=== PATIENT | male | born 1975 ===

== ENCOUNTER 2016-11-27 05:50 | Inpatient (IN) | payer MEDICAID ==
[2016-11-27 05:56] VITALS: BMI 27.4
[2016-11-27] MEDS ORDERED: Morphine 4 mg/ml ISec IVP STA (06:21)
[2016-11-27] MEDS ORDERED: Sodium Chloride 0.9% 1,000 ML IV STA (06:21)
--- NOTE | 2016-11-27 06:24 | ED PDOC ---
Arrival/HPI - General Chief Complaint: Abdominal Pain Time Seen by Provider: 11/27/16 06:17 - History of Present Illness Narrative History of Present Illness (Text): 41 y/o M c PMHx recurrent pancreatitis, pancreas divisum, s/p cholecystectomy p/ w epigastric pain and NBNB vomiting x 4 since last night similar to previous episodes of pancreatitis. Took Ultram 10 hours ago. Denies fever, chills, chest pain, dyspnea, diarrhea, dysuria. Denies alcohol use. Past Medical History - Infectious Disease Hx of Infectious Diseases: None - Tetanus Immunization Tetanus Immunization: Unknown - Reproductive Currently : No - Cardiac Hx Pacemaker: No - Pulmonary Hx Respiratory Disorders: Yes Hx Asthma: Yes - Neurological Hx Paralysis: No - HEENT Hx HEENT Disorder: No - Renal Hx Renal Disorder: No - Endocrine/Metabolic Hx Endocrine Disorders: No - Hematological/Oncological Hx Blood Transfusions: No Hx Blood Transfusion Reaction: No - Integumentary Hx Dermatological Disorder: No - Musculoskeletal/Rheumatological Hx Musculoskeletal Disorders: Yes Hx Spinal Stenosis: Yes - Gastrointestinal Hx Gastrointestinal Disorders: Yes Hx Colitis: Yes Hx Pancreatitis: Yes - Genitourinary/Gynecological Hx Genitourinary Disorders: No - Psychiatric Hx Emotional Abuse: No Hx Physical Abuse: No Hx Substance Use: Yes - Surgical History Hx Cholecystectomy: Yes Other/Comment: "stent in pancreas" - Anesthesia Hx Anesthesia: Yes Hx Anesthesia Reactions: No Hx Malignant Hyperthermia: No - Suicidal Assessment Feels Threatened In Home Enviroment: No Family/Social History Family/Social History: No Known Family HX Smoking Status: Former Smoker Hx Alcohol Use: No Hx Substance Use: Yes Substance used: marijuana Allergies/Home Meds Allergies/Adverse Reactions: Allergies No Known Allergies Allergy (Verified 10/30/16 08:39) Home Medications: Home Meds Medication Instructions Recorded Confirmed oxyCODONE/Acetaminophen [Percocet 1 tab PO PRN PRN 09/21/16 11/27/16 5/325 mg Tab] Albuterol Sulfate [Proventil Hfa] 2 puff INH Q6H PRN 09/29/16 11/27/16 Lipase/Protease/Amylase [Zenpep Dr 1 cap PO TID 09/29/16 11/27/16 25,000 Units Capsule] Review of Systems - Physician Review All systems were reviewed & negative as marked: Yes - Review of Systems Constitutional: absent: Fevers Cardiovascular: absent: Chest Pain Physical Exam Vital Signs Temp Pulse Resp BP Pulse Ox 11/27/16 09:12 64 18 132/76 97 11/27/16 05:59 98.6 F 67 18 140/88 98 Temperature: Afebrile Blood Pressure: Normal Pulse: Regular Respiratory Rate: Normal Appearance: Positive for: Well-Appearing, Non-Toxic Mental Status: Positive for: Alert and Oriented X 3 - Systems Exam Head: Present: Normocephalic Pupils: Present: PERRL Mouth: Present: Moist Mucous Membranes Neck: Present: Normal Range of Motion Respiratory/Chest: Present: Clear to Auscultation Cardiovascular: Present: Regular Rate and Rhythm Abdomen: Present: Tenderness (epigastric). No: Rebound Back: No: CVA Tenderness Upper Extremity: Present: NORMAL PULSES Lower Extremity: No: Tenderness, Swelling Neurological: Present: GCS=15 Skin: Present: Normal Color Psychiatric: Present: Alert Medical Decision Making ED Course and Treatment: Morphine for pain, Zofran for vomiting, hydrate, check labs including amylase, lipase, and LDH. Will sign out to ER day team at change of shift. - Lab Interpretations Lab Results: 11/27/16 06:20 11/27/16 06:20 Lab Results 11/27/16 07:00: Alcohol, Quantitative < 10 11/27/16 06:20: Sodium 139, Potassium 4.3, Chloride 101, Carbon Dioxide 32, Anion Gap 10, BUN 12, Creatinine 1.0, Est GFR ( Amer) > 60, Est GFR (Non- Af Amer) > 60, Random Glucose 86, Calcium 9.3, Total Bilirubin 0.4, AST 25, ALT 35, Alkaline Phosphatase 68, Lactate Dehydrogenase 365, Total Protein 6.9, Albumin 3.8, Globulin 3.2, Albumin/Globulin Ratio 1.2, Amylase 324 H, Lipase 910 H 11/27/16 06:20: WBC 11.1 H D, RBC 4.85, Hgb 15.0, Hct 44.3, MCV 91.3, MCH 30.9, MCHC 33.9, RDW 13.9, Plt Count 325, MPV 9.4, Gran % 66.8, Lymph % (Auto) 20.8 L , [place] % (Auto) 7.3 H, Eos % (Auto) 4.8, Baso % (Auto) 0.3, Gran # 7.41 H, Lymph # 2.3, [place] # 0.8 H, Eos # 0.5, Baso # 0.03 - Medication Orders Current Medication Orders: Enoxaparin Sodium (Lovenox) 30 mg SC DAILY [facility] PRN Reason: Protocol Last Admin: 11/27/16 11:09 Dose: 30 mg Lactated Ringer's (Lactated Ringer's) 1,000 mls @ 200 mls/hr IV .Q5H [facility] Last Admin: 11/28/16 06:02 Dose: 200 mls/hr Morphine Sulfate (Morphine) 4 mg IV Q4H PRN PRN Reason: Pain, moderate (4-7) Last Admin: 11/28/16 05:39 Dose: 4 mg Morphine Sulfate (Morphine) 2 mg IVP Q4H PRN PRN Reason: Pain, Mild (1-3) Ondansetron HCl (Zofran Inj) 4 mg IVP Q6 PRN PRN Reason: Nausea/Vomiting Last Admin: 11/28/16 05:39 Dose: 4 mg Pantoprazole Sodium (Protonix Inj) 40 mg IVP DAILY [facility] Last Admin: 11/27/16 11:09 Dose: 40 mg Discontinued Medications Amylase (Pancrease 30012 U-5000 U-59813 U) 55,000 u PO AC [facility] Last Admin: 11/27/16 17:34 Dose: Amylase (Pancrease 37187 U-5000 U-32407 U) 35,000 u PO ONCE ONE Stop: 11/27/16 13:01 Last Admin: 11/27/16 13:48 Dose: 35,000 u Sodium Chloride (Sodium Chloride 0.9%) 1,000 mls @ 999 mls/hr IV .Q1H1M STA Stop: 11/27/16 07:21 Last Admin: 11/27/16 06:28 Dose: 999 mls/hr Sodium Chloride (Sodium Chloride 0.9%) 1,000 mls @ 100 mls/hr IV .Q10H [facility] Last Admin: 11/27/16 09:19 Dose: 100 mls/hr Morphine Sulfate (Morphine) 4 mg IVP STAT STA Stop: 11/27/16 06:22 Last Admin: 11/27/16 06:28 Dose: 4 mg Morphine Sulfate (Morphine) 6 mg IVP STAT STA Stop: 11/27/16 08:01 Last Admin: 11/27/16 09:00 Dose: 6 mg Ondansetron HCl (Zofran Inj) 8 mg IVP STAT STA Stop: 11/27/16 06:22 Last Admin: 11/27/16 06:28 Dose: 8 mg Pneumococcal Polyvalent Vaccine (Pneumovax 23 Vaccine) 0.5 ml IM .ONCE ONE Stop: 11/27/16 14:23 Disposition/Present on Arrival - Present on Arrival Any Indicators Present on Arrival: No History of DVT/PE: No History of Uncontrolled Diabetes: No Urinary Catheter: No History of Decub. Ulcer: No History Surgical Site Infection Following: None - Disposition Have Diagnosis and Disposition been Completed?: Yes Diagnosis: Pancreatitis Disposition Time: 07:00 Patient Problems: Current Active Problems Problem Status Onset Pancreatitis Acute Condition: FAIR
[2016-11-27 06:25] LABS: ADD MANUAL DIFF? NO
[2016-11-27 06:34] LABS: BASO # 0.03 K/mm3 (0.0-2.0); BASO % 0.3 % (0.0-3.0); EOS # 0.5 (0.0-0.7); EOS % 4.8 % (1.5-5.0); GRAN # 7.41 (1.4-6.5); GRAN % 66.8 % (50.0-68.0); HEMATOCRIT 44.3 % (42.0-52.0); LYMPH # 2.3 (1.2-3.4); LYMPH % 20.8 % (22.0-35.0); MEAN CELL VOLUME 91.3 fL (80.0-105.0); MEAN CORPUSCULAR HEMOGLOBIN 30.9 pg (25.0-35.0); MEAN CORPUSCULAR HGB CONC 33.9 g/dl (31.0-37.0); MEAN PLATELET VOLUME 9.4 fl (7.0-11.0); MONO # 0.8 (0.1-0.6); MONO % 7.3 % (1.0-6.0); PLATELET COUNT 325 10^3/uL (120.0-450.0); RED CELL DISTRIBUTION WIDTH 13.9 % (11.5-14.5); WHITE BLOOD COUNT 11.1 10^3/ul (4.5-11.0)
[2016-11-27 06:38] LABS: ALB/GLOB RATIO 1.2 (1.1-1.8); ALKALINE PHOSPHATASE 68 U/L (38-133); ALT/SGPT 35 U/L (7-56); AMYLASE 324 U/L (35-125); AST/SGOT 25 U/L (15-59); BILIRUBIN,TOTAL 0.4 mg/dL (0.2-1.3); BLOOD UREA NITROGEN 12 mg/dL (7-21); CALCIUM 9.3 mg/dL (8.4-10.5); CARBON DIOXIDE 32 mmol/L (21-33); CHLORIDE 101 mmol/L (98-107); GFR AFRICAN-AMERICAN > 60; GLUCOSE,RANDOM 86 mg/dL (70-110); LIPASE 910 U/L (23-300); POTASSIUM 4.3 mmol/L (3.6-5.0); SODIUM 139 mmol/L (132-148); TOTAL PROTEIN 6.9 g/dL (5.8-8.3)
--- NOTE | 2016-11-27 07:21 | ED PDOC ---
Physical Exam Vital Signs Reviewed: Yes Vital Signs Temp Pulse Resp BP Pulse Ox 11/27/16 05:59 98.6 F 67 18 140/88 98 Temperature: Afebrile Blood Pressure: Normal Pulse: Regular Respiratory Rate: Normal Medical Decision Making ED Course and Treatment: 11/27/16 07:15 Patient signed out to me by Dr. Anton. Pending re-evaluate patients pain and disposition. Patient with a history of recurrent pancreatitis and pancreas divisum presented with epigastric pain similar to previous pancreatitis symptoms. 11/27/16 08:00 On reevaluation, patient states that his pain is not better with medication, states that he does not feel comfortable being discharged home and that he usually gets admitted when pain gets this bad. Hospitalist paged. More pain medications ordered. 11/27/16 08:[address] Mccarthy, accepted admission to his service pt aware of and agrees with plan, all questions answered - Lab Interpretations Lab Results: 11/27/16 06:20 11/27/16 06:20 Lab Results 11/27/16 06:20: Sodium 139, Potassium 4.3, Chloride 101, Carbon Dioxide 32, Anion Gap 10, BUN 12, Creatinine 1.0, Est GFR ( Amer) > 60, Est GFR (Non- Af Amer) > 60, Random Glucose 86, Calcium 9.3, Total Bilirubin 0.4, AST 25, ALT 35, Alkaline Phosphatase 68, Lactate Dehydrogenase 365, Total Protein 6.9, Albumin 3.8, Globulin 3.2, Albumin/Globulin Ratio 1.2, Amylase 324 H, Lipase 910 H 11/27/16 06:20: WBC 11.1 H D, RBC 4.85, Hgb 15.0, Hct 44.3, MCV 91.3, MCH 30.9, MCHC 33.9, RDW 13.9, Plt Count 325, MPV 9.4, Gran % 66.8, Lymph % (Auto) 20.8 L , [place] % (Auto) 7.3 H, Eos % (Auto) 4.8, Baso % (Auto) 0.3, Gran # 7.41 H, Lymph # 2.3, [place] # 0.8 H, Eos # 0.5, Baso # 0.03 - Medication Orders Current Medication Orders: Discontinued Medications Sodium Chloride (Sodium Chloride 0.9%) 1,000 mls @ 999 mls/hr IV .Q1H1M STA Stop: 11/27/16 07:21 Last Admin: 11/27/16 06:28 Dose: 999 mls/hr Morphine Sulfate (Morphine) 4 mg IVP STAT STA Stop: 11/27/16 06:22 Last Admin: 11/27/16 06:28 Dose: 4 mg Morphine Sulfate (Morphine) 6 mg IVP STAT STA Stop: 11/27/16 08:01 Ondansetron HCl (Zofran Inj) 8 mg IVP STAT STA Stop: 11/27/16 06:22 Last Admin: 11/27/16 06:28 Dose: 8 mg Disposition/Present on Arrival - Present on Arrival Any Indicators Present on Arrival: No History of DVT/PE: No History of Uncontrolled Diabetes: No Urinary Catheter: No History of Decub. Ulcer: No History Surgical Site Infection Following: None - Disposition Have Diagnosis and Disposition been Completed?: Yes Diagnosis: Pancreatitis Disposition: HOSPITALIZED Disposition Time: 08:00 Patient Plan: Admission Condition: FAIR Referrals: Indra Hdez, ROBERTA, MICROBIOLOGY ANALYST [Primary Care Provider] - Follow up with primary
[2016-11-27] MEDS ORDERED: Morphine 2 mg/ml ISec IVP PRN ×2 (09:10→12:43)
[2016-11-27] MEDS ORDERED: Sodium Chloride 0.9% 1,000 ML IV SCH (09:15)
--- NOTE | 2016-11-27 09:41 | CP.PCM.HP ---
<Vianca Hamilton - Last Filed: 11/27/16 12:56> History of Present Illness - History of Present Illness History of Present Illness: CC: epigastric pain 41 year old male with past medical history of recurrent pancreatitis, pancreas divisum, asthma and chronic back pain presents with epigastric pain that began last night. Patient states that pain radiates straight back, is associated with 4 episodes of nonbloody nonbilious vomiting, and 3 episodes of loose watery stool. Patient denies having any hematohezia or hematemesis. Patient denies having any fevers, chills, sick contacts or eating anything out of the ordinary. Patient states that pain feels similar to previous episodes of pancreatitis. Patient has complicated history of pancreatitis. Patient had MRCP done on 04/2016 which showed a pancreatic divisum. He then had an ERCP done in 05/2016 with a stent placed. A repeat ERCP was on 09/21/[address] Garcia. At that time, patient had stent replaced and a minor papillotomy done. PMHx; stated above Sx: cholecystectomy NKDA Medications: pancreatic enzymes, ultram, zofran po, pepcid PMD: Dr. Cleve Wang GI: Dr. Garcia Former smoker, quit 2.5 months ago. Occasional merijuana use. Denies ETOH use Present on Admission - Present on Admission Any Indicators Present on Admission: No Review of Systems - Review of Systems All systems: reviewed and no additional remarkable complaints except Past Patient History - Infectious Disease Hx of Infectious Diseases: None - Tetanus Immunizations Tetanus Immunization: Unknown - Past Social History Smoking Status: Former Smoker Chewing Tobacco Use: No Cigar Use: No Alcohol: None Drugs: Cannabis - CARDIAC Hx Pacemaker: No - PULMONARY Hx Respiratory Disorders: Yes Hx Asthma: Yes - NEUROLOGICAL Hx Paralysis: No - HEENT Hx HEENT Problems: No - RENAL Hx Chronic Kidney Disease: No - ENDOCRINE/METABOLIC Hx Endocrine Disorders: No - HEMATOLOGICAL/ONCOLOGICAL Hx Blood Transfusions: No Hx Blood Transfusion Reaction: No - INTEGUMENTARY Hx Dermatological Problems: No - MUSCULOSKELETAL/RHEUMATOLOGICAL Hx Musculoskeletal Disorders: Yes Hx Spinal Stenosis: Yes - GASTROINTESTINAL Hx Gastrointestinal Disorders: Yes Hx Colitis: Yes Hx Pancreatitis: Yes - GENITOURINARY/GYNECOLOGICAL Hx Genitourinary Disorders: No - PSYCHIATRIC Hx Emotional Abuse: No Hx Physical Abuse: No Hx Substance Use: Yes - SURGICAL HISTORY Hx Cholecystectomy: Yes Other/Comment: "stent in pancreas" - ANESTHESIA Hx Anesthesia: Yes Hx Anesthesia Reactions: No Hx Malignant Hyperthermia: No Meds Allergies/Adverse Reactions: Allergies Allergy/AdvReac Type Severity Reaction Status Date / Time No Known Allergies Allergy Verified 10/30/16 08:39 Physical Exam - Constitutional Appears: Non-toxic, No Acute Distress - Head Exam Head Exam: ATRAUMATIC - Eye Exam Eye Exam: EOMI - ENT Exam ENT Exam: Mucous Membranes Moist - Respiratory Exam Respiratory Exam: Clear to Auscultation Bilateral. absent: Rales, Rhonchi, Wheezes - Cardiovascular Exam Cardiovascular Exam: REGULAR RHYTHM, +S1, +S2. absent: Diastolic murmur, Gallop , Rubs, Systolic Murmur - GI/Abdominal Exam GI & Abdominal Exam: Normal Bowel Sounds, Soft, Tenderness (epigastric region ) . absent: Distended, Firm, Guarding, Rigid - Extremities Exam Extremities exam: Negative for: pedal edema, tenderness - Neurological Exam Neurological exam: Alert, Oriented x3 - Psychiatric Exam Psychiatric exam: Normal Affect, Normal Mood - Skin Skin Exam: Dry, Intact, Normal Color, Warm Results - Vital Signs Recent Vital Signs: Last Vital Signs Temp 98.6 F 11/27/16 05:59 Pulse 64 11/27/16 09:12 Resp 18 11/27/16 09:12 BP 132/76 11/27/16 09:12 Pulse Ox 97 11/27/16 09:12 - Labs Result Diagrams: 11/27/16 06:20 11/27/16 06:20 Assessment & Plan - Assessment and Plan (Free Text) Assessment: 41 year old male with past medical history of recurrent diverticulitis, pancreatic divisum, s/p cholcystectomy, asthma and chronic back pain presents for pancreatitis most likely from recent ERCP procedure. Patient does not have history of ETOH abuse or history of gallstones. Lipid panel checked on 04/2016 showed normal levels. On blood work, lipase is 910 and amylase is 324. WBC count is 11.1, glucose was 86, AST is 25 and LDH is 365. Therefore, Ransons criteria is 2 which is <5% mortality. Acute pancreatits - NPO - LR 200cc - Pain management: morphine2 q4 mild pain and 4q4 moderate pain - Zofran prn for nausea - Will consult GI - Will check UDS and ETOH level - Continue home pancreatic enzymes. [place] [id number]. Patient will bring this medication from home and will continue it while in hospital. Mean while, for lunch patient will get one time dose of pancreatic enzyme here. Hx of asthma - Stable. Will give breathing treatments if needed Prophylaxis Protonix IV Lovenox 30 sc Case discussed with attending, Dr. Vila - Date & Time Date: 11/27/16 Time: 09:52 <Madhu Vila - Last Filed: 11/28/16 14:02> Results - Vital Signs Recent Vital Signs: Last Vital Signs Temp 97.9 F 11/28/16 07:30 Pulse 57 L 11/28/16 07:30 Resp 16 11/28/16 07:30 BP 115/68 11/28/16 07:30 Pulse Ox 99 11/28/16 07:30 - Labs Result Diagrams: 11/28/16 06:54 11/28/16 06:54 Labs: Laboratory Results - last 24 hr 11/27/16 11/28/16 11/28/16 21:05 06:54 06:54 WBC 9.0 RBC 4.50 Hgb 13.5 L Hct 40.9 L MCV 90.9 MCH 30.0 MCHC 33.0 RDW 14.0 Plt Count 268 MPV 9.2 Gran % 56.0 Lymph % (Auto) 28.1 [place] % (Auto) 9.1 H Eos % (Auto) 6.6 H Baso % (Auto) 0.2 Gran # 5.05 Lymph # 2.5 [place] # 0.8 H Eos # 0.6 Baso # 0.02 PT 11.4 INR 1.06 APTT 31.2 H Sodium Potassium Chloride Carbon Dioxide Anion Gap BUN Creatinine Est GFR ( Amer) Est GFR (Non-Af Amer) Random Glucose Calcium Total Bilirubin AST ALT Alkaline Phosphatase Total Protein Albumin Globulin Albumin/Globulin Ratio Urine Opiates Screen Positive H Urine Methadone Screen Negative Ur Barbiturates Screen Negative Ur Phencyclidine Scrn Negative Ur Amphetamines Screen Negative U Benzodiazepines Scrn Negative U Oth Cocaine Metabols Positive H U Cannabinoids Screen Positive H 11/28/16 06:54 WBC RBC Hgb Hct MCV MCH MCHC RDW Plt Count MPV Gran % Lymph % (Auto) [place] % (Auto) Eos % (Auto) Baso % (Auto) Gran # Lymph # [place] # Eos # Baso # PT INR APTT Sodium 137 Potassium 3.8 Chloride 102 Carbon Dioxide 30 Anion Gap 9 L BUN 6 L Creatinine 0.9 Est GFR ( Amer) > 60 Est GFR (Non-Af Amer) > 60 Random Glucose 77 Calcium 8.8 Total Bilirubin 0.9 AST 32 ALT 53 Alkaline Phosphatase 75 Total Protein 6.2 Albumin 3.1 Globulin 3.1 Albumin/Globulin Ratio 1.0 L Urine Opiates Screen Urine Methadone Screen Ur Barbiturates Screen Ur Phencyclidine Scrn Ur Amphetamines Screen U Benzodiazepines Scrn U Oth Cocaine Metabols U Cannabinoids Screen Attending/Attestation - Attestation I have personally seen and examined this patient.: Yes I have fully participated in the care of the patient.: Yes I have reviewed all pertinent clinical information: Yes Notes (Text): I have seen and examined patient with the resident. This is 41 year old male with history of chronic pancreatitis secondary to pancreatic divism s/p minor papillotomy/sphincterotomy/stent placement 05/2016, stent removal 06/2016, and Polysubstance abuse (opioids, cocaine & marijuana) who got admitted for evaluation of abdominal pain, nausea and vomiting secondary to chronic pancreatitis. Discussed with GI team. Will make patient npo and will start IVF, antiemetics and analgesics. Upon discharge patient will follow up with Dr Hdez and Dr Garcia. Dr Madhu Vila
[2016-11-27] MEDS: Enoxaparin 30 mg Syringe SC SCH (11:09)
[2016-11-27] MEDS ORDERED: Amylase/Lipase/Protease 5,000 U ECC PO SCH (11:30)
--- NOTE | 2016-11-27 11:54 | CP.PCM.CON ---
History of Present Illness - History of Present Illness History of Present Illness: Asked by hospitalist team for a GI consultation on this patient. 41 year old male with history of chronic pancreatitis secondary to pancreatic divisum, polysubstance abuse, who presents to hospital with complaint of sudden onset abdominal pain and vomiting which began yesterday at 8 pm. He ate brown rice and salmon for dinner and subsequently developed sharp 8/10 intensity epigastric non-radiating abdominal pain along with 3 episodes of non-bloody emesis. Prior to this he was in usual state of health. He recently underwent EGD and PD stent removal last month with Dr. Garcia. He denies fever/chills, weight loss, sick contacts, or change in bowel habits. Since arrival to hospital, his pain has slightly improved and there has not been any recurrent vomiting. Review of vitals from today are normal. Social history: no ETOH use, occasional marijuana use, currently on nicotine patch Family history: pancreatic cancer (grandfather), colon cancer (uncle) Review of Systems - Review of Systems Review of Systems: - All other comprehensive 12 point review of systems performed, negative - Cardiovascular Cardiovascular: absent: Acrocyanosis, Chest Pain, Chest Pain at Rest, Chest Pain with Activity, Claudication, Diaphoresis, Dyspnea, Dyspnea on Exertion, Edema, Irregular Heart Rhythm, Pain Radiating to Arm/Neck/Jaw, Leg Edema, Leg Ulcers, Lightheadedness, Orthopnea, Palpitations, Paroxysmal Nocturnal Dyspnea, Pedal Edema, Radiating Pain, Rapid Heart Rate, Slow Heart Rate, Syncope, Other - Respiratory Respiratory: absent: Cough, Dyspnea, Hemoptysis, Dyspnea on Exertion, Wheezing, Snoring, Stridor, Pain on Inspiration, Chest Congestion, Excessive Mucous Production, Change in Mucous Color, Pain with Coughing, Other - Gastrointestinal Gastrointestinal: Abdominal Pain, Vomiting - Musculoskeletal Musculoskeletal: absent: Abnormal Gait, Arthralgias, Atrophy, Back Pain, Deformity, Joint Swelling, Limited Range of Motion, Loss of Height, Muscle Cramps, Muscle Weakness, Myalgias, Neck Pain, Numbness, Radiating Pain into Limb , Stiffness, Tingling, Other - Neurological Neurological: absent: Abnormal Gait, Abnormal Hearing, Abnormal Movements, Abnormal Speech, Behavioral Changes, Burning Sensations, Confusion, Convulsions , Disequilibrium, Dizziness, Numbness, Focal Weakness, Frequent Falls, Headaches , Lack of Coordination, Loss of Vision, Memory Loss, Paresthesias, Radicular Pain, Restless Legs, Sensory Deficit, Syncope, Tingling, Tremor, Vertigo, Weakness, Other Visual Disturbances, Other Past Patient History - Infectious Disease Hx of Infectious Diseases: None - Tetanus Immunizations Tetanus Immunization: Unknown - Past Medical History & Family History Past Medical History?: Yes - Past Social History Smoking Status: Former Smoker Chewing Tobacco Use: No Cigar Use: No Alcohol: None Drugs: Cannabis - CARDIAC Hx Pacemaker: No - PULMONARY Hx Respiratory Disorders: Yes Hx Asthma: Yes - NEUROLOGICAL Hx Paralysis: No - HEENT Hx HEENT Problems: No - RENAL Hx Chronic Kidney Disease: No - ENDOCRINE/METABOLIC Hx Endocrine Disorders: No - HEMATOLOGICAL/ONCOLOGICAL Hx Blood Transfusions: No Hx Blood Transfusion Reaction: No - INTEGUMENTARY Hx Dermatological Problems: No - MUSCULOSKELETAL/RHEUMATOLOGICAL Hx Musculoskeletal Disorders: Yes Hx Spinal Stenosis: Yes - GASTROINTESTINAL Hx Gastrointestinal Disorders: Yes Hx Colitis: Yes Hx Pancreatitis: Yes - GENITOURINARY/GYNECOLOGICAL Hx Genitourinary Disorders: No - PSYCHIATRIC Hx Emotional Abuse: No Hx Physical Abuse: No Hx Substance Use: Yes - SURGICAL HISTORY Hx Cholecystectomy: Yes Other/Comment: "stent in pancreas" - ANESTHESIA Hx Anesthesia: Yes Hx Anesthesia Reactions: No Hx Malignant Hyperthermia: No Meds Allergies/Adverse Reactions: Allergies Allergy/AdvReac Type Severity Reaction Status Date / Time No Known Allergies Allergy Verified 10/30/16 08:39 - Medications Medications: Current Medications Amylase (Pancrease 20607 U-5000 U-15741 U) 55,000 u PO AC COUNTS INCLUDE 234 BEDS AT [facility] Enoxaparin Sodium (Lovenox) 30 mg SC DAILY COUNTS INCLUDE 234 BEDS AT THE [facility] PRN Reason: Protocol Last Admin: 11/27/16 11:09 Dose: 30 mg Sodium Chloride (Sodium Chloride 0.9%) 1,000 mls @ 100 mls/hr IV .Q10H COUNTS INCLUDE 234 BEDS AT [facility] Last Admin: 11/27/16 09:19 Dose: 100 mls/hr Morphine Sulfate (Morphine) 4 mg IVP Q4 PRN PRN Reason: Pain, Mild (1-3) Ondansetron HCl (Zofran Inj) 4 mg IVP Q6 PRN PRN Reason: Nausea/Vomiting Pantoprazole Sodium (Protonix Inj) 40 mg IVP DAILY COUNTS INCLUDE 234 BEDS AT [facility] Last Admin: 11/27/16 11:09 Dose: 40 mg Physical Exam - Constitutional Appears: Non-toxic, No Acute Distress - Head Exam Head Exam: NORMAL INSPECTION - Eye Exam Eye Exam: EOMI, Normal appearance, PERRL - ENT Exam ENT Exam: Mucous Membranes Moist Additional comments: poor dentition, several missing/decayed teeth - Respiratory Exam Respiratory Exam: Clear to Auscultation Bilateral - Cardiovascular Exam Cardiovascular Exam: REGULAR RHYTHM, +S1, +S2 - GI/Abdominal Exam GI & Abdominal Exam: Normal Bowel Sounds, Soft, Tenderness Additional comments: mild epigastric tenderness to deep palpation, no rebound/guarding no palpable hepato/splenomegaly - Extremities Exam Extremities exam: Positive for: normal inspection - Neurological Exam Neurological exam: Alert, CN II-XII Intact, Normal Gait, Oriented x3, Reflexes Normal - Psychiatric Exam Psychiatric exam: Normal Affect, Normal Mood - Skin Skin Exam: Dry, Intact, Normal Color, Warm Results - Vital Signs Recent Vital Signs: Last Vital Signs Temp 98.6 F 11/27/16 05:59 Pulse 64 11/27/16 09:12 Resp 18 11/27/16 09:12 BP 132/76 11/27/16 09:12 Pulse Ox 97 11/27/16 09:12 - Labs Result Diagrams: 11/27/16 06:20 11/27/16 06:20 Assessment & Plan - Assessment and Plan (Free Text) Assessment: Chronic pancreatitis Pancreatic divisum, recent EGD with removal of PD stent last month. Prior history of ERCP with papillotomy. Polysubstance abuse Abdominal pain, vomiting Plan: - Clear liquid diet, advance slowly as tolerated - Obtain serum tox screen - Continue with IVF hydration and supportive care - Anti-emetic therapy PRN - Pain control - Continue with pancreatic enzyme replacement therapy - Will continue to monitor patient clinical course, anticipate hospital discharge within next 24-48 hours. Given recurrent episodes of abdominal pain and pancreatitis, will need to arrange for custodial strategy including potential surgical intervention. Will discuss with Dr. Garcia.
[2016-11-27] MEDS ORDERED: Morphine 4 mg/ml ISec IVP PRN (12:42)
[2016-11-27] MEDS ORDERED: Amylase/Lipase/Protease 5,000 U ECC PO ONE (13:00)
[2016-11-27] MEDS: Lactated Ringer's 1,000 ML IV SCH ×2 (13:47→17:35)
[2016-11-27] MEDS: Morphine 4 mg/ml ISec IV PRN ×2 (13:48→20:25)
[2016-11-27] MEDS ORDERED: Pneumococcal 23-Valent Vaccine IM ONE (14:22)
[2016-11-28] MEDS: Lactated Ringer's 1,000 ML IV SCH ×4 (00:30→18:56)
[2016-11-28] MEDS: Morphine 4 mg/ml ISec IV PRN (05:39)
[2016-11-28 06:56] LABS: ADD MANUAL DIFF? NO
[2016-11-28 07:09] LABS: BASO # 0.02 K/mm3 (0.0-2.0); BASO % 0.2 % (0.0-3.0); EOS # 0.6 (0.0-0.7); EOS % 6.6 % (1.5-5.0); GRAN # 5.05 (1.4-6.5); HEMATOCRIT 40.9 % (42.0-52.0); LYMPH # 2.5 (1.2-3.4); LYMPH % 28.1 % (22.0-35.0); MEAN CELL VOLUME 90.9 fL (80.0-105.0); MEAN PLATELET VOLUME 9.2 fl (7.0-11.0); MONO # 0.8 (0.1-0.6); MONO % 9.1 % (1.0-6.0); PLATELET COUNT 268 10^3/uL (120.0-450.0)
[2016-11-28 07:19] LABS: ALKALINE PHOSPHATASE 75 U/L (38-133); ALT/SGPT 53 U/L (7-56); AST/SGOT 32 U/L (15-59); BILIRUBIN,TOTAL 0.9 mg/dL (0.2-1.3); BLOOD UREA NITROGEN 6 mg/dL (7-21); CALCIUM 8.8 mg/dL (8.4-10.5); CARBON DIOXIDE 30 mmol/L (21-33); CHLORIDE 102 mmol/L (95-110); GFR AFRICAN-AMERICAN > 60; GLUCOSE,RANDOM 77 mg/dL (70-110); POTASSIUM 3.8 mmol/L (3.6-5.0); SODIUM 137 mmol/L (132-148); TOTAL PROTEIN 6.2 g/dL (5.8-8.3)
[2016-11-28 07:31] LABS: INR 1.06 (0.93-1.08); PARTIAL THROMBOPLASTIN TIME 31.2 Seconds (23.7-30.8)
[2016-11-28] MEDS: Morphine 2 mg/ml ISec IVP PRN ×3 (09:05→21:58)
[2016-11-28] MEDS: Enoxaparin 30 mg Syringe SC SCH (09:06)
--- NOTE | 2016-11-28 11:17 | CP.PCM.PN ---
Subjective - Date & Time of Evaluation Date of Evaluation: 11/28/16 Time of Evaluation: 11:14 - Subjective Subjective: RFV: Pancreatitis S: No acute events. Still has the same pain, which is moderately severe. Objective - Vital Signs/Intake and Output Vital Signs (last 24 hours): Temp Pulse Resp BP Pulse Ox 97.9 F 57 L 16 115/68 99 11/28/16 07:30 11/28/16 07:30 11/28/16 07:30 11/28/16 07:30 11/28/16 07:30 Intake and Output: 11/28/16 11/28/16 06:59 18:59 Intake Total 4000 Output Total 1050 Balance 2950 - Medications Medications: Current Medications Enoxaparin Sodium (Lovenox) 30 mg SC DAILY [facility] PRN Reason: Protocol Last Admin: 11/28/16 09:06 Dose: 30 mg Lactated Ringer's (Lactated Ringer's) 1,000 mls @ 200 mls/hr IV .Q5H [facility] Last Admin: 11/28/16 09:06 Dose: 200 mls/hr Morphine Sulfate (Morphine) 4 mg IV Q4H PRN PRN Reason: Pain, moderate (4-7) Last Admin: 11/28/16 05:39 Dose: 4 mg Morphine Sulfate (Morphine) 2 mg IVP Q4H PRN PRN Reason: Pain, Mild (1-3) Last Admin: 11/28/16 09:05 Dose: 2 mg Ondansetron HCl (Zofran Inj) 4 mg IVP Q6 PRN PRN Reason: Nausea/Vomiting Last Admin: 11/28/16 05:39 Dose: 4 mg Pantoprazole Sodium (Protonix Inj) 40 mg IVP DAILY [facility] Last Admin: 11/28/16 09:06 Dose: 40 mg - Labs Labs: 11/28/16 06:54 11/28/16 06:54 PT 11.4 Seconds (9.9-11.8) 11/28/16 06:54 INR 1.06 (0.93-1.08) 11/28/16 06:54 APTT 31.2 Seconds (23.7-30.8) H 11/28/16 06:54 - Constitutional Appears: No Acute Distress, Chronically Ill - Head Exam Head Exam: ATRAUMATIC, NORMOCEPHALIC - Eye Exam Eye Exam: absent: Scleral icterus - ENT Exam ENT Exam: Mucous Membranes Moist - Respiratory Exam Respiratory Exam: NORMAL BREATHING PATTERN. absent: Wheezes, Respiratory Distress - Cardiovascular Exam Cardiovascular Exam: +S1, +S2 - GI/Abdominal Exam GI & Abdominal Exam: Soft. absent: Distended, Tenderness - Neurological Exam Neurological Exam: Alert, Oriented x3 - Skin Skin Exam: Dry, Warm Assessment and Plan - Assessment and Plan (Free Text) Assessment: 41 year old male with Chronic pancreatitis and pancreas divisum. 1. Chronic pancreatitis 2. Pancreas divisum Plan: - advance diet as tolerated to low fat - continue pancreatic enzymes with meals and PPI daily - Continue with IVF hydration and supportive care - Anti-emetic therapy PRN - Pain control - s/p two ERCPs with minor sphincterotomy in the past, without dramatic change in clinical course, not sure utility of repeat procedures, surgical interventions would be high risk/limited
--- NOTE | 2016-11-28 21:53 | CP.PCM.PN ---
<Corona Keys - Last Filed: 11/28/16 21:46> Subjective - Date & Time of Evaluation Date of Evaluation: 11/28/16 Time of Evaluation: 09:30 - Subjective Subjective: 41 year old male with past medical history of recurrent pancreatitis, pancreas divisum, asthma and chronic back pain presents with epigastric pain that began last night. Pt. got some sleep overnight, but still had abdominal pain. He also did not get any liquids to drink last night and was hungry. He denied chest pain or difficulty breathing. Objective - Vital Signs/Intake and Output Vital Signs (last 24 hours): Temp Pulse Resp BP Pulse Ox 97.6 F 58 L 16 119/83 96 11/28/16 16:00 11/28/16 16:00 11/28/16 16:00 11/28/16 16:00 11/28/16 16:00 Intake and Output: 11/28/16 11/29/16 18:59 06:59 Intake Total 2400 450 Output Total 1650 400 Balance 750 50 - Medications Medications: Current Medications Enoxaparin Sodium (Lovenox) 30 mg SC DAILY [facility] PRN Reason: Protocol Last Admin: 11/28/16 09:06 Dose: 30 mg Lactated Ringer's (Lactated Ringer's) 1,000 mls @ 150 mls/hr IV .Q6H40M [facility] Last Admin: 11/28/16 18:56 Dose: 150 mls/hr Morphine Sulfate (Morphine) 2 mg IVP Q4H PRN PRN Reason: Pain, Mild (1-3) Last Admin: 11/28/16 15:01 Dose: 2 mg Ondansetron HCl (Zofran Inj) 4 mg IVP Q6 PRN PRN Reason: Nausea/Vomiting Last Admin: 11/28/16 05:39 Dose: 4 mg Pantoprazole Sodium (Protonix Inj) 40 mg IVP DAILY [facility] Last Admin: 11/28/16 09:06 Dose: 40 mg - Labs Labs: 11/28/16 06:54 11/28/16 06:54 PT 11.4 Seconds (9.9-11.8) 11/28/16 06:54 INR 1.06 (0.93-1.08) 11/28/16 06:54 APTT 31.2 Seconds (23.7-30.8) H 11/28/16 06:54 - Constitutional Appears: No Acute Distress, Chronically Ill - Head Exam Head Exam: ATRAUMATIC, NORMOCEPHALIC - Eye Exam Eye Exam: absent: Scleral icterus - ENT Exam ENT Exam: Mucous Membranes Moist - Respiratory Exam Respiratory Exam: NORMAL BREATHING PATTERN. absent: Wheezes, Respiratory Distress - Cardiovascular Exam Cardiovascular Exam: +S1, +S2 - GI/Abdominal Exam GI & Abdominal Exam: Soft. absent: Distended, Tenderness - Neurological Exam Neurological Exam: Alert, Oriented x3 - Skin Skin Exam: Dry, Warm Assessment and Plan - Assessment and Plan (Free Text) Assessment: 41 year old male with Chronic pancreatitis and pancreas divisum. 1. Chronic pancreatitis 2. Pancreas divisum Plan: Chronic Pancreatitis -GI consult - Dr. Garcia - help appreciated - advance diet as tolerated to low fat -currently Clear Liquid Diet - continue pancreatic enzymes with meals and PPI daily - Continue with IVF hydration and supportive care -Protonix 40mg IV daily -LR 150ml/hr - Anti-emetic therapy -Zofran 4mg q4 prn - Pain control - Morphine 2mg q4 prn - s/p two ERCPs with minor sphincterotomy in the past, without dramatic change in clinical course, not sure utility of repeat procedures, surgical interventions would be high risk/limited PPX -SCDs -DVT - Lovenox 30mg SC <Madhu Vila - Last Filed: 11/29/16 16:02> Objective - Vital Signs/Intake and Output Vital Signs (last 24 hours): Temp Pulse Resp BP Pulse Ox 97.8 F 58 L 16 123/83 98 11/29/16 07:57 11/29/16 07:57 11/29/16 07:57 11/29/16 07:57 11/29/16 07:57 Intake and Output: 11/29/16 11/29/16 06:59 18:59 Intake Total 810 480 Output Total 1200 1825 Balance -390 -1345 - Medications Medications: Current Medications Enoxaparin Sodium (Lovenox) 30 mg SC DAILY [facility] PRN Reason: Protocol Last Admin: 11/29/16 09:45 Dose: 30 mg Lactated Ringer's (Lactated Ringer's) 1,000 mls @ 150 mls/hr IV .Q6H40M [facility] Last Admin: 11/29/16 08:47 Dose: 150 mls/hr Morphine Sulfate (Morphine) 2 mg IVP Q4H PRN PRN Reason: Pain, Mild (1-3) Last Admin: 11/29/16 14:21 Dose: 2 mg Ondansetron HCl (Zofran Inj) 4 mg IVP Q6 PRN PRN Reason: Nausea/Vomiting Last Admin: 11/29/16 10:45 Dose: 4 mg Pantoprazole Sodium (Protonix Inj) 40 mg IVP DAILY [facility] Last Admin: 11/29/16 09:46 Dose: 40 mg - Labs Labs: 11/29/16 07:00 11/29/16 07:00 PT 11.4 Seconds (9.9-11.8) 11/28/16 06:54 INR 1.06 (0.93-1.08) 11/28/16 06:54 APTT 31.2 Seconds (23.7-30.8) H 11/28/16 06:54 Attending/Attestation - Attestation I have personally seen and examined this patient.: Yes I have fully participated in the care of the patient.: Yes I have reviewed all pertinent clinical information, including history, physical exam and plan: Yes Notes (Text): I have seen and examined patient with the resident. This is 41 year old male with history of chronic pancreatitis secondary to pancreatic divism s/p minor papillotomy/sphincterotomy/stent placement 05/2016, stent removal 06/2016, and Polysubstance abuse (opioids, cocaine & marijuana) who got admitted for evaluation of abdominal pain, nausea and vomiting secondary to chronic pancreatitis. Last night after taking clear liquids patient started vomiting. He was npo since then. This morning he looked very comfortable. Low fat diet started. Patient had vomiting right after having lunch and started to complain of abdominal pain. Advised patient to try to eat dinner. If he is able to tolerate his meal, he can go home. Counselling provided regarding drug abuse. Upon discharge patient will follow up with Dr Hdez and Dr aGrcia. Dr Madhu Vila
[2016-11-29] MEDS: Lactated Ringer's 1,000 ML IV SCH ×3 (02:50→15:58)
[2016-11-29] MEDS: Morphine 2 mg/ml ISec IVP PRN ×5 (04:29→22:02)
[2016-11-29 07:34] LABS: ADD MANUAL DIFF? NO
[2016-11-29 07:49] LABS: BASO # 0.03 K/mm3 (0.0-2.0); BASO % 0.4 % (0.0-3.0); EOS # 0.6 (0.0-0.7); GRAN # 2.78 (1.4-6.5); GRAN % 40.3 % (50.0-68.0); HEMATOCRIT 41.9 % (42.0-52.0); LYMPH % 43.3 % (22.0-35.0); MEAN CELL VOLUME 90.5 fL (80.0-105.0); MEAN CORPUSCULAR HEMOGLOBIN 30.5 pg (25.0-35.0); MEAN CORPUSCULAR HGB CONC 33.7 g/dl (31.0-37.0); MEAN PLATELET VOLUME 9.2 fl (7.0-11.0); MONO # 0.6 (0.1-0.6); PLATELET COUNT 292 10^3/uL (120.0-450.0); RED CELL DISTRIBUTION WIDTH 13.4 % (11.5-14.5); WHITE BLOOD COUNT 6.9 10^3/ul (4.5-11.0)
[2016-11-29 08:05] LABS: ALKALINE PHOSPHATASE 76 U/L (38-133); ALT/SGPT 50 U/L (7-56); AST/SGOT 31 U/L (15-59); BILIRUBIN,TOTAL 1.1 mg/dL (0.2-1.3); BLOOD UREA NITROGEN 6 mg/dL (7-21); CALCIUM 9.3 mg/dL (8.4-10.5); CARBON DIOXIDE 32 mmol/L (21-33); CHLORIDE 101 mmol/L (98-107); GFR AFRICAN-AMERICAN > 60; GLUCOSE,RANDOM 80 mg/dL (70-110); POTASSIUM 3.7 mmol/L (3.6-5.0); SODIUM 141 mmol/L (132-148); TOTAL PROTEIN 6.8 g/dL (5.8-8.3)
[2016-11-29] MEDS: Enoxaparin 30 mg Syringe SC SCH (09:45)
--- NOTE | 2016-11-29 10:51 | CP.PCM.PN ---
Subjective - Date & Time of Evaluation Date of Evaluation: 11/29/16 Time of Evaluation: 10:48 - Subjective Subjective: RFV: Pancreatitis S: UDS positive for cocaine. Patient denies willingly taking drugs. Pain is improving. Tolerating liquids. Objective - Vital Signs/Intake and Output Vital Signs (last 24 hours): Temp Pulse Resp BP Pulse Ox 97.8 F 58 L 16 123/83 98 11/29/16 07:57 11/29/16 07:57 11/29/16 07:57 11/29/16 07:57 11/29/16 07:57 Intake and Output: 11/29/16 11/29/16 06:59 18:59 Intake Total 810 Output Total 1200 Balance -390 - Medications Medications: Current Medications Enoxaparin Sodium (Lovenox) 30 mg SC DAILY [facility] PRN Reason: Protocol Last Admin: 11/29/16 09:45 Dose: 30 mg Lactated Ringer's (Lactated Ringer's) 1,000 mls @ 150 mls/hr IV .Q6H40M [facility] Last Admin: 11/29/16 08:47 Dose: 150 mls/hr Morphine Sulfate (Morphine) 2 mg IVP Q4H PRN PRN Reason: Pain, Mild (1-3) Last Admin: 11/29/16 09:45 Dose: 2 mg Ondansetron HCl (Zofran Inj) 4 mg IVP Q6 PRN PRN Reason: Nausea/Vomiting Last Admin: 11/29/16 10:45 Dose: 4 mg Pantoprazole Sodium (Protonix Inj) 40 mg IVP DAILY [facility] Last Admin: 11/29/16 09:46 Dose: 40 mg - Labs Labs: 11/29/16 07:00 11/29/16 07:00 PT 11.4 Seconds (9.9-11.8) 11/28/16 06:54 INR 1.06 (0.93-1.08) 11/28/16 06:54 APTT 31.2 Seconds (23.7-30.8) H 11/28/16 06:54 - Constitutional Appears: No Acute Distress - Head Exam Head Exam: ATRAUMATIC, NORMOCEPHALIC - Eye Exam Eye Exam: Normal appearance - ENT Exam ENT Exam: Mucous Membranes Moist - Respiratory Exam Respiratory Exam: Clear to Ausculation Bilateral, NORMAL BREATHING PATTERN. absent: Respiratory Distress - Cardiovascular Exam Cardiovascular Exam: +S1, +S2 - GI/Abdominal Exam GI & Abdominal Exam: Soft. absent: Distended, Tenderness - Neurological Exam Neurological Exam: Alert, Oriented x3 Assessment and Plan - Assessment and Plan (Free Text) Assessment: 41 year old male with Chronic pancreatitis and pancreas divisum. 1. Chronic pancreatitis 2. Pancreas divisum Plan: - low fat diet - continue pancreatic enzymes with meals and PPI daily - Continue with IVF hydration and supportive care - Anti-emetic therapy PRN - Pain control - s/p two ERCPs with minor sphincterotomy in the past, without dramatic change in clinical course, not sure utility of repeat procedures, surgical interventions would be high risk/limited - patient continues to have positive UDS for cocaine and other substances despite him denying their use - substance abuse appears to also be playing a role in his overall clinical problem - will sign off
--- NOTE | 2016-11-29 17:37 | CP.PCM.PN ---
<KeysCorona - Last Filed: 11/29/16 17:34> Subjective - Date & Time of Evaluation Date of Evaluation: 11/29/16 Time of Evaluation: 07:10 - Subjective Subjective: 41 year old male with past medical history of recurrent pancreatitis, pancreas divisum, asthma and chronic back pain presents with epigastric pain that began last night. Pt. got some sleep overnight, but still had abdominal pain. He attempted to eat a low fat meal, but had abdominal pain, nausea and slight vomiting shortly after. He also complained of headache and sore throat. He denied fevers, chills, chest pain or difficulty breathing. Objective - Vital Signs/Intake and Output Vital Signs (last 24 hours): Temp Pulse Resp BP Pulse Ox 98.2 F 50 L 16 115/80 97 11/29/16 16:00 11/29/16 16:00 11/29/16 16:00 11/29/16 16:00 11/29/16 16:00 Intake and Output: 11/29/16 11/29/16 06:59 18:59 Intake Total 810 480 Output Total 1200 1825 Balance -390 -1345 - Medications Medications: Current Medications Enoxaparin Sodium (Lovenox) 30 mg SC DAILY [facility] PRN Reason: Protocol Last Admin: 11/29/16 09:45 Dose: 30 mg Lactated Ringer's (Lactated Ringer's) 1,000 mls @ 150 mls/hr IV .Q6H40M [facility] Last Admin: 11/29/16 15:58 Dose: 150 mls/hr Morphine Sulfate (Morphine) 2 mg IVP Q4H PRN PRN Reason: Pain, Mild (1-3) Last Admin: 11/29/16 14:21 Dose: 2 mg Ondansetron HCl (Zofran Inj) 4 mg IVP Q6 PRN PRN Reason: Nausea/Vomiting Last Admin: 11/29/16 10:45 Dose: 4 mg Pantoprazole Sodium (Protonix Inj) 40 mg IVP DAILY [facility] Last Admin: 11/29/16 09:46 Dose: 40 mg - Labs Labs: 11/29/16 07:00 11/29/16 07:00 PT 11.4 Seconds (9.9-11.8) 11/28/16 06:54 INR 1.06 (0.93-1.08) 11/28/16 06:54 APTT 31.2 Seconds (23.7-30.8) H 11/28/16 06:54 - Constitutional Appears: Non-toxic, No Acute Distress - Head Exam Head Exam: ATRAUMATIC, NORMOCEPHALIC - Eye Exam Eye Exam: EOMI - ENT Exam ENT Exam: Mucous Membranes Moist - Respiratory Exam Respiratory Exam: Clear to Ausculation Bilateral, NORMAL BREATHING PATTERN. absent: Rhonchi, Wheezes - Cardiovascular Exam Cardiovascular Exam: REGULAR RHYTHM, +S1, +S2. absent: JVD - GI/Abdominal Exam GI & Abdominal Exam: Soft, Tenderness, Normal Bowel Sounds. absent: Firm, Guarding - Extremities Exam Extremities Exam: absent: Joint Swelling, Pedal Edema, Tenderness - Neurological Exam Neurological Exam: Alert, Awake, Oriented x3 - Psychiatric Exam Psychiatric exam: Normal Affect, Normal Mood - Skin Skin Exam: Dry, Intact, Normal Color, Warm Assessment and Plan - Assessment and Plan (Free Text) Assessment: 41 year old male with Chronic pancreatitis and pancreas divisum. 1. Chronic pancreatitis 2. Pancreas divisum Plan: Chronic Pancreatitis -GI consult - Dr. Garcia - help appreciated - advance diet as tolerated to low fat -currently low fat heart healthy diet - continue pancreatic enzymes with meals and PPI daily - Continue with IVF hydration and supportive care -Protonix 40mg IV daily -LR 150ml/hr - Anti-emetic therapy -Zofran 4mg q4 prn - Pain control - Morphine 2mg q4 prn - s/p two ERCPs with minor sphincterotomy in the past, without dramatic change in clinical course, not sure utility of repeat procedures, surgical interventions would be high risk/limited - Pt. was unable to have his Pancreatic enzymes brought from home. PPX -SCDs -DVT - Lovenox 30mg SC <Madhu Vila B - Last Filed: 11/29/16 19:00> Objective - Vital Signs/Intake and Output Vital Signs (last 24 hours): Temp Pulse Resp BP Pulse Ox 98.2 F 50 L 16 115/80 97 11/29/16 16:00 11/29/16 16:00 11/29/16 16:00 11/29/16 16:00 11/29/16 16:00 Intake and Output: 11/29/16 11/29/16 06:59 18:59 Intake Total 810 480 Output Total 1200 6728 Balance -390 -1345 - Medications Medications: Current Medications Enoxaparin Sodium (Lovenox) 30 mg SC DAILY [facility] PRN Reason: Protocol Last Admin: 11/29/16 09:45 Dose: 30 mg Lactated Ringer's (Lactated Ringer's) 1,000 mls @ 150 mls/hr IV .Q6H40M [facility] Last Admin: 11/29/16 15:58 Dose: 150 mls/hr Morphine Sulfate (Morphine) 2 mg IVP Q4H PRN PRN Reason: Pain, Mild (1-3) Last Admin: 11/29/16 18:38 Dose: 2 mg Ondansetron HCl (Zofran Inj) 4 mg IVP Q6 PRN PRN Reason: Nausea/Vomiting Last Admin: 11/29/16 10:45 Dose: 4 mg Pantoprazole Sodium (Protonix Inj) 40 mg IVP DAILY [facility] Last Admin: 11/29/16 09:46 Dose: 40 mg - Labs Labs: 11/29/16 07:00 11/29/16 07:00 PT 11.4 Seconds (9.9-11.8) 11/28/16 06:54 INR 1.06 (0.93-1.08) 11/28/16 06:54 APTT 31.2 Seconds (23.7-30.8) H 11/28/16 06:54 Attending/Attestation - Attestation I have personally seen and examined this patient.: Yes I have fully participated in the care of the patient.: Yes I have reviewed all pertinent clinical information, including history, physical exam and plan: Yes Notes (Text): I have seen and examined patient with the resident. This is 41 year old male with history of chronic pancreatitis secondary to pancreatic divism s/p minor papillotomy/sphincterotomy/stent placement 05/2016, stent removal 06/2016, and Polysubstance abuse (opioids, cocaine & marijuana) who got admitted for evaluation of abdominal pain, nausea and vomiting secondary to chronic pancreatitis. Last night after taking clear liquids patient started vomiting. He was npo since then. This morning he looked very comfortable. Low fat diet started. Patient had vomiting right after having lunch and started to complain of abdominal pain. Advised patient to try to eat dinner. If he is able to tolerate his meal, he can go home. Counselling provided regarding drug abuse. Upon discharge patient will follow up with Dr Hdez and Dr Garcia. Dr Madhu Vila
[2016-11-30] MEDS: Morphine 2 mg/ml ISec IVP PRN ×3 (03:10→11:25)
[2016-11-30 06:48] LABS: ADD MANUAL DIFF? NO
[2016-11-30 07:07] LABS: BASO # 0.02 K/mm3 (0.0-2.0); BASO % 0.3 % (0.0-3.0); EOS # 0.4 (0.0-0.7); EOS % 6.3 % (1.5-5.0); GRAN % 45.2 % (50.0-68.0); HEMATOCRIT 43.4 % (42.0-52.0); LYMPH # 2.7 (1.2-3.4); LYMPH % 41.6 % (22.0-35.0); MEAN CELL VOLUME 90.4 fL (80.0-105.0); MEAN CORPUSCULAR HEMOGLOBIN 30.4 pg (25.0-35.0); MEAN CORPUSCULAR HGB CONC 33.6 g/dl (31.0-37.0); MONO # 0.4 (0.1-0.6); MONO % 6.6 % (1.0-6.0); PLATELET COUNT 288 10^3/uL (120.0-450.0); RED CELL DISTRIBUTION WIDTH 13.4 % (11.5-14.5); WHITE BLOOD COUNT 6.4 10^3/ul (4.5-11.0)
[2016-11-30 07:28] LABS: ALKALINE PHOSPHATASE 76 U/L (38-133); ALT/SGPT 48 U/L (7-56); AST/SGOT 29 U/L (15-59); BLOOD UREA NITROGEN 7 mg/dL (7-21); CALCIUM 9.2 mg/dL (8.4-10.5); CARBON DIOXIDE 32 mmol/L (21-33); CHLORIDE 101 mmol/L (98-107); GFR AFRICAN-AMERICAN > 60; GLUCOSE,RANDOM 76 mg/dL (70-110); POTASSIUM 3.9 mmol/L (3.6-5.0); SODIUM 140 mmol/L (132-148); TOTAL PROTEIN 7.2 g/dL (5.8-8.3)
[2016-11-30] MEDS: Lactated Ringer's 1,000 ML IV SCH (07:58)
[2016-11-30 08:36] VITALS: BP 112/74; PULSE 47; RESP 18; TEMP 98.6; O2SAT 96
[2016-11-30] MEDS: Enoxaparin 30 mg Syringe SC SCH (09:05)
[2016-11-30] MEDS ORDERED: Amylase/Lipase/Protease 5,000 U ECC PO ONE (11:45)
--- NOTE | 2016-11-30 14:26 | CP.PCM.DIS ---
<Vianca Hamilton - Last Filed: 11/30/16 14:23> Provider - Provider Date of Admission: 11/27/16 08:20 Attending physician: Natalee Gavin MD Primary care physician: Indra Hdez DNP, OFFICE HELPER CLERICAL Consults: GI: Dr. Garcia Time Spent in preparation of Discharge (in minutes): 45 Diagnosis - Discharge Diagnosis (1) Pancreatic divisum Status: Chronic (2) Pancreatitis Status: Chronic (3) Substance abuse Status: Acute (4) Chronic pancreatitis Status: Chronic Hospital Course - Lab Results Lab Results: Most Recent Lab Values WBC 6.4 10^3/ul (4.5-11.0) 11/30/16 06:30 RBC 4.80 10^6/uL (3.5-6.1) 11/30/16 06:30 Hgb 14.6 gm/dL (14.0-18.0) 11/30/16 06:30 Hct 43.4 % (42.0-52.0) 11/30/16 06:30 MCV 90.4 fL (80.0-105.0) 11/30/16 06:30 MCH 30.4 pg (25.0-35.0) 11/30/16 06:30 MCHC 33.6 g/dl (31.0-37.0) 11/30/16 06:30 RDW 13.4 % (11.5-14.5) 11/30/16 06:30 Plt Count 288 10^3/uL (120.0-450.0) 11/30/16 06:30 MPV 9.0 fl (7.0-11.0) 11/30/16 06:30 Gran % 45.2 % (50.0-68.0) L 11/30/16 06:30 Lymph % (Auto) 41.6 % (22.0-35.0) H 11/30/16 06:30 [place] % (Auto) 6.6 % (1.0-6.0) H 11/30/16 06:30 Eos % (Auto) 6.3 % (1.5-5.0) H 11/30/16 06:30 Baso % (Auto) 0.3 % (0.0-3.0) 11/30/16 06:30 Gran # 2.90 (1.4-6.5) 11/30/16 06:30 Lymph # 2.7 (1.2-3.4) 11/30/16 06:30 [place] # 0.4 (0.1-0.6) 11/30/16 06:30 Eos # 0.4 (0.0-0.7) 11/30/16 06:30 Baso # 0.02 K/mm3 (0.0-2.0) 11/30/16 06:30 PT 11.4 Seconds (9.9-11.8) 11/28/16 06:54 INR 1.06 (0.93-1.08) 11/28/16 06:54 APTT 31.2 Seconds (23.7-30.8) H 11/28/16 06:54 Sodium 140 mmol/L (132-148) 11/30/16 06:30 Potassium 3.9 mmol/L (3.6-5.0) 11/30/16 06:30 Chloride 101 mmol/L (98-107) 11/30/16 06:30 Carbon Dioxide 32 mmol/L (21-33) 11/30/16 06:30 Anion Gap 11 (10-20) 11/30/16 06:30 BUN 7 mg/dL (7-21) 11/30/16 06:30 Creatinine 0.9 mg/dL (0.5-1.4) 11/30/16 06:30 Est GFR ( Amer) > 60 11/30/16 06:30 Est GFR (Non-Af Amer) > 60 11/30/16 06:30 Random Glucose 76 mg/dL (70-110) 11/30/16 06:30 Calcium 9.2 mg/dL (8.4-10.5) 11/30/16 06:30 Total Bilirubin 1.0 mg/dL (0.2-1.3) 11/30/16 06:30 AST 29 U/L (15-59) 11/30/16 06:30 ALT 48 U/L (7-56) 11/30/16 06:30 Alkaline Phosphatase 76 U/L (38-133) 11/30/16 06:30 Lactate Dehydrogenase 365 U/L (333-699) 11/27/16 06:20 Total Protein 7.2 g/dL (5.8-8.3) 11/30/16 06:30 Albumin 3.6 g/dL (3.0-4.8) 11/30/16 06:30 Globulin 3.6 gm/dL 11/30/16 06:30 Albumin/Globulin Ratio 1.0 (1.1-1.8) L 11/30/16 06:30 Amylase 324 U/L (35-125) H 11/27/16 06:20 Lipase 910 U/L (23-300) H 11/27/16 06:20 Urine Opiates Screen Positive (NEGATIVE) H 11/27/16 21:05 Urine Methadone Screen Negative (NEGATIVE) 11/27/16 21:05 Ur Barbiturates Screen Negative (NEGATIVE) 11/27/16 21:05 Ur Phencyclidine Scrn Negative (NEGATIVE) 11/27/16 21:05 Ur Amphetamines Screen Negative (NEGATIVE) 11/27/16 21:05 U Benzodiazepines Scrn Negative (NEGATIVE) 11/27/16 21:05 U Oth Cocaine Metabols Positive (NEGATIVE) H 11/27/16 21:05 U Cannabinoids Screen Positive (NEGATIVE) H 11/27/16 21:05 Alcohol, Quantitative < 10 mg/dL (0-10) 11/27/16 07:00 - Hospital Course Hospital Course: 41 year old male with past medical history of recurrent pancreatitis, pancreas divisum, asthma and chronic back pain presents with epigastric pain that began last night. Patient states that pain radiates straight back, is associated with 4 episodes of non-bloody non-bilious vomiting, and 3 episodes of loose watery stool. Patient denies having any hematohezia or hematemesis. Patient denies having any fevers, chills, sick contacts or eating anything out of the ordinary. Patient states that pain feels similar to previous episodes of pancreatitis. Patient has complicated history of pancreatitis. Patient had MRCP done on 04/2016 which showed a pancreatic divisum. He then had an ERCP done in 05/2016 with a stent placed. A repeat ERCP was on 09/21/[address] Garcia. At that time, patient had stent replaced and a minor papillotomy done. On admission, patient's lipase was 910. Patient was made NPO and started on IV fluids. He was given pain medication to control is pain and anti-nausea medication. GI, Dr. Garcia was consulted. GI recommended no procedure at this time and recommended continuing pancreatic enzymes. Patient's diet was slowly advanced. Patient's condition improved and he tolerated diet. Patient is to follow up with PMD upon discharge. Patient is to follow up with GI specialist, Dr. Garcia upon discharge. Patient is to continue taking pancreatic enzymes (home medication). Discussed the risks of substance abuse and recommended cessation. Please see EMR for full details - Date & Time of H&P Date of H&P: 11/30/16 Time of H&P: 14:28 Discharge Exam - Head Exam Head Exam: ATRAUMATIC, NORMOCEPHALIC - Eye Exam Pupil Exam: PERRL - ENT Exam ENT Exam: Mucous Membranes Moist - Respiratory Exam Respiratory Exam: Clear to PA & Lateral, NORMAL BREATHING PATTERN. absent: Rales, Rhonchi, Wheezes - Cardiovascular Exam Cardiovascular Exam: REGULAR RHYTHM, +S1, +S2. absent: Gallop, Rubs, Systolic Murmur - GI/Abdominal Exam GI & Abdominal Exam: Normal Bowel Sounds, Soft, Unremarkable. absent: Distended , Firm, Guarding, Hernia, Tenderness - Extremities Exam Additional comments: no edema or tenderness - Neurological Exam Neurological exam: Alert, Oriented x3 - Psychiatric Exam Psychiatric exam: Normal Affect, Normal Mood - Skin Skin Exam: Dry, Intact, Normal Color, Warm Discharge Plan - Follow Up Plan Condition: FAIR Disposition: HOME/ ROUTINE Instructions: Pancreatitis (DC), Soft Diet (DC), Heart Healthy Diet (DC), Cannabis Abuse (DC) Additional Instructions: Patient is to follow up with PMD upon discharge. Patient is to follow up with GI specialist, Dr. Garcia upon discharge. Patient is to continue taking pancreatic enzymes (home medication). Discussed the risks of substance abuse and recommended cessation. Referrals: Guillermo Garcia MD [Staff Provider] - Indra Hdez DNP, APN [Primary Care Provider] - <Natalee Gavin - Last Filed: 12/01/16 14:48> Provider - Provider Date of Admission: 11/27/16 08:20 Attending physician: Natalee Gavin MD Primary care physician: Indra Hdez DNP, APN Hospital Course - Lab Results Lab Results: Most Recent Lab Values WBC 6.4 10^3/ul (4.5-11.0) 11/30/16 06:30 RBC 4.80 10^6/uL (3.5-6.1) 11/30/16 06:30 Hgb 14.6 gm/dL (14.0-18.0) 11/30/16 06:30 Hct 43.4 % (42.0-52.0) 11/30/16 06:30 MCV 90.4 fL (80.0-105.0) 11/30/16 06:30 MCH 30.4 pg (25.0-35.0) 11/30/16 06:30 MCHC 33.6 g/dl (31.0-37.0) 11/30/16 06:30 RDW 13.4 % (11.5-14.5) 11/30/16 06:30 Plt Count 288 10^3/uL (120.0-450.0) 11/30/16 06:30 MPV 9.0 fl (7.0-11.0) 11/30/16 06:30 Gran % 45.2 % (50.0-68.0) L 11/30/16 06:30 Lymph % (Auto) 41.6 % (22.0-35.0) H 11/30/16 06:30 [place] % (Auto) 6.6 % (1.0-6.0) H 11/30/16 06:30 Eos % (Auto) 6.3 % (1.5-5.0) H 11/30/16 06:30 Baso % (Auto) 0.3 % (0.0-3.0) 11/30/16 06:30 Gran # 2.90 (1.4-6.5) 11/30/16 06:30 Lymph # 2.7 (1.2-3.4) 11/30/16 06:30 [place] # 0.4 (0.1-0.6) 11/30/16 06:30 Eos # 0.4 (0.0-0.7) 11/30/16 06:30 Baso # 0.02 K/mm3 (0.0-2.0) 11/30/16 06:30 PT 11.4 Seconds (9.9-11.8) 11/28/16 06:54 INR 1.06 (0.93-1.08) 11/28/16 06:54 APTT 31.2 Seconds (23.7-30.8) H 11/28/16 06:54 Sodium 140 mmol/L (132-148) 11/30/16 06:30 Potassium 3.9 mmol/L (3.6-5.0) 11/30/16 06:30 Chloride 101 mmol/L (98-107) 11/30/16 06:30 Carbon Dioxide 32 mmol/L (21-33) 11/30/16 06:30 Anion Gap 11 (10-20) 11/30/16 06:30 BUN 7 mg/dL (7-21) 11/30/16 06:30 Creatinine 0.9 mg/dL (0.5-1.4) 11/30/16 06:30 Est GFR ( Amer) > 60 11/30/16 06:30 Est GFR (Non-Af Amer) > 60 11/30/16 06:30 Random Glucose 76 mg/dL (70-110) 11/30/16 06:30 Calcium 9.2 mg/dL (8.4-10.5) 11/30/16 06:30 Total Bilirubin 1.0 mg/dL (0.2-1.3) 11/30/16 06:30 AST 29 U/L (15-59) 11/30/16 06:30 ALT 48 U/L (7-56) 11/30/16 06:30 Alkaline Phosphatase 76 U/L (38-133) 11/30/16 06:30 Lactate Dehydrogenase 365 U/L (333-699) 11/27/16 06:20 Total Protein 7.2 g/dL (5.8-8.3) 11/30/16 06:30 Albumin 3.6 g/dL (3.0-4.8) 11/30/16 06:30 Globulin 3.6 gm/dL 11/30/16 06:30 Albumin/Globulin Ratio 1.0 (1.1-1.8) L 11/30/16 06:30 Amylase 324 U/L (35-125) H 11/27/16 06:20 Lipase 910 U/L (23-300) H 11/27/16 06:20 Urine Opiates Screen Positive (NEGATIVE) H 11/27/16 21:05 Urine Methadone Screen Negative (NEGATIVE) 11/27/16 21:05 Ur Barbiturates Screen Negative (NEGATIVE) 11/27/16 21:05 Ur Phencyclidine Scrn Negative (NEGATIVE) 11/27/16 21:05 Ur Amphetamines Screen Negative (NEGATIVE) 11/27/16 21:05 U Benzodiazepines Scrn Negative (NEGATIVE) 11/27/16 21:05 U Oth Cocaine Metabols Positive (NEGATIVE) H 11/27/16 21:05 U Cannabinoids Screen Positive (NEGATIVE) H 11/27/16 21:05 Alcohol, Quantitative < 10 mg/dL (0-10) 11/27/16 07:00 Attending/Attestation - Attestation I have personally seen and examined this patient.: Yes I have fully participated in the care of the patient.: Yes I have reviewed all pertinent clinical information, including history, physical exam and plan: Yes Notes (Text): 12/01/16 14:47 attending note; I have seen and examined patient with the resident. This is a 41 year old male with history of chronic pancreatitis secondary to pancreatic divism s/p minor papillotomy/sphincterotomy/stent placement 05/2016, stent removal 06/2016, and Polysubstance abuse (opioids, cocaine & marijuana) who got admitted for evaluation of abdominal pain, nausea and vomiting secondary to chronic pancreatitis. Patient was evaluated by GI Dr. Garcia. Started on liquid diet and advance to soft diet. Mild abdominal discomfort. No nausea or vomiting noted. Drug abuse cessation is strongly advised. Upon discharge patient will follow up with Dr Hdez and Dr Garcia. Diagnosis; Pancreatitis Pancreatic divisum Cocaine abuse Opiate dependency Marijuana use
== END 2016-11-30 18:17 | disposition home or self-care (01) | DRG 204 ==
LOC: ED 05:50 → MERGE 08:20 → ERH 08:20 → 5RNO 09:41
PROVIDERS: ADMIT Internal Medicine; ATTEND Internal Medicine
DX: K85.90 Acute pancreatitis without necrosis or infection, unspecified (principal); K86.1 Other chronic pancreatitis; F11.20 Opioid dependence, uncomplicated; F14.10 Cocaine abuse, uncomplicated; J45.909 Unspecified asthma, uncomplicated; F12.90 Cannabis use, unspecified, uncomplicated; G89.29 Other chronic pain; Q45.3 Other congenital malformations of pancreas and pancreatic duct; Z90.49 Acquired absence of other specified parts of digestive tract; Z87.891 Personal history of nicotine dependence; Z80.0 Family history of malignant neoplasm of digestive organs

== ENCOUNTER 2017-01-06 00:50 | Inpatient (IN) | payer MEDICAID ==
[2017-01-06] MEDS ORDERED: Sodium Chloride 0.9% 1,000 ML IV STA (01:31)
--- NOTE | 2017-01-06 01:40 | ED PDOC ---
Arrival/HPI - General Chief Complaint: Abdominal Pain Time Seen by Provider: 01/06/17 00:53 Historian: Patient - History of Present Illness Narrative History of Present Illness (Text): 01/06/17 01:42 Cody Pedersen is a 41 year old male, with a history of recurrent pancreatitis , pancreas divisum, asthma and chronic back pain, presents to the emergency department complaining epigastric abdominal discomfort associated with nausea, and vomiting for past 1 day. States that symptoms are similar to previous episodes of pancreatitis. Denies fever, chills, chest pain, shortness of breath , urinary symptoms, or any other complaints at this time. Denies any alcohol use. Time/Duration: < week (1 day ) Symptom Onset: Gradual Symptom Course: Unchanged Severity Level: Mild Activities at Onset: Light Past Medical History - Provider Review Nursing Documentation Reviewed: Yes - Infectious Disease Hx of Infectious Diseases: None - Tetanus Immunization Tetanus Immunization: Unknown - Reproductive Currently : No - Cardiac Hx Cardiac Disorders: No Hx Congestive Heart Failure: No Hx Hypertension: No Hx Pacemaker: No - Pulmonary Hx Asthma: Yes Hx Chronic Obstructive Pulmonary Disease (COPD): No - Neurological Hx Neurological Disorder: No Hx Seizures: No - HEENT Hx HEENT Disorder: No - Renal Hx Renal Disorder: No - Endocrine/Metabolic Hx Endocrine Disorders: No Hx Hypothyroidism: No - Hematological/Oncological Hx Blood Disorders: No - Integumentary Hx Dermatological Disorder: No - Musculoskeletal/Rheumatological Hx Fractures: No Hx Spinal Stenosis: Yes - Gastrointestinal Hx Pancreatitis: Yes - Genitourinary/Gynecological Hx Genitourinary Disorders: No - Psychiatric Hx Emotional Abuse: No Hx Physical Abuse: No Hx Substance Use: Yes (wednesday) - Surgical History Hx Cholecystectomy: Yes (2004) - Anesthesia Hx Anesthesia: Yes Hx Anesthesia Reactions: No Hx Malignant Hyperthermia: No - Suicidal Assessment Feels Threatened In Home Enviroment: No Family/Social History - Physician Review Nursing Documentation Reviewed: Yes Family/Social History: No Known Family HX Smoking Status: Former Smoker Hx Alcohol Use: No Hx Substance Use: Yes (wednesday) Substance used: marijuana Allergies/Home Meds Allergies/Adverse Reactions: Allergies No Known Allergies Allergy (Verified 01/06/17 01:14) Home Medications: Home Meds Medication Instructions Recorded Confirmed Ondansetron [Zofran Tab] 4 mg PO Q6H PRN 12/15/16 01/06/17 Lipase/Protease/Amylase [Segundo Yoo 1 cap PO DAILY 01/06/17 01/06/17 6,000 Units Capsule] Review of Systems - Physician Review All systems were reviewed & negative as marked: Yes - Review of Systems Constitutional: Normal. absent: Fatigue, Fevers Respiratory: Normal. absent: SOB, Cough, Sputum Cardiovascular: Normal. absent: Chest Pain, Palpitations Gastrointestinal: Abdominal Pain, Nausea, Vomiting. absent: Constipation, Diarrhea Musculoskeletal: Normal. absent: Arthralgias Skin: Normal Psychiatric: Normal Physical Exam Vital Signs Reviewed: Yes Vital Signs Temp Pulse Resp BP Pulse Ox 01/06/17 04:04 98.1 F 53 L 18 117/71 100 01/06/17 01:28 98.2 F 75 16 98 01/06/17 01:16 98.1 F 74 18 136/93 H 99 Temperature: Afebrile Blood Pressure: Normal Pulse: Regular Respiratory Rate: Normal Appearance: Positive for: Well-Appearing, Non-Toxic, Comfortable Pain Distress: None Mental Status: Positive for: Alert and Oriented X 3 - Systems Exam Head: Present: Atraumatic, Normocephalic Pupils: Present: PERRL Conjunctiva: Present: Normal Mouth: Present: Moist Mucous Membranes Neck: Present: Normal Range of Motion Respiratory/Chest: Present: Clear to Auscultation, Good Air Exchange. No: Respiratory Distress, Accessory Muscle Use Cardiovascular: Present: Regular Rate and Rhythm, Normal S1, S2. No: Murmurs Abdomen: Present: Tenderness (luq), Normal Bowel Sounds. No: Distention, Peritoneal Signs, Rebound, Guarding Rectal: No: Occult Blood Upper Extremity: Present: Normal Inspection. No: Cyanosis, Edema Lower Extremity: Present: Normal Inspection. No: Edema Neurological: Present: GCS=15, CN II-XII Intact, Speech Normal, Motor Func Grossly Intact, Normal Sensory Function Skin: Present: Warm, Dry, Normal Color. No: Rashes Psychiatric: Present: Alert, Oriented x 3, Normal Insight, Normal Concentration Medical Decision Making ED Course and Treatment: 01/06/17 01:46 Impression: A 41 year old male who presents to the emergency department complaining of epigastric pain for past day. Plan: -- CT abdomen pelvis -- Labs -- Protonix -- IV fluids -- Zofran -- Urinalysis -- Reassess and disposition Progress Notes: 01/06/17 03:00 CT Abdomen and Pelvis results reviewed: FINDINGS: Lower thorax: There is minimal bibasilar atelectasis. ABDOMEN: Liver: Unremarkable. Gallbladder and bile ducts: There has been a cholecystectomy. No ductal dilation. Pancreas: The pancreas is normal. No ductal dilation. Spleen: The spleen is normal. Adrenals: The adrenal glands are normal. Kidneys and ureters: Tiny left upper pole renal cyst. There is no evidence of hydronephrosis. Stomach and bowel: The stomach is normal. There is mild colonic constipation. There is no evidence of intestinal obstruction. No mucosal thickening. Appendix: A normal appendix is identified. PELVIS: Bladder: The bladder is normal. No stones. Reproductive: The prostate gland and seminal vesicles are normal. ABDOMEN and PELVIS: Intraperitoneal space: There is no evidence of free intraperitoneal fluid. There is no free intraperitoneal air. Bones/joints: There are mild degenerative changes present. No acute fracture. No dislocation. Soft tissues: Unremarkable. Vasculature: The aorta demonstrates mild atherosclerotic calcification. No abdominal aortic aneurysm. Lymph nodes: There is no evidence of lymphadenopathy. IMPRESSION: No acute findings. 01/06/17 03:15 pt with lipase of 3597. Case discussed with Dr. Joe who is aware and agrees with the plan to admit patient to med/surg for pancreatitis. Accepts patient under hospitalist service. - Lab Interpretations Lab Results: 01/06/17 01:45 01/06/17 01:45 Lab Results 01/06/17 02:48: Urine Color Yellow, Urine Appearance Clear, Urine pH 6.5, Ur Specific [place] 1.010, Urine Protein Negative, Urine Glucose (UA) Negative, Urine Ketones Negative, Urine Blood Negative, Urine Nitrate Negative, Urine Bilirubin Negative, Urine Urobilinogen 0.2, Ur Leukocyte Esterase Negative 01/06/17 01:45: Triglycerides 79, Cholesterol 146, LDL Cholesterol Direct 94, HDL Cholesterol 37 01/06/17 01:45: Sodium 140, Potassium 3.7, Chloride 105, Carbon Dioxide 27, Anion Gap 12, BUN 14, Creatinine 0.9, Est GFR ( Amer) > 60, Est GFR (Non- Af Amer) > 60, Random Glucose 65 L, Calcium 9.3, Total Bilirubin 0.5, AST 42, ALT 36, Alkaline Phosphatase 72, Total Protein 7.1, Albumin 4.0, Globulin 3.1, Albumin/Globulin Ratio 1.3, Lipase 3597 H 01/06/17 01:45: WBC 7.0, RBC 4.93, Hgb 15.2, Hct 45.0, MCV 91.3, MCH 30.8, MCHC 33.8, RDW 14.2, Plt Count 246, MPV 9.5, Gran % 52.4, Lymph % (Auto) 36.2 H, [place] % (Auto) 6.7 H, Eos % (Auto) 4.3, Baso % (Auto) 0.4, Gran # 3.69, Lymph # 2.6, [place] # 0.5, Eos # 0.3, Baso # 0.03 - RAD Interpretation Radiology Orders: 01/06/17 01:31 ABD & PELVIS W/O PO OR IV CONT [CT] Stat - Medication Orders Current Medication Orders: Acetaminophen (Tylenol 325mg Tab) 650 mg PO Q6H PRN PRN Reason: Fever >100.4 F Albuterol Sulfate (Albuterol 0.083% Inhal Erica (2.5 Mg/3 Ml) Ud) 2.5 mg IH Q2H PRN PRN Reason: Shortness of Breath Famotidine (Pepcid) 20 mg IVP Q12 [facility] Last Admin: 01/06/17 10:08 Dose: 20 mg Folic Acid 1 mg/ Sodium (Chloride) 50.2 mls @ 200 mls/hr IV DAILY [facility] Last Admin: 01/06/17 10:05 Dose: 200 mls/hr Ibuprofen (Motrin Tab) 600 mg PO Q6H PRN PRN Reason: Pain, Mild (1-3) Lorazepam (Ativan) 2 mg IVP Q4H PRN; Protocol PRN Reason: EtOH withdrawal Morphine Sulfate (Morphine) 2 mg IVP Q4H PRN PRN Reason: Pain, moderate (4-7) Last Admin: 01/06/17 16:02 Dose: 2 mg Nicotine (Nicoderm Cq) 1 patch TD DAILY [facility] Last Admin: 01/06/17 10:07 Dose: 1 patch Non-Formulary Medication (Lipase/Protease/Amylase [Creon Dr 6,000 Units Capsule] ) 1 cap PO TID [facility] Ondansetron HCl (Zofran Inj) 4 mg IVP Q6H PRN PRN Reason: Nausea/Vomiting Last Admin: 01/06/17 12:00 Dose: 4 mg Thiamine HCl (Vitamin B1 Inj) 100 mg IV DAILY [facility] Last Admin: 01/06/17 10:07 Dose: 100 mg Discontinued Medications Sodium Chloride (Sodium Chloride 0.9%) 1,000 mls @ 1,000 mls/hr IV .Q1H STA Stop: 01/06/17 02:30 Last Admin: 01/06/17 02:33 Dose: 1,000 mls/hr Lactated Ringer's (Lactated Ringer's) 1,000 mls @ 200 mls/hr IV .Q5H [facility] Stop: 01/06/17 12:00 Last Admin: 01/06/17 10:05 Dose: 200 mls/hr Morphine Sulfate (Morphine) 2 mg IVP STAT STA Stop: 01/06/17 02:56 Last Admin: 01/06/17 03:16 Dose: 2 mg Re-Assess: ARMOND Pain Assessment Document 01/06/17 04:16 MARIA VICTORIA (Rec: 01/06/17 16:04 [facility]-[id number]) Pain Reassessment Is this a pain reassessment? Yes Non-Formulary Medication (Lipase/Protease/Amylase [Creon Dr 6,000 Units Capsule] ) 1 cap PO DAILY [facility] Ondansetron HCl (Zofran Inj) 4 mg IVP STAT STA Stop: 01/06/17 01:32 Last Admin: 01/06/17 02:33 Dose: 4 mg Ondansetron HCl (Zofran Inj) 8 mg IVP Q6H PRN PRN Reason: Nausea/Vomiting Pantoprazole Sodium (Protonix Inj) 40 mg IVP STAT STA Stop: 01/06/17 01:32 Last Admin: 01/06/17 02:28 Dose: 40 mg - Scribe Statement The provider has reviewed the documentation as recorded by the Terrence De La Fuente Provider Attestation: Provider Laceyibe Attestation: All medical record entries made by the Laceyibjuan f were at my direction and personally dictated by me. I have reviewed the chart and agree that the record accurately reflects my personal performance of the history, physical exam, medical decision making, and the department course for this patient. I have also personally directed, reviewed, and agree with the discharge instructions and disposition. Disposition/Present on Arrival - Present on Arrival Any Indicators Present on Arrival: No History of DVT/PE: No History of Uncontrolled Diabetes: No Urinary Catheter: No History of Decub. Ulcer: No History Surgical Site Infection Following: None - Disposition Have Diagnosis and Disposition been Completed?: Yes Diagnosis: Pancreatitis Disposition: HOSPITALIZED Disposition Time: 03:15 Condition: GOOD
[2017-01-06 02:01] LABS: ADD MANUAL DIFF? NO
[2017-01-06 02:17] LABS: BASO # 0.03 K/mm3 (0.0-2.0); BASO % 0.4 % (0.0-3.0); EOS # 0.3 (0.0-0.7); EOS % 4.3 % (1.5-5.0); GRAN # 3.69 (1.4-6.5); GRAN % 52.4 % (50.0-68.0); LYMPH # 2.6 (1.2-3.4); LYMPH % 36.2 % (22.0-35.0); MEAN CELL VOLUME 91.3 fL (80.0-105.0); MEAN CORPUSCULAR HEMOGLOBIN 30.8 pg (25.0-35.0); MEAN CORPUSCULAR HGB CONC 33.8 g/dl (31.0-37.0); MEAN PLATELET VOLUME 9.5 fl (7.0-11.0); MONO # 0.5 (0.1-0.6); MONO % 6.7 % (1.0-6.0); PLATELET COUNT 246 10^3/uL (120.0-450.0); RED CELL DISTRIBUTION WIDTH 14.2 % (11.5-14.5)
[2017-01-06 02:33] LABS: ALB/GLOB RATIO 1.3 (1.1-1.8); ALKALINE PHOSPHATASE 72 U/L (38-133); ALT/SGPT 36 U/L (7-56); AST/SGOT 42 U/L (15-59); BILIRUBIN,TOTAL 0.5 mg/dL (0.2-1.3); BLOOD UREA NITROGEN 14 mg/dL (7-21); CALCIUM 9.3 mg/dL (8.4-10.5); CARBON DIOXIDE 27 mmol/L (21-33); CHLORIDE 105 mmol/L (98-107); GFR AFRICAN-AMERICAN > 60; GLUCOSE,RANDOM 65 mg/dL (70-110); POTASSIUM 3.7 mmol/L (3.6-5.0); SODIUM 140 mmol/L (132-148); TOTAL PROTEIN 7.1 g/dL (5.8-8.3)
[2017-01-06 02:55] LABS: LIPASE 3597 U/L (23-300)
[2017-01-06] MEDS ORDERED: Morphine 2 mg/ml ISec IVP STA (02:55)
--- NOTE | 2017-01-06 02:57 | CT ---
EXAM: CT Abdomen and Pelvis Without Intravenous Contrast CLINICAL HISTORY: 41 years old, male; Pain; Abdominal pain; Generalized; Prior surgery; Surgery date: 6+ months; Additional info: Abd pain TECHNIQUE: Axial computed tomography images of the abdomen and pelvis without intravenous contrast. This CT exam was performed using one or more of the following dose reduction techniques: automated exposure control, adjustment of the mA and/or kV according to patient size, and/or use of iterative reconstruction technique. Coronal and sagittal reformatted images were created and reviewed. COMPARISON: CT - ABD PELVIS PO IV CONTRAST 09/02/2016 5:53:34 PM FINDINGS: Lower thorax: There is minimal bibasilar atelectasis. ABDOMEN: Liver: Unremarkable. Gallbladder and bile ducts: There has been a cholecystectomy. No ductal dilation. Pancreas: The pancreas is normal. No ductal dilation. Spleen: The spleen is normal. Adrenals: The adrenal glands are normal. Kidneys and ureters: Tiny left upper pole renal cyst. There is no evidence of hydronephrosis. Stomach and bowel: The stomach is normal. There is mild colonic constipation. There is no evidence of intestinal obstruction. No mucosal thickening. Appendix: A normal appendix is identified. PELVIS: Bladder: The bladder is normal. No stones. Reproductive: The prostate gland and seminal vesicles are normal. ABDOMEN and PELVIS: Intraperitoneal space: There is no evidence of free intraperitoneal fluid. There is no free intraperitoneal air. Bones/joints: There are mild degenerative changes present. No acute fracture. No dislocation. Soft tissues: Unremarkable. Vasculature: The aorta demonstrates mild atherosclerotic calcification. No abdominal aortic aneurysm. Lymph nodes: There is no evidence of lymphadenopathy. IMPRESSION: No acute findings.
[2017-01-06] MEDS ORDERED: Albuterol 0.083% Inhal Sol (2.5 mg/3 mL) UD IH PRN (03:04)
[2017-01-06] MEDS: Lactated Ringer's 1,000 ML IV SCH ×2 (03:16→10:05)
--- NOTE | 2017-01-06 03:19 | CP.PCM.HP ---
<TamikaChad - Last Filed: 01/06/17 04:06> History of Present Illness - History of Present Illness History of Present Illness: CC: Abdominal pain; epigastric w/ vomiting x 10 This patient is a 41yo M w/ a PMhx of pancreatic divisum, polysubstance abuse and chronic pancreatitis who is comign to the Ed for a 2d history of abdominal pain associated with N/V and diarrhea. The patient states he has diarrhea at baseline from his non functioning pancreas, but has been experiencing more than 10x of vomiting for the past 2d. Patient states 2d ago he smoked a lot of marijuana and that's when the pain started. This feels exactly like when he's had pancreatitis in the past. He denies any other drug use recently and states he stopped smoking cigarettes a few months ago and is using the patch. He denies fevers/chills, VALDEZ, CP, SOB, dysuria/freq/urg, or lower extremity pain/ swelling, AV hallucinations or depression. PMhx: pancreatic divisum, polysubstance abuse and chronic pancreatitis Surgical: Gallbladder removal 5 years ago; no reaction to anesthesia Allergies: Denies Meds: Pancrease, Zofran FamHx: Grandfather with pancreatic CA, Mother w/ Colon CA, Dad with Stomach cancer, Mom and dad with HTN, DM Social: lives at home, works, denies current drug use however states smoked "a blunt" a few days ago and has been trying to stop, denies current cigarette use but 1-2 pack per day for 20 years prior, independent in all IADL and ADL; walks without a cane no balance issues Present on Admission - Present on Admission Any Indicators Present on Admission: No History of DVT/PE: No History of Uncontrolled Diabetes: No Urinary Catheter: No Decubitus Ulcer Present: No Past Patient History - Infectious Disease Hx of Infectious Diseases: None - Tetanus Immunizations Tetanus Immunization: Unknown - Past Medical History & Family History Past Medical History?: Yes - Past Social History Smoking Status: Former Smoker - CARDIAC Hx Cardiac Disorders: No Hx Congestive Heart Failure: No Hx Hypertension: No Hx Pacemaker: No - PULMONARY Hx Asthma: Yes Hx Chronic Obstructive Pulmonary Disease (COPD): No - NEUROLOGICAL Hx Neurological Disorder: No Hx Seizures: No - HEENT Hx HEENT Problems: No - RENAL Hx Chronic Kidney Disease: No - ENDOCRINE/METABOLIC Hx Endocrine Disorders: No Hx Hypothyroidism: No - HEMATOLOGICAL/ONCOLOGICAL Hx Blood Disorders: No - INTEGUMENTARY Hx Dermatological Problems: No - MUSCULOSKELETAL/RHEUMATOLOGICAL Hx Fractures: No Hx Spinal Stenosis: Yes - GASTROINTESTINAL Hx Pancreatitis: Yes - GENITOURINARY/GYNECOLOGICAL Hx Genitourinary Disorders: No - PSYCHIATRIC Hx Emotional Abuse: No Hx Physical Abuse: No Hx Substance Use: Yes (wednesday) - SURGICAL HISTORY Hx Cholecystectomy: Yes (2004) - ANESTHESIA Hx Anesthesia: Yes Hx Anesthesia Reactions: No Hx Malignant Hyperthermia: No Meds Allergies/Adverse Reactions: Allergies Allergy/AdvReac Type Severity Reaction Status Date / Time No Known Allergies Allergy Verified 01/06/17 01:14 Physical Exam - Constitutional Appears: Well, Non-toxic - Head Exam Head Exam: ATRAUMATIC, NORMAL INSPECTION - Eye Exam Eye Exam: EOMI - ENT Exam ENT Exam: Mucous Membranes Moist - Neck Exam Neck exam: Positive for: Full Rom - Respiratory Exam Respiratory Exam: Clear to Auscultation Bilateral, NORMAL BREATHING PATTERN. absent: Rales, Rhonchi, Wheezes - Cardiovascular Exam Cardiovascular Exam: REGULAR RHYTHM - GI/Abdominal Exam GI & Abdominal Exam: Normal Bowel Sounds, Soft, Tenderness (in the epigastrium, no peritoneal signs, voluntary guarding ) - Rectal Exam Rectal Exam: Deferred - Extremities Exam Extremities exam: Positive for: full ROM, normal inspection. Negative for: calf tenderness, joint swelling, pedal edema, tenderness - Back Exam Back exam: NORMAL INSPECTION. absent: CVA tenderness (L), CVA tenderness (R) - Neurological Exam Neurological exam: Alert, CN II-XII Intact, Oriented x3 - Psychiatric Exam Psychiatric exam: Normal Affect - Skin Skin Exam: Warm Results - Vital Signs Recent Vital Signs: Last Vital Signs Temp 98.2 F 01/06/17 01:28 Pulse 75 01/06/17 01:28 Resp 16 01/06/17 01:28 BP 136/93 H 01/06/17 01:16 Pulse Ox 98 01/06/17 01:28 - Labs Result Diagrams: 01/06/17 01:45 01/06/17 01:45 Labs: Laboratory Results - last 24 hr 01/06/17 01/06/17 01:45 01:45 WBC 7.0 RBC 4.93 Hgb 15.2 Hct 45.0 MCV 91.3 MCH 30.8 MCHC 33.8 RDW 14.2 Plt Count 246 MPV 9.5 Gran % 52.4 Lymph % (Auto) 36.2 H Mercer % (Auto) 6.7 H Eos % (Auto) 4.3 Baso % (Auto) 0.4 Gran # 3.69 Lymph # 2.6 Mercer # 0.5 Eos # 0.3 Baso # 0.03 Sodium 140 Potassium 3.7 Chloride 105 Carbon Dioxide 27 Anion Gap 12 BUN 14 Creatinine 0.9 Est GFR ( Amer) > 60 Est GFR (Non-Af Amer) > 60 Random Glucose 65 L Calcium 9.3 Total Bilirubin 0.5 AST 42 ALT 36 Alkaline Phosphatase 72 Total Protein 7.1 Albumin 4.0 Globulin 3.1 Albumin/Globulin Ratio 1.3 Lipase 3597 H Assessment & Plan - Assessment and Plan (Free Text) Assessment: 41yo M admitted for acute on chronic pancreatitis Acute on Chronic Pancreatitis -Lipase elevated in the 3000's -NPO -200ml/hr lactated ringers until noon today -NPO except pancrease; patient can have CLD when he feels like he wants to eat -morphine 2mg Q4H PRN for pain control -CIWA protocol and ativan ONLY if he exhibits signs of withdrawal; patient has history of EtOH abuse; does not appear to be in withdrawal right now; Thiamine and folate daily -CT did not show any acute process or inflammation -f/u lipid panel Polysubstance abuse -patient was counseled on how smoking anything, even marijuana, and especially cigarettes can inflame the pancreas and cause boughts of pancreatitis. He was encouraged to stop using all drugs. The patient verbalized understanding and stated he is in the process of "cutting down and really wants to quit" -f/u tox screen Prop Pepcid IV SCD; OOB encouraged CLD when he can tolerate; currently NPO Case discussed with Dr. Tatyana Hernandez PGY1 Night Float Decision To Admit - Pt Status Changed To: Hospital Disposition Of: Observation - . Bed Request Type: Med/Surg Admitting Physician: Willem Joe <Willem Joe - Last Filed: 01/06/17 04:17> Results - Vital Signs Recent Vital Signs: Last Vital Signs Temp 98.1 F 01/06/17 04:04 Pulse 53 L 01/06/17 04:04 Resp 18 01/06/17 04:04 BP 117/71 01/06/17 04:04 Pulse Ox 100 01/06/17 04:04 - Labs Result Diagrams: 01/06/17 01:45 01/06/17 01:45 Labs: Laboratory Results - last 24 hr 01/06/17 03:30 PT 13.6 H INR 1.26 H Attending/Attestation - Attestation I have personally seen and examined this patient.: Yes I have fully participated in the care of the patient.: Yes I have reviewed all pertinent clinical information: Yes
[2017-01-06 03:24] LABS: PH,URINE 6.5 (4.7-8.0); URINE BILIRUBIN NEGATIVE (NEGATIVE); URINE BLOOD NEGATIVE (NEGATIVE); URINE GLUCOSE (UA) NEGATIVE (NEGATIVE); URINE KETONE NEGATIVE (NEGATIVE); URINE LEUKOCYTE ESTERASE NEGATIVE Leu/uL (NEGATIVE); URINE PROTEIN NEGATIVE mg/dL (<30 mg/dL); URINE UROBILINOGEN 0.2 E.U./dL (<1 E.U./dL)
[2017-01-06 03:31] LABS: URINE APPEARANCE CLEAR (CLEAR); URINE COLOR YELLOW (YELLOW)
[2017-01-06 04:02] LABS: INR 1.26 (0.93-1.08)
[2017-01-06 04:22] LABS: CHOLESTEROL 146 mg/dL (130-200)
[2017-01-06] MEDS: Morphine 2 mg/ml ISec IVP PRN ×4 (07:06→20:41)
--- NOTE | 2017-01-06 09:33 | CP.PCM.CON ---
History of Present Illness - History of Present Illness History of Present Illness: GI consult note 41 year old male with past medical history of chronic pancreatitis with pancreatic divisum, polysubstance abuse presents to hospital for abd pain, N/V x 2 days. Gi consulted for pancreatitis. Patient has extensive pancreatic history. Patient Past Patient History - Infectious Disease Hx of Infectious Diseases: None - Tetanus Immunizations Tetanus Immunization: Unknown - Past Medical History & Family History Past Medical History?: Yes - Past Social History Smoking Status: Former Smoker - CARDIAC Hx Cardiac Disorders: No Hx Congestive Heart Failure: No Hx Hypertension: No Hx Pacemaker: No - PULMONARY Hx Asthma: Yes Hx Chronic Obstructive Pulmonary Disease (COPD): No - NEUROLOGICAL Hx Neurological Disorder: No Hx Dizziness: Yes Hx Seizures: No - HEENT Hx HEENT Problems: No - RENAL Hx Chronic Kidney Disease: No - ENDOCRINE/METABOLIC Hx Endocrine Disorders: No Hx Hypothyroidism: No - HEMATOLOGICAL/ONCOLOGICAL Hx Blood Disorders: No - INTEGUMENTARY Hx Dermatological Problems: No - MUSCULOSKELETAL/RHEUMATOLOGICAL Hx Arthritis: Yes Hx Back Pain: Yes Hx Falls: Yes Hx Fractures: No Hx Spinal Stenosis: Yes - GASTROINTESTINAL Hx Pancreatitis: Yes - GENITOURINARY/GYNECOLOGICAL Hx Genitourinary Disorders: No - PSYCHIATRIC Hx Emotional Abuse: No Hx Physical Abuse: No Hx Substance Use: Yes (marijuana cocaine) - SURGICAL HISTORY Hx Cholecystectomy: Yes (2004) - ANESTHESIA Hx Anesthesia: Yes Hx Anesthesia Reactions: No Hx Malignant Hyperthermia: No Meds Allergies/Adverse Reactions: Allergies Allergy/AdvReac Type Severity Reaction Status Date / Time No Known Allergies Allergy Verified 01/06/17 01:14 - Medications Medications: Current Medications Acetaminophen (Tylenol 325mg Tab) 650 mg PO Q6H PRN PRN Reason: Fever >100.4 F Albuterol Sulfate (Albuterol 0.083% Inhal Erica (2.5 Mg/3 Ml) Ud) 2.5 mg IH Q2H PRN PRN Reason: Shortness of Breath Famotidine (Pepcid) 20 mg IVP Q12 [facility] Lactated Ringer's (Lactated Ringer's) 1,000 mls @ 200 mls/hr IV .Q5H [facility] Stop: 01/06/17 12:00 Last Admin: 01/06/17 03:16 Dose: 200 mls/hr Folic Acid 1 mg/ Sodium (Chloride) 50.2 mls @ 200 mls/hr IV DAILY [facility] Ibuprofen (Motrin Tab) 600 mg PO Q6H PRN PRN Reason: Pain, Mild (1-3) Lorazepam (Ativan) 2 mg IVP Q4H PRN; Protocol PRN Reason: EtOH withdrawal Morphine Sulfate (Morphine) 2 mg IVP Q4H PRN PRN Reason: Pain, moderate (4-7) Last Admin: 01/06/17 07:06 Dose: 2 mg Nicotine (Nicoderm Cq) 1 patch TD DAILY [facility] Non-Formulary Medication (Lipase/Protease/Amylase [Creon Dr 6,000 Units Capsule] ) 1 cap PO DAILY [facility] Ondansetron HCl (Zofran Inj) 4 mg IVP Q6H PRN PRN Reason: Nausea/Vomiting Thiamine HCl (Vitamin B1 Inj) 100 mg IV DAILY [facility] Results - Vital Signs Recent Vital Signs: Last Vital Signs Temp 97.8 F 01/06/17 07:30 Pulse 75 01/06/17 07:30 Resp 20 01/06/17 07:30 BP 133/78 01/06/17 07:30 Pulse Ox 99 01/06/17 07:30 - Labs Result Diagrams: 01/06/17 01:45 01/06/17 01:45 Labs: Laboratory Results - last 24 hr 01/06/17 01/06/17 03:20 03:30 PT 13.6 H INR 1.26 H Urine Opiates Screen Negative Urine Methadone Screen Negative Ur Barbiturates Screen Negative Ur Phencyclidine Scrn Negative Ur Amphetamines Screen Negative U Benzodiazepines Scrn Negative U Oth Cocaine Metabols Negative U Cannabinoids Screen Positive H
--- NOTE | 2017-01-06 09:42 | CP.PCM.CON ---
<Vianca Hamilton - Last Filed: 01/06/17 10:38> History of Present Illness - History of Present Illness History of Present Illness: GI consult note 41 year old with past medical history of chronic pancreatits, history of pancreatic divisum s/p resection and polysubstance abuse presents for abd pain, N/V x 2 days. Pain located in epigastric region. Denies having any fevers or chills. Patient has complicated history of pancreatitis. Patient had MRCP done on 04/2016 which showed a pancreatic divisum. He then had an ERCP done in 2015 with a stent placed in dorsal pancreatic duct. A repeat ERCP was on [address] Garcia. At that time, patient had stent replaced and a minor papillotomy done. On 10/30/16 EGD was done with stent removal. 12 point ROS are negative except for the above mentioned. PMHx; stated above Sx: cholecystectomy 5 years ago NKDA Medications: pancreatic enzymes ZenPep [id number], ultram, zofran po, pepcid PMD: Dr. Cleve Wang GI: Dr. Garcia Former smoker, quit 2.5 months ago. Occasional merijuana use. Denies ETOH use. previous tox results positive for opiates and cocaine Past Patient History - Infectious Disease Hx of Infectious Diseases: None - Tetanus Immunizations Tetanus Immunization: Unknown - Past Medical History & Family History Past Medical History?: Yes - Past Social History Smoking Status: Former Smoker Alcohol: None Drugs: Cocaine, Opiates - CARDIAC Hx Cardiac Disorders: No Hx Congestive Heart Failure: No Hx Hypertension: No Hx Pacemaker: No - PULMONARY Hx Asthma: Yes Hx Chronic Obstructive Pulmonary Disease (COPD): No - NEUROLOGICAL Hx Neurological Disorder: No Hx Dizziness: Yes Hx Seizures: No - HEENT Hx HEENT Problems: No - RENAL Hx Chronic Kidney Disease: No - ENDOCRINE/METABOLIC Hx Endocrine Disorders: No Hx Hypothyroidism: No - HEMATOLOGICAL/ONCOLOGICAL Hx Blood Disorders: No - INTEGUMENTARY Hx Dermatological Problems: No - MUSCULOSKELETAL/RHEUMATOLOGICAL Hx Arthritis: Yes Hx Back Pain: Yes Hx Falls: Yes Hx Fractures: No Hx Spinal Stenosis: Yes - GASTROINTESTINAL Hx Pancreatitis: Yes - GENITOURINARY/GYNECOLOGICAL Hx Genitourinary Disorders: No - PSYCHIATRIC Hx Emotional Abuse: No Hx Physical Abuse: No Hx Substance Use: Yes (marijuana cocaine) - SURGICAL HISTORY Hx Cholecystectomy: Yes (2004) - ANESTHESIA Hx Anesthesia: Yes Hx Anesthesia Reactions: No Hx Malignant Hyperthermia: No Meds Allergies/Adverse Reactions: Allergies Allergy/AdvReac Type Severity Reaction Status Date / Time No Known Allergies Allergy Verified 01/06/17 01:14 - Medications Medications: Current Medications Acetaminophen (Tylenol 325mg Tab) 650 mg PO Q6H PRN PRN Reason: Fever >100.4 F Albuterol Sulfate (Albuterol 0.083% Inhal Erica (2.5 Mg/3 Ml) Ud) 2.5 mg IH Q2H PRN PRN Reason: Shortness of Breath Famotidine (Pepcid) 20 mg IVP Q12 [facility] Lactated Ringer's (Lactated Ringer's) 1,000 mls @ 200 mls/hr IV .Q5H [facility] Stop: 01/06/17 12:00 Last Admin: 01/06/17 03:16 Dose: 200 mls/hr Folic Acid 1 mg/ Sodium (Chloride) 50.2 mls @ 200 mls/hr IV DAILY [facility] Ibuprofen (Motrin Tab) 600 mg PO Q6H PRN PRN Reason: Pain, Mild (1-3) Lorazepam (Ativan) 2 mg IVP Q4H PRN; Protocol PRN Reason: EtOH withdrawal Morphine Sulfate (Morphine) 2 mg IVP Q4H PRN PRN Reason: Pain, moderate (4-7) Last Admin: 01/06/17 07:06 Dose: 2 mg Nicotine (Nicoderm Cq) 1 patch TD DAILY [facility] Non-Formulary Medication (Lipase/Protease/Amylase [Creon Dr 6,000 Units Capsule] ) 1 cap PO DAILY [facility] Ondansetron HCl (Zofran Inj) 4 mg IVP Q6H PRN PRN Reason: Nausea/Vomiting Thiamine HCl (Vitamin B1 Inj) 100 mg IV DAILY [facility] Physical Exam - Constitutional Appears: Non-toxic, No Acute Distress - Head Exam Head Exam: ATRAUMATIC - Eye Exam Eye Exam: EOMI - ENT Exam ENT Exam: Mucous Membranes Moist - Respiratory Exam Respiratory Exam: absent: Accessory Muscle Use, Respiratory Distress - Cardiovascular Exam Cardiovascular Exam: REGULAR RHYTHM, +S1, +S2. absent: Diastolic murmur, Gallop , Rubs, Systolic Murmur - GI/Abdominal Exam GI & Abdominal Exam: Normal Bowel Sounds, Soft, Tenderness. absent: Distended, Firm, Guarding, Organomegaly, Rigid - Neurological Exam Neurological exam: Alert, Oriented x3 - Psychiatric Exam Psychiatric exam: Normal Affect, Normal Mood - Skin Skin Exam: Dry, Intact, Normal Color, Warm Results - Vital Signs Recent Vital Signs: Last Vital Signs Temp 97.8 F 01/06/17 07:30 Pulse 75 01/06/17 07:30 Resp 20 01/06/17 07:30 BP 133/78 01/06/17 07:30 Pulse Ox 99 01/06/17 07:30 - Labs Result Diagrams: 01/06/17 01:45 01/06/17 01:45 Labs: Laboratory Results - last 24 hr 01/06/17 01/06/17 03:20 03:30 PT 13.6 H INR 1.26 H Urine Opiates Screen Negative Urine Methadone Screen Negative Ur Barbiturates Screen Negative Ur Phencyclidine Scrn Negative Ur Amphetamines Screen Negative U Benzodiazepines Scrn Negative U Oth Cocaine Metabols Negative U Cannabinoids Screen Positive H Assessment & Plan - Assessment and Plan (Free Text) Assessment: 41 year old male with past medical history of chronic pancreatits, history of pancreatic divisum s/p resection and polysubstance abuse, cholecystectomy is admitted for pancreatitis. On blood work, lipase is 3597. WBC count, blood glucose and AST are WNL. Lipid panel is WNL. CT of abd/pelvis without PO or IV contrast was negative. UDS showed cannabinoids. Pancreatitis - LR at 250 cc - Will advance diet as tolerated. start with CLD for lunch - Morphine for pain management - Continue pancreatic enzymes. Polysubstance abuse - CIWA - Patient is started on thiamine and folic acid daily - Discussed risks of substance abuse and recommended cessation Will continue to follow clinically. Case discussed with attending, Dr. Narvaez - Date & Time Date: 01/06/17 Time: 09:47 <Jaida Narvaez MD - Last Filed: 01/06/17 11:05> Meds - Medications Medications: Current Medications Acetaminophen (Tylenol 325mg Tab) 650 mg PO Q6H PRN PRN Reason: Fever >100.4 F Albuterol Sulfate (Albuterol 0.083% Inhal Erica (2.5 Mg/3 Ml) Ud) 2.5 mg IH Q2H PRN PRN Reason: Shortness of Breath Famotidine (Pepcid) 20 mg IVP Q12 [facility] Last Admin: 01/06/17 10:08 Dose: 20 mg Lactated Ringer's (Lactated Ringer's) 1,000 mls @ 200 mls/hr IV .Q5H [facility] Stop: 01/06/17 12:00 Last Admin: 01/06/17 10:05 Dose: 200 mls/hr Folic Acid 1 mg/ Sodium (Chloride) 50.2 mls @ 200 mls/hr IV DAILY [facility] Last Admin: 01/06/17 10:05 Dose: 200 mls/hr Ibuprofen (Motrin Tab) 600 mg PO Q6H PRN PRN Reason: Pain, Mild (1-3) Lorazepam (Ativan) 2 mg IVP Q4H PRN; Protocol PRN Reason: EtOH withdrawal Morphine Sulfate (Morphine) 2 mg IVP Q4H PRN PRN Reason: Pain, moderate (4-7) Last Admin: 01/06/17 07:06 Dose: 2 mg Nicotine (Nicoderm Cq) 1 patch TD DAILY [facility] Last Admin: 01/06/17 10:07 Dose: 1 patch Non-Formulary Medication (Lipase/Protease/Amylase [Creon Dr 6,000 Units Capsule] ) 1 cap PO TID [facility] Ondansetron HCl (Zofran Inj) 4 mg IVP Q6H PRN PRN Reason: Nausea/Vomiting Thiamine HCl (Vitamin B1 Inj) 100 mg IV DAILY [facility] Last Admin: 01/06/17 10:07 Dose: 100 mg Results - Vital Signs Recent Vital Signs: Last Vital Signs Temp 97.8 F 01/06/17 07:30 Pulse 75 01/06/17 07:30 Resp 20 01/06/17 07:30 BP 133/78 01/06/17 07:30 Pulse Ox 99 01/06/17 07:30 - Labs Result Diagrams: 01/06/17 01:45 01/06/17 01:45 Labs: Laboratory Results - last 24 hr 01/06/17 01/06/17 03:20 03:30 PT 13.6 H INR 1.26 H Urine Opiates Screen Negative Urine Methadone Screen Negative Ur Barbiturates Screen Negative Ur Phencyclidine Scrn Negative Ur Amphetamines Screen Negative U Benzodiazepines Scrn Negative U Oth Cocaine Metabols Negative U Cannabinoids Screen Positive H Attending/Attestation - Attestation I have personally seen and examined this patient.: Yes I have fully participated in the care of the patient.: Yes I have reviewed all pertinent clinical information: Yes Notes (Text): 01/06/17 10:56 Patient seen with GI fellow and medical affairs director on rounds this am. This is a 41 year old male with past medical history of chronic pancreatits, history of pancreatic divisum s/p ERCP with PD stent s/p removal in October and poly substance abuse, cholecystectomy is admitted for pancreatitis. On blood work, lipase is 3597. On IVF responding and biochemically no s/s of worsening pancreatitis. Sluggish bowel sounds. Will start clear liquid diet today and advance as tolerated. Continue pancreatic enzymes. Has appointment with Dr Garcia in 3-4 weeks in his office. Will follow patient with you closely
[2017-01-06] MEDS ORDERED: AMYLASE PO SCH ×2 (10:00→14:00)
[2017-01-06] MEDS ORDERED: PROTEASE PO SCH ×2 (10:00→14:00)
[2017-01-06] MEDS ORDERED: LIPASE PO SCH ×2 (10:00→14:00)
[2017-01-06] MEDS ORDERED: Famotidine 20mg/50ml 50 ML IV SCH (10:00)
[2017-01-06] MEDS: Folic Acid 1 MG in Sodium Chloride 0.9% 50 ML IV SCH (10:05)
[2017-01-06] MEDS: Thiamine 100 mg/ml Inj IV SCH (10:07)
[2017-01-07] MEDS: Morphine 2 mg/ml ISec IVP PRN ×5 (01:16→22:10)
[2017-01-07 06:52] LABS: ADD MANUAL DIFF? NO
[2017-01-07 07:14] LABS: BASO # 0.03 K/mm3 (0.0-2.0); BASO % 0.4 % (0.0-3.0); EOS # 0.4 (0.0-0.7); EOS % 5.1 % (1.5-5.0); GRAN # 4.04 (1.4-6.5); GRAN % 49.5 % (50.0-68.0); HEMATOCRIT 44.8 % (42.0-52.0); LYMPH # 3.2 (1.2-3.4); LYMPH % 38.8 % (22.0-35.0); MEAN CELL VOLUME 91.1 fL (80.0-105.0); MEAN CORPUSCULAR HEMOGLOBIN 30.9 pg (25.0-35.0); MEAN CORPUSCULAR HGB CONC 33.9 g/dl (31.0-37.0); MEAN PLATELET VOLUME 9.3 fl (7.0-11.0); MONO # 0.5 (0.1-0.6); MONO % 6.2 % (1.0-6.0); PLATELET COUNT 242 10^3/uL (120.0-450.0); RED CELL DISTRIBUTION WIDTH 13.8 % (11.5-14.5); WHITE BLOOD COUNT 8.2 10^3/ul (4.5-11.0)
--- NOTE | 2017-01-07 07:18 | CP.PCM.PN ---
<Vianca Hamilton - Last Filed: 01/07/17 09:37> Subjective - Date & Time of Evaluation Date of Evaluation: 01/07/17 Time of Evaluation: 07:16 - Subjective Subjective: GI progress note Pt is seen and examined at bedside. Patient was started on CLD for dinner yesterday. He states that he vomited x 2 after eating his dinner, NBNB. Patient is resting comfortably right now. Patient's abd pain has improved but he is c/o nausea. Patient denies having any fevers or chills. 12 point ROS are negative except for the above mentioned. Objective - Vital Signs/Intake and Output Vital Signs (last 24 hours): Temp Pulse Resp BP Pulse Ox 98.6 F 51 L 18 121/82 97 01/06/17 15:57 01/06/17 15:57 01/06/17 15:57 01/06/17 15:57 01/06/17 15:57 Intake and Output: 01/07/17 01/07/17 06:59 18:59 Intake Total 220 Output Total 2300 Balance -2080 - Medications Medications: Current Medications Acetaminophen (Tylenol 325mg Tab) 650 mg PO Q6H PRN PRN Reason: Fever >100.4 F Albuterol Sulfate (Albuterol 0.083% Inhal Erica (2.5 Mg/3 Ml) Ud) 2.5 mg IH Q2H PRN PRN Reason: Shortness of Breath Famotidine (Pepcid) 20 mg IVP Q12 [facility] Last Admin: 01/06/17 21:11 Dose: 20 mg Folic Acid 1 mg/ Sodium (Chloride) 50.2 mls @ 200 mls/hr IV DAILY [facility] Last Admin: 01/06/17 10:05 Dose: 200 mls/hr Ibuprofen (Motrin Tab) 600 mg PO Q6H PRN PRN Reason: Pain, Mild (1-3) Lorazepam (Ativan) 2 mg IVP Q4H PRN; Protocol PRN Reason: EtOH withdrawal Morphine Sulfate (Morphine) 2 mg IVP Q4H PRN PRN Reason: Pain, moderate (4-7) Last Admin: 01/07/17 06:40 Dose: 2 mg Nicotine (Nicoderm Cq) 1 patch TD DAILY [facility] Last Admin: 01/06/17 10:07 Dose: 1 patch Non-Formulary Medication (Lipase/Protease/Amylase [Segundo Yoo 6,000 Units Capsule] ) 1 cap PO TID [facility] Ondansetron HCl (Zofran Inj) 4 mg IVP Q6H PRN PRN Reason: Nausea/Vomiting Last Admin: 01/06/17 23:48 Dose: 4 mg Thiamine HCl (Vitamin B1 Inj) 100 mg IV DAILY [facility] Last Admin: 01/06/17 10:07 Dose: 100 mg - Labs Labs: PT 13.6 Seconds (9.9-11.8) H 01/06/17 03:30 INR 1.26 (0.93-1.08) H 01/06/17 03:30 - Constitutional Appears: Non-toxic, No Acute Distress - Head Exam Head Exam: ATRAUMATIC - Eye Exam Eye Exam: EOMI - ENT Exam ENT Exam: Mucous Membranes Moist - Respiratory Exam Respiratory Exam: absent: Accessory Muscle Use, Respiratory Distress - Cardiovascular Exam Cardiovascular Exam: REGULAR RHYTHM, +S1, +S2. absent: Gallop, Rubs, Murmur - GI/Abdominal Exam GI & Abdominal Exam: Soft, Normal Bowel Sounds. absent: Distended, Firm, Guarding, Rigid, Tenderness, Organomegaly, Rebound - Extremities Exam Extremities Exam: absent: Pedal Edema, Tenderness - Neurological Exam Neurological Exam: Alert, Awake, Oriented x3 - Psychiatric Exam Psychiatric exam: Normal Affect, Normal Mood - Skin Skin Exam: Dry, Intact, Normal Color, Warm Assessment and Plan - Assessment and Plan (Free Text) Assessment: 41 year old male with past medical history of chronic pancreatits, history of pancreatic divisum s/p resection and polysubstance abuse, cholecystectomy is admitted for pancreatitis. Pancreatitis - Improving - Will advance diet as tolerated. - Morphine for pain management - Zofran prn - Continue pancreatic enzymes. - LR at 250 cc Polysubstance abuse - CIWA - thiamine and folic acid - Discussed risks of substance abuse and recommended cessation Will continue to follow clinically. Case discussed with attending, Dr. Garcia <Guillermo Garcia - Last Filed: 01/07/17 10:20> Objective - Vital Signs/Intake and Output Vital Signs (last 24 hours): Temp Pulse Resp BP Pulse Ox 97.7 F 59 L 16 107/69 100 01/07/17 07:30 01/07/17 07:30 01/07/17 07:30 01/07/17 07:30 01/07/17 07:30 Intake and Output: 01/07/17 01/07/17 06:59 18:59 Intake Total 220 Output Total 2300 Balance -2080 - Medications Medications: Current Medications Acetaminophen (Tylenol 325mg Tab) 650 mg PO Q6H PRN PRN Reason: Fever >100.4 F Albuterol Sulfate (Albuterol 0.083% Inhal Erica (2.5 Mg/3 Ml) Ud) 2.5 mg IH Q2H PRN PRN Reason: Shortness of Breath Famotidine (Pepcid) 20 mg IVP Q12 [facility] Last Admin: 01/07/17 09:45 Dose: 20 mg Folic Acid 1 mg/ Sodium (Chloride) 50.2 mls @ 200 mls/hr IV DAILY [facility] Last Admin: 01/07/17 09:45 Dose: 200 mls/hr Lactated Ringer's (Lactated Ringer's) 1,000 mls @ 999 mls/hr IV .Q1H1M [facility] Last Admin: 01/07/17 09:45 Dose: 999 mls/hr Lactated Ringer's (Lactated Ringer's) 1,000 mls @ 150 mls/hr IV .Q6H40M [facility] Ibuprofen (Motrin Tab) 600 mg PO Q6H PRN PRN Reason: Pain, Mild (1-3) Lorazepam (Ativan) 2 mg IVP Q4H PRN; Protocol PRN Reason: EtOH withdrawal Morphine Sulfate (Morphine) 2 mg IVP Q4H PRN PRN Reason: Pain, moderate (4-7) Last Admin: 01/07/17 06:40 Dose: 2 mg Nicotine (Nicoderm Cq) 1 patch TD DAILY [facility] Last Admin: 01/07/17 09:44 Dose: 1 patch (Lipase/Protease/Amylase [Creon Dr 6, 000 Units) (Home Med ) 1 cap PO TID [facility] Ondansetron HCl (Zofran Inj) 4 mg IVP Q6H PRN PRN Reason: Nausea/Vomiting Last Admin: 01/07/17 09:43 Dose: 4 mg Thiamine HCl (Vitamin B1 Inj) 100 mg IV DAILY [facility] Last Admin: 01/07/17 09:43 Dose: 100 mg - Labs Labs: 01/07/17 06:45 01/07/17 05:00 PT 13.6 Seconds (9.9-11.8) H 01/06/17 03:30 INR 1.26 (0.93-1.08) H 01/06/17 03:30 Attending/Attestation - Attestation I have personally seen and examined this patient.: Yes I have fully participated in the care of the patient.: Yes I have reviewed all pertinent clinical information, including history, physical exam and plan: Yes Notes (Text): 01/07/17 10:18 41 year old male with h/o pancreas divisum complicated by recurrent episodes of pancreatitis. 1. Acute pancreatitis 2. Pancreas divisum Plan: -continue IV hydration with LR -pain medication and anti-emetics as needed -advance diet as tolerated to low fat -small frequent meals -advised smoking cessation and continued alcohol abstinence -doesn't appear to have been significant improvement after two ERCPs with minor papillotomy, unlikely any benefit to repeat procedure at this time -supportive care -no associate organ failure or local complications of pancreatitis at this time
[2017-01-07 08:30] LABS: ALB/GLOB RATIO 1.1 (1.1-1.8); ALKALINE PHOSPHATASE 83 U/L (38-133); ALT/SGPT 28 U/L (7-56); AST/SGOT 28 U/L (15-59); BILIRUBIN,TOTAL 1.3 mg/dL (0.2-1.3); BLOOD UREA NITROGEN 8 mg/dL (7-21); CALCIUM 9.4 mg/dL (8.4-10.5); CARBON DIOXIDE 27 mmol/L (21-33); CHLORIDE 104 mmol/L (98-107); GFR AFRICAN-AMERICAN > 60; GLUCOSE,RANDOM 61 mg/dL (70-110); POTASSIUM 3.8 mmol/L (3.6-5.0); SODIUM 138 mmol/L (132-148); TOTAL PROTEIN 6.6 g/dL (5.8-8.3)
[2017-01-07] MEDS: Thiamine 100 mg/ml Inj IV SCH (09:43)
[2017-01-07] MEDS: Lactated Ringer's 1,000 ML IV SCH ×7 (09:45→22:11)
[2017-01-07] MEDS: Folic Acid 1 MG in Sodium Chloride 0.9% 50 ML IV SCH (09:45)
--- NOTE | 2017-01-07 13:53 | CP.PCM.PN ---
<Faizan Art - Last Filed: 01/07/17 13:48> Subjective - Date & Time of Evaluation Date of Evaluation: 01/07/17 Time of Evaluation: 11:00 - Subjective Subjective: Patient seen and examined. Patient reports 2 episodes of vomiting overnight NBNB. He was unable to tolerate liquid diet at that time. He still reports epigastric discomfort. Objective - Vital Signs/Intake and Output Vital Signs (last 24 hours): Temp Pulse Resp BP Pulse Ox 97.7 F 59 L 16 107/69 100 01/07/17 07:30 01/07/17 07:30 01/07/17 07:30 01/07/17 07:30 01/07/17 07:30 Intake and Output: 01/07/17 01/07/17 06:59 18:59 Intake Total 220 Output Total 2300 Balance -2080 - Medications Medications: Current Medications Acetaminophen (Tylenol 325mg Tab) 650 mg PO Q6H PRN PRN Reason: Fever >100.4 F Albuterol Sulfate (Albuterol 0.083% Inhal Erica (2.5 Mg/3 Ml) Ud) 2.5 mg IH Q2H PRN PRN Reason: Shortness of Breath Famotidine (Pepcid) 20 mg IVP Q12 [facility] Last Admin: 01/07/17 09:45 Dose: 20 mg Folic Acid 1 mg/ Sodium (Chloride) 50.2 mls @ 200 mls/hr IV DAILY [facility] Last Admin: 01/07/17 09:45 Dose: 200 mls/hr Lactated Ringer's (Lactated Ringer's) 1,000 mls @ 999 mls/hr IV .Q1H1M [facility] Last Admin: 01/07/17 11:41 Dose: 999 mls/hr Lactated Ringer's (Lactated Ringer's) 1,000 mls @ 150 mls/hr IV .Q6H40M [facility] Last Admin: 01/07/17 11:41 Dose: 150 mls/hr Ibuprofen (Motrin Tab) 600 mg PO Q6H PRN PRN Reason: Pain, Mild (1-3) Lorazepam (Ativan) 2 mg IVP Q4H PRN; Protocol PRN Reason: EtOH withdrawal Morphine Sulfate (Morphine) 2 mg IVP Q4H PRN PRN Reason: Pain, moderate (4-7) Last Admin: 01/07/17 11:44 Dose: 2 mg Nicotine (Nicoderm Cq) 1 patch TD DAILY [facility] Last Admin: 01/07/17 09:44 Dose: 1 patch (Lipase/Protease/Amylase [Creon Dr 6, 000 Units) (Home Med ) 1 cap PO TID [facility] Last Admin: 01/07/17 11:45 Dose: Not Given Ondansetron HCl (Zofran Inj) 4 mg IVP Q6H PRN PRN Reason: Nausea/Vomiting Last Admin: 01/07/17 09:43 Dose: 4 mg Thiamine HCl (Vitamin B1 Inj) 100 mg IV DAILY [facility] Last Admin: 01/07/17 09:43 Dose: 100 mg - Labs Labs: 01/07/17 06:45 01/07/17 05:00 PT 13.6 Seconds (9.9-11.8) H 01/06/17 03:30 INR 1.26 (0.93-1.08) H 01/06/17 03:30 - Constitutional Appears: Non-toxic, No Acute Distress - Head Exam Head Exam: ATRAUMATIC, NORMOCEPHALIC - Eye Exam Eye Exam: EOMI, PERRL - ENT Exam ENT Exam: Mucous Membranes Moist - Neck Exam Neck Exam: Lymphadenopathy, Normal Inspection - Respiratory Exam Respiratory Exam: Clear to Ausculation Bilateral. absent: Rales, Rhonchi - Cardiovascular Exam Cardiovascular Exam: REGULAR RHYTHM, +S1, +S2 - GI/Abdominal Exam GI & Abdominal Exam: Soft, Tenderness (epigastric ), Normal Bowel Sounds - Extremities Exam Extremities Exam: Full ROM. absent: Pedal Edema - Neurological Exam Neurological Exam: Alert, Awake, Oriented x3 - Psychiatric Exam Psychiatric exam: Normal Affect, Normal Mood - Skin Skin Exam: Dry, Warm Assessment and Plan - Assessment and Plan (Free Text) Assessment: 41yo M admitted for acute on chronic pancreatitis with hx chonic pancreatitis due to underlying pancreas divisum. Patient has undergone biliary stent placement x2 in the past without significant relief. Acute on Chronic Pancreatitis -Lipase elevated in the 3000's -liquid diet as tolerated -continue IVF -continue pancreatic enzyme replacement -morphine 2mg Q4H PRN for pain control -CT did not show any acute process or inflammation -f/u lipid panel Polysubstance abuse -patient was counseled on how smoking anything, even marijuana, and especially cigarettes can inflame the pancreas and cause boughts of pancreatitis. He was encouraged to stop using all drugs. The patient verbalized understanding and stated he is in the process of "cutting down and really wants to quit" -f/u tox screen Prop Pepcid IV SCD; OOB encouraged CLD when he can tolerate; currently NPO <Natalee Gavin - Last Filed: 01/07/17 16:18> Objective - Vital Signs/Intake and Output Vital Signs (last 24 hours): Temp Pulse Resp BP Pulse Ox 97.7 F 59 L 16 107/69 100 01/07/17 07:30 01/07/17 07:30 01/07/17 07:30 01/07/17 07:30 01/07/17 07:30 Intake and Output: 01/07/17 01/07/17 06:59 18:59 Intake Total 220 680 Output Total 2300 1000 Balance -2080 -320 - Medications Medications: Current Medications Acetaminophen (Tylenol 325mg Tab) 650 mg PO Q6H PRN PRN Reason: Fever >100.4 F Albuterol Sulfate (Albuterol 0.083% Inhal Erica (2.5 Mg/3 Ml) Ud) 2.5 mg IH Q2H PRN PRN Reason: Shortness of Breath Amylase (Pancrease 19989 U-5000 U-74342 U) 5,000 u PO TID [facility] Famotidine (Pepcid) 20 mg IVP Q12 [facility] Last Admin: 01/07/17 09:45 Dose: 20 mg Folic Acid 1 mg/ Sodium (Chloride) 50.2 mls @ 200 mls/hr IV DAILY [facility] Last Admin: 01/07/17 09:45 Dose: 200 mls/hr Lactated Ringer's (Lactated Ringer's) 1,000 mls @ 999 mls/hr IV .Q1H1M [facility] Last Admin: 01/07/17 11:41 Dose: 999 mls/hr Lactated Ringer's (Lactated Ringer's) 1,000 mls @ 150 mls/hr IV .Q6H40M [facility] Last Admin: 01/07/17 11:41 Dose: 150 mls/hr Ibuprofen (Motrin Tab) 600 mg PO Q6H PRN PRN Reason: Pain, Mild (1-3) Lorazepam (Ativan) 2 mg IVP Q4H PRN; Protocol PRN Reason: EtOH withdrawal Morphine Sulfate (Morphine) 2 mg IVP Q4H PRN PRN Reason: Pain, moderate (4-7) Last Admin: 01/07/17 11:44 Dose: 2 mg Nicotine (Nicoderm Cq) 1 patch TD DAILY [facility] Last Admin: 01/07/17 09:44 Dose: 1 patch Ondansetron HCl (Zofran Inj) 4 mg IVP Q6H PRN PRN Reason: Nausea/Vomiting Last Admin: 01/07/17 09:43 Dose: 4 mg Thiamine HCl (Vitamin B1 Inj) 100 mg IV DAILY [facility] Last Admin: 01/07/17 09:43 Dose: 100 mg - Labs Labs: 01/07/17 06:45 01/07/17 05:00 PT 13.6 Seconds (9.9-11.8) H 01/06/17 03:30 INR 1.26 (0.93-1.08) H 01/06/17 03:30 Attending/Attestation - Attestation I have personally seen and examined this patient.: Yes I have fully participated in the care of the patient.: Yes I have reviewed all pertinent clinical information, including history, physical exam and plan: Yes Notes (Text): 01/07/17 16:15 Attending note; I have seen and examined patient with the resident. This is a 41 year old male with history of chronic pancreatitis secondary to pancreatic divism s/p minor papillotomy/sphincterotomy/stent placement 05/2016, stent removal 06/2016 is admitted with abdominal pain, nausea and vomiting secondary to acute pancreatitis. Patient was evaluated by SANDI Garcia. Started on liquid diet and advance to low fat diet as tolerated. patient is still complaining of nausea. Upon discharge patient will follow up with PMD of tiffanie and SANDI Mitchell.
[2017-01-07] MEDS: Amylase/Lipase/Protease 5,000 U ECC PO SCH (17:56)
[2017-01-08] MEDS: Morphine 2 mg/ml ISec IVP PRN ×3 (05:57→23:30)
[2017-01-08 06:58] LABS: ADD MANUAL DIFF? NO
[2017-01-08 07:04] LABS: BASO # 0.03 K/mm3 (0.0-2.0); BASO % 0.4 % (0.0-3.0); EOS # 0.5 (0.0-0.7); EOS % 6.6 % (1.5-5.0); GRAN # 3.35 (1.4-6.5); GRAN % 48.4 % (50.0-68.0); HEMATOCRIT 42.6 % (42.0-52.0); LYMPH # 2.6 (1.2-3.4); LYMPH % 37.1 % (22.0-35.0); MEAN CELL VOLUME 89.5 fL (80.0-105.0); MEAN CORPUSCULAR HGB CONC 33.6 g/dl (31.0-37.0); MEAN PLATELET VOLUME 9.2 fl (7.0-11.0); MONO # 0.5 (0.1-0.6); MONO % 7.5 % (1.0-6.0); PLATELET COUNT 223 10^3/uL (120.0-450.0); RED CELL DISTRIBUTION WIDTH 13.4 % (11.5-14.5); WHITE BLOOD COUNT 6.9 10^3/ul (4.5-11.0)
--- NOTE | 2017-01-08 08:00 | CP.PCM.PN ---
<Vianca Hamilton - Last Filed: 01/08/17 09:58> Subjective - Date & Time of Evaluation Date of Evaluation: 01/08/17 Time of Evaluation: 07:55 - Subjective Subjective: GI progress note Pt is seen and examined at bedside. No acute events overnight. Patient states that he tried to drink juice but he vomited x 2 after the attempt. Patient states that his pain is 6/10. He is still complaining of nausea. 12 point ROS are negative except for the above mentioned. Objective - Vital Signs/Intake and Output Vital Signs (last 24 hours): Temp Pulse Resp BP Pulse Ox 97.8 F 43 L 20 116/74 96 01/08/17 07:29 01/08/17 07:29 01/08/17 07:29 01/08/17 07:29 01/08/17 07:29 Intake and Output: 01/08/17 01/08/17 06:59 18:59 Intake Total 440 Output Total 2100 Balance -1660 - Medications Medications: Current Medications Acetaminophen (Tylenol 325mg Tab) 650 mg PO Q6H PRN PRN Reason: Fever >100.4 F Albuterol Sulfate (Albuterol 0.083% Inhal Erica (2.5 Mg/3 Ml) Ud) 2.5 mg IH Q2H PRN PRN Reason: Shortness of Breath Amylase (Pancrease 82419 U-5000 U-65704 U) 5,000 u PO TID [facility] Last Admin: 01/07/17 17:56 Dose: 5,000 u Famotidine (Pepcid) 20 mg IVP Q12 [facility] Last Admin: 01/07/17 22:10 Dose: 20 mg Folic Acid 1 mg/ Sodium (Chloride) 50.2 mls @ 200 mls/hr IV DAILY [facility] Last Admin: 01/07/17 09:45 Dose: 200 mls/hr Lactated Ringer's (Lactated Ringer's) 1,000 mls @ 999 mls/hr IV .Q1H1M [facility] Last Admin: 01/07/17 22:11 Dose: 999 mls/hr Lactated Ringer's (Lactated Ringer's) 1,000 mls @ 150 mls/hr IV .Q6H40M [facility] Last Admin: 01/07/17 17:56 Dose: 150 mls/hr Ibuprofen (Motrin Tab) 600 mg PO Q6H PRN PRN Reason: Pain, Mild (1-3) Lorazepam (Ativan) 2 mg IVP Q4H PRN; Protocol PRN Reason: EtOH withdrawal Morphine Sulfate (Morphine) 2 mg IVP Q4H PRN PRN Reason: Pain, moderate (4-7) Last Admin: 01/08/17 05:57 Dose: 2 mg Nicotine (Nicoderm Cq) 1 patch TD DAILY [facility] Last Admin: 01/07/17 09:44 Dose: 1 patch Ondansetron HCl (Zofran Inj) 4 mg IVP Q6H PRN PRN Reason: Nausea/Vomiting Last Admin: 01/07/17 17:57 Dose: 4 mg Thiamine HCl (Vitamin B1 Inj) 100 mg IV DAILY [facility] Last Admin: 01/07/17 09:43 Dose: 100 mg - Labs Labs: 01/08/17 06:30 01/07/17 05:00 PT 13.6 Seconds (9.9-11.8) H 01/06/17 03:30 INR 1.26 (0.93-1.08) H 01/06/17 03:30 - Constitutional Appears: Non-toxic, No Acute Distress - Head Exam Head Exam: ATRAUMATIC - Eye Exam Eye Exam: EOMI - ENT Exam ENT Exam: Mucous Membranes Moist - Respiratory Exam Respiratory Exam: Clear to Ausculation Bilateral. absent: Accessory Muscle Use , Rales, Rhonchi, Wheezes, Respiratory Distress - Cardiovascular Exam Cardiovascular Exam: REGULAR RHYTHM, +S1, +S2 - GI/Abdominal Exam GI & Abdominal Exam: Soft, Normal Bowel Sounds. absent: Distended, Firm, Guarding, Rigid, Tenderness, Organomegaly - Neurological Exam Neurological Exam: Alert, Awake, Oriented x3 - Psychiatric Exam Psychiatric exam: Normal Affect, Normal Mood - Skin Skin Exam: Dry, Intact, Normal Color, Warm Assessment and Plan - Assessment and Plan (Free Text) Assessment: 41 year old male with past medical history of chronic pancreatits, history of pancreatic divisum s/p resection and polysubstance abuse, cholecystectomy is admitted for pancreatitis. Pancreatitis - Improving - Continue small frequent meals. Will advance diet as tolerated - Morphine for pain management - Zofran prn - Continue pancreatic enzymes. - LR at 150 cc Polysubstance abuse - thiamine and folic acid - Discussed risks of substance abuse and recommended cessation Will sign off, Please feel free to reconsult if necessary. Case discussed with attending, Dr. Garcia <Guillermo Garcia - Last Filed: 01/08/17 12:30> Objective - Vital Signs/Intake and Output Vital Signs (last 24 hours): Temp Pulse Resp BP Pulse Ox 97.8 F 43 L 20 116/74 96 01/08/17 07:29 01/08/17 07:29 01/08/17 07:29 01/08/17 07:29 01/08/17 07:29 Intake and Output: 01/08/17 01/08/17 06:59 18:59 Intake Total 440 Output Total 2100 Balance -1660 - Medications Medications: Current Medications Acetaminophen (Tylenol 325mg Tab) 650 mg PO Q6H PRN PRN Reason: Fever >100.4 F Albuterol Sulfate (Albuterol 0.083% Inhal Erica (2.5 Mg/3 Ml) Ud) 2.5 mg IH Q2H PRN PRN Reason: Shortness of Breath Amylase (Pancrease 59836 U-5000 U-25810 U) 5,000 u PO TID [facility] Last Admin: 01/08/17 10:33 Dose: 5,000 u Famotidine (Pepcid) 20 mg IVP Q12 [facility] Last Admin: 01/08/17 10:35 Dose: 20 mg Folic Acid 1 mg/ Sodium (Chloride) 50.2 mls @ 200 mls/hr IV DAILY [facility] Last Admin: 01/08/17 10:33 Dose: 200 mls/hr Lactated Ringer's (Lactated Ringer's) 1,000 mls @ 999 mls/hr IV .Q1H1M [facility] Last Admin: 01/07/17 22:11 Dose: 999 mls/hr Lactated Ringer's (Lactated Ringer's) 1,000 mls @ 150 mls/hr IV .Q6H40M [facility] Last Admin: 01/08/17 10:42 Dose: 150 mls/hr Ibuprofen (Motrin Tab) 600 mg PO Q6H PRN PRN Reason: Pain, Mild (1-3) Lorazepam (Ativan) 2 mg IVP Q4H PRN; Protocol PRN Reason: EtOH withdrawal Morphine Sulfate (Morphine) 2 mg IVP Q4H PRN PRN Reason: Pain, moderate (4-7) Last Admin: 01/08/17 10:34 Dose: 2 mg Nicotine (Nicoderm Cq) 1 patch TD DAILY [facility] Last Admin: 01/08/17 11:40 Dose: 1 patch Ondansetron HCl (Zofran Inj) 4 mg IVP Q6H PRN PRN Reason: Nausea/Vomiting Last Admin: 01/08/17 10:33 Dose: 4 mg Oxycodone/Acetaminophen (Percocet 5/325 Mg Tab) 1 tab PO Q4H PRN PRN Reason: mild to moderate pain Stop: 01/11/17 11:22 Thiamine HCl (Vitamin B1 Inj) 100 mg IV DAILY [facility] Last Admin: 01/08/17 11:41 Dose: 100 mg - Labs Labs: 01/08/17 06:30 01/08/17 08:00 PT 13.6 Seconds (9.9-11.8) H 01/06/17 03:30 INR 1.26 (0.93-1.08) H 01/06/17 03:30 Attending/Attestation - Attestation I have personally seen and examined this patient.: Yes I have fully participated in the care of the patient.: Yes I have reviewed all pertinent clinical information, including history, physical exam and plan: Yes Notes (Text): 01/08/17 12:29 41 year old male with h/o pancreas divisum complicated by recurrent episodes of pancreatitis. 1. Acute pancreatitis 2. Pancreas divisum Plan: -pain medication and anti-emetics as needed -advance diet as tolerated to low fat -small frequent meals -advised smoking cessation and continued alcohol abstinence -doesn't appear to have been significant improvement after two ERCPs with minor papillotomy, unlikely any benefit to repeat procedure at this time -supportive care -no associate organ failure or local complications of pancreatitis at this time -will sign off at this time
[2017-01-08 08:20] LABS: ALB/GLOB RATIO 1.2 (1.1-1.8); ALKALINE PHOSPHATASE 73 U/L (38-133); ALT/SGPT 29 U/L (7-56); AST/SGOT 22 U/L (15-59); BILIRUBIN,TOTAL 1.2 mg/dL (0.2-1.3); BLOOD UREA NITROGEN 6 mg/dL (7-21); CALCIUM 8.9 mg/dL (8.4-10.5); CARBON DIOXIDE 27 mmol/L (21-33); CHLORIDE 104 mmol/L (95-110); GFR AFRICAN-AMERICAN > 60; GLUCOSE,RANDOM 66 mg/dL (70-110); POTASSIUM 3.3 mmol/L (3.6-5.0); SODIUM 138 mmol/L (132-148); TOTAL PROTEIN 6.1 g/dL (5.8-8.3)
[2017-01-08] MEDS ORDERED: Morphine 2 mg/ml ISec ONE (10:26)
[2017-01-08] MEDS: Amylase/Lipase/Protease 5,000 U ECC PO SCH ×3 (10:33→17:02)
[2017-01-08] MEDS ORDERED: Potassium Chloride 20 mEq ER Tab PO ONE ×2 (10:33→11:39)
[2017-01-08] MEDS: Folic Acid 1 MG in Sodium Chloride 0.9% 50 ML IV SCH (10:33)
[2017-01-08] MEDS: Lactated Ringer's 1,000 ML IV SCH ×2 (10:42→15:43)
[2017-01-08] MEDS ORDERED: Thiamine 100 mg/ml Inj ONE (11:27)
[2017-01-08] MEDS ORDERED: Potassium Chloride 40 mEq/30 ml LIQ UD ONE (11:28)
[2017-01-08] MEDS: Thiamine 100 mg/ml Inj IV SCH (11:41)
--- NOTE | 2017-01-08 14:09 | CP.PCM.PN ---
<RubensFaizan - Last Filed: 01/08/17 14:04> Subjective - Date & Time of Evaluation Date of Evaluation: 01/08/17 Time of Evaluation: 11:35 - Subjective Subjective: Patient seen and examined this morning. Patient still notes moderate abdominal pain, nausea and vomiting after meals. Patient reports nausea and vomiting after soft diet for lunch today. Patient also notes intermittent dizziness. Denies chills, fever, shortness of breath or chest pain. Objective - Vital Signs/Intake and Output Vital Signs (last 24 hours): Temp Pulse Resp BP Pulse Ox 97.8 F 43 L 20 116/74 96 01/08/17 07:29 01/08/17 07:29 01/08/17 07:29 01/08/17 07:29 01/08/17 07:29 Intake and Output: 01/08/17 01/08/17 06:59 18:59 Intake Total 440 Output Total 2100 Balance -1660 - Medications Medications: Current Medications Acetaminophen (Tylenol 325mg Tab) 650 mg PO Q6H PRN PRN Reason: Fever >100.4 F Albuterol Sulfate (Albuterol 0.083% Inhal Erica (2.5 Mg/3 Ml) Ud) 2.5 mg IH Q2H PRN PRN Reason: Shortness of Breath Amylase (Pancrease 14309 U-5000 U-78389 U) 5,000 u PO TID [facility] Last Admin: 01/08/17 10:33 Dose: 5,000 u Famotidine (Pepcid) 20 mg IVP Q12 [facility] Last Admin: 01/08/17 10:35 Dose: 20 mg Folic Acid 1 mg/ Sodium (Chloride) 50.2 mls @ 200 mls/hr IV DAILY [facility] Last Admin: 01/08/17 10:33 Dose: 200 mls/hr Lactated Ringer's (Lactated Ringer's) 1,000 mls @ 999 mls/hr IV .Q1H1M [facility] Last Admin: 01/07/17 22:11 Dose: 999 mls/hr Lactated Ringer's (Lactated Ringer's) 1,000 mls @ 150 mls/hr IV .Q6H40M [facility] Last Admin: 01/08/17 10:42 Dose: 150 mls/hr Ibuprofen (Motrin Tab) 600 mg PO Q6H PRN PRN Reason: Pain, Mild (1-3) Lorazepam (Ativan) 2 mg IVP Q4H PRN; Protocol PRN Reason: EtOH withdrawal Morphine Sulfate (Morphine) 2 mg IVP Q4H PRN PRN Reason: Pain, moderate (4-7) Last Admin: 01/08/17 10:34 Dose: 2 mg Nicotine (Nicoderm Cq) 1 patch TD DAILY [facility] Last Admin: 01/08/17 11:40 Dose: 1 patch Ondansetron HCl (Zofran Inj) 4 mg IVP Q6H PRN PRN Reason: Nausea/Vomiting Last Admin: 01/08/17 10:33 Dose: 4 mg Oxycodone/Acetaminophen (Percocet 5/325 Mg Tab) 1 tab PO Q4H PRN PRN Reason: mild to moderate pain Stop: 01/11/17 11:22 Thiamine HCl (Vitamin B1 Inj) 100 mg IV DAILY [facility] Last Admin: 01/08/17 11:41 Dose: 100 mg - Labs Labs: 01/08/17 06:30 01/08/17 08:00 PT 13.6 Seconds (9.9-11.8) H 01/06/17 03:30 INR 1.26 (0.93-1.08) H 01/06/17 03:30 - Constitutional Appears: Non-toxic, No Acute Distress - Head Exam Head Exam: ATRAUMATIC, NORMOCEPHALIC - Eye Exam Eye Exam: EOMI, PERRL - ENT Exam ENT Exam: Mucous Membranes Moist - Neck Exam Neck Exam: Full ROM, Normal Inspection - Respiratory Exam Respiratory Exam: Clear to Ausculation Bilateral. absent: Rales, Rhonchi, Wheezes - Cardiovascular Exam Cardiovascular Exam: REGULAR RHYTHM, +S1, +S2 - GI/Abdominal Exam GI & Abdominal Exam: Soft, Tenderness (epigastric ), Normal Bowel Sounds. absent: Distended, Firm, Guarding - Extremities Exam Extremities Exam: Full ROM. absent: Pedal Edema - Back Exam Back Exam: NORMAL INSPECTION - Neurological Exam Neurological Exam: Alert, Awake, Oriented x3 - Psychiatric Exam Psychiatric exam: Normal Affect, Normal Mood - Skin Skin Exam: Dry, Warm Assessment and Plan - Assessment and Plan (Free Text) Assessment: 41yo M admitted for acute on chronic pancreatitis with hx chonic pancreatitis due to underlying pancreas divisum. Patient has undergone biliary stent placement x2. Acute on Chronic Pancreatitis - unable to tolerate soft diet today. will see if patient can tolerate dinner. likely d/c tomorrow morning. -Lipase elevated in the 3000's -continue IVF -continue pancreatic enzyme replacement -morphine 2mg Q4H PRN for breakthrough pain. Percocet 5/325 added. -CT did not show any acute process or inflammation -f/u lipid panel Polysubstance abuse -patient was counseled on how smoking anything, even marijuana, and especially cigarettes can inflame the pancreas and cause boughts of pancreatitis. He was encouraged to stop using all drugs. The patient verbalized understanding and stated he is in the process of "cutting down and really wants to quit" - patient will be discharged on Folic acid and Thiamine supplementation. Prop Pepcid IV SCD; OOB encouraged <Alec CANO,Juliann - Last Filed: 01/08/17 17:14> Objective - Vital Signs/Intake and Output Vital Signs (last 24 hours): Temp Pulse Resp BP Pulse Ox 98.3 F 51 L 18 113/72 97 01/08/17 16:00 01/08/17 16:00 01/08/17 16:00 01/08/17 16:00 01/08/17 16:00 Intake and Output: 01/08/17 01/08/17 06:59 18:59 Intake Total 440 620 Output Total 2100 700 Balance -1660 -80 - Medications Medications: Current Medications Acetaminophen (Tylenol 325mg Tab) 650 mg PO Q6H PRN PRN Reason: Fever >100.4 F Albuterol Sulfate (Albuterol 0.083% Inhal Erica (2.5 Mg/3 Ml) Ud) 2.5 mg IH Q2H PRN PRN Reason: Shortness of Breath Amylase (Pancrease 95695 U-5000 U-56491 U) 5,000 u PO TID [facility] Last Admin: 01/08/17 17:02 Dose: 5,000 u Famotidine (Pepcid) 20 mg IVP Q12 [facility] Last Admin: 01/08/17 10:35 Dose: 20 mg Folic Acid 1 mg/ Sodium (Chloride) 50.2 mls @ 200 mls/hr IV DAILY [facility] Last Admin: 01/08/17 10:33 Dose: 200 mls/hr Lactated Ringer's (Lactated Ringer's) 1,000 mls @ 999 mls/hr IV .Q1H1M [facility] Last Admin: 01/07/17 22:11 Dose: 999 mls/hr Lactated Ringer's (Lactated Ringer's) 1,000 mls @ 150 mls/hr IV .Q6H40M [facility] Last Admin: 01/08/17 15:43 Dose: 150 mls/hr Ibuprofen (Motrin Tab) 600 mg PO Q6H PRN PRN Reason: Pain, Mild (1-3) Lorazepam (Ativan) 2 mg IVP Q4H PRN; Protocol PRN Reason: EtOH withdrawal Morphine Sulfate (Morphine) 2 mg IVP Q4H PRN PRN Reason: Pain, moderate (4-7) Last Admin: 01/08/17 10:34 Dose: 2 mg Nicotine (Nicoderm Cq) 1 patch TD DAILY [facility] Last Admin: 01/08/17 11:40 Dose: 1 patch Ondansetron HCl (Zofran Inj) 4 mg IVP Q6H PRN PRN Reason: Nausea/Vomiting Last Admin: 01/08/17 10:33 Dose: 4 mg Oxycodone/Acetaminophen (Percocet 5/325 Mg Tab) 1 tab PO Q4H PRN PRN Reason: mild to moderate pain Stop: 01/11/17 11:22 Last Admin: 01/08/17 15:43 Dose: 1 tab Thiamine HCl (Vitamin B1 Inj) 100 mg IV DAILY [facility] Last Admin: 01/08/17 11:41 Dose: 100 mg - Labs Labs: 01/08/17 06:30 01/08/17 08:00 PT 13.6 Seconds (9.9-11.8) H 01/06/17 03:30 INR 1.26 (0.93-1.08) H 01/06/17 03:30 Attending/Attestation - Attestation I have personally seen and examined this patient.: Yes I have fully participated in the care of the patient.: Yes I have reviewed all pertinent clinical information, including history, physical exam and plan: Yes Notes (Text): 01/08/17 17:11 Patient was seen and examined with medical van driver. 41 year old male with h/o pancreas divisum complicated by recurrent episodes of pancreatitis.Abdominal pain is better, has been started on oral pain medication.He is on clear liquid diet, will advance diet.Lipase level is back to normal.Patient has been advised small frequent meals, smoking cessation and continued alcohol abstinence.He does not has associate organ failure or local complications of pancreatitis at this time -He doesn't appear to have been significant improvement after two ERCPs with minor papillotomy, unlikely any benefit to repeat procedure at this time as per GI Management plan was discussed in detail with patient.Education was provided
[2017-01-08] MEDS: Oxycodone/Acetaminophen 5/325 mg Tab PO PRN ×2 (15:43→21:36)
[2017-01-09] MEDS: Morphine 2 mg/ml ISec IVP PRN ×3 (05:44→13:46)
[2017-01-09 06:59] LABS: ALB/GLOB RATIO 1.1 (1.1-1.8); ALKALINE PHOSPHATASE 67 U/L (38-133); ALT/SGPT 29 U/L (7-56); AST/SGOT 21 U/L (15-59); BILIRUBIN,TOTAL 0.9 mg/dL (0.2-1.3); BLOOD UREA NITROGEN 6 mg/dL (7-21); CARBON DIOXIDE 29 mmol/L (21-33); CHLORIDE 104 mmol/L (98-107); GFR AFRICAN-AMERICAN > 60; GLUCOSE,RANDOM 73 mg/dL (70-110); POTASSIUM 3.8 mmol/L (3.6-5.0); SODIUM 139 mmol/L (132-148); TOTAL PROTEIN 6.2 g/dL (5.8-8.3)
[2017-01-09 07:50] VITALS: BP 117/76; PULSE 49; RESP 16; TEMP 97.5; O2SAT 96
[2017-01-09 09:06] LABS: ADD MANUAL DIFF? NO
[2017-01-09 09:12] LABS: BASO # 0.02 K/mm3 (0.0-2.0); BASO % 0.3 % (0.0-3.0); EOS # 0.5 (0.0-0.7); HEMATOCRIT 43.1 % (42.0-52.0); LYMPH # 3.1 (1.2-3.4); LYMPH % 47.8 % (22.0-35.0); MEAN CELL VOLUME 89.4 fL (80.0-105.0); MEAN CORPUSCULAR HEMOGLOBIN 30.7 pg (25.0-35.0); MEAN CORPUSCULAR HGB CONC 34.3 g/dl (31.0-37.0); MEAN PLATELET VOLUME 9.3 fl (7.0-11.0); MONO # 0.6 (0.1-0.6); MONO % 8.9 % (1.0-6.0); PLATELET COUNT 228 10^3/uL (120.0-450.0); RED CELL DISTRIBUTION WIDTH 13.1 % (11.5-14.5); WHITE BLOOD COUNT 6.4 10^3/ul (4.5-11.0)
[2017-01-09] MEDS: Amylase/Lipase/Protease 5,000 U ECC PO SCH ×2 (09:39→13:46)
[2017-01-09] MEDS: Thiamine 100 mg/ml Inj IV SCH (09:39)
[2017-01-09] MEDS: Folic Acid 1 MG in Sodium Chloride 0.9% 50 ML IV SCH (10:51)
--- NOTE | 2017-01-09 13:01 | CP.PCM.DIS ---
<Karishma Mccarthy - Last Filed: 01/10/17 13:53> Provider - Provider Date of Admission: 01/06/17 03:05 Attending physician: Natalee Gavin MD Consults: SANDI Martinez Time Spent in preparation of Discharge (in minutes): 45 Hospital Course - Lab Results Lab Results: Micro Results 01/06/17 04:30 Blood-Venous Blood Culture - Preliminary NO GROWTH AFTER 3 DAYS 01/06/17 04:00 Blood-Venous Blood Culture - Preliminary NO GROWTH AFTER 3 DAYS Most Recent Lab Values WBC 6.4 10^3/ul (4.5-11.0) 01/09/17 09:00 RBC 4.82 10^6/uL (3.5-6.1) 01/09/17 09:00 Hgb 14.8 gm/dL (14.0-18.0) 01/09/17 09:00 Hct 43.1 % (42.0-52.0) 01/09/17 09:00 MCV 89.4 fL (80.0-105.0) 01/09/17 09:00 MCH 30.7 pg (25.0-35.0) 01/09/17 09:00 MCHC 34.3 g/dl (31.0-37.0) 01/09/17 09:00 RDW 13.1 % (11.5-14.5) 01/09/17 09:00 Plt Count 228 10^3/uL (120.0-450.0) 01/09/17 09:00 MPV 9.3 fl (7.0-11.0) 01/09/17 09:00 Gran % 36.0 % (50.0-68.0) L 01/09/17 09:00 Lymph % (Auto) 47.8 % (22.0-35.0) H 01/09/17 09:00 [place] % (Auto) 8.9 % (1.0-6.0) H 01/09/17 09:00 Eos % (Auto) 7.0 % (1.5-5.0) H 01/09/17 09:00 Baso % (Auto) 0.3 % (0.0-3.0) 01/09/17 09:00 Gran # 2.30 (1.4-6.5) 01/09/17 09:00 Lymph # 3.1 (1.2-3.4) 01/09/17 09:00 [place] # 0.6 (0.1-0.6) 01/09/17 09:00 Eos # 0.5 (0.0-0.7) 01/09/17 09:00 Baso # 0.02 K/mm3 (0.0-2.0) 01/09/17 09:00 Corrected WBC (Man) Cancelled 01/09/17 06:35 Neutrophils % (Manual) Cancelled 01/09/17 06:35 Band Neutrophils % Cancelled 01/09/17 06:35 Lymphocytes % (Manual) Cancelled 01/09/17 06:35 Atypical Lymphs % Cancelled 01/09/17 06:35 Monocytes % (Manual) Cancelled 01/09/17 06:35 Eosinophils % (Manual) Cancelled 01/09/17 06:35 Basophils % (Manual) Cancelled 01/09/17 06:35 Metamyelocytes % Cancelled 01/09/17 06:35 Myelocytes % Cancelled 01/09/17 06:35 Promyelocytes % Cancelled 01/09/17 06:35 Nucleated RBC % Cancelled 01/09/17 06:35 Hypersegmented Polys Cancelled 01/09/17 06:35 Immature Lymphocytes Cancelled 01/09/17 06:35 Blast Cells Cancelled 01/09/17 06:35 Smudge Cells Cancelled 01/09/17 06:35 Toxic Granulation Cancelled 01/09/17 06:35 Dohle Bodies Cancelled 01/09/17 06:35 Domingo Rods Cancelled 01/09/17 06:35 Platelet Evaluation Cancelled 01/09/17 06:35 Plt Clumps, EDTA Cancelled 01/09/17 06:35 Large Platelets Cancelled 01/09/17 06:35 Giant Platelets Cancelled 01/09/17 06:35 Polychromasia Cancelled 01/09/17 06:35 Hypochromasia Cancelled 01/09/17 06:35 Hyperchromasia Cancelled 01/09/17 06:35 Poikilocytosis (manual Cancelled 01/09/17 06:35 Basophilic Stippling Cancelled 01/09/17 06:35 Anisocytosis (manual) Cancelled 01/09/17 06:35 Microcytosis (manual) Cancelled 01/09/17 06:35 Macrocytosis (manual) Cancelled 01/09/17 06:35 Spherocytes Cancelled 01/09/17 06:35 Sickle Cells Cancelled 01/09/17 06:35 Target Cells Cancelled 01/09/17 06:35 Tear Drop Cells Cancelled 01/09/17 06:35 Ovalocytes Cancelled 01/09/17 06:35 Stomatocytes Cancelled 01/09/17 06:35 Helmet Cells Cancelled 01/09/17 06:35 [place] Rings Cancelled 01/09/17 06:35 [place] Cells Cancelled 01/09/17 06:35 Acanthocytes (Spur) Cancelled 01/09/17 06:35 Rouleaux Cancelled 01/09/17 06:35 PT 13.6 Seconds (9.9-11.8) H 01/06/17 03:30 INR 1.26 (0.93-1.08) H 01/06/17 03:30 Sodium 139 mmol/L (132-148) 01/09/17 06:35 Potassium 3.8 mmol/L (3.6-5.0) 01/09/17 06:35 Chloride 104 mmol/L (98-107) 01/09/17 06:35 Carbon Dioxide 29 mmol/L (21-33) 01/09/17 06:35 Anion Gap 10 (10-20) 01/09/17 06:35 BUN 6 mg/dL (7-21) L 01/09/17 06:35 Creatinine 0.9 mg/dL (0.5-1.4) 01/09/17 06:35 Est GFR ( Amer) > 60 01/09/17 06:35 Est GFR (Non-Af Amer) > 60 01/09/17 06:35 Random Glucose 73 mg/dL (70-110) 01/09/17 06:35 Calcium 9.0 mg/dL (8.4-10.5) 01/09/17 06:35 Total Bilirubin 0.9 mg/dL (0.2-1.3) 01/09/17 06:35 AST 21 U/L (15-59) 01/09/17 06:35 ALT 29 U/L (7-56) 01/09/17 06:35 Alkaline Phosphatase 67 U/L (38-133) 01/09/17 06:35 Lactate Dehydrogenase 472 U/L (333-699) 01/06/17 11:00 Total Protein 6.2 g/dL (5.8-8.3) 01/09/17 06:35 Albumin 3.2 g/dL (3.0-4.8) 01/09/17 06:35 Globulin 3.0 gm/dL 01/09/17 06:35 Albumin/Globulin Ratio 1.1 (1.1-1.8) 01/09/17 06:35 Triglycerides 79 mg/dL (35-160) 01/06/17 01:45 Cholesterol 146 mg/dL (130-200) 01/06/17 01:45 LDL Cholesterol Direct 94 mg/dL (0-129) 01/06/17 01:45 HDL Cholesterol 37 mg/dL (29-60) 01/06/17 01:45 Lipase 98 U/L (23-300) 01/08/17 07:30 Urine Color Yellow (YELLOW) 01/06/17 02:48 Urine Appearance Clear (CLEAR) 01/06/17 02:48 Urine pH 6.5 (4.7-8.0) 01/06/17 02:48 Ur Specific [place] 1.010 (1.005-1.035) 01/06/17 02:48 Urine Protein Negative mg/dL (<30 mg/dL) 01/06/17 02:48 Urine Glucose (UA) Negative mg/dL (NEGATIVE) 01/06/17 02:48 Urine Ketones Negative mg/dL (NEGATIVE) 01/06/17 02:48 Urine Blood Negative (NEGATIVE) 01/06/17 02:48 Urine Nitrate Negative (NEGATIVE) 01/06/17 02:48 Urine Bilirubin Negative (NEGATIVE) 01/06/17 02:48 Urine Urobilinogen 0.2 E.U./dL (<1 E.U./dL) 01/06/17 02:48 Ur Leukocyte Esterase Negative Olivia/uL (NEGATIVE) 01/06/17 02:48 Urine Opiates Screen Negative (NEGATIVE) 01/06/17 03:20 Urine Methadone Screen Negative (NEGATIVE) 01/06/17 03:20 Ur Barbiturates Screen Negative (NEGATIVE) 01/06/17 03:20 Ur Phencyclidine Scrn Negative (NEGATIVE) 01/06/17 03:20 Ur Amphetamines Screen Negative (NEGATIVE) 01/06/17 03:20 U Benzodiazepines Scrn Negative (NEGATIVE) 01/06/17 03:20 U Oth Cocaine Metabols Negative (NEGATIVE) 01/06/17 03:20 U Cannabinoids Screen Positive (NEGATIVE) H 01/06/17 03:20 - Hospital Course Hospital Course: 41 M with a PMhx of pancreatic divisum, polysubstance abuse and chronic pancreatitis who presented to the ED with a 2 day history of abdominal pain associated with N/V and diarrhea. The patient states he has diarrhea at baseline from his non functioning pancreas, but has been experiencing more than 10x of vomiting for the past 2days. Patient states 2days ago he smoked a lot of marijuana and that's when the pain started. This feels exactly like when he's had pancreatitis in the past. Pt was admitted for acute on chronic pancreatitis. Labwork demonstrated Lipase elevated in the 3000's. CT Abdomen did not demonstrate any acute intraabdominal pathology. Pt was placed on bowel rest and made NPO with IVF running at 200ml/hr lactated ringers. Pt's diet was advanced to CLD when his appetite returned. Morphine 2mg Q4H PRN was used for pain control. GI was consulted, Dr. Martinez and recommended IVF since he was responding and biochemically no s/s of worsening pancreatitis. Sluggish bowel sounds. Start clear liquid diet and advance as tolerated. Continue pancreatic enzymes. Pt was placed on CIWA protocol and ativan ONLY if he exhibited signs of withdrawal, which he did not during his stay. Patient was placed on Thiamine and folate daily. Patient was counseled on how smoking anything, even marijuana , and especially cigarettes can inflame the pancreas and cause boughts of pancreatitis. He was encouraged to stop using all drugs. The patient verbalized understanding and stated he is in the process of "cutting down and really wants to quit. Upon dc, Pt is to fu with PMD Dr. Hdez within 3-5 days and is to fu with Dr Garcia in 3-4 weeks in his office. Discharge Exam - Head Exam Head Exam: ATRAUMATIC, NORMOCEPHALIC - Eye Exam Eye Exam: EOMI, Normal appearance, PERRL Pupil Exam: NORMAL ACCOMODATION, PERRL - ENT Exam ENT Exam: Mucous Membranes Moist - Respiratory Exam Respiratory Exam: Clear to PA & Lateral, NORMAL BREATHING PATTERN, UNREMARKABLE - Cardiovascular Exam Cardiovascular Exam: RRR, +S1, +S2 - GI/Abdominal Exam GI & Abdominal Exam: Normal Bowel Sounds - Extremities Exam Extremities exam: normal inspection - Neurological Exam Neurological exam: Alert, CN II-XII Intact, Normal Gait, Oriented x3, Reflexes Normal - Psychiatric Exam Psychiatric exam: Normal Affect, Normal Mood - Skin Skin Exam: Dry, Intact, Normal Color, Warm Discharge Plan - Discharge Medications Prescriptions: Amylase/Lipase/Protease [Pancrease 60249 U-5000 U-84438 U] 5,000 u PO TID #90 ecc Folic Acid 1 mg PO DAILY #30 tab Ondansetron HCl [Zofran] 4 mg PO Q6 #12 tablet oxyCODONE/Acetaminophen [Percocet 5/325 mg Tab] 1 ea PO Q6 #10 tab Thiamine [Vitamin B-1] 100 mg PO DAILY #30 tab - Follow Up Plan Condition: GOOD Disposition: HOME/ ROUTINE Instructions: Antibacterial Cleanser (On the skin), Pancreatitis (DC), ERCP ( Endoscopic Retrograde Cholangiopancreatography) (DC), Alcohol Intoxication (DC) , Abuse of Alcohol (GEN), Acute Nausea and Vomiting (GEN), Acute Abdominal Pain (GEN) Additional Instructions: Please see your primary care doctor within one week for further evaluation and management. Please see Dr. Garcia for further evaluation and management. Continue taking your medications as you were prior to coming to the hospital. You are prescribed 2 new vitamins called Folic acid and Thiamine. Take one tablet of each every day. Referrals: Thanh Hdez DO [[facility]] - Guillermo Garcia MD [Staff Provider] - <Natalee Gavin - Last Filed: 01/10/17 14:11> Provider - Provider Date of Admission: 01/06/17 03:05 Attending physician: Natalee Gavin MD Hospital Course - Lab Results Lab Results: Micro Results 01/06/17 04:30 Blood-Venous Blood Culture - Preliminary NO GROWTH AFTER 4 DAYS 01/06/17 04:00 Blood-Venous Blood Culture - Preliminary NO GROWTH AFTER 4 DAYS Most Recent Lab Values WBC 6.4 10^3/ul (4.5-11.0) 01/09/17 09:00 RBC 4.82 10^6/uL (3.5-6.1) 01/09/17 09:00 Hgb 14.8 gm/dL (14.0-18.0) 01/09/17 09:00 Hct 43.1 % (42.0-52.0) 01/09/17 09:00 MCV 89.4 fL (80.0-105.0) 01/09/17 09:00 MCH 30.7 pg (25.0-35.0) 01/09/17 09:00 MCHC 34.3 g/dl (31.0-37.0) 01/09/17 09:00 RDW 13.1 % (11.5-14.5) 01/09/17 09:00 Plt Count 228 10^3/uL (120.0-450.0) 01/09/17 09:00 MPV 9.3 fl (7.0-11.0) 01/09/17 09:00 Gran % 36.0 % (50.0-68.0) L 01/09/17 09:00 Lymph % (Auto) 47.8 % (22.0-35.0) H 01/09/17 09:00 [place] % (Auto) 8.9 % (1.0-6.0) H 01/09/17 09:00 Eos % (Auto) 7.0 % (1.5-5.0) H 01/09/17 09:00 Baso % (Auto) 0.3 % (0.0-3.0) 01/09/17 09:00 Gran # 2.30 (1.4-6.5) 01/09/17 09:00 Lymph # 3.1 (1.2-3.4) 01/09/17 09:00 [place] # 0.6 (0.1-0.6) 01/09/17 09:00 Eos # 0.5 (0.0-0.7) 01/09/17 09:00 Baso # 0.02 K/mm3 (0.0-2.0) 01/09/17 09:00 Corrected WBC (Man) Cancelled 01/09/17 06:35 Neutrophils % (Manual) Cancelled 01/09/17 06:35 Band Neutrophils % Cancelled 01/09/17 06:35 Lymphocytes % (Manual) Cancelled 01/09/17 06:35 Atypical Lymphs % Cancelled 01/09/17 06:35 Monocytes % (Manual) Cancelled 01/09/17 06:35 Eosinophils % (Manual) Cancelled 01/09/17 06:35 Basophils % (Manual) Cancelled 01/09/17 06:35 Metamyelocytes % Cancelled 01/09/17 06:35 Myelocytes % Cancelled 01/09/17 06:35 Promyelocytes % Cancelled 01/09/17 06:35 Nucleated RBC % Cancelled 01/09/17 06:35 Hypersegmented Polys Cancelled 01/09/17 06:35 Immature Lymphocytes Cancelled 01/09/17 06:35 Blast Cells Cancelled 01/09/17 06:35 Smudge Cells Cancelled 01/09/17 06:35 Toxic Granulation Cancelled 01/09/17 06:35 Dohle Bodies Cancelled 01/09/17 06:35 Domingo Rods Cancelled 01/09/17 06:35 Platelet Evaluation Cancelled 01/09/17 06:35 Plt Clumps, EDTA Cancelled 01/09/17 06:35 Large Platelets Cancelled 01/09/17 06:35 Giant Platelets Cancelled 01/09/17 06:35 Polychromasia Cancelled 01/09/17 06:35 Hypochromasia Cancelled 01/09/17 06:35 Hyperchromasia Cancelled 01/09/17 06:35 Poikilocytosis (manual Cancelled 01/09/17 06:35 Basophilic Stippling Cancelled 01/09/17 06:35 Anisocytosis (manual) Cancelled 01/09/17 06:35 Microcytosis (manual) Cancelled 01/09/17 06:35 Macrocytosis (manual) Cancelled 01/09/17 06:35 Spherocytes Cancelled 01/09/17 06:35 Sickle Cells Cancelled 01/09/17 06:35 Target Cells Cancelled 01/09/17 06:35 Tear Drop Cells Cancelled 01/09/17 06:35 Ovalocytes Cancelled 01/09/17 06:35 Stomatocytes Cancelled 01/09/17 06:35 Helmet Cells Cancelled 01/09/17 06:35 [place] Rings Cancelled 01/09/17 06:35 [place] Cells Cancelled 01/09/17 06:35 Acanthocytes (Spur) Cancelled 01/09/17 06:35 Rouleaux Cancelled 01/09/17 06:35 PT 13.6 Seconds (9.9-11.8) H 01/06/17 03:30 INR 1.26 (0.93-1.08) H 01/06/17 03:30 Sodium 139 mmol/L (132-148) 01/09/17 06:35 Potassium 3.8 mmol/L (3.6-5.0) 01/09/17 06:35 Chloride 104 mmol/L (98-107) 01/09/17 06:35 Carbon Dioxide 29 mmol/L (21-33) 01/09/17 06:35 Anion Gap 10 (10-20) 01/09/17 06:35 BUN 6 mg/dL (7-21) L 01/09/17 06:35 Creatinine 0.9 mg/dL (0.5-1.4) 01/09/17 06:35 Est GFR ( Amer) > 60 01/09/17 06:35 Est GFR (Non-Af Amer) > 60 01/09/17 06:35 Random Glucose 73 mg/dL (70-110) 01/09/17 06:35 Calcium 9.0 mg/dL (8.4-10.5) 01/09/17 06:35 Total Bilirubin 0.9 mg/dL (0.2-1.3) 01/09/17 06:35 AST 21 U/L (15-59) 01/09/17 06:35 ALT 29 U/L (7-56) 01/09/17 06:35 Alkaline Phosphatase 67 U/L (38-133) 01/09/17 06:35 Lactate Dehydrogenase 472 U/L (333-699) 01/06/17 11:00 Total Protein 6.2 g/dL (5.8-8.3) 01/09/17 06:35 Albumin 3.2 g/dL (3.0-4.8) 01/09/17 06:35 Globulin 3.0 gm/dL 01/09/17 06:35 Albumin/Globulin Ratio 1.1 (1.1-1.8) 01/09/17 06:35 Triglycerides 79 mg/dL (35-160) 01/06/17 01:45 Cholesterol 146 mg/dL (130-200) 01/06/17 01:45 LDL Cholesterol Direct 94 mg/dL (0-129) 01/06/17 01:45 HDL Cholesterol 37 mg/dL (29-60) 01/06/17 01:45 Lipase 98 U/L (23-300) 01/08/17 07:30 Urine Color Yellow (YELLOW) 01/06/17 02:48 Urine Appearance Clear (CLEAR) 01/06/17 02:48 Urine pH 6.5 (4.7-8.0) 01/06/17 02:48 Ur Specific [place] 1.010 (1.005-1.035) 01/06/17 02:48 Urine Protein Negative mg/dL (<30 mg/dL) 01/06/17 02:48 Urine Glucose (UA) Negative mg/dL (NEGATIVE) 01/06/17 02:48 Urine Ketones Negative mg/dL (NEGATIVE) 01/06/17 02:48 Urine Blood Negative (NEGATIVE) 01/06/17 02:48 Urine Nitrate Negative (NEGATIVE) 01/06/17 02:48 Urine Bilirubin Negative (NEGATIVE) 01/06/17 02:48 Urine Urobilinogen 0.2 E.U./dL (<1 E.U./dL) 01/06/17 02:48 Ur Leukocyte Esterase Negative Olivia/uL (NEGATIVE) 01/06/17 02:48 Urine Opiates Screen Negative (NEGATIVE) 01/06/17 03:20 Urine Methadone Screen Negative (NEGATIVE) 01/06/17 03:20 Ur Barbiturates Screen Negative (NEGATIVE) 01/06/17 03:20 Ur Phencyclidine Scrn Negative (NEGATIVE) 01/06/17 03:20 Ur Amphetamines Screen Negative (NEGATIVE) 01/06/17 03:20 U Benzodiazepines Scrn Negative (NEGATIVE) 01/06/17 03:20 U Oth Cocaine Metabols Negative (NEGATIVE) 01/06/17 03:20 U Cannabinoids Screen Positive (NEGATIVE) H 01/06/17 03:20 Attending/Attestation - Attestation I have personally seen and examined this patient.: Yes I have fully participated in the care of the patient.: Yes I have reviewed all pertinent clinical information, including history, physical exam and plan: Yes Notes (Text): 01/10/17 14:09 Attending note; I have seen and examined patient with the resident. This is a 41 year old male with history of chronic pancreatitis secondary to pancreatic divism s/p minor papillotomy/sphincterotomy/stent placement and stent removal is admitted with abdominal pain, nausea and vomiting secondary to acute pancreatitis. Patient was evaluated by GI Dr. Garcia. Started on liquid diet and advance to low fat diet as tolerated. patient is still complaining of nausea. Patient will be discharged home today. Upon discharge patient will follow up with PMD of tiffanie and SANDI Mitchell. diagnosis; Acute on chronic pancreatitis Pancreatic divisum Marijuana use 01/10/17 14:11
[2017-01-09] MEDS: Lactated Ringer's 1,000 ML IV SCH (13:47)
== END 2017-01-09 16:46 | disposition home or self-care (01) | DRG 204 ==
LOC: ED 00:50 → ERH 03:05 → 5RNO 05:22
PROVIDERS: ADMIT Internal Medicine; ATTEND Internal Medicine
DX: K85.90 Acute pancreatitis without necrosis or infection, unspecified (principal); Q45.3 Other congenital malformations of pancreas and pancreatic duct; F12.90 Cannabis use, unspecified, uncomplicated; K86.1 Other chronic pancreatitis; J45.909 Unspecified asthma, uncomplicated; Z87.891 Personal history of nicotine dependence; Z90.49 Acquired absence of other specified parts of digestive tract; Z80.0 Family history of malignant neoplasm of digestive organs; Z82.49 Family history of ischemic heart disease and other diseases of the circulatory system; Z83.3 Family history of diabetes mellitus; M48.00 Spinal stenosis, site unspecified; F19.10 Other psychoactive substance abuse, uncomplicated

== ENCOUNTER 2017-03-23 14:35 | Observation (INO) | payer MEDICAID ==
[2017-03-23 14:58] VITALS: BMI 26.1
[2017-03-23] MEDS ORDERED: Sodium Chloride 0.9% 1,000 ML IV SCH ×2 (18:15→18:17)
[2017-03-23 19:05] LABS: BASO # 0.02 K/mm3 (0.0-2.0); BASO % 0.2 % (0.0-3.0); EOS % 0.3 % (1.5-5.0); GRAN # 8.13 (1.4-6.5); GRAN % 79.4 % (50.0-68.0); HEMATOCRIT 46.1 % (42.0-52.0); LYMPH # 1.6 (1.2-3.4); LYMPH % 15.2 % (22.0-35.0); MEAN CELL VOLUME 90.6 fl (80.0-105.0); MEAN CORPUSCULAR HEMOGLOBIN 30.6 pg (25.0-35.0); MEAN CORPUSCULAR HGB CONC 33.8 g/dl (31.0-37.0); MEAN PLATELET VOLUME 9.2 fl (7.0-11.0); MONO # 0.5 (0.1-0.6); MONO % 4.9 % (1.0-6.0); RED CELL DISTRIBUTION WIDTH 13.8 % (11.5-14.5); WHITE BLOOD COUNT 10.2 10^3/ul (4.5-11.0)
[2017-03-23 19:16] LABS: ALB/GLOB RATIO 1.3 (1.1-1.8); ALKALINE PHOSPHATASE 74 U/L (38-126); ALT/SGPT 42 U/L (7-56); AST/SGOT 32 U/L (17-59); BILIRUBIN,TOTAL 0.4 mg/dL (0.2-1.3); BLOOD UREA NITROGEN 12 mg/dL (7-21); CALCIUM 9.1 mg/dL (8.4-10.5); CARBON DIOXIDE 27 mmol/L (21-33); CHLORIDE 105 mmol/L (98-107); GFR AFRICAN-AMERICAN > 60; GLUCOSE,RANDOM 78 mg/dL (70-110); POTASSIUM 3.5 mmol/L (3.6-5.0); SODIUM 143 mmol/L (132-148); TOTAL PROTEIN 7.2 g/dL (5.8-8.3)
--- NOTE | 2017-03-23 19:19 | ED PDOC ---
Arrival/HPI - General Historian: Patient - General Chief Complaint: Abdominal Pain Time Seen by Provider: 03/23/17 17:49 - History of Present Illness Narrative History of Present Illness (Text): 03/23/17 19:10 41 M PMHx of chronic pancreatitis presents with 19 hour duration of generalized , non-radiating, crampy abdominal pain, most severe in the epigastric region, of 8/10 severity. Patient denies any provocating or palliating features. Patient states that he feels the same as he feels when he has other bouts of pancreatitis. Patient also admits to n/v/d, and f/ch at home. Pt denies acute sob/cp. Pt further denies alcohol use. He does admit to recent marijuana use. Pt denies trauma, hematochezia, hematuria, hematemesis, and any other complaints at this time. (Ziggy Flor) Past Medical History - Provider Review Nursing Documentation Reviewed: Yes - Infectious Disease Hx of Infectious Diseases: None - Tetanus Immunization Tetanus Immunization: Unknown - Reproductive Currently : No - Cardiac Hx Cardiac Disorders: No Hx Congestive Heart Failure: No Hx Hypertension: No Hx Pacemaker: No - Pulmonary Hx Asthma: Yes Hx Chronic Obstructive Pulmonary Disease (COPD): No - Neurological Hx Neurological Disorder: No Hx Seizures: No - HEENT Hx HEENT Disorder: No - Renal Hx Renal Disorder: No - Endocrine/Metabolic Hx Endocrine Disorders: No Hx Hypothyroidism: No - Hematological/Oncological Hx Blood Disorders: No - Integumentary Hx Dermatological Disorder: No - Musculoskeletal/Rheumatological Hx Fractures: No Hx Spinal Stenosis: Yes - Gastrointestinal Hx Pancreatitis: Yes - Genitourinary/Gynecological Hx Genitourinary Disorders: No - Psychiatric Hx Emotional Abuse: No Hx Physical Abuse: No Hx Substance Use: Yes (wednesday) - Surgical History Hx Cholecystectomy: Yes (2004) - Anesthesia Hx Anesthesia: Yes Hx Anesthesia Reactions: No Hx Malignant Hyperthermia: No - Suicidal Assessment Feels Threatened In Home Enviroment: No Family/Social History - Physician Review Nursing Documentation Reviewed: Yes Family/Social History: Unknown Family HX Smoking Status: Former Smoker Hx Alcohol Use: No Hx Substance Use: Yes (wednesday) Substance used: marijuana Allergies/Home Meds Allergies/Adverse Reactions: Allergies No Known Allergies Allergy (Verified 03/23/17 14:58) Home Medications: Home Meds Medication Instructions Recorded Confirmed Lipase/Protease/Amylase [Segundo Yoo 1 cap PO DAILY 01/06/17 03/23/17 6,000 Units Capsule] Review of Systems - Review of Systems Constitutional: Fevers (pt states his temperature at home was 101), Other (pt states he had chills last night). absent: Fatigue, Weight Change Eyes: Normal. absent: Vision Changes, Photophobia ENT: Normal. absent: Hearing Changes, Tinnitus Respiratory: Normal. absent: SOB, Cough, Sputum Cardiovascular: Normal. absent: Chest Pain, Palpitations, Edema, Calf Pain, NOLAND Gastrointestinal: Abdominal Pain, Diarrhea, Nausea, Vomiting. absent: Stool Changes, Hematochezia, Hematemesis Genitourinary Male: Normal. absent: Dysuria, Frequency Musculoskeletal: Arthralgias (patient states that he has chronic arthritis), Joint Swelling. absent: Back Pain, Neck Pain Skin: Normal. absent: Rash, Pruritis, Laceration Neurological: Normal. absent: Headache, Dizziness, Focal Weakness, Gait Changes Endocrine: Normal. absent: Diaphoresis, Polyuria, Polydipsia Hemo/Lymphatic: Normal. absent: Adenopathy, Easy Bleeding Psychiatric: Normal. absent: Anxiety, Depression Physical Exam Vital Signs Reviewed: Yes Temperature: Afebrile Blood Pressure: Normal Pulse: Tachycardic Respiratory Rate: Normal Appearance: Positive for: Well-Appearing, Non-Toxic, Comfortable Pain Distress: None Mental Status: Positive for: Alert and Oriented X 3 - Systems Exam Head: Present: Atraumatic, Normocephalic. No: Tenderness, Contusion Pupils: Present: PERRL. No: Sluggish, Pinpoint Extroacular Muscles: Present: EOMI. No: Gaze Palsy, Entrapment Conjunctiva: Present: Normal. No: Injected, Icteric Mouth: Present: Moist Mucous Membranes. No: Dry, Drooling Pharnyx: Present: Normal. No: ERYTHEMA, EXUDATE Nose (External): Present: Atraumatic. No: Abrasion, Contusion Neck: Present: Normal Range of Motion. No: MIDLINE TENDERNESS, Paraspinal Tenderness Respiratory/Chest: Present: Clear to Auscultation, Good Air Exchange. No: Respiratory Distress, Accessory Muscle Use, Wheezes Cardiovascular: Present: Regular Rate and Rhythm, Normal S1, S2. No: Murmurs, Rub, Gallop Abdomen: Present: Tenderness (Epigastric tenderness; also some tenderness in LLQ ), Normal Bowel Sounds. No: Distention, Peritoneal Signs, Rebound, Guarding Back: Present: Normal Inspection. No: CVA Tenderness, Midline Tenderness, Paraspinal Tenderness Upper Extremity: Present: Normal Inspection, Normal ROM, NORMAL PULSES. No: Cyanosis, Edema Lower Extremity: Present: Normal Inspection, NORMAL PULSES, Normal ROM. No: Edema, CALF TENDERNESS, Cyanosis Neurological: Present: GCS=15, CN II-XII Intact, Speech Normal, Motor Func Grossly Intact, Normal Sensory Function Skin: Present: Warm, Normal Color. No: Dry, Rashes Psychiatric: Present: Alert, Oriented x 3, Normal Insight, Normal Concentration , Normal Affect, Normal Mood Medical Decision Making ED Course and Treatment: Assessed 03/23/17 19:00 Impression: 41 M PMHx chronic pancreatitis presents with abdominal pain, n/v/d, fevers at home. Plan: - Lipase, CBC, CMP - Bolus 1 L - Toradol, Zofran - NPO Reassessed 03/23/17 19:25 - Patient's pain better with Toradol - CBC shows no acute abnormalities Reassessed 03/23/17 19:36 - Patient's nausea is improved - Lipase 2552 - Case d/w Dr. Joe, who accepts admission to hospitalist service - Case d/w Dr. Peck, medical csr, who will see patient (Ziggy Flor) 03/23/17 22:50 Patient seen and examined with resident Came up with treatment and disposition plan with resident (Jony Chavez) - Lab Interpretations Lab Results: 03/23/17 19:00 03/23/17 19:00 Lab Results 03/23/17 19:00: Alcohol, Quantitative < 10 03/23/17 19:00: Sodium 143, Potassium 3.5 L, Chloride 105, Carbon Dioxide 27, Anion Gap 15, BUN 12, Creatinine 0.9, Est GFR ( Amer) > 60, Est GFR (Non- Af Amer) > 60, Random Glucose 78, Calcium 9.1, Total Bilirubin 0.4, AST 32, ALT 42, Alkaline Phosphatase 74, Total Protein 7.2, Albumin 4.0, Globulin 3.2, Albumin/Globulin Ratio 1.3, Lipase 2553 H 03/23/17 19:00: WBC 10.2 D, RBC 5.09, Hgb 15.6, Hct 46.1, MCV 90.6, MCH 30.6, MCHC 33.8, RDW 13.8, Plt Count 244, MPV 9.2, Gran % 79.4 H, Lymph % (Auto) 15.2 L, [place] % (Auto) 4.9, Eos % (Auto) 0.3 L, Baso % (Auto) 0.2, Gran # 8.13 H, Lymph # 1.6, [place] # 0.5, Eos # 0.0, Baso # 0.02 - Medication Orders Current Medication Orders: Albuterol Sulfate (Albuterol 0.083% Inhal Erica (2.5 Mg/3 Ml) Ud) 2.5 mg INH Q2H PRN PRN Reason: Shortness of Breath Famotidine (Pepcid) 20 mg PO 1000,2200 KELLY Hydromorphone HCl (Dilaudid) 0.5 mg IVP Q3H PRN PRN Reason: Pain, Mild (1-3) Hydromorphone HCl (Dilaudid) 1 mg IVP Q6H PRN PRN Reason: Pain, moderate (4-7) Lactated Ringer's (Lactated Ringer's) 1,000 mls @ 150 mls/hr IV .Q6H40M KELLY Last Admin: 03/23/17 22:20 Dose: 150 mls/hr Ondansetron HCl (Zofran Tab) 8 mg PO Q8H PRN PRN Reason: Nausea/Vomiting Discontinued Medications Sodium Chloride (Sodium Chloride 0.9%) 1,000 mls @ 100 mls/hr IV .Q10H KELLY Sodium Chloride (Sodium Chloride 0.9%) 1,000 mls @ 999 mls/hr IV .Q1H1M [facility] Last Admin: 03/23/17 19:11 Dose: 999 mls/hr Sodium Chloride (Sodium Chloride 0.9%) 1,000 mls @ 999 mls/hr IV .Q1H1M STA Stop: 03/23/17 21:42 Last Admin: 03/23/17 21:03 Dose: 999 mls/hr Ketorolac Tromethamine (Toradol) 15 mg IVP STAT STA Stop: 09/05/17 18:19 Last Admin: 03/23/17 19:12 Dose: 15 mg Ondansetron HCl (Zofran Inj) 2 mg IVP STAT STA Stop: 03/23/17 18:10 Last Admin: 03/23/17 19:11 Dose: 2 mg Potassium Chloride (K-Dur 20 Meq Er Tab) 40 meq PO STAT STA Stop: 03/23/17 21:25 Last Admin: 03/23/17 22:21 Dose: 40 meq Disposition/Present on Arrival - Present on Arrival Any Indicators Present on Arrival: No History of DVT/PE: No History of Uncontrolled Diabetes: No Urinary Catheter: No History of Decub. Ulcer: No History Surgical Site Infection Following: None - Disposition Have Diagnosis and Disposition been Completed?: Yes Disposition Time: 19:44 Patient Plan: Admission - Disposition Diagnosis: Pancreatitis Disposition: HOSPITALIZED Patient Problems: Current Active Problems Problem Status Onset Pancreatitis Acute Condition: FAIR
[2017-03-23 19:23] LABS: LIPASE 2553 U/L (23-300)
[2017-03-23] MEDS ORDERED: Sodium Chloride 0.9% 1,000 ML IV STA (20:42)
[2017-03-23] MEDS ORDERED: HYDROmorphone 1 mg/ml ISec IVP PRN ×2 (21:12→23:44)
[2017-03-23] MEDS ORDERED: HYDROmorphone 0.5 mg/0.5 ml ISec IVP PRN (21:12)
--- NOTE | 2017-03-23 21:23 | CP.PCM.HP ---
<LUCIA MCMANUS - Last Filed: 03/24/17 01:59> History of Present Illness - History of Present Illness History of Present Illness: Mr. Pedersen is a 41 yo Male with PMH chronic pancreatitis, pancreatic divisum, bradycardia, spinal stenosis and asthma who presents with epigastric pain that started yesterday around 1700. Patient states that it began after having a regular dinner (rice and salmon) and explained the pain as epigastric, achy but sharp at times, constant, 9/10 at its worst, and radiating to the back. Pt states that he took his prescribed zofran but it only mildly helped. Pain a/w n/v x3 episodes of nonbloody vomitus, fever (measured 101.4F at home) and diarrhea (not new). Pt states that he had similar symptoms to a lesser degree 2 weeks ago. Pt also has multiple admissions for same symptoms. Pt states that he has leg weakness due to his spinal stenosis but is not currently complaining of any new changes; pt used to see MD for it but last seen last year. Pt states that his current abd pain is 6/10. Pt denies chest pain, palpitations, sob, changes in vision/hearing, constipation, chills, urinary changes, or weakness. 10-point ROS is reviewed and otherwise unremarkable. 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 Garcia Cardio: Dr. Brice Polanco ([place]) Present on Admission - Present on Admission Any Indicators Present on Admission: No History of DVT/PE: No History of Uncontrolled Diabetes: No Review of Systems - Review of Systems All systems: reviewed and no additional remarkable complaints except (as per HPI ) Past Patient History - Infectious Disease Hx of Infectious Diseases: None - Tetanus Immunizations Tetanus Immunization: Unknown - Past Medical History & Family History Past Medical History?: Yes - Past Social History Smoking Status: Former Smoker Alcohol: None Drugs: Cannabis (last week), Cocaine (last month) Home Situation {Lives}: With Family - CARDIAC Hx Cardiac Disorders: Yes (bradycardia) Hx Congestive Heart Failure: No Hx Hypertension: No Hx Pacemaker: No - PULMONARY Hx Asthma: Yes Hx Chronic Obstructive Pulmonary Disease (COPD): No - NEUROLOGICAL Hx Neurological Disorder: No Hx Seizures: No - HEENT Hx HEENT Problems: No - RENAL Hx Chronic Kidney Disease: No - ENDOCRINE/METABOLIC Hx Endocrine Disorders: No Hx Hypothyroidism: No - HEMATOLOGICAL/ONCOLOGICAL Hx Blood Disorders: No - INTEGUMENTARY Hx Dermatological Problems: No - MUSCULOSKELETAL/RHEUMATOLOGICAL Hx Musculoskeletal Disorders: Yes Hx Fractures: No Hx Spinal Stenosis: Yes - GASTROINTESTINAL Hx Gastrointestinal Disorders: Yes Hx Pancreatitis: Yes - GENITOURINARY/GYNECOLOGICAL Hx Genitourinary Disorders: No - PSYCHIATRIC Hx Emotional Abuse: No Hx Physical Abuse: No Hx Substance Use: Yes (wednesday) - SURGICAL HISTORY Hx Surgeries: Yes Hx Cholecystectomy: Yes (2004) - ANESTHESIA Hx Anesthesia: Yes Hx Anesthesia Reactions: No Hx Malignant Hyperthermia: No Meds Allergies/Adverse Reactions: Allergies Allergy/AdvReac Type Severity Reaction Status Date / Time No Known Allergies Allergy Verified 03/23/17 14:58 Physical Exam - Constitutional Appears: Well, Non-toxic, No Acute Distress - Head Exam Head Exam: ATRAUMATIC, NORMAL INSPECTION, NORMOCEPHALIC Additional comments: mild nelson-nasal scaling - Eye Exam Eye Exam: EOMI, Normal appearance, PERRL. absent: Conjunctival injection, Scleral icterus Pupil Exam: NORMAL ACCOMODATION - ENT Exam ENT Exam: Mucous Membranes Moist Additional comments: poor dentition missing teeth - Neck Exam Neck exam: Positive for: Full Rom, Normal Inspection. Negative for: Tenderness - Respiratory Exam Respiratory Exam: Clear to Auscultation Bilateral, NORMAL BREATHING PATTERN. absent: Accessory Muscle Use, Rales, Rhonchi, Wheezes, Respiratory Distress - Cardiovascular Exam Cardiovascular Exam: RRR, +S1, +S2. absent: Gallop, JVD, Rubs, Systolic Murmur - GI/Abdominal Exam GI & Abdominal Exam: Guarding, Normal Bowel Sounds, Soft, Tenderness. absent: Distended, Rebound, Rigid - Extremities Exam Extremities exam: Positive for: normal inspection. Negative for: calf tenderness, pedal edema - Back Exam Back exam: muscle spasm (paraspinal hypertrophy), tenderness (lumbar region). absent: CVA tenderness (L), CVA tenderness (R), rash noted - Neurological Exam Neurological exam: Alert, Oriented x3 - Expanded Neurological Exam Expanded Neuro motor strength exam: Left Upper Extremity: 4, Right Upper Extremity: 5, Left Lower Extremity: 4 (4-), Right Lower Extremity: 5 - Psychiatric Exam Psychiatric exam: Normal Affect, Normal Mood - Skin Skin Exam: Normal Color, Warm Results - Vital Signs Recent Vital Signs: Last Vital Signs Temp 98.7 F 03/23/17 15:02 Pulse 77 03/23/17 20:47 Resp 16 03/23/17 20:47 BP 121/66 03/23/17 20:47 Pulse Ox 99 03/23/17 20:47 - Labs Result Diagrams: 03/23/17 19:00 03/23/17 19:00 Assessment & Plan - Assessment and Plan (Free Text) Assessment: 41 yo M PMH chronic pancreatitis, pancreatic divisum, bradycardia, spinal stenosis and asthma presents to ED with epigastric pain since yesterday a/w fever and n/v Plan: 1. Acute on chronic pancreatitis exacerbation s/p minor papillotomy/ sphincterotomy/stent placement and removal - Lipase 2553 - NPO for bowel rest - pt received 2L boluses in ED - continue w/ LR @ 150 - pain mgmt: Toradol in ED, Dialudid 0.5mg and 1mg PRN - Zofran PRN for n/v - holding Creon for now - GI consult, recs appreciated 2. Hx Bradycardia, HR currently 70's - monitor VS 3. Hx Asthma, currently asymptomatic (no wheezing or sob) - albuterol pump PRN NPO LR 150 Pepcid/SCDs Patient was seen, evaluated and d/w attending, Dr. Tatyana Mcmanus PGY1 <Willem Joe - Last Filed: 03/24/17 02:05> History of Present Illness - History of Present Illness History of Present Illness: cc: Abdominal pain x 1 day Results - Vital Signs Recent Vital Signs: Last Vital Signs Temp 98.7 F 03/23/17 15:02 Pulse 76 03/23/17 22:20 Resp 18 03/23/17 22:20 BP 111/45 L 03/23/17 22:20 Pulse Ox 96 03/23/17 22:20 - Labs Result Diagrams: 03/23/17 19:00 03/23/17 19:00 Attending/Attestation - Attestation I have personally seen and examined this patient.: Yes I have fully participated in the care of the patient.: Yes I have reviewed all pertinent clinical information: Yes Notes (Text): 03/24/17 02:03 I agree with the above mentioned note and exam by the resident with the addition /exception of the following: Recurrent episodes of pancreatitis secondary to pancreatic divisum; NPO, IV Analgesics, IVF with LR @ 150cc/hr. Also on SCD's for DVT Ppx and pepcid for GI Ppx
[2017-03-23] MEDS ORDERED: Albuterol 0.083% Inhal Sol (2.5 mg/3 mL) UD INH PRN (22:08)
[2017-03-23] MEDS: Lactated Ringer's 1,000 ML IV SCH (22:20)
[2017-03-23] MEDS: Potassium Chloride 20 mEq ER Tab PO STA (22:21)
[2017-03-24] MEDS: HYDROmorphone 0.5 mg/0.5 ml ISec IVP PRN ×4 (00:06→12:26)
[2017-03-24] MEDS: Lactated Ringer's 1,000 ML IV SCH (04:31)
[2017-03-24 07:14] LABS: HEMATOCRIT 40.4 % (42.0-52.0); MEAN CELL VOLUME 90.6 fl (80.0-105.0); MEAN CORPUSCULAR HEMOGLOBIN 29.4 pg (25.0-35.0); MEAN CORPUSCULAR HGB CONC 32.4 g/dl (31.0-37.0); MEAN PLATELET VOLUME 9.2 fl (7.0-11.0); RED CELL DISTRIBUTION WIDTH 14.3 % (11.5-14.5); WHITE BLOOD COUNT 8.7 10^3/ul (4.5-11.0)
--- NOTE | 2017-03-24 07:20 | CP.PCM.CON ---
<Raffi Santizo - Last Filed: 03/24/17 13:50> History of Present Illness - History of Present Illness History of Present Illness: GI Consult Note: 41 yo M with PMHx of pancreatic divisum, chronic pancreatitis, bradycardia, spinal stenosis and asthma who presents with epigastric abdominal. Pt states that his abd pain first started 2 days ago when he was watching TV and having salmon. He states the pain is sharp, intermittent, and radiating to the back. He states that he always gets abdominal pain at baseline 5/10 but now its severe and 9/10 in severity. He also had multiple episodes of nausea and NBNB vomiting. He also states that he has diarrhea 2-3 times daily. Pt has had similar symptoms in the past and was found to have pancreatitis. He denies any fever, chills, headaches, sob, chest pain, palpitations, urinary changes. 12 point ROS performed and negative other than stated above. 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 FHx: Grandfather with pancreatic ca, aunt with stomach cancer, grandmother with colon ca Endo Hx: 09/21/16 - s/p ERCP with minor Papillotomy and placement of plastic pancreatic stent; 10/30/16- s/p stent removal Review of Systems - Review of Systems All systems: reviewed and no additional remarkable complaints except (HPI) Past Patient History - Infectious Disease Hx of Infectious Diseases: None - Tetanus Immunizations Tetanus Immunization: Unknown - Past Medical History & Family History Past Medical History?: Yes - Past Social History Smoking Status: Former Smoker - CARDIAC Hx Cardiac Disorders: Yes (bradycardia) Hx Congestive Heart Failure: No Hx Hypertension: No Hx Pacemaker: No - PULMONARY Hx Asthma: Yes Hx Chronic Obstructive Pulmonary Disease (COPD): No - NEUROLOGICAL Hx Neurological Disorder: No Hx Seizures: No - HEENT Hx HEENT Problems: No - RENAL Hx Chronic Kidney Disease: No - ENDOCRINE/METABOLIC Hx Endocrine Disorders: No Hx Hypothyroidism: No - HEMATOLOGICAL/ONCOLOGICAL Hx Blood Disorders: No - INTEGUMENTARY Hx Dermatological Problems: No - MUSCULOSKELETAL/RHEUMATOLOGICAL Hx Musculoskeletal Disorders: Yes Hx Falls: Yes (due to spinal stenosis) Hx Fractures: No Hx Spinal Stenosis: Yes - GASTROINTESTINAL Hx Gastrointestinal Disorders: Yes Hx Pancreatitis: Yes - GENITOURINARY/GYNECOLOGICAL Hx Genitourinary Disorders: No - PSYCHIATRIC Hx Emotional Abuse: No Hx Physical Abuse: No Hx Substance Use: No Other/Comment: ETOH abuse quit 2007 - SURGICAL HISTORY Hx Surgeries: Yes Hx Cholecystectomy: Yes (2004) - ANESTHESIA Hx Anesthesia: Yes Hx Anesthesia Reactions: No Hx Malignant Hyperthermia: No Meds Allergies/Adverse Reactions: Allergies Allergy/AdvReac Type Severity Reaction Status Date / Time No Known Allergies Allergy Verified 03/23/17 14:58 - Medications Medications: Current Medications Albuterol Sulfate (Albuterol 0.083% Inhal Erica (2.5 Mg/3 Ml) Ud) 2.5 mg INH Q2H PRN PRN Reason: Shortness of Breath Famotidine (Pepcid) 20 mg PO 1000,2200 [facility] Last Admin: 03/24/17 04:31 Dose: Not Given Hydromorphone HCl (Dilaudid) 0.5 mg IVP Q3H PRN PRN Reason: Pain, moderate (4-7) Last Admin: 03/24/17 04:05 Dose: 0.5 mg Hydromorphone HCl (Dilaudid) 1 mg IVP Q3H PRN PRN Reason: Pain, severe (8-10) Lactated Ringer's (Lactated Ringer's) 1,000 mls @ 150 mls/hr IV .Q6H40M [facility] Last Admin: 03/24/17 04:31 Dose: Not Given Ondansetron HCl (Zofran Inj) 4 mg IVP Q6H PRN PRN Reason: Nausea/Vomiting Physical Exam - Constitutional Appears: No Acute Distress - Head Exam Head Exam: ATRAUMATIC, NORMOCEPHALIC - Eye Exam Eye Exam: EOMI, PERRL - ENT Exam ENT Exam: Mucous Membranes Moist - Neck Exam Neck exam: Positive for: Normal Inspection - Respiratory Exam Respiratory Exam: Clear to Auscultation Bilateral. absent: Rales, Rhonchi, Wheezes - Cardiovascular Exam Cardiovascular Exam: REGULAR RHYTHM, RRR, +S1, +S2 - GI/Abdominal Exam GI & Abdominal Exam: Normal Bowel Sounds, Soft, Tenderness Additional comments: +BS, Soft, Midepigastric tenderness, no distention - Extremities Exam Extremities exam: Negative for: calf tenderness, pedal edema - Back Exam Back exam: absent: vertebral tenderness - Neurological Exam Neurological exam: Alert, CN II-XII Intact, Oriented x3 - Psychiatric Exam Psychiatric exam: Normal Affect, Normal Mood - Skin Skin Exam: Dry, Intact, Warm Results - Vital Signs Recent Vital Signs: Last Vital Signs Temp 97.9 F 03/24/17 04:32 Pulse 72 03/24/17 04:32 Resp 18 03/24/17 04:32 BP 121/68 03/24/17 04:32 Pulse Ox 96 03/23/17 22:20 - Labs Result Diagrams: 03/24/17 06:45 03/24/17 06:45 Assessment & Plan - Assessment and Plan (Free Text) Assessment: 41 yo M with PMHx of pancreatic divisum, chronic pancreatitis, bradycardia, spinal stenosis and asthma who presents with epigastric abdominal pain 2/2 acute on chronic pancreatitis. Plan: - Continue LR 150ml/hr - CLD with low fat- may advance diet as tolerated to full liquids with low fat - Pain control - Antiemetics for nausea - Cont Pepcid 20mg BID - May resume home pancreatic enzymes Case and plan was reviewed an discussed in detail with GI team. Thank you for allowing us to participate in the care of the patient. <Jaida Narvaez MD - Last Filed: 03/24/17 16:52> Results - Vital Signs Recent Vital Signs: Last Vital Signs Temp 97.8 F 03/24/17 07:00 Pulse 65 03/24/17 07:00 Resp 20 03/24/17 07:00 BP 103/69 03/24/17 07:00 Pulse Ox 99 03/24/17 07:00 - Labs Result Diagrams: 03/24/17 06:45 03/24/17 06:45 Labs: Laboratory Results - last 24 hr 03/24/17 03/24/17 06:45 06:45 WBC 8.7 RBC 4.46 Hgb 13.1 L D Hct 40.4 L MCV 90.6 MCH 29.4 MCHC 32.4 RDW 14.3 Plt Count 215 MPV 9.2 Sodium 143 Potassium 3.7 Chloride 111 H Carbon Dioxide 21 Anion Gap 15 BUN 7 Creatinine 0.8 Est GFR ( Amer) > 60 Est GFR (Non-Af Amer) > 60 Random Glucose 74 Calcium 8.3 L Total Bilirubin 0.3 AST 21 ALT 32 Alkaline Phosphatase 61 Total Protein 5.6 L Albumin 3.0 Globulin 2.6 Albumin/Globulin Ratio 1.2 Attending/Attestation - Attestation I have personally seen and examined this patient.: Yes I have fully participated in the care of the patient.: Yes I have reviewed all pertinent clinical information: Yes Notes (Text): 03/24/17 16:50 Patient seen and examined with GI fellow and senior medical writer on rounds today. This is a 41 yo M with PMHx of pancreatic divisum s/p ERCP with stent placemnet and removal, chronic pancreatitis on pancreatic enzymes, spinal stenosis and asthma who presents with epigastric abdominal pain 2/2 acute on chronic pancreatitis. Pain now resolved. Advance diet to low fat diet. Continue pancreatic enzymes. Antiemetics as needed. Patient to follow with Dr Garcia as outpatient
[2017-03-24 07:31] LABS: ALB/GLOB RATIO 1.2 (1.1-1.8); ALKALINE PHOSPHATASE 61 U/L (38-126); ALT/SGPT 32 U/L (7-56); AST/SGOT 21 U/L (17-59); BILIRUBIN,TOTAL 0.3 mg/dL (0.2-1.3); BLOOD UREA NITROGEN 7 mg/dL (7-21); CALCIUM 8.3 mg/dL (8.4-10.5); CARBON DIOXIDE 21 mmol/L (21-33); CHLORIDE 111 mmol/L (98-107); GFR AFRICAN-AMERICAN > 60; GLUCOSE,RANDOM 74 mg/dL (70-110); POTASSIUM 3.7 mmol/L (3.6-5.0); SODIUM 143 mmol/L (132-148); TOTAL PROTEIN 5.6 g/dL (5.8-8.3)
[2017-03-24 09:09] VITALS: BP 103/69; PULSE 65; RESP 20; TEMP 97.8; O2SAT 99
[2017-03-24] MEDS ORDERED: PROTEASE PO SCH (10:00)
[2017-03-24] MEDS ORDERED: Amylase/Lipase/Protease 5,000 U ECC PO SCH (10:00)
[2017-03-24] MEDS ORDERED: LIPASE PO SCH (10:00)
[2017-03-24] MEDS ORDERED: AMYLASE PO SCH (10:00)
--- NOTE | 2017-03-24 14:49 | CP.PCM.DIS ---
<Munira Lara - Last Filed: 03/24/17 14:46> Provider - Provider Date of Admission: 03/23/17 20:06 Attending physician: Nelly Mccarthy MD Primary care physician: Indra Hdez DNP, HOT ROOM ATTENDANT Consults: SANDI Garcia Time Spent in preparation of Discharge (in minutes): 35 Diagnosis - Discharge Diagnosis (1) Pancreatitis Status: Chronic Hospital Course - Lab Results Lab Results: Most Recent Lab Values WBC 8.7 10^3/ul (4.5-11.0) 03/24/17 06:45 RBC 4.46 10^6/uL (3.5-6.1) 03/24/17 06:45 Hgb 13.1 g/dL (14.0-18.0) L D 03/24/17 06:45 Hct 40.4 % (42.0-52.0) L 03/24/17 06:45 MCV 90.6 fl (80.0-105.0) 03/24/17 06:45 MCH 29.4 pg (25.0-35.0) 03/24/17 06:45 MCHC 32.4 g/dl (31.0-37.0) 03/24/17 06:45 RDW 14.3 % (11.5-14.5) 03/24/17 06:45 Plt Count 215 10^3/uL (120.0-450.0) 03/24/17 06:45 MPV 9.2 fl (7.0-11.0) 03/24/17 06:45 Gran % 79.4 % (50.0-68.0) H 03/23/17 19:00 Lymph % (Auto) 15.2 % (22.0-35.0) L 03/23/17 19:00 [place] % (Auto) 4.9 % (1.0-6.0) 03/23/17 19:00 Eos % (Auto) 0.3 % (1.5-5.0) L 03/23/17 19:00 Baso % (Auto) 0.2 % (0.0-3.0) 03/23/17 19:00 Gran # 8.13 (1.4-6.5) H 03/23/17 19:00 Lymph # 1.6 (1.2-3.4) 03/23/17 19:00 [place] # 0.5 (0.1-0.6) 03/23/17 19:00 Eos # 0.0 (0.0-0.7) 03/23/17 19:00 Baso # 0.02 K/mm3 (0.0-2.0) 03/23/17 19:00 Sodium 143 mmol/L (132-148) 03/24/17 06:45 Potassium 3.7 mmol/L (3.6-5.0) 03/24/17 06:45 Chloride 111 mmol/L (98-107) H 03/24/17 06:45 Carbon Dioxide 21 mmol/L (21-33) 03/24/17 06:45 Anion Gap 15 (10-20) 03/24/17 06:45 BUN 7 mg/dL (7-21) 03/24/17 06:45 Creatinine 0.8 mg/dL (0.5-1.4) 03/24/17 06:45 Est GFR ( Amer) > 60 03/24/17 06:45 Est GFR (Non-Af Amer) > 60 03/24/17 06:45 Random Glucose 74 mg/dL (70-110) 03/24/17 06:45 Calcium 8.3 mg/dL (8.4-10.5) L 03/24/17 06:45 Total Bilirubin 0.3 mg/dL (0.2-1.3) 03/24/17 06:45 AST 21 U/L (17-59) 03/24/17 06:45 ALT 32 U/L (7-56) 03/24/17 06:45 Alkaline Phosphatase 61 U/L (38-126) 03/24/17 06:45 Total Protein 5.6 g/dL (5.8-8.3) L 03/24/17 06:45 Albumin 3.0 g/dL (3.0-4.8) 03/24/17 06:45 Globulin 2.6 gm/dL 03/24/17 06:45 Albumin/Globulin Ratio 1.2 (1.1-1.8) 03/24/17 06:45 Lipase 2553 U/L (23-300) H 03/23/17 19:00 Alcohol, Quantitative < 10 mg/dL (0-10) 03/23/17 19:00 - Hospital Course Hospital Course: This patient is a 41 year old male with a PMH of pancreatic divisum, polysubstance abuse, and chronic pancreatitis who presented to the ED with a 2 day history of abdominal pain with associated N/V and diarrhea. Patient has had multiple admissions for the same symptoms with multiple CT Scans done. Latest CT scan on 01/06/17 showed no acute disease. Lipase on admission was 2553. Patient was made NPO, given Zofran for nausea, and IV fluids. Dilaudid .5 Q3 was given for pain control, and Pepcid 20 BID for GI proph. Patient had a reduction of his symptoms and is now tolerating a clear liquid diet. Patient will follow up with PMD in 1 week. GI recommends to follow up with Dr. Garcia in 1 week. Patient is agreeable to plan. Patient, seen, examined, and reviewed with Attending Munira Lara PGY-1 - Date & Time of H&P Date of H&P: 03/24/17 Time of H&P: 14:46 Discharge Exam - Head Exam Head Exam: ATRAUMATIC, NORMAL INSPECTION, NORMOCEPHALIC - Eye Exam Eye Exam: EOMI, Normal appearance - ENT Exam ENT Exam: Mucous Membranes Moist - Respiratory Exam Respiratory Exam: Clear to PA & Lateral. absent: Rhonchi, Wheezes - Cardiovascular Exam Cardiovascular Exam: RRR, +S1, +S2 - GI/Abdominal Exam GI & Abdominal Exam: Soft, Tenderness Additional comments: tenderness improved - Extremities Exam Extremities exam: normal capillary refill, pedal pulses present - Neurological Exam Neurological exam: Alert, Oriented x3 - Psychiatric Exam Psychiatric exam: Normal Affect, Normal Mood Discharge Plan - Discharge Medications Prescriptions: oxyCODONE/Acetaminophen [Percocet 5/325 mg Tab] 1 ea PO Q6 #6 tab - Follow Up Plan Condition: FAIR Disposition: HOME/ ROUTINE Instructions: Pancreatitis (DC), Acute Abdominal Pain (DC), Full Liquid Diet ( DC) Additional Instructions: Follow up with your primary physician within 1 week. Follow up with GI doctor (Dr. Garcia) in 1 week. follow-up with [facility] clinic. Avoid opiate use. Referrals: Guillermo Garcia MD [Staff Provider] - Indra Hdez, DNP, HOT ROOM ATTENDANT [Primary Care Provider] - <Natalee Gavin - Last Filed: 03/24/17 15:46> Provider - Provider Date of Admission: 03/23/17 20:06 Attending physician: Nelly Mccarthy MD Primary care physician: Indra Hdez DNP, APN Hospital Course - Lab Results Lab Results: Most Recent Lab Values WBC 8.7 10^3/ul (4.5-11.0) 03/24/17 06:45 RBC 4.46 10^6/uL (3.5-6.1) 03/24/17 06:45 Hgb 13.1 g/dL (14.0-18.0) L D 03/24/17 06:45 Hct 40.4 % (42.0-52.0) L 03/24/17 06:45 MCV 90.6 fl (80.0-105.0) 03/24/17 06:45 MCH 29.4 pg (25.0-35.0) 03/24/17 06:45 MCHC 32.4 g/dl (31.0-37.0) 03/24/17 06:45 RDW 14.3 % (11.5-14.5) 03/24/17 06:45 Plt Count 215 10^3/uL (120.0-450.0) 03/24/17 06:45 MPV 9.2 fl (7.0-11.0) 03/24/17 06:45 Gran % 79.4 % (50.0-68.0) H 03/23/17 19:00 Lymph % (Auto) 15.2 % (22.0-35.0) L 03/23/17 19:00 [place] % (Auto) 4.9 % (1.0-6.0) 03/23/17 19:00 Eos % (Auto) 0.3 % (1.5-5.0) L 03/23/17 19:00 Baso % (Auto) 0.2 % (0.0-3.0) 03/23/17 19:00 Gran # 8.13 (1.4-6.5) H 03/23/17 19:00 Lymph # 1.6 (1.2-3.4) 03/23/17 19:00 [place] # 0.5 (0.1-0.6) 03/23/17 19:00 Eos # 0.0 (0.0-0.7) 03/23/17 19:00 Baso # 0.02 K/mm3 (0.0-2.0) 03/23/17 19:00 Sodium 143 mmol/L (132-148) 03/24/17 06:45 Potassium 3.7 mmol/L (3.6-5.0) 03/24/17 06:45 Chloride 111 mmol/L (98-107) H 03/24/17 06:45 Carbon Dioxide 21 mmol/L (21-33) 03/24/17 06:45 Anion Gap 15 (10-20) 03/24/17 06:45 BUN 7 mg/dL (7-21) 03/24/17 06:45 Creatinine 0.8 mg/dL (0.5-1.4) 03/24/17 06:45 Est GFR ( Amer) > 60 03/24/17 06:45 Est GFR (Non-Af Amer) > 60 03/24/17 06:45 Random Glucose 74 mg/dL (70-110) 03/24/17 06:45 Calcium 8.3 mg/dL (8.4-10.5) L 03/24/17 06:45 Total Bilirubin 0.3 mg/dL (0.2-1.3) 03/24/17 06:45 AST 21 U/L (17-59) 03/24/17 06:45 ALT 32 U/L (7-56) 03/24/17 06:45 Alkaline Phosphatase 61 U/L (38-126) 03/24/17 06:45 Total Protein 5.6 g/dL (5.8-8.3) L 03/24/17 06:45 Albumin 3.0 g/dL (3.0-4.8) 03/24/17 06:45 Globulin 2.6 gm/dL 03/24/17 06:45 Albumin/Globulin Ratio 1.2 (1.1-1.8) 03/24/17 06:45 Lipase 2553 U/L (23-300) H 03/23/17 19:00 Alcohol, Quantitative < 10 mg/dL (0-10) 03/23/17 19:00 Attending/Attestation - Attestation I have personally seen and examined this patient.: Yes I have fully participated in the care of the patient.: Yes I have reviewed all pertinent clinical information, including history, physical exam and plan: Yes Notes (Text): 03/24/17 15:44 attending note; Patient seen and examined with resident. This is a 41 year old male with history of chronic pancreatitis secondary to pancreatic divism s/p minor papillotomy/sphincterotomy/stent placement and stent removal in the past is admitted with abdominal pain, nausea and vomiting secondary to acute pancreatitis. Patient was evaluated by SANDI Garcia. Started on liquid diet and advance to low fat diet as tolerated. Patient will be discharged home today. Upon discharge patient will follow up with PMD of choice and SANDI Mitchell. advised to follow up with [facility]. Patient says he will get a referral from DR. indra hdez for a second GI opinion. diagnosis; Acute on chronic pancreatitis Pancreatic divisum Marijuana use
== END 2017-03-24 15:42 | disposition home or self-care (01) ==
LOC: ED 14:35 → ERH 20:06 → INTOOBSV 20:06 → ERH 21:51 → 5RNO 23:04
PROVIDERS: ADMIT Internal Medicine; ATTEND Internal Medicine
DX: K85.90 Acute pancreatitis without necrosis or infection, unspecified (principal); K86.1 Other chronic pancreatitis; F12.90 Cannabis use, unspecified, uncomplicated; J45.909 Unspecified asthma, uncomplicated; M48.00 Spinal stenosis, site unspecified; Q45.3 Other congenital malformations of pancreas and pancreatic duct; Z90.49 Acquired absence of other specified parts of digestive tract; Z87.891 Personal history of nicotine dependence; Z87.898 Personal history of other specified conditions; M54.9 Dorsalgia, unspecified; Z80.0 Family history of malignant neoplasm of digestive organs; Z83.3 Family history of diabetes mellitus; R40.2412 Glasgow coma scale score 13-15, at arrival to emergency department; R00.1 Bradycardia, unspecified
CPT/HCPCS: 36415; 80053; 80320; 83690; 85025; 85027; 96361; 96374; 96375; 99284; G0378; J1170; J1885; J2405; J7040; J7120

== ENCOUNTER 2017-06-13 20:30 | Observation (INO) | payer MEDICAID ==
[2017-06-13 20:31] VITALS: BMI 27.4
[2017-06-13] MEDS ORDERED: Sodium Chloride 0.9% 1,000 ML IV SCH (21:00)
--- NOTE | 2017-06-13 21:02 | ED PDOC ---
Arrival/HPI <Brice He - Last Filed: 06/13/17 23:22> - General Historian: Patient - History of Present Illness Time/Duration: 24 hours Symptom Onset: Sudden Symptom Course: Worsening Quality: Aching Severity Level: Severe <Perfecto Florian - Last Filed: 06/14/17 04:12> - General Chief Complaint: GI Problem Time Seen by Provider: 06/13/17 20:31 - History of Present Illness Narrative History of Present Illness (Text): 06/13/17 20:58 This is a 42 yo male, hx of pancreas divisum, pancreatitis, alcoholism, depression, substance abuse, presenting with chief complaint of abdominal pain. Pain x 1 day. Epigastric with radiation to back. No fevers, but positive chills. Similar to pain in past when pt was dx with pancreatitis. Reports multiple episodes of non bloody vomiting. Some diarrhea as well. Pain came on suddenly. Rates it 03/28. Took percocet but pain still came back. PMH: as above PSH: pancreatic stent placement, cholecystectomy Allergies: NKDA FH: pancreatic cancer, stomach, colon cancer Home meds: percocet, zoloft, risperdal, folic acid Social hx: current smoker. social drinker, but hx of alcoholism. marijuana user , past hx of cocaine. (Perfecto Florian) Past Medical History - Provider Review Nursing Documentation Reviewed: Yes - Travel History Have you recently traveled outside [place] w/in the past 3 mons?: No - Infectious Disease Hx of Infectious Diseases: None - Tetanus Immunization Tetanus Immunization: Unknown - Reproductive Currently : No - Cardiac Hx Congestive Heart Failure: No Hx Hypertension: No Hx Pacemaker: No - Pulmonary Hx Respiratory Disorders: Yes Hx Asthma: Yes Hx Chronic Obstructive Pulmonary Disease (COPD): No - Neurological Hx Neurological Disorder: No Hx Seizures: No - HEENT Hx HEENT Disorder: No - Renal Hx Renal Disorder: No - Endocrine/Metabolic Hx Hypothyroidism: No - Hematological/Oncological Hx Blood Disorders: No - Integumentary Hx Dermatological Disorder: No - Musculoskeletal/Rheumatological Hx Arthritis: Yes Hx Fractures: No Hx Rheumatoid Arthritis: Yes - Gastrointestinal Hx Gall Bladder Disease: Yes (removed GB) Hx Pancreatitis: Yes - Genitourinary/Gynecological Hx Genitourinary Disorders: Yes Hx Sexually Transmitted Diseases: No - Psychiatric Hx Psychophysiologic Disorder: Yes Hx Depression: Yes Hx Substance Use: Yes - Surgical History Hx Cholecystectomy: Yes (2004) - Anesthesia Hx Anesthesia: Yes Hx Anesthesia Reactions: No Hx Malignant Hyperthermia: No - Suicidal Assessment Feels Threatened In Home Enviroment: No <Perfecto Florian - Last Filed: 06/14/17 04:12> Family/Social History - Physician Review Nursing Documentation Reviewed: Yes Family/Social History: Neoplasm/Cancer Smoking Status: Current Some Days Smoker Hx Alcohol Use: No Hx Substance Use: Yes Substance used: marijuana <Perfecto Florian - Last Filed: 06/14/17 04:12> Allergies/Home Meds <Brice He - Last Filed: 06/13/17 23:22> <Perfecto Florian - Last Filed: 06/14/17 04:12> Allergies/Adverse Reactions: Allergies No Known Allergies Allergy (Verified 06/13/17 20:37) Home Medications: Home Meds Medication Instructions Recorded Confirmed Albuterol HFA [Ventolin HFA 90 2 puff INH Q6 PRN 04/05/17 06/13/17 mcg/actuation (8 g)] oxyCODONE/Acetaminophen [Percocet 1 tab PO Q8H PRN 04/27/17 06/13/17 5/325 mg Tab] Risperidone [Risperdal] 1 mg PO BID 06/13/17 06/13/17 Review of Systems - Review of Systems Constitutional: absent: Fevers, Night Sweats Eyes: absent: Vision Changes, Photophobia ENT: absent: Hearing Changes, Tinnitus Respiratory: absent: SOB, Cough Cardiovascular: absent: Chest Pain, Palpitations Gastrointestinal: Abdominal Pain, Stool Changes, Diarrhea, Nausea, Vomiting, Appetite Changes Genitourinary Male: absent: Dysuria, Frequency Musculoskeletal: Back Pain. absent: Arthralgias Skin: absent: Rash, Pruritis Neurological: absent: Headache, Dizziness Endocrine: absent: Diaphoresis, Polyuria Hemo/Lymphatic: absent: Adenopathy, Easy Bleeding Psychiatric: Depression. absent: Anxiety <Perfecto Florian - Last Filed: 06/14/17 04:12> Physical Exam Vital Signs Reviewed: Yes Mental Status: Positive for: Alert and Oriented X 3 - Systems Exam Head: Present: Atraumatic, Normocephalic Pupils: Present: PERRL Extroacular Muscles: Present: EOMI Mouth: Present: Dry Neck: Present: Normal Range of Motion. No: Meningeal Signs Respiratory/Chest: Present: Decreased Breath Sounds Cardiovascular: Present: Normal S1, S2 Abdomen: Present: Tenderness. No: Distention, Peritoneal Signs, Rebound, Guarding Back: Present: Normal Inspection Upper Extremity: Present: Normal Inspection. No: Cyanosis, Edema Lower Extremity: Present: Normal Inspection. No: Edema Neurological: Present: CN II-XII Intact, Speech Normal Skin: Present: Warm, Dry Psychiatric: Present: Alert, Oriented x 3, Normal Insight, Normal Concentration <Perfecto Florian - Last Filed: 06/14/17 04:12> Vital Signs Temp Pulse Resp BP Pulse Ox 06/14/17 00:50 98.2 F 80 16 131/70 99 06/13/17 23:50 78 16 107/61 98 06/13/17 22:15 82 16 110/75 98 06/13/17 21:00 98.2 F 88 16 105/72 98 06/13/17 20:37 98.0 F 87 17 114/80 99 Medical Decision Making <Brice He - Last Filed: 06/13/17 23:22> <Perfecto Florian - Last Filed: 06/14/17 04:12> ED Course and Treatment: Patient Seen With Resident: In agreement with resident note. Patient was seen and evaluated with resident, came up with plan and treatment together. (Brice He) - Lab Interpretations Lab Results: 06/13/17 20:50 06/13/17 20:50 Lab Results 06/13/17 20:50: Sodium 143, Potassium 4.5, Chloride 107, Carbon Dioxide 26, Anion Gap 15, BUN 15, Creatinine 1.2, Est GFR ( Amer) > 60, Est GFR (Non- Af Amer) > 60, Random Glucose 86, Calcium 9.8, Phosphorus 2.8, Magnesium 1.9, Total Bilirubin 0.6, AST 33, ALT 32, Alkaline Phosphatase 72, Total Protein 8.1 , Albumin 4.3, Globulin 3.8, Albumin/Globulin Ratio 1.1, Amylase 254 H, Lipase 858 H 06/13/17 20:50: WBC 10.3, RBC 5.23, Hgb 16.4 D, Hct 48.9, MCV 93.5, MCH 31.4, MCHC 33.5, RDW 14.8 H, Plt Count 270, MPV 9.7, Gran % 53.6, Lymph % (Auto) 32.4 , [place] % (Auto) 7.4 H, Eos % (Auto) 6.2 H, Baso % (Auto) 0.4, Gran # 5.54, Lymph # 3.4, [place] # 0.8 H, Eos # 0.6, Baso # 0.04 - RAD Interpretation Radiology Orders: 06/13/17 20:55 ABD & PELVIS IV CONTRAST ONLY [CT] Stat - Medication Orders Current Medication Orders: Sodium Chloride (Sodium Chloride 0.9%) 1,000 mls @ 100 mls/hr IV .Q10H [facility] Last Admin: 06/13/17 21:23 Dose: 100 mls/hr eMAR Start Stop Document 06/13/17 21:23 RD (Rec: 06/13/17 21:23 RD [id number]) Intravenous Solution Start Date 06/13/17 Start Time 21:23 Lactated Ringer's (Lactated Ringer's) 1,000 mls @ 125 mls/hr IV .Q8H [facility] Last Admin: 06/14/17 01:45 Dose: 125 mls/hr eMAR Start Stop Document 06/14/17 01:45 SHARMAINE (Rec: 06/14/17 01:45 SHARMAINE [id number]) Intravenous Solution Start Date 06/14/17 Start Time 01:45 Ketorolac Tromethamine (Toradol) 30 mg IVP Q6H PRN PRN Reason: Pain, moderate (4-7) Last Admin: 06/14/17 01:44 Dose: 30 mg MAR Pain Assessment Document 06/14/17 01:44 SHARMAINE (Rec: 06/14/17 01:44 SHARMAINE [id number]) Pain Reassessment Is this a pain reassessment? Yes Sleep Is patient sleeping during reassessment? No Presence of Pain Presence of Pain Yes Pain Scale Used Pain Scale Used Numeric Location Pain Location Body Site Abdomen Description Description Intermittent Intensity of Pain at present 8 Pain Behavior Facial Grimacing Aggravating Factors None Alleviating Factors/Management Medication Techniques Alleviating Factors Medication IVP Administration Document 06/14/17 01:44 SHARMAINE (Rec: 06/14/17 01:44 SHARMAINE [id number]) Charges for Administration # of IVP Administrations 1 Re-Assess: MAR Pain Assessment Document 06/14/17 02:44 SHARMAINE (Rec: 06/14/17 03:49 SHARMAINE [place] [id number]) Pain Reassessment Is this a pain reassessment? Yes Sleep Is patient sleeping during reassessment? Yes Pain Scale Used Pain Scale Used Numeric Morphine Sulfate (Morphine) 2 mg IVP Q4H PRN PRN Reason: Pain, severe (8-10) Last Admin: 06/14/17 03:50 Dose: 2 mg MAR Pain Assessment Document 06/14/17 03:50 SHARMAINE (Rec: 06/14/17 03:51 SHARMAINE [place] [id number]) Pain Reassessment Is this a pain reassessment? Yes Sleep Is patient sleeping during reassessment? No Presence of Pain Presence of Pain Yes Pain Scale Used Pain Scale Used Numeric Location Pain Location Body Site Abdomen Description Description Intermittent Intensity of Pain at present 8 Pain Behavior Facial Grimacing Aggravating Factors None Alleviating Factors/Management Medication Techniques Alleviating Factors Medication IVP Administration Document 06/14/17 03:50 SHARMAINE (Rec: 06/14/17 03:51 SHARMAINE [place] [id number]) Charges for Administration # of IVP Administrations 1 Nicotine (Nicoderm Cq) 1 patch TD DAILY KELLY Ondansetron HCl (Zofran Inj) 4 mg IVP Q4H PRN PRN Reason: Nausea/Vomiting Pantoprazole Sodium (Protonix Inj) 40 mg IVP DAILY [facility] Risperidone (Risperdal Tab) 1 mg PO BID KELLY PRN Reason: Protocol Sertraline HCl (Zoloft) 50 mg PO DAILY [facility] Discontinued Medications Hydromorphone HCl (Dilaudid) 2 mg IVP STAT STA Stop: 06/13/17 23:23 Last Admin: 06/13/17 23:48 Dose: 2 mg [facility] Pain Assessment Document 06/13/17 23:48 LAC (Rec: 06/13/17 23:49 [id number] Pain Reassessment Is this a pain reassessment? No IVP Administration Document 06/13/17 23:48 LAC (Rec: 06/13/17 23:49 [id number] Charges for Administration # of IVP Administrations 1 Ondansetron HCl (Zofran Inj) 4 mg IVP STAT STA Stop: 06/14/17 00:27 Last Admin: 06/14/17 00:51 Dose: 4 mg IVP Administration Document 06/14/17 00:51 LAC (Rec: 06/14/17 00:51 LAC [facility] [id number] Charges for Administration # of IVP Administrations 1 - Scribe Statement The provider has reviewed the documentation as recorded by the Scribe <Brice He - Last Filed: 06/13/17 23:22> <Perfecto Florian - Last Filed: 06/14/17 04:12> - Scribe Statement Maureen Pierson Provider Scribe Attestation: All medical record entries made by the Scribe were at my direction and personally dictated by me. I have reviewed the chart and agree that the record accurately reflects my personal performance of the history, physical exam, medical decision making, and the department course for this patient. I have also personally directed, reviewed, and agree with the discharge instructions and disposition. (Brice He) Disposition/Present on Arrival <Brice He - Last Filed: 06/13/17 23:22> - Present on Arrival Any Indicators Present on Arrival: No History of DVT/PE: No History of Uncontrolled Diabetes: No Urinary Catheter: No History of Decub. Ulcer: No History Surgical Site Infection Following: None - Disposition Have Diagnosis and Disposition been Completed?: Yes Disposition Time: 00:00 <Perfecto Florian - Last Filed: 06/14/17 04:12> - Disposition Diagnosis: Pancreatic divisum, Acute on chronic pancreatitis Disposition: HOSPITALIZED Condition: STABLE
[2017-06-13 21:06] LABS: BASO # 0.04 K/mm3 (0.0-2.0); BASO % 0.4 % (0.0-3.0); EOS # 0.6 (0.0-0.7); EOS % 6.2 % (1.5-5.0); GRAN # 5.54 (1.4-6.5); GRAN % 53.6 % (50.0-68.0); HEMATOCRIT 48.9 % (42.0-52.0); LYMPH # 3.4 (1.2-3.4); LYMPH % 32.4 % (22.0-35.0); MEAN CELL VOLUME 93.5 fl (80.0-105.0); MEAN CORPUSCULAR HEMOGLOBIN 31.4 pg (25.0-35.0); MEAN CORPUSCULAR HGB CONC 33.5 g/dl (31.0-37.0); MEAN PLATELET VOLUME 9.7 fl (7.0-11.0); MONO # 0.8 (0.1-0.6); MONO % 7.4 % (1.0-6.0); RED CELL DISTRIBUTION WIDTH 14.8 % (11.5-14.5); WHITE BLOOD COUNT 10.3 10^3/ul (4.5-11.0)
[2017-06-13 21:46] LABS: ALB/GLOB RATIO 1.1 (1.1-1.8); ALKALINE PHOSPHATASE 72 U/L (38-126); ALT/SGPT 32 U/L (7-56); AMYLASE 254 U/L (35-125); AST/SGOT 33 U/L (17-59); BILIRUBIN,TOTAL 0.6 mg/dL (0.2-1.3); BLOOD UREA NITROGEN 15 mg/dL (7-21); CALCIUM 9.8 mg/dL (8.4-10.5); CARBON DIOXIDE 26 mmol/L (21-33); CHLORIDE 107 mmol/L (98-107); GFR AFRICAN-AMERICAN > 60; GLUCOSE,RANDOM 86 mg/dL (70-110); LIPASE 858 U/L (23-300); MAGNESIUM 1.9 mg/dL (1.7-2.2); PHOSPHOROUS 2.8 mg/dL (2.5-4.5); POTASSIUM 4.5 mmol/L (3.6-5.0); SODIUM 143 mmol/L (132-148); TOTAL PROTEIN 8.1 g/dL (5.8-8.3)
[2017-06-13] MEDS ORDERED: Iohexol 350 MG/100 ML VIAL ONE (21:57)
--- NOTE | 2017-06-13 23:04 | CT ---
EXAM: CT Abdomen and Pelvis With Intravenous Contrast CLINICAL HISTORY: 42 years old, male; Pain; Abdominal pain; Epigastric; Prior surgery; Surgery date: 6+ months; Surgery type: Galblader removal; Patient HX: Epigastric pain; HX of pancreatitis TECHNIQUE: Axial computed tomography images of the abdomen and pelvis with intravenous contrast. All CT scans at this facility use one or more dose reduction techniques, viz.: automated exposure control; ma/kV adjustment per patient size (including targeted exams where dose is matched to indication; i.e. head); or iterative reconstruction technique. MIP reconstructed images were created and reviewed. Coronal and sagittal reformatted images were created and reviewed. CONTRAST: 98 mL of OMNIPAQUE 350 administered intravenously. COMPARISON: CT - ABD PELVIS W/O PO OR IV CONT 2017-01-06 02:05 FINDINGS: Lower thorax: No acute findings. ABDOMEN: Liver: Unremarkable. No mass. Gallbladder and bile ducts: Cholecystectomy. No ductal dilation. Pancreas: No ductal dilation. No mass. Spleen: No splenomegaly. Adrenals: No mass. Kidneys and ureters: Probable LEFT renal cyst. No hydronephrosis. Stomach and bowel: Apparent mild mural/fold thickening thickening vs underdistention of several jejunal loops. No associated inflammatory stranding. No obstruction. Appendix: Normal caliber. No inflammation. PELVIS: Bladder: Unremarkable. Reproductive: Unremarkable as visualized. ABDOMEN and PELVIS: Intraperitoneal space: No significant fluid collection. No free air. Bones/joints: No acute fracture. Soft tissues: Unremarkable. Vasculature: Minimal atherosclerotic disease. No aneurysm. Lymph nodes: No pathologically enlarged lymph nodes. IMPRESSION: 1. Possible mild enteritis. Clinical correlation is needed. 2. Incidental/non-acute findings are described above.
[2017-06-13] MEDS ORDERED: HYDROmorphone 2 mg/ml ISec IVP STA (23:22)
--- NOTE | 2017-06-14 01:27 | CP.PCM.HP ---
History of Present Illness - History of Present Illness History of Present Illness: Mr. Pedersen is a 42 yo Male with PMH chronic pancreatitis 2/2 pancreatic divisum, bradycardia, spinal stenosis and asthma who presents with abdominal pain and n/v x1 day. the patient states that this is similar to his acute pancreatitis episodes, which he was last hospitalized for one month ago. he states that he did not have too much to eat during thanksgiving dinner and denied ETOH use. he is aware of eating small meals, which he does, and that usually keeps his pancreatitis in check, however, he has the occasional flareups. he took his home dose percocet to relieve the pain, however, he continued to vomit nonbloody nonbilious vomitus which is what brought him in. he has not been able to see his PMD due to losing insurance and only recently getting an ew job and regaining the insurance. patient denies chest pain, sob, le swelling, weakness, weight loss/gain, fevers. he did experience chills. 12- pt ROS was reviewed and is otherwise unremarkable. PMH: chronic pancreatitis, pancreatic divisum, bradycardia, spinal stenosis, asthma PSH: cholecystectomy (2004), s/p pancreatic stent palcement and removal (10/2016) Allergies: NKDA SHx: marijuana user (last month), occasional cocaine user (2 months ago), former drinker (last drink in 2007), tobacco use 2cigs/day, lives with mom, recently working as social media assistant FHx: mom's side (pancreatic cancer and DM2) PMD: [facility] GI: Dr. Garcia Cardio: Dr. Brice Polanco ([place]) Present on Admission - Present on Admission Any Indicators Present on Admission: No History of DVT/PE: No History of Uncontrolled Diabetes: No Urinary Catheter: No Decubitus Ulcer Present: No Review of Systems - Review of Systems All systems: reviewed and no additional remarkable complaints except (as per HPI ) Past Patient History - Infectious Disease Hx of Infectious Diseases: None - Tetanus Immunizations Tetanus Immunization: Unknown - Past Medical History & Family History Past Medical History?: Yes - Past Social History Smoking Status: Light Smoker < 10 Cigarettes Daily Alcohol: None Drugs: Denies Home Situation {Lives}: With Family - CARDIAC Hx Congestive Heart Failure: No Hx Hypertension: No Hx Pacemaker: No - PULMONARY Hx Respiratory Disorders: Yes Hx Asthma: Yes Hx Chronic Obstructive Pulmonary Disease (COPD): No - NEUROLOGICAL Hx Neurological Disorder: No Hx Seizures: No - HEENT Hx HEENT Problems: No - RENAL Hx Chronic Kidney Disease: No - ENDOCRINE/METABOLIC Hx Hypothyroidism: No - HEMATOLOGICAL/ONCOLOGICAL Hx Blood Disorders: No - INTEGUMENTARY Hx Dermatological Problems: No - MUSCULOSKELETAL/RHEUMATOLOGICAL Hx Arthritis: Yes Hx Fractures: No Hx Rheumatoid Arthritis: Yes - GASTROINTESTINAL Hx Gall Bladder Disease: Yes (removed GB) Hx Pancreatitis: Yes - GENITOURINARY/GYNECOLOGICAL Hx Genitourinary Disorders: Yes Hx Sexually Transmitted Disorders: No - PSYCHIATRIC Hx Psychophysiologic Disorder: Yes Hx Depression: Yes Hx Substance Use: Yes - SURGICAL HISTORY Hx Cholecystectomy: Yes (2004) - ANESTHESIA Hx Anesthesia: Yes Hx Anesthesia Reactions: No Hx Malignant Hyperthermia: No Meds Allergies/Adverse Reactions: Allergies Allergy/AdvReac Type Severity Reaction Status Date / Time No Known Allergies Allergy Verified 06/13/17 20:37 Physical Exam - Constitutional Appears: Well, Toxic, No Acute Distress - Head Exam Head Exam: ATRAUMATIC, NORMAL INSPECTION, NORMOCEPHALIC - Eye Exam Eye Exam: EOMI, Normal appearance, PERRL Pupil Exam: NORMAL ACCOMODATION - ENT Exam ENT Exam: Mucous Membranes Moist, Normal Exam - Neck Exam Neck exam: Positive for: Normal Inspection - Respiratory Exam Respiratory Exam: Clear to Auscultation Bilateral, NORMAL BREATHING PATTERN. absent: Rales, Rhonchi, Wheezes - Cardiovascular Exam Cardiovascular Exam: RRR, +S1, +S2. absent: JVD - GI/Abdominal Exam GI & Abdominal Exam: Normal Bowel Sounds, Soft, Tenderness (epigastric). absent : Distended, Rigid - Extremities Exam Extremities exam: Positive for: normal inspection - Back Exam Back exam: NORMAL INSPECTION. absent: CVA tenderness (L), CVA tenderness (R) - Neurological Exam Neurological exam: Alert, Oriented x3 - Psychiatric Exam Psychiatric exam: Normal Affect, Normal Mood - Skin Skin Exam: Normal Color, Warm Results - Vital Signs Recent Vital Signs: Last Vital Signs Temp 98.2 F 06/14/17 00:50 Pulse 80 06/14/17 00:50 Resp 16 06/14/17 00:50 BP 131/70 06/14/17 00:50 Pulse Ox 99 06/14/17 00:50 - Labs Result Diagrams: 06/13/17 20:50 06/13/17 20:50 Assessment & Plan - Assessment and Plan (Free Text) Assessment: 42 yo M PMH chronic pancreatitis 2/2 pancreatic divisum s/p minor papillotomy/ sphincterotomy/stent placement and removal, bradycardia, spinal stenosis and asthma presents to ED with epigastric pain since yesterday a/w chills and n/v likely 2/2 acute pancreatitis flareup Plan: 1. Acute on chronic pancreatitis flareup - Lipase 858 - NPO for bowel rest - continue w/ LR @ 125 - pain mgmt: Toradol and Morphine - Zofran PRN for n/v 2. Hx Psych - restart home meds 3. Hx tobacco use - nicoderm patch NPO LR 125 Pepcid/SCDs Patient was seen, evaluated and discussed with attending, Dr. Sarahi Peck PGY1
[2017-06-14] MEDS ORDERED: Lactated Ringer's 1,000 ML IV SCH ×2 (01:30→07:58)
[2017-06-14] MEDS: Morphine 2 mg/ml ISec IVP PRN ×3 (03:50→21:36)
[2017-06-14 06:30] LABS: MEAN CELL VOLUME 93.9 fl (80.0-105.0); MEAN CORPUSCULAR HEMOGLOBIN 30.6 pg (25.0-35.0); MEAN CORPUSCULAR HGB CONC 32.6 g/dl (31.0-37.0); MEAN PLATELET VOLUME 9.8 fl (7.0-11.0); WHITE BLOOD COUNT 8.6 10^3/ul (4.5-11.0)
[2017-06-14 06:47] LABS: ALB/GLOB RATIO 1.1 (1.1-1.8); ALKALINE PHOSPHATASE 62 U/L (38-126); ALT/SGPT 38 U/L (7-56); AST/SGOT 26 U/L (17-59); BILIRUBIN,TOTAL 0.4 mg/dL (0.2-1.3); BLOOD UREA NITROGEN 17 mg/dL (7-21); CALCIUM 8.9 mg/dL (8.4-10.5); CARBON DIOXIDE 25 mmol/L (21-33); CHLORIDE 110 mmol/L (98-107); CHOLESTEROL 153 mg/dL (130-200); GFR AFRICAN-AMERICAN > 60; GLUCOSE,RANDOM 97 mg/dL (70-110); POTASSIUM 4.2 mmol/L (3.6-5.0); SODIUM 140 mmol/L (132-148); TOTAL PROTEIN 6.2 g/dL (5.8-8.3)
--- NOTE | 2017-06-14 08:30 | CP.PCM.CON ---
<Asa Hankins - Last Filed: 06/14/17 10:30> History of Present Illness - History of Present Illness History of Present Illness: Asa Hankins D.O. PGY-2, GI Consultation Note CC: abd pain w/ N/V/D for 3-4 days 42 year old male with a PMH of chronic pancreatitis with pancreatic divisum, spinal stenosis, bradycardia, and asthma who presented to [facility] ER for complaints of 3-4 days of abdominal pain, nausea, vomiting and diarrhea. GI consultation was placed for the aforementioned. Patient was seen and examined at bedside. Patient states that on 06/11 he was following his diet like he knows to do with low fat and small meals. Patient admits that he did have one glass of cider but otherwise has been abstaining from alcohol. Patient states that he later in the day began to have innumerable episodes of NBNB vomiting and also had multiple episodes of [place] 7 diarrhea. Patient admits that his brother, who lives with him, also recently had "a stomach flu." Patient denies any other associated symptoms. Patient tried to not come in but yesterday 06/13 he was unable to tolerate PO and so decided to come in. Patient has been compliant with his pancrease enzymes and follows with a Dr. Mira medina.t PMH: as above PSH: cholecystectomy, s/p pancreatic stent palcement and removal SH: sporadic marijuana and cocaine user, former alcoholic, sporadic tobacco use FH: pancreatic cancer and DM2 on maternal side Meds: reviewed Allergies: NKDA Review of Systems - Review of Systems All systems: reviewed and no additional remarkable complaints except - Gastrointestinal Gastrointestinal: Abdominal Pain, Diarrhea, Nausea, Vomiting Past Patient History - Infectious Disease Hx of Infectious Diseases: None - Tetanus Immunizations Tetanus Immunization: Unknown - Past Medical History & Family History Past Medical History?: Yes - Past Social History Smoking Status: Light Smoker < 10 Cigarettes Daily Alcohol: None Drugs: Denies Home Situation {Lives}: With Family - CARDIAC Hx Congestive Heart Failure: No Hx Hypertension: No Hx Pacemaker: No - PULMONARY Hx Respiratory Disorders: Yes Hx Asthma: Yes Hx Chronic Obstructive Pulmonary Disease (COPD): No - NEUROLOGICAL Hx Neurological Disorder: No Hx Seizures: No - HEENT Hx HEENT Problems: No - RENAL Hx Chronic Kidney Disease: No - ENDOCRINE/METABOLIC Hx Hypothyroidism: No - HEMATOLOGICAL/ONCOLOGICAL Hx Blood Disorders: No - INTEGUMENTARY Hx Dermatological Problems: No - MUSCULOSKELETAL/RHEUMATOLOGICAL Hx Arthritis: Yes Hx Fractures: No Hx Rheumatoid Arthritis: Yes - GASTROINTESTINAL Hx Gall Bladder Disease: Yes (removed GB) Hx Pancreatitis: Yes - GENITOURINARY/GYNECOLOGICAL Hx Genitourinary Disorders: Yes Hx Sexually Transmitted Disorders: No - PSYCHIATRIC Hx Psychophysiologic Disorder: Yes Hx Depression: Yes Hx Substance Use: Yes - SURGICAL HISTORY Hx Cholecystectomy: Yes (2004) - ANESTHESIA Hx Anesthesia: Yes Hx Anesthesia Reactions: No Hx Malignant Hyperthermia: No Meds Allergies/Adverse Reactions: Allergies Allergy/AdvReac Type Severity Reaction Status Date / Time No Known Allergies Allergy Verified 06/13/17 20:37 - Medications Medications: Current Medications Lactated Ringer's (Lactated Ringer's) 1,000 mls @ 200 mls/hr IV .Q5H [facility] Ketorolac Tromethamine (Toradol) 30 mg IVP Q6H PRN PRN Reason: Pain, moderate (4-7) Last Admin: 06/14/17 01:44 Dose: 30 mg Morphine Sulfate (Morphine) 2 mg IVP Q4H PRN PRN Reason: Pain, severe (8-10) Last Admin: 06/14/17 03:50 Dose: 2 mg Nicotine (Nicoderm Cq) 1 patch TD DAILY [facility] Ondansetron HCl (Zofran Inj) 4 mg IVP Q4H PRN PRN Reason: Nausea/Vomiting Pantoprazole Sodium (Protonix Inj) 40 mg IVP DAILY [facility] Risperidone (Risperdal Tab) 1 mg PO BID [facility] PRN Reason: Protocol Sertraline HCl (Zoloft) 50 mg PO DAILY [facility] Physical Exam - Constitutional Appears: Non-toxic - Head Exam Head Exam: ATRAUMATIC, NORMOCEPHALIC - Eye Exam Eye Exam: EOMI, PERRL. absent: Scleral icterus - ENT Exam ENT Exam: Mucous Membranes Moist, Normal Oropharynx - Neck Exam Neck exam: Positive for: Normal Inspection. Negative for: Tenderness - Respiratory Exam Respiratory Exam: Clear to Auscultation Bilateral. absent: Rhonchi, Wheezes - Cardiovascular Exam Cardiovascular Exam: REGULAR RHYTHM, +S1, +S2 - GI/Abdominal Exam GI & Abdominal Exam: Normal Bowel Sounds, Soft, Tenderness (epigastric). absent : Distended, Firm, Guarding - Extremities Exam Extremities exam: Negative for: calf tenderness, pedal edema - Neurological Exam Neurological exam: Alert, Oriented x3 - Skin Skin Exam: Dry, Warm Results - Vital Signs Recent Vital Signs: Last Vital Signs Temp 98.2 F 06/14/17 00:50 Pulse 80 06/14/17 00:50 Resp 18 06/14/17 01:19 BP 131/70 06/14/17 00:50 Pulse Ox 99 06/14/17 00:50 - Labs Result Diagrams: 06/14/17 05:30 06/14/17 05:30 Labs: Laboratory Results - last 24 hr 06/14/17 06/14/17 05:30 05:30 WBC 8.6 RBC 4.58 Hgb 14.0 D Hct 43.0 MCV 93.9 MCH 30.6 MCHC 32.6 RDW 15.0 H Plt Count 275 MPV 9.8 Sodium 140 Potassium 4.2 Chloride 110 H Carbon Dioxide 25 Anion Gap 8 L BUN 17 Creatinine 1.1 Est GFR ( Amer) > 60 Est GFR (Non-Af Amer) > 60 Random Glucose 97 Calcium 8.9 Total Bilirubin 0.4 AST 26 ALT 38 Alkaline Phosphatase 62 Total Protein 6.2 Albumin 3.3 Globulin 2.9 Albumin/Globulin Ratio 1.1 Triglycerides 68 Cholesterol 153 LDL Cholesterol Direct 99 HDL Cholesterol 42 Assessment & Plan - Assessment and Plan (Free Text) Assessment: 42 year old male with a PMH of chronic pancreatitis with pancreatic divisum, spinal stenosis, bradycardia, and asthma who presented for complaints of 3-4 days of abdominal pain, nausea, vomiting and diarrhea Plan: Abd pain, nausea, vomiting, and diarrhea Likely acute gastroenteritis in the setting of chronic pancreatitis Provide conservative/supportive management at this time May continue IVF hydration Will advance diet to clear liquid, may advance as tolerated Anti-emetics PRN Avoid opioid medications as these can exacerbation symptoms Continue GI ppx with protonix Discussed with primary team Discussed with fellow and attending physician We will follow with you Thank you for the pleasure of participating in the care of this patient. - Date & Time Date: 06/14/17 Time: 07:45 <Moose Perez - Last Filed: 06/14/17 12:11> Meds - Medications Medications: Current Medications Lactated Ringer's (Lactated Ringer's) 1,000 mls @ 200 mls/hr IV .Q5H [facility] Ketorolac Tromethamine (Toradol) 30 mg IVP Q6H PRN PRN Reason: Pain, moderate (4-7) Last Admin: 06/14/17 08:32 Dose: 30 mg Morphine Sulfate (Morphine) 2 mg IVP Q4H PRN PRN Reason: Pain, severe (8-10) Last Admin: 06/14/17 03:50 Dose: 2 mg Nicotine (Nicoderm Cq) 1 patch TD DAILY [facility] Last Admin: 06/14/17 10:05 Dose: 1 patch Ondansetron HCl (Zofran Inj) 4 mg IVP Q4H PRN PRN Reason: Nausea/Vomiting Pantoprazole Sodium (Protonix Inj) 40 mg IVP DAILY [facility] Last Admin: 06/14/17 10:04 Dose: 40 mg Risperidone (Risperdal Tab) 1 mg PO BID [facility] PRN Reason: Protocol Last Admin: 06/14/17 10:06 Dose: 1 mg Sertraline HCl (Zoloft) 50 mg PO DAILY [facility] Last Admin: 06/14/17 10:05 Dose: 50 mg Results - Vital Signs Recent Vital Signs: Last Vital Signs Temp 98.1 F 06/14/17 08:56 Pulse 56 L 06/14/17 08:56 Resp 20 06/14/17 08:56 BP 109/66 06/14/17 08:56 Pulse Ox 98 06/14/17 08:56 - Labs Result Diagrams: 06/14/17 05:30 06/14/17 05:30 Labs: Laboratory Results - last 24 hr 06/14/17 06/14/17 06/14/17 05:30 05:30 11:18 WBC 8.6 RBC 4.58 Hgb 14.0 D Hct 43.0 MCV 93.9 MCH 30.6 MCHC 32.6 RDW 15.0 H Plt Count 275 MPV 9.8 Sodium 140 Potassium 4.2 Chloride 110 H Carbon Dioxide 25 Anion Gap 8 L BUN 17 Creatinine 1.1 Est GFR ( Amer) > 60 Est GFR (Non-Af Amer) > 60 Random Glucose 97 Calcium 8.9 Total Bilirubin 0.4 AST 26 ALT 38 Alkaline Phosphatase 62 Total Protein 6.2 Albumin 3.3 Globulin 2.9 Albumin/Globulin Ratio 1.1 Triglycerides 68 Cholesterol 153 LDL Cholesterol Direct 99 HDL Cholesterol 42 Urine Color Yellow Urine Appearance Clear Urine pH 6.0 Ur Specific Carter 1.010 Urine Protein Negative Urine Glucose (UA) Negative Urine Ketones Negative Urine Blood Negative Urine Nitrate Negative Urine Bilirubin Negative Urine Urobilinogen 0.2 Ur Leukocyte Esterase Negative Attending/Attestation - Attestation I have personally seen and examined this patient.: Yes I have fully participated in the care of the patient.: Yes I have reviewed all pertinent clinical information: Yes Notes (Text): 06/14/17 12:03 I have seen and examined patient with medical billing representative and GI fellow. Agree with above documentation with the following additions. In brief this is a 42 year old male with history of chronic pancreatitis, pancreatic divisum, polysubstance abuse, asthma who presents to hospital with complaint of abdominal pain for the past 3 days. He describes a sudden onset of epigastric pain, 7/10 intensity, radiating to back which was worse after food consumption. He also endorses a few episodes of non-bloody emesis and diarrhea during this time period. His symptoms followed consumption of turkey. He does report that his brother who lives with him had a recent "stomach bug" with similar symptoms. He otherwise denies fever/chills, weight loss, rectal bleeding, recent travel, or antibiotic use. Additional physical examination: Psych: mood/affect normal Abdomen: no palpable hepato/splenomegaly Chronic pancreatitis Abdominal pain - acute on chronic pancreatitis vs viral gastroenteritis - Full liquid diet, advance as tolerated - Continue with supportive care, IVF hydration and pain control - Limit use of narcotic pain medication given history of substance abuse - Anti-emetic therapy PRN - If diarrhea persists, would obtain stool studies - May continue with pancreatic enzyme supplementation therapy - Will continue to monitor patient clinical course
[2017-06-14 08:57] VITALS: O2SAT 98
--- NOTE | 2017-06-14 10:06 | CARD ---
APPROVED REPORT EKG Measurement Heart [id number] <Conclusion> Normal sinus rhythm Normal ECG
[2017-06-14 11:25] LABS: URINE BILIRUBIN NEGATIVE (NEGATIVE); URINE BLOOD NEGATIVE (NEGATIVE); URINE GLUCOSE (UA) NEGATIVE (NEGATIVE); URINE KETONE NEGATIVE (NEGATIVE); URINE LEUKOCYTE ESTERASE NEGATIVE Leu/uL (NEGATIVE); URINE PROTEIN NEGATIVE mg/dL (<30 mg/dL); URINE UROBILINOGEN 0.2 E.U./dL (<1 E.U./dL)
[2017-06-14 11:35] LABS: URINE APPEARANCE CLEAR (CLEAR); URINE COLOR YELLOW (YELLOW)
[2017-06-14] MEDS: Lactated Ringer's 1,000 ML IV SCH ×3 (12:08→21:36)
[2017-06-14] MEDS ORDERED: Morphine 2 mg/ml ISec IVP SCH (18:00)
[2017-06-14 20:39] VITALS: RESP 19
[2017-06-15] MEDS: Lactated Ringer's 1,000 ML IV SCH ×2 (04:02→05:29)
[2017-06-15] MEDS: Morphine 2 mg/ml ISec IVP PRN ×2 (05:34→10:53)
[2017-06-15 06:26] LABS: HEMATOCRIT 42.6 % (42.0-52.0); MEAN CELL VOLUME 92.8 fl (80.0-105.0); MEAN CORPUSCULAR HEMOGLOBIN 30.3 pg (25.0-35.0); MEAN CORPUSCULAR HGB CONC 32.6 g/dl (31.0-37.0); MEAN PLATELET VOLUME 9.4 fl (7.0-11.0); RED CELL DISTRIBUTION WIDTH 14.8 % (11.5-14.5); WHITE BLOOD COUNT 7.2 10^3/ul (4.5-11.0)
--- NOTE | 2017-06-15 06:51 | CP.PCM.PN ---
<Asa Hankins - Last Filed: 06/15/17 11:03> Subjective - Date & Time of Evaluation Date of Evaluation: 06/15/17 Time of Evaluation: 06:20 - Subjective Subjective: Asa Hankins D.O. PGY-2, GI Progress Note 42 year old male with a PMH of chronic pancreatitis with pancreatic divisum who presented with abdominal pain, nausea, vomiting and diarrhea. Patient was seen and examined at bedside. Patient states that he woke up early this morning due to some abdominal discomfort, epigastric like before, but otherwise has had no issues. Patient states that last night he could not tolerate the broth and had one episode of NBNB emesis. No repeat episodes. Has not had any bowel movements since the 3 episodes of diarrhea day before yesterday. Objective - Vital Signs/Intake and Output Vital Signs (last 24 hours): Temp Pulse Resp BP Pulse Ox 97 F L 60 19 117/69 98 06/14/17 16:00 06/14/17 16:00 06/14/17 16:00 06/14/17 16:00 06/14/17 16:00 Intake and Output: 06/14/17 06/15/17 18:59 06:59 Intake Total 0 540 Balance 0 540 - Medications Medications: Current Medications Lactated Ringer's (Lactated Ringer's) 1,000 mls @ 200 mls/hr IV .Q5H [facility] Last Admin: 06/15/17 05:29 Dose: 200 mls/hr Ketorolac Tromethamine (Toradol) 30 mg IVP Q6H PRN PRN Reason: Pain, moderate (4-7) Last Admin: 06/14/17 18:38 Dose: 30 mg Morphine Sulfate (Morphine) 2 mg IVP Q6 PRN PRN Reason: Pain, severe (8-10) Last Admin: 06/15/17 05:34 Dose: 2 mg Nicotine (Nicoderm Cq) 1 patch TD DAILY [facility] Last Admin: 06/14/17 10:05 Dose: 1 patch Ondansetron HCl (Zofran Inj) 4 mg IVP Q4H PRN PRN Reason: Nausea/Vomiting Last Admin: 06/15/17 05:33 Dose: 4 mg Pantoprazole Sodium (Protonix Inj) 40 mg IVP DAILY [facility] Last Admin: 06/14/17 10:04 Dose: 40 mg Risperidone (Risperdal Tab) 1 mg PO BID [facility] PRN Reason: Protocol Last Admin: 06/14/17 17:54 Dose: 1 mg Sertraline HCl (Zoloft) 50 mg PO DAILY [facility] Last Admin: 06/14/17 10:05 Dose: 50 mg - Labs Labs: 06/15/17 05:20 06/14/17 05:30 Physical Exam - Constitutional Appears: Well developed, well nourished, pleasant male - Head Exam Head Exam: ATRAUMATIC, NORMOCEPHALIC - Eye Exam Eye Exam: EOMI, PERRL. absent: Scleral icterus - ENT Exam ENT Exam: Mucous Membranes Moist, Normal Oropharynx - Neck Exam Neck exam: Positive for: Normal Inspection. Negative for: Tenderness - Respiratory Exam Respiratory Exam: Clear to Auscultation Bilateral. absent: Rhonchi, Wheezes - Cardiovascular Exam Cardiovascular Exam: REGULAR RHYTHM, +S1, +S2 - GI/Abdominal Exam GI & Abdominal Exam: Normal Bowel Sounds, Soft, NT, ND, no HSM - Extremities Exam Extremities exam: Negative for: calf tenderness, pedal edema - Neurological Exam Neurological exam: Alert, Oriented x3 - Psych Exam Psych exam: Normal Mood, Normal Affect - Skin Skin Exam: Dry, Warm Assessment and Plan - Assessment and Plan (Free Text) Assessment: 42 year old male with a PMH of chronic pancreatitis 2/2 pancreatic divisum, spinal stenosis, polysubstance abuse, and asthma who presented with abd pain, N/ V/D for 3 days Plan: Chronic pancreatitis Viral gastroenteritis vs possible recurrent cocaine induced mesenteric ischemia Extended discussion with patient reviewing all of his previous CT Abd/pelvis which have not shown pancreatic changes but do show enteritis and how this can possibly relate to recurrent episodes of mesenteric ischemia from the vasoconstrictive effects of cocaine, particularly given that his episodes occur in relation to his "monthly" cocaine habits, and how complete abstinence is highly recommended Also discussed at length how his nausea and vomiting could also be related to his marijuana use and the possibility of cyclical vomiting syndrome and how abstinence from marijuana is also recommended Patient verbalized understanding of the aforementioned Continue conservative/supportive management Continue IVF hydration Advance diet as tolrated Continue Anti-emetics PRN Avoid opioid medications as these can exacerbation symptoms and given substance abuse Continue protonix Re-started pancreatic enzyme supplementation at 500U/kg Thank you for the pleasure of participating in the care of this patient. <Guillermo Garcia - Last Filed: 06/15/17 11:15> Objective - Vital Signs/Intake and Output Vital Signs (last 24 hours): Temp Pulse Resp BP Pulse Ox 97.9 F 58 L 19 127/82 98 06/15/17 08:29 06/15/17 08:29 06/15/17 08:29 06/15/17 08:29 06/15/17 08:29 Intake and Output: 06/15/17 06/15/17 06:59 18:59 Intake Total 5340 Balance 5340 - Medications Medications: Current Medications Amylase (Pancrease 35839 U-5000 [id number] U) 36,000 u PO AC [facility] Last Admin: 06/15/17 07:35 Dose: 36,000 u Lactated Ringer's (Lactated Ringer's) 1,000 mls @ 200 mls/hr IV .Q5H [facility] Last Admin: 06/15/17 05:29 Dose: 200 mls/hr Ketorolac Tromethamine (Toradol) 30 mg IVP Q6H PRN PRN Reason: Pain, moderate (4-7) Last Admin: 06/14/17 18:38 Dose: 30 mg Morphine Sulfate (Morphine) 2 mg IVP Q6 PRN PRN Reason: Pain, severe (8-10) Last Admin: 06/15/17 10:53 Dose: 2 mg Nicotine (Nicoderm Cq) 1 patch TD DAILY [facility] Last Admin: 06/15/17 09:01 Dose: 1 patch Ondansetron HCl (Zofran Inj) 4 mg IVP Q4H PRN PRN Reason: Nausea/Vomiting Last Admin: 06/15/17 05:33 Dose: 4 mg Pantoprazole Sodium (Protonix Inj) 40 mg IVP DAILY [facility] Last Admin: 06/15/17 09:01 Dose: 40 mg Risperidone (Risperdal Tab) 1 mg PO BID [facility] PRN Reason: Protocol Last Admin: 06/15/17 09:05 Dose: 1 mg Sertraline HCl (Zoloft) 50 mg PO DAILY [facility] Last Admin: 06/15/17 09:02 Dose: 50 mg - Labs Labs: 06/15/17 05:20 06/15/17 05:20 Attending/Attestation - Attestation I have personally seen and examined this patient.: Yes I have fully participated in the care of the patient.: Yes I have reviewed all pertinent clinical information, including history, physical exam and plan: Yes Notes (Text): 06/15/17 11:10 42 year old male with a h/o recurrent pancreatitis, pancreatic divisum, spinal stenosis, polysubstance abuse, and asthma admitted with recurrent n/v and abdominal pain. 1. Abdominal pain 2. Nausea and vomiting 3. Pancreas divisum 4. Cocaine abuse 5. Marijuana abuse Plan: -patient has had presumed recurrent episodes of acute pancreatitis in the setting of pancreas divisum -he has undergone the usual treatment for this problem twice (minor papillotomy ) without improvement -in addition, he has not suffered any sequela of recurrent bouts of pancreatitis (caclifications, pseudocysts, etc) and numerous CT scans don't really show dramatic peripancreatic inflammation -at the same time, he admits to chronic intermittent cocaine abuse, often preceding this episodes of pain and vomiting, and multiple CT scans show signs of enteritis, which raises the possiblity that this could be intermittent episodes of transient mesenteric ischemia due to cocaine abuse -mesenteric ischemia is a potential cause of hyperlipasemia as well -in addition, he has a long standing history of marijuana abuse and this could also cause cyclic vomiting syndrome -advised the patient that this could be the case and that continued substance abuse could potentially lead to life threatening complications of cocaine abuse including stroke, AL, or progressive mesenteric ischemia/infarction, and even -strongly advised him to stop all substance abuse -in the meantime, supportive measures with IV hydration, pain control, and anti- emetics as needed -slowly advance diet from liquids to low fat -would continue pancreatic enzymes with meals for now -continue daily ppi as well
[2017-06-15] MEDS: Amylase/Lipase/Protease 5,000 U ECC PO SCH ×3 (07:35→18:24)
[2017-06-15 07:37] LABS: ALB/GLOB RATIO 1.1 (1.1-1.8); ALKALINE PHOSPHATASE 61 U/L (38-126); ALT/SGPT 29 U/L (7-56); AST/SGOT 23 U/L (17-59); BILIRUBIN,TOTAL 0.6 mg/dL (0.2-1.3); BLOOD UREA NITROGEN 10 mg/dL (7-21); CALCIUM 8.7 mg/dL (8.4-10.5); CARBON DIOXIDE 25 mmol/L (21-33); CHLORIDE 111 mmol/L (98-107); GFR AFRICAN-AMERICAN > 60; GLUCOSE,RANDOM 79 mg/dL (70-110); SODIUM 142 mmol/L (132-148); TOTAL PROTEIN 5.7 g/dL (5.8-8.3)
[2017-06-15 08:30] VITALS: BP 127/82; PULSE 58; TEMP 97.9
--- NOTE | 2017-06-15 17:06 | CP.PCM.DIS ---
<Ziggy Flor - Last Filed: 06/15/17 16:48> Provider - Provider Date of Admission: 06/13/17 23:20 Attending physician: Madhu Vila MD Consults: Dr. Perez: SANDI Time Spent in preparation of Discharge (in minutes): 30 Hospital Course - Lab Results Lab Results: Most Recent Lab Values WBC 7.2 10^3/ul (4.5-11.0) 06/15/17 05:20 RBC 4.59 10^6/uL (3.5-6.1) 06/15/17 05:20 Hgb 13.9 g/dL (14.0-18.0) L 06/15/17 05:20 Hct 42.6 % (42.0-52.0) 06/15/17 05:20 MCV 92.8 fl (80.0-105.0) 06/15/17 05:20 MCH 30.3 pg (25.0-35.0) 06/15/17 05:20 MCHC 32.6 g/dl (31.0-37.0) 06/15/17 05:20 RDW 14.8 % (11.5-14.5) H 06/15/17 05:20 Plt Count 252 10^3/uL (120.0-450.0) 06/15/17 05:20 MPV 9.4 fl (7.0-11.0) 06/15/17 05:20 Gran % 53.6 % (50.0-68.0) 06/13/17 20:50 Lymph % (Auto) 32.4 % (22.0-35.0) 06/13/17 20:50 [place] % (Auto) 7.4 % (1.0-6.0) H 06/13/17 20:50 Eos % (Auto) 6.2 % (1.5-5.0) H 06/13/17 20:50 Baso % (Auto) 0.4 % (0.0-3.0) 06/13/17 20:50 Gran # 5.54 (1.4-6.5) 06/13/17 20:50 Lymph # 3.4 (1.2-3.4) 06/13/17 20:50 [place] # 0.8 (0.1-0.6) H 06/13/17 20:50 Eos # 0.6 (0.0-0.7) 06/13/17 20:50 Baso # 0.04 K/mm3 (0.0-2.0) 06/13/17 20:50 Sodium 142 mmol/L (132-148) 06/15/17 05:20 Potassium 4.0 mmol/L (3.6-5.0) 06/15/17 05:20 Chloride 111 mmol/L (98-107) H 06/15/17 05:20 Carbon Dioxide 25 mmol/L (21-33) 06/15/17 05:20 Anion Gap 10 (10-20) 06/15/17 05:20 BUN 10 mg/dL (7-21) 06/15/17 05:20 Creatinine 1.0 mg/dl (0.8-1.5) 06/15/17 05:20 Est GFR ( Amer) > 60 06/15/17 05:20 Est GFR (Non-Af Amer) > 60 06/15/17 05:20 Random Glucose 79 mg/dL (70-110) 06/15/17 05:20 Calcium 8.7 mg/dL (8.4-10.5) 06/15/17 05:20 Phosphorus 2.8 mg/dL (2.5-4.5) 06/13/17 20:50 Magnesium 1.9 mg/dL (1.7-2.2) 06/13/17 20:50 Total Bilirubin 0.6 mg/dL (0.2-1.3) 06/15/17 05:20 AST 23 U/L (17-59) 06/15/17 05:20 ALT 29 U/L (7-56) 06/15/17 05:20 Alkaline Phosphatase 61 U/L (38-126) 06/15/17 05:20 Total Protein 5.7 g/dL (5.8-8.3) L 06/15/17 05:20 Albumin 2.9 g/dL (3.0-4.8) L 06/15/17 05:20 Globulin 2.8 gm/dL 06/15/17 05:20 Albumin/Globulin Ratio 1.1 (1.1-1.8) 06/15/17 05:20 Triglycerides 68 mg/dL (35-160) 06/14/17 05:30 Cholesterol 153 mg/dL (130-200) 06/14/17 05:30 LDL Cholesterol Direct 99 mg/dL (0-129) 06/14/17 05:30 HDL Cholesterol 42 mg/dL (29-60) 06/14/17 05:30 Amylase 254 U/L (35-125) H 06/13/17 20:50 Lipase 858 U/L (23-300) H 06/13/17 20:50 Urine Color Yellow (YELLOW) 06/14/17 11:18 Urine Appearance Clear (CLEAR) 06/14/17 11:18 Urine pH 6.0 (4.7-8.0) 06/14/17 11:18 Ur Specific [place] 1.010 (1.005-1.035) 06/14/17 11:18 Urine Protein Negative mg/dL (<30 mg/dL) 06/14/17 11:18 Urine Glucose (UA) Negative mg/dL (NEGATIVE) 06/14/17 11:18 Urine Ketones Negative mg/dL (NEGATIVE) 06/14/17 11:18 Urine Blood Negative (NEGATIVE) 06/14/17 11:18 Urine Nitrate Negative (NEGATIVE) 06/14/17 11:18 Urine Bilirubin Negative (NEGATIVE) 06/14/17 11:18 Urine Urobilinogen 0.2 E.U./dL (<1 E.U./dL) 06/14/17 11:18 Ur Leukocyte Esterase Negative Olivia/uL (NEGATIVE) 06/14/17 11:18 Urine Opiates Screen Positive (NEGATIVE) H 06/14/17 11:18 Urine Methadone Screen Negative (NEGATIVE) 06/14/17 11:18 Ur Barbiturates Screen Negative (NEGATIVE) 06/14/17 11:18 Ur Phencyclidine Scrn Negative (NEGATIVE) 06/14/17 11:18 Ur Amphetamines Screen Negative (NEGATIVE) 06/14/17 11:18 U Benzodiazepines Scrn Negative (NEGATIVE) 06/14/17 11:18 U Oth Cocaine Metabols Positive (NEGATIVE) H 06/14/17 11:18 U Cannabinoids Screen Positive (NEGATIVE) H 06/14/17 11:18 - Hospital Course Hospital Course: HPI: Mr. Pedersen is a 42 yo Male with PMH chronic pancreatitis 2/2 pancreatic divisum, bradycardia, spinal stenosis and asthma who presents with abdominal pain and n/v x1 day. the patient states that this is similar to his acute pancreatitis episodes, which he was last hospitalized for one month ago. he states that he did not have too much to eat during thanksgiving dinner and denied ETOH use. he is aware of eating small meals, which he does, and that usually keeps his pancreatitis in check, however, he has the occasional flareups. he took his home dose percocet to relieve the pain, however, he continued to vomit nonbloody nonbilious vomitus which is what brought him in. he has not been able to see his PMD due to losing insurance and only recently getting an ew job and regaining the insurance. patient denies chest pain, sob, le swelling, weakness, weight loss/gain, fevers. he did experience chills. 12- pt ROS was reviewed and is otherwise unremarkable. Hospital Course: While here, Mr. Pedersen's Lipase was 858. His CT findings were significant for enteritis. Pt only had PE findings singificant for pancreatitis, which did not meet diagnostic criteria for pancreatitis. Patient's diet was advanced, which he tolerated well, to a soft diet. On day of discharge, patient was deemed stable for discharge. Discharge Exam - Head Exam Head Exam: ATRAUMATIC, NORMOCEPHALIC - Additional Findings Additional findings: Phys Exam: VS as below Const'l: a&o x 4, nad Head/Neck: neck supple, no jvd, trachea midline, carotid midline, no cervical /head mass Eyes: raegan, nonicteric sclera, eom intact ENT: auditory acuity grossly intact, throat not congested, no nasal deformity Cardio: rrr, no m/r/g, no carotid bruit, nml s1, s2 Pulm: no accessory muscle use, equal nml breath sounds bilaterally, ctab Abd: +mild TTP in diffuse quadrants; s/nd, nbs x 4 q, no palpable masses Derm: no rashes, no ulcers, no lesions Extr: no edema, no cyanosis, no calf tenderness, no lesions, no varicosities Neuro: cn II-XII grossly intact, ue and le 5/5 muscle strength bilaterally, no los ue, le bilaterally and core Discharge Plan - Follow Up Plan Condition: STABLE Disposition: HOME/ ROUTINE Instructions: Pancreatitis (DC) Additional Instructions: AVOID ALCOHOL. LOW FAT DIET. ANY ABDOMINAL PAIN, NAUSEA REPORT TO MD AND GO TO ER. <Madhu Vila - Last Filed: 06/16/17 14:14> Provider - Provider Date of Admission: 06/13/17 23:20 Attending physician: Madhu Vila MD Time Spent in preparation of Discharge (in minutes): 35 Hospital Course - Lab Results Lab Results: Most Recent Lab Values WBC 7.2 10^3/ul (4.5-11.0) 06/15/17 05:20 RBC 4.59 10^6/uL (3.5-6.1) 06/15/17 05:20 Hgb 13.9 g/dL (14.0-18.0) L 06/15/17 05:20 Hct 42.6 % (42.0-52.0) 06/15/17 05:20 MCV 92.8 fl (80.0-105.0) 06/15/17 05:20 MCH 30.3 pg (25.0-35.0) 06/15/17 05:20 MCHC 32.6 g/dl (31.0-37.0) 06/15/17 05:20 RDW 14.8 % (11.5-14.5) H 06/15/17 05:20 Plt Count 252 10^3/uL (120.0-450.0) 06/15/17 05:20 MPV 9.4 fl (7.0-11.0) 06/15/17 05:20 Gran % 53.6 % (50.0-68.0) 06/13/17 20:50 Lymph % (Auto) 32.4 % (22.0-35.0) 06/13/17 20:50 [place] % (Auto) 7.4 % (1.0-6.0) H 06/13/17 20:50 Eos % (Auto) 6.2 % (1.5-5.0) H 06/13/17 20:50 Baso % (Auto) 0.4 % (0.0-3.0) 06/13/17 20:50 Gran # 5.54 (1.4-6.5) 06/13/17 20:50 Lymph # 3.4 (1.2-3.4) 06/13/17 20:50 [place] # 0.8 (0.1-0.6) H 06/13/17 20:50 Eos # 0.6 (0.0-0.7) 06/13/17 20:50 Baso # 0.04 K/mm3 (0.0-2.0) 06/13/17 20:50 Sodium 142 mmol/L (132-148) 06/15/17 05:20 Potassium 4.0 mmol/L (3.6-5.0) 06/15/17 05:20 Chloride 111 mmol/L (98-107) H 06/15/17 05:20 Carbon Dioxide 25 mmol/L (21-33) 06/15/17 05:20 Anion Gap 10 (10-20) 06/15/17 05:20 BUN 10 mg/dL (7-21) 06/15/17 05:20 Creatinine 1.0 mg/dl (0.8-1.5) 06/15/17 05:20 Est GFR ( Amer) > 60 06/15/17 05:20 Est GFR (Non-Af Amer) > 60 06/15/17 05:20 Random Glucose 79 mg/dL (70-110) 06/15/17 05:20 Calcium 8.7 mg/dL (8.4-10.5) 06/15/17 05:20 Phosphorus 2.8 mg/dL (2.5-4.5) 06/13/17 20:50 Magnesium 1.9 mg/dL (1.7-2.2) 06/13/17 20:50 Total Bilirubin 0.6 mg/dL (0.2-1.3) 06/15/17 05:20 AST 23 U/L (17-59) 06/15/17 05:20 ALT 29 U/L (7-56) 06/15/17 05:20 Alkaline Phosphatase 61 U/L (38-126) 06/15/17 05:20 Total Protein 5.7 g/dL (5.8-8.3) L 06/15/17 05:20 Albumin 2.9 g/dL (3.0-4.8) L 06/15/17 05:20 Globulin 2.8 gm/dL 06/15/17 05:20 Albumin/Globulin Ratio 1.1 (1.1-1.8) 06/15/17 05:20 Triglycerides 68 mg/dL (35-160) 06/14/17 05:30 Cholesterol 153 mg/dL (130-200) 06/14/17 05:30 LDL Cholesterol Direct 99 mg/dL (0-129) 06/14/17 05:30 HDL Cholesterol 42 mg/dL (29-60) 06/14/17 05:30 Amylase 254 U/L (35-125) H 06/13/17 20:50 Lipase 858 U/L (23-300) H 06/13/17 20:50 Urine Color Yellow (YELLOW) 06/14/17 11:18 Urine Appearance Clear (CLEAR) 06/14/17 11:18 Urine pH 6.0 (4.7-8.0) 06/14/17 11:18 Ur Specific [place]io 1.010 (1.005-1.035) 06/14/17 11:18 Urine Protein Negative mg/dL (<30 mg/dL) 06/14/17 11:18 Urine Glucose (UA) Negative mg/dL (NEGATIVE) 06/14/17 11:18 Urine Ketones Negative mg/dL (NEGATIVE) 06/14/17 11:18 Urine Blood Negative (NEGATIVE) 06/14/17 11:18 Urine Nitrate Negative (NEGATIVE) 06/14/17 11:18 Urine Bilirubin Negative (NEGATIVE) 06/14/17 11:18 Urine Urobilinogen 0.2 E.U./dL (<1 E.U./dL) 06/14/17 11:18 Ur Leukocyte Esterase Negative Olivia/uL (NEGATIVE) 06/14/17 11:18 Urine Opiates Screen Positive (NEGATIVE) H 06/14/17 11:18 Urine Methadone Screen Negative (NEGATIVE) 06/14/17 11:18 Ur Barbiturates Screen Negative (NEGATIVE) 06/14/17 11:18 Ur Phencyclidine Scrn Negative (NEGATIVE) 06/14/17 11:18 Ur Amphetamines Screen Negative (NEGATIVE) 06/14/17 11:18 U Benzodiazepines Scrn Negative (NEGATIVE) 06/14/17 11:18 U Oth Cocaine Metabols Positive (NEGATIVE) H 06/14/17 11:18 U Cannabinoids Screen Positive (NEGATIVE) H 06/14/17 11:18 Attending/Attestation - Attestation I have personally seen and examined this patient.: Yes I have fully participated in the care of the patient.: Yes I have reviewed all pertinent clinical information, including history, physical exam and plan: Yes Notes (Text): I have seen and examined the patient at bedside. Agree with the above note with the following additions/ exceptions: I have seen and examined the patient at bedside. Agree with the above note with the following additions/ exceptions: Briefly this is 42 year old male with history of chronic pancreatitis due to pancreatic divisum, bradycardia, spinal stenosis and asthma who presents with abdominal pain, nausea, vomiting and diarrhea and found to have viral gastroenteritis and chronic pancreatitis. Patient was initially made npo and diet was slowly advanced. He was able to tolerate the diet without any problem. GI cleared the patient to go home. Continue pancreatic enzymes. Advised patient to follow up with Dr Indra owens and Dr Garcia as an outpatient. Dr Madhu Vila
== END 2017-06-15 20:10 | disposition home or self-care (01) ==
LOC: ED 20:30 → ERH 23:20 → 3RNO 06-14 01:11
PROVIDERS: ADMIT Hospitalist; ATTEND Hospitalist
DX: K85.90 Acute pancreatitis without necrosis or infection, unspecified (principal); K86.1 Other chronic pancreatitis; M06.9 Rheumatoid arthritis, unspecified; Q45.3 Other congenital malformations of pancreas and pancreatic duct; J45.909 Unspecified asthma, uncomplicated; Z80.0 Family history of malignant neoplasm of digestive organs; Z83.3 Family history of diabetes mellitus; F12.10 Cannabis abuse, uncomplicated; F14.10 Cocaine abuse, uncomplicated; Z79.899 Other long term (current) drug therapy; Z90.49 Acquired absence of other specified parts of digestive tract; F10.21 Alcohol dependence, in remission; F17.210 Nicotine dependence, cigarettes, uncomplicated; M19.90 Unspecified osteoarthritis, unspecified site; F32.89 Other specified depressive episodes; A08.4 Viral intestinal infection, unspecified
CPT/HCPCS: 36415; 74177; 80053; 80061; 80324; 80345; 80346; 80349; 80353; 80358; 80361; 81003; 82150; 83690; 83735; 83992; 84100; 85025; 85027; 93005; 96374; 99285; C9113; G0378; J1170; J1885; J2270; J2405; J7040; J7120; Q9967

== ENCOUNTER 2017-09-20 21:42 | Inpatient (IN) | payer MEDICAID ==
[2017-09-20] MEDS ORDERED: Sodium Chloride 0.9% 1,000 ML IV STA (22:34)
--- NOTE | 2017-09-20 22:39 | ED PDOC ---
Arrival/HPI - General Chief Complaint: Abdominal Pain Time Seen by Provider: 09/20/17 22:16 Historian: Patient - History of Present Illness Narrative History of Present Illness (Text): you were treated in the ED today for hx of pancreatitis , gallbladder removal surgery and having epigastric pain with nausea/vomiting but otherwise without any bile/blood/new foods/alcohol use/headache/dizziness/difficulty breathing/ chest pain/abdomen pain/numbness/tingling/loss of limb function/pain with urination. 09/20/17 22:37 Time/Duration: 24 hours Symptom Onset: Gradual Symptom Course: Unchanged Quality: Aching Severity Level: 2 Activities at Onset: Rest Context: Sitting Past Medical History - Provider Review Nursing Documentation Reviewed: Yes - Travel History Have you recently traveled outside [place] w/in the past 3 mons?: No - Infectious Disease Hx of Infectious Diseases: None - Tetanus Immunization Tetanus Immunization: Unknown - Cardiac Hx Pacemaker: No - Pulmonary Hx Asthma: Yes - Neurological Hx Neurological Disorder: No Hx Seizures: No - HEENT Hx HEENT Disorder: No - Renal Hx Renal Disorder: No - Endocrine/Metabolic Hx Endocrine Disorders: No Hx Hypothyroidism: No - Hematological/Oncological Hx Blood Disorders: No - Integumentary Hx Dermatological Disorder: No - Musculoskeletal/Rheumatological Hx Falls: No - Gastrointestinal Hx Gastrointestinal Disorders: No Hx Gall Bladder Disease: Yes (removed GB) Hx Pancreatitis: Yes - Genitourinary/Gynecological Hx Genitourinary Disorders: No Hx Sexually Transmitted Diseases: No - Psychiatric Hx Depression: Yes Hx Substance Use: Yes - Surgical History Hx Cholecystectomy: Yes (2004) - Anesthesia Hx Anesthesia: Yes Hx Anesthesia Reactions: No Hx Malignant Hyperthermia: No - Suicidal Assessment Feels Threatened In Home Enviroment: No Family/Social History - Physician Review Nursing Documentation Reviewed: Yes Family/Social History: No Known Family HX Smoking Status: Current Some Days Smoker Hx Alcohol Use: No Hx Substance Use: Yes Substance used: marijuana Allergies/Home Meds Allergies/Adverse Reactions: Allergies ketorolac Allergy (Verified 09/20/17 22:15) URTICARIA Home Medications: Home Meds Medication Instructions Recorded Confirmed Albuterol HFA [Ventolin HFA 90 2 puff INH Q6 PRN 04/05/17 09/21/17 mcg/actuation (8 g)] Risperidone [Risperdal] 1 mg PO BID 06/13/17 09/21/17 Review of Systems - Review of Systems Constitutional: Normal Eyes: Normal ENT: Normal Respiratory: Normal Cardiovascular: Normal Gastrointestinal: Abdominal Pain, Nausea, Vomiting Genitourinary Male: Normal Musculoskeletal: Normal Skin: Normal Neurological: Normal Endocrine: Normal Hemo/Lymphatic: Normal Psychiatric: Normal Physical Exam Vital Signs Reviewed: Yes Vital Signs Temp Pulse Resp BP Pulse Ox 09/21/17 01:12 77 18 109/75 96 09/20/17 22:18 98.8 F 90 18 117/80 96 Temperature: Afebrile Blood Pressure: Hypertensive Pulse: Regular Respiratory Rate: Normal Appearance: Positive for: Uncomfortable Pain Distress: None Mental Status: Positive for: Alert and Oriented X 3 - Systems Exam Head: Present: Atraumatic, Normocephalic Pupils: Present: PERRL Extroacular Muscles: Present: EOMI Conjunctiva: Present: Normal Ears: Present: Normal Mouth: Present: Moist Mucous Membranes Pharnyx: Present: Normal Nose (External): Present: Atraumatic Nose (Internal): Present: Normal Inspection Neck: Present: Normal Range of Motion Respiratory/Chest: Present: Clear to Auscultation, Good Air Exchange Cardiovascular: Present: Regular Rate and Rhythm Abdomen: Present: Tenderness, Other (epigastric discomfort wo other tenderness) Back: Present: Normal Inspection Upper Extremity: Present: Normal Inspection Lower Extremity: Present: Normal Inspection Neurological: Present: GCS=15, CN II-XII Intact, Speech Normal, Motor Func Grossly Intact Skin: Present: Warm, Normal Color Psychiatric: Present: Alert, Oriented x 3, Normal Insight, Normal Concentration Medical Decision Making ED Course and Treatment: you were treated in the ED today for hx of pancreatitis , gallbladder removal surgery and having epigastric pain with nausea/vomiting but otherwise without any bile/blood/new foods/alcohol use/headache/dizziness/difficulty breathing/ chest pain/abdomen pain/numbness/tingling/loss of limb function/pain with urination. You were otherwise breathing easily, pink moist lips, talking easily , good strength/sensation, alert/oriented, walking easily, clear lungs, mild epigastric abdomen tenderness, no fever temp 98.0, stable heart rate 90, stable breathing rate 18, excellent oxygen level 96% room air, elevated blood pressure 117/80 which we recommend repeat in 2-3 days primary care office to determine further treatment, you have blood tests mild infection count 12.5, stable blood level hemoglobin 16/platelets 246, stable chemistry, heart blood test____, lipase elevated 756, urine test no acute sign of infection, ECG normal sinus rhythm, intravenous fluids, protonix, zofran, observation done in the ED without improvement, d/w Dr. Lorenzana hospital resident and Dr. Mendez hospitalist who stated will admit, iv flagyl. 09/20/17 22:40 09/21/17 00:00 09/21/17 00:01 CT Abdomen and Pelvis With Intravenous Contrast Dictated and Authenticated by: Bonnie Hui MD 09/21/2017 2:14 AM Eastern Time ([place] & [place]) CLINICAL HISTORY: 42 years old, male; Pain; Abdominal pain; Generalized; Additional info: 42yom, abdomen pain, elevated lipase TECHNIQUE: Axial computed tomography images of the abdomen and pelvis with intravenous contrast. All CT scans at this facility use one or more dose reduction techniques, viz.: automated exposure control; ma/kV adjustment per patient size (including targeted exams where dose is matched to indication; i.e. head); or iterative reconstruction technique. 617 images are submitted. Coronal and sagittal reformatted images were created and reviewed. CONTRAST: 96 mL of OMNI 350 administered intravenously. COMPARISON: CT - ABD PELVIS IV CONTRAST ONLY 2017-06-13 22:27 FINDINGS: Lower thorax: No acute findings. ABDOMEN: Liver: Unremarkable. No mass. Gallbladder and bile ducts: Cholecystectomy. Pancreas: Unremarkable. No mass. No ductal dilation. Spleen: Unremarkable. No splenomegaly. Adrenals: Unremarkable. No mass. Kidneys and ureters: Unremarkable. No solid mass. No hydronephrosis. Stomach and bowel: Possible diverticulosis. Moderate amount of stool in the colon. There are nonspecific fluid filled stomach, small bowel loops. These findings can represent ileus versus gastroenteritis/enteritis versus slow transit versus peristalsis. No obstruction. Appendix: Normal appendix. PELVIS: Bladder: Bladder distention. Correlation with patient's voiding status is recommended. Reproductive: Prostate gland is seen. ABDOMEN and PELVIS: Intraperitoneal space: Unremarkable. No free air. No significant fluid collection. Bones/joints: No acute fracture. No dislocation. Soft tissues: Unremarkable. Vasculature: Unremarkable. No abdominal aortic aneurysm. Lymph nodes: Unremarkable. No enlarged lymph nodes. IMPRESSION: 1.There are nonspecific fluid filled stomach, small bowel loops. These findings can represent ileus versus gastroenteritis/enteritis versus slow transit versus peristalsis. 09/21/17 03:12 d/w Reassessment Condition: Unchanged - Lab Interpretations Lab Results: 09/20/17 22:46 09/20/17 22:46 Lab Results 09/21/17 00:02: Urine Color Straw, Urine Appearance Clear, Urine pH 6.0, Ur Specific [place] <= 1.005, Urine Protein Negative, Urine Glucose (UA) Negative, Urine Ketones Negative, Urine Blood Trace-intact H, Urine Nitrate Negative, Urine Bilirubin Negative, Urine Urobilinogen 0.2, Ur Leukocyte Esterase Negative , Urine RBC 1 - 3, Urine WBC 0 - 2, Ur Epithelial Cells 0 - 2 03 22:46: Sodium 142, Potassium 4.0, Chloride 107, Carbon Dioxide 26, Anion Gap 13, BUN 10, Creatinine 0.9, Est GFR ( Amer) > 60, Est GFR (Non- Af Amer) > 60, Random Glucose 89, Calcium 10.2, Total Bilirubin 0.5, AST 16 L D , ALT 28, Alkaline Phosphatase 80, Troponin I < 0.01, Total Protein 6.9, Albumin 3.8, Globulin 3.2, Albumin/Globulin Ratio 1.2, Lipase 756 H 09/20/17 22:46: PT 12.2, INR 1.07, APTT 31.0 09/20/17 22:46: WBC 12.5 H D, RBC 5.18, Hgb 16.1 D, Hct 46.8, MCV 90.3, MCH 31.1, MCHC 34.4, RDW 13.4, Plt Count 246, MPV 9.5, Gran % 67.6, Lymph % (Auto) 21.8 L, [place] % (Auto) 8.7 H, Eos % (Auto) 1.7, Baso % (Auto) 0.2, Gran # 8.42 H , Lymph # (Auto) 2.7, [place] # (Auto) 1.1 H, Eos # (Auto) 0.2, Baso # (Auto) 0.02 I have reviewed the lab results: Yes - RAD Interpretation Radiology Orders: 09/21/17 00:40 ABD & PELVIS IV CONTRAST ONLY [CT] Stat Panel Saw Operator: Radiologist (ct a/p mdm) - EKG Interpretation Interpreted by ED Physician: Yes (NSR, flipped t waves avr) Type: 12 lead EKG Comparison: Similar to previous EKG (04/04/17) - Medication Orders Current Medication Orders: Discontinued Medications Hydromorphone HCl (Dilaudid) 1 mg IVP STAT STA Stop: 09/21/17 00:02 Last Admin: 09/21/17 00:19 Dose: 1 mg [facility] Pain Assessment Document 09/21/17 00:19 (Rec: 09/21/17 00:[address]) Pain Reassessment Is this a pain reassessment? Yes Sleep Is patient sleeping during reassessment? No Presence of Pain Presence of Pain Yes Pain Scale Used Pain Scale Used Numeric Location Left, Right or Bilateral Left Upper or Lower Upper Pain Location Body Site Abdomen Description Description Sharp Radiation Location left upper back Pain Behavior Irritability Aggravating Factors Contant Pain not relieved and LIP/MD was Yes notified IVP Administration Document 09/21/17 00:19 (Rec: 09/21/17 00:[address]) Charges for Administration # of IVP Administrations 1 Re-Assess: [facility] Pain Assessment Document 09/21/17 01:19 (Rec: 09/21/17 01:30 [place] [id number]) Pain Reassessment Is this a pain reassessment? Yes Sleep Is patient sleeping during reassessment? No Presence of Pain Presence of Pain No Sodium Chloride (Sodium Chloride 0.9%) 1,000 mls @ 1,000 mls/hr IV .Q1H STA Stop: 09/20/17 23:33 Last Admin: 09/20/17 22:53 Dose: 1,000 mls/hr eMAR Start Stop Document 09/20/17 22:53 [place] (Rec: 09/20/17 22:53 LA [id number]) Intravenous Solution Start Date 09/20/17 Start Time 22:53 Ondansetron HCl (Zofran Inj) 4 mg IVP STAT STA Stop: 09/20/17 22:35 Last Admin: 09/20/17 22:52 Dose: 4 mg IVP Administration Document 09/20/17 22:52 LA (Rec: 09/20/17 22:52 LA [id number]) Charges for Administration # of IVP Administrations 1 Pantoprazole Sodium (Protonix Inj) 40 mg IVP STAT STA Stop: 09/20/17 22:35 Last Admin: 09/20/17 22:52 Dose: 40 mg IVP Administration Document 09/20/17 22:52 HANNA (Rec: 09/20/17 22:52 ID [id number]) Charges for Administration # of IVP Administrations 1 Disposition/Present on Arrival - Present on Arrival Any Indicators Present on Arrival: No History of DVT/PE: No History of Uncontrolled Diabetes: No Urinary Catheter: No History of Decub. Ulcer: No History Surgical Site Infection Following: None - Disposition Have Diagnosis and Disposition been Completed?: Yes Diagnosis: Pancreatitis, Gastroenteritis Disposition: HOSPITALIZED Disposition Time: 03:14 Patient Plan: Admission Condition: STABLE Referrals: Indra Hdez, ROBERTA, [employer] TR[employer] OPERATOR [Primary Care Provider] - Follow up with primary Forms: [employer] (Kinyarwanda)
[2017-09-20 23:02] LABS: BASO # 0.02 K/mm3 (0.0-2.0); BASO % 0.2 % (0.0-3.0); EOS # 0.2 (0.0-0.7); EOS % 1.7 % (1.5-5.0); GRAN # 8.42 (1.4-6.5); GRAN % 67.6 % (50.0-68.0); HEMOGLOBIN 16.1 g/dL (14.0-18.0); LYMPH # 2.7 (1.2-3.4); LYMPH % 21.8 % (22.0-35.0); MEAN CELL VOLUME 90.3 fl (80.0-105.0); MEAN CORPUSCULAR HEMOGLOBIN 31.1 pg (25.0-35.0); MEAN CORPUSCULAR HGB CONC 34.4 g/dl (31.0-37.0); MEAN PLATELET VOLUME 9.5 fl (7.0-11.0); MONO # 1.1 (0.1-0.6); MONO % 8.7 % (1.0-6.0); RBC 5.18 10^6/uL (3.5-6.1); RED CELL DISTRIBUTION WIDTH 13.4 % (11.5-14.5); WHITE BLOOD COUNT 12.5 10^3/ul (4.5-11.0)
[2017-09-20 23:11] LABS: ALB/GLOB RATIO 1.2 (1.1-1.8); ALBUMIN 3.8 g/dL (3.0-4.8); ALT/SGPT 28 U/L (7-56); AST/SGOT 16 U/L (17-59); BLOOD UREA NITROGEN 10 mg/dL (7-21); CALCIUM 10.2 mg/dL (8.4-10.5); GFR AFRICAN-AMERICAN > 60; GFR NON-AFRICAN AMERICAN > 60; LIPASE 756 U/L (23-300)
[2017-09-20 23:15] LABS: INR 1.07 (0.93-1.08); PROTHROMBIN TIME 12.2 SECONDS (9.4-12.5)
[2017-09-20 23:22] LABS: TROPONIN I < 0.01 ng/mL
[2017-09-21] MEDS ORDERED: HYDROmorphone 1 mg/ml ISec IVP STA (00:01)
[2017-09-21 00:34] LABS: URINE BILIRUBIN NEGATIVE (NEGATIVE); URINE BLOOD TRACE-INTACT (NEGATIVE); URINE GLUCOSE (UA) NEGATIVE (NEGATIVE); URINE LEUKOCYTE ESTERASE NEGATIVE Leu/uL (NEGATIVE); URINE PROTEIN NEGATIVE mg/dL (<30 mg/dL); URINE UROBILINOGEN 0.2 E.U./dL (<1 E.U./dL)
[2017-09-21 00:35] LABS: URINE APPEARANCE CLEAR (CLEAR); URINE COLOR STRAW (YELLOW)
[2017-09-21 00:40] LABS: URINE EPITHELIAL CELLS 0 - 2 /hpf (0-5); URINE WBC 0 - 2 /hpf (0-6)
[2017-09-21] MEDS ORDERED: Iohexol 350 MG/100 ML VIAL ONE (01:10)
--- NOTE | 2017-09-21 02:14 | CT ---
EXAM: CT Abdomen and Pelvis With Intravenous Contrast CLINICAL HISTORY: 42 years old, male; Pain; Abdominal pain; Generalized; Additional info: 42yom, abdomen pain, elevated lipase TECHNIQUE: Axial computed tomography images of the abdomen and pelvis with intravenous contrast. All CT scans at this facility use one or more dose reduction techniques, viz.: automated exposure control; ma/kV adjustment per patient size (including targeted exams where dose is matched to indication; i.e. head); or iterative reconstruction technique. 617 images are submitted. Coronal and sagittal reformatted images were created and reviewed. CONTRAST: 96 mL of OMNI 350 administered intravenously. COMPARISON: CT - ABD PELVIS IV CONTRAST ONLY 2017-06-13 22:27 FINDINGS: Lower thorax: No acute findings. ABDOMEN: Liver: Unremarkable. No mass. Gallbladder and bile ducts: Cholecystectomy. Pancreas: Unremarkable. No mass. No ductal dilation. Spleen: Unremarkable. No splenomegaly. Adrenals: Unremarkable. No mass. Kidneys and ureters: Unremarkable. No solid mass. No hydronephrosis. Stomach and bowel: Possible diverticulosis. Moderate amount of stool in the colon. There are nonspecific fluid filled stomach, small bowel loops. These findings can represent ileus versus gastroenteritis/enteritis versus slow transit versus peristalsis. No obstruction. Appendix: Normal appendix. PELVIS: Bladder: Bladder distention. Correlation with patient's voiding status is recommended. Reproductive: Prostate gland is seen. ABDOMEN and PELVIS: Intraperitoneal space: Unremarkable. No free air. No significant fluid collection. Bones/joints: No acute fracture. No dislocation. Soft tissues: Unremarkable. Vasculature: Unremarkable. No abdominal aortic aneurysm. Lymph nodes: Unremarkable. No enlarged lymph nodes. IMPRESSION: 1.There are nonspecific fluid filled stomach, small bowel loops. These findings can represent ileus versus gastroenteritis/enteritis versus slow transit versus peristalsis.
[2017-09-21] MEDS ORDERED: metroNIDAZOLE IV 500 mg/100 ml 500 MG/100 ML BAG IVPB STA (03:10)
[2017-09-21] MEDS ORDERED: Lactated Ringer's 1,000 ML IV SCH (03:15)
--- NOTE | 2017-09-21 04:06 | CP.PCM.HP ---
<Dao Yang - Last Filed: 09/21/17 04:12> History of Present Illness - History of Present Illness History of Present Illness: CC: Abdominal Pain HPI: Patient is a 42 year old male with past medical history for chronic pancreatitis secondary to pancreatic divisum, bradycardia, spinal stenosis and asthma who presents with abdominal pain, nausea and vomiting for the past 4 hours. Patient indicates abdominal pain is mid-epigastric, 8/10, with radiation towards his back. He indicates the pain is episodic and describes the pain as alternating from spasms to and sharp knife like pain. Denies any alleviating factors. Patient reports inability to keep liquids or food down. Patient reports associated symptoms of chills and diarrhea. Indicates diarrhea is watery , without blood, 3-4 times a day. Patient reports previous episodes of abdominal discomfort for which he was hospitalized. Denies hematemesis, chest pain, shortness of breath, dysuria, flank pain. 12 point ROS benign otherwise mentioned in HPI PMH: chronic pancreatitis, pancreatic divisum, bradycardia, spinal stenosis, asthma PSH: cholecystectomy (2004), s/p pancreatic stent palcement and removal (10/2016) SocHx: Tobacco: Current everyday smoker ETOH: Former ID: former marijuana, cocaine, last usage 3 months prior FMH: Mother family hx (pancreatic cancer and DM2) ALL: NKDA MEDS: - Percocet 5/325 1 Q8 - Sertraline 50mg Dialy - Risperdal 1 mg BID - Folic Acid 1mg Daily - Pancrease 36,000 - Ventolin inh 2 puff Q6 prn PMD: Dr. Hdez GI: Dr. Garcia Cardio: Dr. Brice Polanco Present on Admission - Present on Admission Any Indicators Present on Admission: No Review of Systems - Review of Systems All systems: reviewed and no additional remarkable complaints except (otherwise mentioned in HPI) Past Patient History - Infectious Disease Hx of Infectious Diseases: None - Tetanus Immunizations Tetanus Immunization: Unknown - Past Medical History & Family History Past Medical History?: Yes - Past Social History Smoking Status: Current Some Days Smoker Alcohol: None Drugs: Denies, Cannabis (former), Cocaine (former) - CARDIAC Hx Pacemaker: No - PULMONARY Hx Asthma: Yes - NEUROLOGICAL Hx Neurological Disorder: No Hx Seizures: No - HEENT Hx HEENT Problems: No - RENAL Hx Chronic Kidney Disease: No - ENDOCRINE/METABOLIC Hx Endocrine Disorders: No Hx Hypothyroidism: No - HEMATOLOGICAL/ONCOLOGICAL Hx Blood Disorders: No - INTEGUMENTARY Hx Dermatological Problems: No - MUSCULOSKELETAL/RHEUMATOLOGICAL Hx Falls: No - GASTROINTESTINAL Hx Gastrointestinal Disorders: No Hx Gall Bladder Disease: Yes (removed GB) Hx Pancreatitis: Yes - GENITOURINARY/GYNECOLOGICAL Hx Genitourinary Disorders: No Hx Sexually Transmitted Disorders: No - PSYCHIATRIC Hx Depression: Yes Hx Substance Use: Yes - SURGICAL HISTORY Hx Cholecystectomy: Yes (2004) - ANESTHESIA Hx Anesthesia: Yes Hx Anesthesia Reactions: No Hx Malignant Hyperthermia: No Meds Allergies/Adverse Reactions: Allergies Allergy/AdvReac Type Severity Reaction Status Date / Time ketorolac Allergy URTICARIA Verified 09/20/17 22:15 Physical Exam - Constitutional Appears: Non-toxic - Head Exam Head Exam: ATRAUMATIC, NORMAL INSPECTION, NORMOCEPHALIC - Eye Exam Eye Exam: EOMI, PERRL Additional comments: glasses - ENT Exam ENT Exam: Mucous Membranes Moist - Respiratory Exam Respiratory Exam: Clear to Auscultation Bilateral, NORMAL BREATHING PATTERN. absent: Rales, Rhonchi, Wheezes - Cardiovascular Exam Cardiovascular Exam: REGULAR RHYTHM, RRR, +S1, +S2. absent: JVD - GI/Abdominal Exam GI & Abdominal Exam: Diminished Bowel Sounds, Guarding, Soft, Tenderness (mid epigastric > lower abdomen b/l). absent: Firm, Rigid - Extremities Exam Extremities exam: Positive for: normal inspection, pedal pulses present. Negative for: calf tenderness, pedal edema - Back Exam Back exam: NORMAL INSPECTION. absent: CVA tenderness (L), CVA tenderness (R) - Neurological Exam Neurological exam: Alert, CN II-XII Intact, Normal Gait, Oriented x3 - Psychiatric Exam Psychiatric exam: Normal Affect, Normal Mood - Skin Skin Exam: Dry, Intact, Warm Results - Vital Signs Recent Vital Signs: Last Vital Signs Temp 98.8 F 09/20/17 22:18 Pulse 66 09/21/17 03:42 Resp 18 09/21/17 03:42 BP 97/73 L 09/21/17 03:42 Pulse Ox 98 09/21/17 03:42 - Labs Result Diagrams: 09/20/17 22:46 09/20/17 22:46 Labs: Laboratory Results - last 24 hr 09/20/17 09/20/17 09/20/17 22:46 22:46 22:46 WBC 12.5 H D RBC 5.18 Hgb 16.1 D Hct 46.8 MCV 90.3 MCH 31.1 MCHC 34.4 RDW 13.4 Plt Count 246 MPV 9.5 Gran % 67.6 Lymph % (Auto) 21.8 L [place] % (Auto) 8.7 H Eos % (Auto) 1.7 Baso % (Auto) 0.2 Gran # 8.42 H Lymph # (Auto) 2.7 [place] # (Auto) 1.1 H Eos # (Auto) 0.2 Baso # (Auto) 0.02 PT 12.2 INR 1.07 APTT 31.0 Sodium 142 Potassium 4.0 Chloride 107 Carbon Dioxide 26 Anion Gap 13 BUN 10 Creatinine 0.9 Est GFR ( Amer) > 60 Est GFR (Non-Af Amer) > 60 Random Glucose 89 Calcium 10.2 Total Bilirubin 0.5 AST 16 L D ALT 28 Alkaline Phosphatase 80 Troponin I < 0.01 Total Protein 6.9 Albumin 3.8 Globulin 3.2 Albumin/Globulin Ratio 1.2 Lipase 756 H Urine Color Urine Appearance Urine pH Ur Specific [place] Urine Protein Urine Glucose (UA) Urine Ketones Urine Blood Urine Nitrate Urine Bilirubin Urine Urobilinogen Ur Leukocyte Esterase Urine RBC Urine WBC Ur Epithelial Cells 09/21/17 00:02 WBC RBC Hgb Hct MCV MCH MCHC RDW Plt Count MPV Gran % Lymph % (Auto) [place] % (Auto) Eos % (Auto) Baso % (Auto) Gran # Lymph # (Auto) [place] # (Auto) Eos # (Auto) Baso # (Auto) PT INR APTT Sodium Potassium Chloride Carbon Dioxide Anion Gap BUN Creatinine Est GFR ( Amer) Est GFR (Non-Af Amer) Random Glucose Calcium Total Bilirubin AST ALT Alkaline Phosphatase Troponin I Total Protein Albumin Globulin Albumin/Globulin Ratio Lipase Urine Color Straw Urine Appearance Clear Urine pH 6.0 Ur Specific [place] <= 1.005 Urine Protein Negative Urine Glucose (UA) Negative Urine Ketones Negative Urine Blood Trace-intact H Urine Nitrate Negative Urine Bilirubin Negative Urine Urobilinogen 0.2 Ur Leukocyte Esterase Negative Urine RBC 1 - 3 Urine WBC 0 - 2 Ur Epithelial Cells 0 - 2 Assessment & Plan - Assessment and Plan (Free Text) Assessment: Patient is a 42 year old male with past medical history of chronic pancreatitis secondary to pancreatic divisum, bradycardia, spinal stenosis and asthma who presents with abdominal pain, nausea, vomiting for past 4-6 hours. Patient evaluated in ED and found to have Abdominal CT showing gastritis vs enteritis picture as well as elevated lipase. Patient admitted for further medical management and observation. Plan: 1. Acute on chronic pancreatitis exacerbation - Abdominal CT showing nonspecific fluid filled stomach, small bowel loops suggesting ileus vs. gastroenteritis/enteritis - Lipase 756 - NPO - LR @125ml/Hr - Analgesic: Morphine - Zofran - GI consult, appreciate recs 2. Psych hx - Continue home meds 3. Hx of Asthma - Currently asymptomatic - Continue home albuterol DVT ppx: SCDs GI ppx: Protonix Patient was seen, evaluated and case discussed with attending Mehrdad Yang PGY1 - Date & Time Date: 09/21/17 Time: 04:09 <Nubia Mendez - Last Filed: 09/21/17 04:41> Results - Vital Signs Recent Vital Signs: Last Vital Signs Temp 98.8 F 09/20/17 22:18 Pulse 66 09/21/17 03:42 Resp 18 09/21/17 03:42 BP 97/73 L 09/21/17 03:42 Pulse Ox 98 09/21/17 03:42 - Labs Result Diagrams: 09/20/17 22:46 09/20/17 22:46 Attending/Attestation - Attestation I have personally seen and examined this patient.: Yes I have fully participated in the care of the patient.: Yes I have reviewed all pertinent clinical information: Yes Notes (Text): 09/21/17 04:40 Patient was seen when he was in bed # 5 in the ER. Agree with history, physical examination, assessment and plan. Following are impressions. Abdominal pain-Epigastric. Nausea/Vomiting. Chills. Anorexia. Weight loss -20 lbs in 3 weeks. Colitis. Enteritis. Gastroenteritis. Acute Pancreatitis. Leukocytosis. Elevated Lipase level. History of asthma. History of depression. History of pancreatitis. History of cholecystectomy-2004. Overweight. Polysubstance abuse. History of smoking, quit 2 months ago.Smoked i cig /day x 20 years. History of ETOH-Quit in 2004.[id number]. History of marijuana use -2 months ago. History of cocaine christian -6 months ago. History of falls x2 followed by back pain. ROS positive for nightsweat-6 months. History of bradycardia, denies athletic activities. History of anemia positive. HIstory of chronic headache-2 years. Has been on Zoloft Risperidal. History of suicidal attemps 7 months ago by pills overdose. Not suicidal currently. States that his feet/toes remains cold. History anxiety. Hypermetropia. Overweight. Allergy to Toradol-Hives, itching. History spinal stenosis. History ERCP , stent-October 2016 by . Family history -MGF-Pancreatic cancer. Family history -PGM- intestinal cancer. Family history -PGF, 5 uncles, colon and stomach cancer. Family history - mother -DM, HLD. Family history -MGM -heart disease, epilepsy. PMD-Dr.Sorkin Adriana.
[2017-09-21] MEDS ORDERED: Albuterol 0.083% Inhal Sol (2.5 mg/3 mL) UD IH PRN (04:16)
[2017-09-21] MEDS: Morphine 2 mg/ml ISec IVP PRN ×3 (04:50→20:27)
[2017-09-21 08:28] VITALS: BMI 28.1
[2017-09-21] MEDS: Amylase/Lipase/Protease 5,000 Units ECC PO SCH ×2 (10:08→12:25)
[2017-09-21] MEDS: Lactated Ringer's 1,000 ML IV SCH ×2 (10:14→20:30)
--- NOTE | 2017-09-21 10:18 | CP.PCM.PN ---
<Vianca Amaro - Last Filed: 09/21/17 13:10> Subjective - Date & Time of Evaluation Date of Evaluation: 09/21/17 Time of Evaluation: 07:00 - Subjective Subjective: GI Fellow PGY 4 Consult Note This is a 42 year old male with a PMH of chronic pancreatitis with pancreatic divisum, spinal stenosis, bradycardia, and asthma who presented [place] [facility] for complaints of 1 day of abdominal pain, nausea, vomiting and diarrhea. GI consultation was placed for the aforementioned. Patient was seen and examined at bedside. Patient states that yesterday after eating lunch he started having epigastric abdominal pain radiating to back and nonbloody, bilious emesis. Patient admits to chronic diarrhea with 6-7 episodes daily and takes his pancreatic enzymes with no improvement. Patient denies any other associated symptoms. He reports feeling a little better since admission and would like to try and eat. CT imaging with no pancreatitis and Lipase 700s. Pt reports his last use of cocaine was 3 months ago and went through a detox program. ROS: A 12pt ROS was negative except as above. PMH: as above PSH: cholecystectomy, s/p pancreatic stent palcement and removal SH: sporadic marijuana and cocaine user, former alcoholic, sporadic tobacco use FH: pancreatic cancer and DM2 on maternal side Objective - Vital Signs/Intake and Output Vital Signs (last 24 hours): Temp Pulse Resp BP Pulse Ox 98.6 F 68 16 101/67 98 09/21/17 07:30 09/21/17 07:30 09/21/17 07:30 09/21/17 07:30 09/21/17 07:30 Intake and Output: 09/21/17 09/21/17 06:59 18:59 Intake Total 300 Balance 300 - Medications Medications: Current Medications Albuterol Sulfate (Albuterol 0.083% Inhal Erica (2.5 Mg/3 Ml) Ud) 2.5 mg IH [id number] PRN PRN Reason: Shortness of Breath Amylase (Pancrease 35551 U-5000 U-15173 U) 36,000 unit PO AC KELLY Folic Acid (Folic Acid) 1 mg PO DAILY KELLY Lactated Ringer's (Lactated Ringer's) 1,000 mls @ 200 mls/hr IV .Q5H KELLY Morphine Sulfate (Morphine) 2 mg IVP Q6H PRN PRN Reason: Pain, severe (8-10) Last Admin: 09/21/17 04:50 Dose: 2 mg Ondansetron HCl (Zofran Inj) 4 mg IVP Q4H PRN PRN Reason: Nausea/Vomiting Pantoprazole Sodium (Protonix Inj) 40 mg IVP DAILY [facility] Risperidone (Risperdal Tab) 1 mg PO BID KELLY PRN Reason: Protocol Sertraline HCl (Zoloft) 50 mg PO DAILY KELLY - Labs Labs: PT 12.2 SECONDS (9.4-12.5) 09/20/17 22:46 INR 1.07 (0.93-1.08) 09/20/17 22:46 APTT 31.0 Seconds (25.1-36.5) 09/20/17 22:46 - Constitutional Appears: Non-toxic, No Acute Distress - Head Exam Head Exam: ATRAUMATIC, NORMAL INSPECTION, NORMOCEPHALIC - Eye Exam Eye Exam: Normal appearance, PERRL - ENT Exam ENT Exam: Mucous Membranes Moist - Neck Exam Neck Exam: Full ROM - Respiratory Exam Respiratory Exam: Clear to Ausculation Bilateral, NORMAL BREATHING PATTERN - Cardiovascular Exam Cardiovascular Exam: REGULAR RHYTHM - GI/Abdominal Exam GI & Abdominal Exam: Soft, Normal Bowel Sounds - Neurological Exam Neurological Exam: Alert, Awake, Oriented x3 - Psychiatric Exam Psychiatric exam: Normal Affect, Normal Mood - Skin Skin Exam: Dry, Intact, Normal Color, Warm Assessment and Plan - Assessment and Plan (Free Text) Assessment: This is a 42 year old male with a PMH of chronic pancreatitis with pancreatic divisum, spinal stenosis, bradycardia, and asthma who presented for complaints of 1 day of abdominal pain, nausea, vomiting and diarrhea. 1. Abdominal pain, nausea and vomiting-likely viral gastroenteritis 2. Diarrhea-pancreatic insufficiency Plan: -Continue supportive care with pain control and antiemetics -Likely acute gastroenteritis in the setting of chronic pancreatitis -Continue IVF hydration -Advance diet to clear liquid, may advance as tolerated -Anti-emetics PRN -Avoid opioid medications as these can exacerbation symptoms -Check UDS with hx of cocaine use -Continue Pancreatic enzymes -Will follow closely <Guillermo Garcia - Last Filed: 09/21/17 15:48> Objective - Vital Signs/Intake and Output Vital Signs (last 24 hours): Temp Pulse Resp BP Pulse Ox 98.6 F 68 16 101/67 98 03/06/18 07:30 09/21/17 07:30 09/21/17 07:30 09/21/17 07:30 09/21/17 07:30 Intake and Output: 09/21/17 09/21/17 06:59 18:59 Intake Total 600 Output Total 600 Balance 0 - Medications Medications: Current Medications Albuterol Sulfate (Albuterol 0.083% Inhal Erica (2.5 Mg/3 Ml) Ud) 2.5 mg IH [id number] PRN PRN Reason: Shortness of Breath Amylase (Pancrease 53066 U-5000 U-09313 U) 36,000 unit PO AC [facility] Last Admin: 09/21/17 12:25 Dose: Not Given Folic Acid (Folic Acid) 1 mg PO DAILY [facility] Last Admin: 09/21/17 10:12 Dose: 1 mg Lactated Ringer's (Lactated Ringer's) 1,000 mls @ 200 mls/hr IV .Q5H [facility] Last Admin: 09/21/17 10:14 Dose: 200 mls/hr Morphine Sulfate (Morphine) 2 mg IVP Q6H PRN PRN Reason: Pain, severe (8-10) Last Admin: 09/21/17 12:49 Dose: 2 mg Ondansetron HCl (Zofran Inj) 4 mg IVP Q4H PRN PRN Reason: Nausea/Vomiting Pantoprazole Sodium (Protonix Inj) 40 mg IVP DAILY [facility] Last Admin: 09/21/17 10:07 Dose: 40 mg Risperidone (Risperdal Tab) 1 mg PO BID [facility] PRN Reason: Protocol Last Admin: 09/21/17 10:11 Dose: 1 mg Sertraline HCl (Zoloft) 50 mg PO DAILY [facility] Last Admin: 09/21/17 10:07 Dose: 50 mg - Labs Labs: PT 12.2 SECONDS (9.4-12.5) 09/20/17 22:46 INR 1.07 (0.93-1.08) 09/20/17 22:46 APTT 31.0 Seconds (25.1-36.5) 09/20/17 22:46 Attending/Attestation - Attestation I have personally seen and examined this patient.: Yes I have fully participated in the care of the patient.: Yes I have reviewed all pertinent clinical information, including history, physical exam and plan: Yes Notes (Text): 09/21/17 15:46 42 year old male with h/o substance abuse, pancreas divisum, pancreatitis admitted with abdominal pain and diarrhea. Only mild elevation of lipase. Not significant pancreatitis. Suggest UDS as he has had multiple episodes precipitated by cocaine abuse although he denies it. Supportive measures. Will sign off.
[2017-09-21 10:22] LABS: HDL CHOLESTEROL 30 mg/dL (29-60)
[2017-09-21 10:33] LABS: LDL CHOLESTEROL 81 mg/dL (0-129)
--- NOTE | 2017-09-21 20:48 | CARD ---
APPROVED REPORT EKG Measurement Heart [id number] <Conclusion> Poor data quality, interpretation may be adversely affected Normal sinus rhythm ST elevation, probably due to early repolarization Borderline ECG
[2017-09-22] MEDS: Morphine 2 mg/ml ISec IVP PRN ×4 (02:24→21:32)
[2017-09-22] MEDS ORDERED: Amylase/Lipase/Protease 5,000 Units ECC PO SCH ×2 (07:30)
[2017-09-22 08:16] LABS: BASO # 0.02 K/mm3 (0.0-2.0); BASO % 0.2 % (0.0-3.0); EOS # 0.4 (0.0-0.7); EOS % 4.9 % (1.5-5.0); GRAN # 4.69 (1.4-6.5); GRAN % 55.6 % (50.0-68.0); HEMOGLOBIN 14.4 g/dL (14.0-18.0); LYMPH # 2.6 (1.2-3.4); LYMPH % 30.5 % (22.0-35.0); MEAN CELL VOLUME 91.9 fl (80.0-105.0); MEAN CORPUSCULAR HEMOGLOBIN 30.5 pg (25.0-35.0); MEAN CORPUSCULAR HGB CONC 33.2 g/dl (31.0-37.0); MEAN PLATELET VOLUME 9.7 fl (7.0-11.0); MONO # 0.7 (0.1-0.6); MONO % 8.8 % (1.0-6.0); RBC 4.72 10^6/uL (3.5-6.1); RED CELL DISTRIBUTION WIDTH 13.5 % (11.5-14.5); WHITE BLOOD COUNT 8.4 10^3/ul (4.5-11.0)
[2017-09-22 08:39] LABS: ALBUMIN 3.1 g/dL (3.0-4.8); ALT/SGPT 23 U/L (7-56); AST/SGOT 15 U/L (17-59); BLOOD UREA NITROGEN 6 mg/dL (7-21); CALCIUM 9.5 mg/dL (8.4-10.5); GFR AFRICAN-AMERICAN > 60; GFR NON-AFRICAN AMERICAN > 60
--- NOTE | 2017-09-22 10:54 | CP.PCM.PN ---
<Jorge Alberto Mukherjee - Last Filed: 09/22/17 11:01> Subjective - Date & Time of Evaluation Date of Evaluation: 09/22/17 Time of Evaluation: 10:53 - Subjective Subjective: Patient seen and examined at bedside in no acute distress. States he has not made any bowel movements overnight, experienced some mild pain the day prior. Denies nausea, vomiting, fevers, chills, shortness of breath, chest pain. Objective - Vital Signs/Intake and Output Vital Signs (last 24 hours): Temp Pulse Resp BP Pulse Ox 98 F 71 18 109/75 96 09/22/17 08:52 09/22/17 08:52 09/22/17 08:52 09/22/17 08:52 09/22/17 08:52 Intake and Output: 09/22/17 09/22/17 06:59 18:59 Intake Total 960 Output Total 3000 Balance -2040 - Medications Medications: Current Medications Albuterol Sulfate (Albuterol 0.083% Inhal Erica (2.5 Mg/3 Ml) Ud) 2.5 mg IH [id number] PRN PRN Reason: Shortness of Breath Amylase (Pancrease 72222 U-5000 U-59770 U) 35,000 unit PO AC KELLY Docusate Sodium (Colace Liquid) 100 mg PO TID [facility] Folic Acid (Folic Acid) 1 mg PO DAILY [facility] Last Admin: 09/21/17 10:12 Dose: 1 mg Lactated Ringer's (Lactated Ringer's) 1,000 mls @ 200 mls/hr IV .Q5H [facility] Last Admin: 09/21/17 20:30 Dose: 200 mls/hr Morphine Sulfate (Morphine) 2 mg IVP Q6H PRN PRN Reason: Pain, severe (8-10) Last Admin: 09/22/17 08:14 Dose: 2 mg Ondansetron HCl (Zofran Inj) 4 mg IVP Q4H PRN PRN Reason: Nausea/Vomiting Last Admin: 09/22/17 08:13 Dose: 4 mg Pantoprazole Sodium (Protonix Inj) 40 mg IVP DAILY [facility] Last Admin: 09/21/17 10:07 Dose: 40 mg Risperidone (Risperdal Tab) 1 mg PO BID KELLY PRN Reason: Protocol Last Admin: 03/06/18 17:39 Dose: 1 mg Sertraline HCl (Zoloft) 50 mg PO DAILY [facility]LLY Last Admin: 09/21/17 10:07 Dose: 50 mg - Labs Labs: 09/22/17 06:30 09/22/17 06:30 PT 12.2 SECONDS (9.4-12.5) 09/20/17 22:46 INR 1.07 (0.93-1.08) 09/20/17 22:46 APTT 31.0 Seconds (25.1-36.5) 09/20/17 22:46 - Constitutional Appears: Non-toxic, No Acute Distress - Head Exam Head Exam: ATRAUMATIC, NORMAL INSPECTION, NORMOCEPHALIC - Eye Exam Eye Exam: Normal appearance - ENT Exam ENT Exam: Mucous Membranes Moist - Neck Exam Neck Exam: Normal Inspection - Respiratory Exam Respiratory Exam: Clear to Ausculation Bilateral, NORMAL BREATHING PATTERN. absent: Rhonchi, Wheezes - Cardiovascular Exam Cardiovascular Exam: REGULAR RHYTHM, +S1, +S2 - GI/Abdominal Exam GI & Abdominal Exam: Soft, Tenderness, Normal Bowel Sounds - Neurological Exam Neurological Exam: Alert, Awake, Oriented x3 - Psychiatric Exam Psychiatric exam: Normal Affect, Normal Mood - Skin Skin Exam: Intact, Normal Color, Warm Assessment and Plan - Assessment and Plan (Free Text) Assessment: Patient is a 42 year old male with past medical history of chronic pancreatitis secondary to pancreatic divisum, bradycardia, spinal stenosis and asthma who presents with abdominal pain, nausea, vomiting for past 4-6 hours found to have acute pancreatitis. Plan: 1. Acute on chronic pancreatitis exacerbation - Abdominal CT showing nonspecific fluid filled stomach, small bowel loops suggesting ileus vs. gastroenteritis/enteritis - Lipase 756 - CLear liquid diet for breakfast will see if patient tolerates soft food diet in evening - LR @200 - Analgesic: Morphine - Zofran - GI consult, appreciate recs 2. Psych hx - Continue home meds 3. Hx of Asthma - Currently asymptomatic - Continue home albuterol DVT ppx: SCDs GI ppx: Protonix Patient was seen, evaluated and case discussed with Dr. Gavin <Natalee Gavin - Last Filed: 09/23/17 14:38> Objective - Vital Signs/Intake and Output Vital Signs (last 24 hours): Temp Pulse Resp BP Pulse Ox 97.8 F 58 L 16 122/76 96 09/23/17 10:00 09/23/17 10:00 09/23/17 10:00 09/23/17 10:00 09/23/17 10:00 Intake and Output: 09/23/17 09/23/17 06:59 18:59 Intake Total 5160 Output Total 1100 Balance 4060 - Labs Labs: 09/23/17 07:00 09/23/17 07:00 PT 12.2 SECONDS (9.4-12.5) 09/20/17 22:46 INR 1.07 (0.93-1.08) 09/20/17 22:46 APTT 31.0 Seconds (25.1-36.5) 09/20/17 22:46 Attending/Attestation - Attestation I have personally seen and examined this patient.: Yes I have fully participated in the care of the patient.: Yes I have reviewed all pertinent clinical information, including history, physical exam and plan: Yes Notes (Text): 09/23/17 14:37 Attending note; Patient seen and examined with resident. Patient is a 42 year old male with past medical history of chronic pancreatitis secondary to pancreatic divisum, spinal stenosis and asthma who presents with abdominal pain, nausea, vomiting for past 4-6 hours found to have acute pancreatitis. Currently getting IV fluids. Nothing by mouth, IV morphine. Start clear liquid and advance as tolerated. Patient will follow-up with Dr. Garcia upon discharge. Follow-up with PMD Dr. Hdez upon discharge.
[2017-09-22] MEDS: Lactated Ringer's 1,000 ML IV SCH ×2 (18:07→21:32)
[2017-09-22 20:54] LABS: BARBITURATES, UR NEGATIVE (NEGATIVE); BENZODIAZEPINES, UR NEGATIVE (NEGATIVE); OPIATES, UR POSITIVE (NEGATIVE); PHENCYCLIDINE, UR NEGATIVE (NEGATIVE)
[2017-09-23] MEDS: Lactated Ringer's 1,000 ML IV SCH (03:44)
[2017-09-23] MEDS: Morphine 2 mg/ml ISec IVP PRN (05:59)
[2017-09-23 07:51] LABS: BASO # 0.02 K/mm3 (0.0-2.0); BASO % 0.3 % (0.0-3.0); EOS # 0.4 (0.0-0.7); EOS % 5.2 % (1.5-5.0); GRAN # 4.76 (1.4-6.5); GRAN % 60.9 % (50.0-68.0); HEMOGLOBIN 14.8 g/dL (14.0-18.0); LYMPH # 2.1 (1.2-3.4); LYMPH % 26.3 % (22.0-35.0); MEAN CELL VOLUME 90.7 fl (80.0-105.0); MEAN CORPUSCULAR HEMOGLOBIN 30.7 pg (25.0-35.0); MEAN CORPUSCULAR HGB CONC 33.9 g/dl (31.0-37.0); MEAN PLATELET VOLUME 9.2 fl (7.0-11.0); MONO # 0.6 (0.1-0.6); MONO % 7.3 % (1.0-6.0); RBC 4.82 10^6/uL (3.5-6.1); RED CELL DISTRIBUTION WIDTH 13.1 % (11.5-14.5); WHITE BLOOD COUNT 7.8 10^3/ul (4.5-11.0)
[2017-09-23 08:11] LABS: ALBUMIN 3.1 g/dL (3.0-4.8); ALT/SGPT 28 U/L (7-56); AST/SGOT 18 U/L (17-59); BLOOD UREA NITROGEN 7 mg/dL (7-21); CALCIUM 9.3 mg/dL (8.4-10.5); GFR AFRICAN-AMERICAN > 60; GFR NON-AFRICAN AMERICAN > 60
[2017-09-23 10:00] VITALS: BP 122/76; PULSE 58; RESP 16; TEMP 97.8; O2SAT 96
[2017-09-23] MEDS ORDERED: POLYETHYLENE GLYCOL 3350 17 GM/Dose PACKET PO SCH (10:00)
--- NOTE | 2017-09-23 11:24 | CP.PCM.DIS ---
<Jorge Alberto Mukherjee - Last Filed: 09/23/17 14:38> Provider - Provider Date of Admission: 09/21/17 12:48 Attending physician: Natalee Gavin MD Primary care physician: Indra Hdez DNP, INFORMATICS DEVELOPER Consults: Gastroenterology: Dr. Garcia Time Spent in preparation of Discharge (in minutes): 45 Diagnosis - Discharge Diagnosis (1) Pancreatitis Status: Acute Priority: High (2) Substance abuse Status: Chronic Priority: High (3) Pancreatic divisum Status: Chronic Priority: High Hospital Course - Lab Results Lab Results: Most Recent Lab Values WBC 7.8 10^3/ul (4.5-11.0) 09/23/17 07:00 RBC 4.82 10^6/uL (3.5-6.1) 09/23/17 07:00 Hgb 14.8 g/dL (14.0-18.0) 09/23/17 07:00 Hct 43.7 % (42.0-52.0) 09/23/17 07:00 MCV 90.7 fl (80.0-105.0) 09/23/17 07:00 MCH 30.7 pg (25.0-35.0) 09/23/17 07:00 MCHC 33.9 g/dl (31.0-37.0) 09/23/17 07:00 RDW 13.1 % (11.5-14.5) 09/23/17 07:00 Plt Count 242 10^3/uL (120.0-450.0) 09/23/17 07:00 MPV 9.2 fl (7.0-11.0) 09/23/17 07:00 Gran % 60.9 % (50.0-68.0) 09/23/17 07:00 Lymph % (Auto) 26.3 % (22.0-35.0) 09/23/17 07:00 [place] % (Auto) 7.3 % (1.0-6.0) H 09/23/17 07:00 Eos % (Auto) 5.2 % (1.5-5.0) H 09/23/17 07:00 Baso % (Auto) 0.3 % (0.0-3.0) 09/23/17 07:00 Gran # 4.76 (1.4-6.5) 09/23/17 07:00 Lymph # (Auto) 2.1 (1.2-3.4) 09/23/17 07:00 [place] # (Auto) 0.6 (0.1-0.6) 09/23/17 07:00 Eos # (Auto) 0.4 (0.0-0.7) 09/23/17 07:00 Baso # (Auto) 0.02 K/mm3 (0.0-2.0) 09/23/17 07:00 PT 12.2 SECONDS (9.4-12.5) 09/20/17 22:46 INR 1.07 (0.93-1.08) 09/20/17 22:46 APTT 31.0 Seconds (25.1-36.5) 09/20/17 22:46 Sodium 144 mmol/L (132-148) 09/23/17 07:00 Potassium 3.7 mmol/L (3.6-5.0) 09/23/17 07:00 Chloride 106 mmol/L (98-107) 09/23/17 07:00 Carbon Dioxide 29 mmol/L (21-33) 09/23/17 07:00 Anion Gap 13 (10-20) 09/23/17 07:00 BUN 7 mg/dL (7-21) 09/23/17 07:00 Creatinine 0.9 mg/dl (0.8-1.5) 09/23/17 07:00 Est GFR ( Amer) > 60 09/23/17 07:00 Est GFR (Non-Af Amer) > 60 09/23/17 07:00 POC Glucose (mg/dL) 135 mg/dL (65-110) H 09/23/17 11:11 Random Glucose 86 mg/dL (70-110) 09/23/17 07:00 Calcium 9.3 mg/dL (8.4-10.5) 09/23/17 07:00 Total Bilirubin 0.7 mg/dL (0.2-1.3) 09/23/17 07:00 AST 18 U/L (17-59) 09/23/17 07:00 ALT 28 U/L (7-56) 09/23/17 07:00 Alkaline Phosphatase 64 U/L (38-126) 09/23/17 07:00 Troponin I < 0.01 ng/mL 09/20/17 22:46 Total Protein 6.2 g/dL (5.8-8.3) 09/23/17 07:00 Albumin 3.1 g/dL (3.0-4.8) 09/23/17 07:00 Globulin 3.1 gm/dL 09/23/17 07:00 Albumin/Globulin Ratio 1.0 (1.1-1.8) L 09/23/17 07:00 Triglycerides 79 mg/dL (35-160) 09/21/17 10:00 Cholesterol 132 mg/dL (130-200) 09/21/17 10:00 LDL Cholesterol Direct 81 mg/dL (0-129) 09/21/17 10:00 HDL Cholesterol 30 mg/dL (29-60) 09/21/17 10:00 Lipase 756 U/L (23-300) H 09/20/17 22:46 Urine Color Straw (YELLOW) 09/21/17 00:02 Urine Appearance Clear (CLEAR) 09/21/17 00:02 Urine pH 6.0 (4.7-8.0) 09/21/17 00:02 Ur Specific [place] <= 1.005 (1.005-1.035) 09/21/17 00:02 Urine Protein Negative mg/dL (<30 mg/dL) 09/21/17 00:02 Urine Glucose (UA) Negative mg/dL (NEGATIVE) 09/21/17 00:02 Urine Ketones Negative mg/dL (NEGATIVE) 09/21/17 00:02 Urine Blood Trace-intact (NEGATIVE) H 09/21/17 00:02 Urine Nitrate Negative (NEGATIVE) 09/21/17 00:02 Urine Bilirubin Negative (NEGATIVE) 09/21/17 00:02 Urine Urobilinogen 0.2 E.U./dL (<1 E.U./dL) 09/21/17 00:02 Ur Leukocyte Esterase Negative [place]/uL (NEGATIVE) 09/21/17 00:02 Urine RBC 1 - 3 /hpf (0-2) 09/21/17 00:02 Urine WBC 0 - 2 /hpf (0-6) 09/21/17 00:02 Ur Epithelial Cells 0 - 2 /hpf (0-5) 09/21/17 00:02 Urine Opiates Screen Positive (NEGATIVE) H 09/22/17 20:00 Urine Methadone Screen Negative (NEGATIVE) 09/22/17 20:00 Ur Barbiturates Screen Negative (NEGATIVE) 09/22/17 20:00 Ur Phencyclidine Scrn Negative (NEGATIVE) 09/22/17 20:00 Ur Amphetamines Screen Negative (NEGATIVE) 09/22/17 20:00 U Benzodiazepines Scrn Negative (NEGATIVE) 09/22/17 20:00 U Oth Cocaine Metabols Negative (NEGATIVE) 09/22/17 20:00 U Cannabinoids Screen Negative (NEGATIVE) 09/22/17 20:00 Alcohol, Quantitative < 10 mg/dL (0-10) 09/21/17 10:00 - Hospital Course Hospital Course: Patient is a 42 year old male with past medical history for chronic pancreatitis secondary to pancreatic divisum, bradycardia, spinal stenosis and asthma who presented with abdominal pain, nausea and vomiting for the past 4 hours. Patient described abdominal pain as mid-epigastric, 8/10, with radiation towards his back. He stated the pain was episodic and described it as alternating from spasms to and sharp knife like pain. Denied any alleviating factors. He also reported the inability to keep liquids or food down. Patient reports associated symptoms of chills and diarrhea. Indicates diarrhea is watery , without blood, 3-4 times a day. Patient reports previous episodes of abdominal discomfort for which he was hospitalized. Denies hematemesis, chest pain, shortness of breath, dysuria, flank pain. Patient was evaluated the following morning and stated his symptoms were improving. Imaging was done when patient was admitted to the ED. CT abdomen revealed no signs of pancreatic inflammation or common bile duct dilation, despite unremarkable scan significant for possible gastroenteritis, patient was found to have an elevated pancreatitis, therefore due to patients history of pancreatitis, IV lactated ringers were started and patient was initially made NPO with slow advancements in diet during course of hospital stay. Patient was seen this morning in no acute distress without any complaints. Patient states that he tolerated diet advancements. Patient was then advised to follow up with GI clinic at [facility] as outpatient for further evaluation. Patient states he was previously on pain medication; discussed with patient that he will only be given a 2-3 day supply and will have to follow up with the physician who prescribes his pain medications. Patient was in agreement with plan and was then discharged. Case discussed and reviewed with Dr. Leslye Mukherjee PGY1 Discharge Exam - Head Exam Head Exam: ATRAUMATIC, NORMAL INSPECTION, NORMOCEPHALIC - Eye Exam Eye Exam: EOMI, Normal appearance - ENT Exam ENT Exam: Mucous Membranes Moist - Respiratory Exam Respiratory Exam: Clear to PA & Lateral, NORMAL BREATHING PATTERN. absent: Chest Wall Tenderness, Rales, Rhonchi, Wheezes - Cardiovascular Exam Cardiovascular Exam: REGULAR RHYTHM, +S1 - GI/Abdominal Exam GI & Abdominal Exam: Normal Bowel Sounds, Unremarkable - Extremities Exam Extremities exam: normal inspection - Back Exam Back exam: NORMAL INSPECTION - Neurological Exam Neurological exam: Alert, CN II-XII Intact, Oriented x3 - Psychiatric Exam Psychiatric exam: Normal Affect, Normal Mood - Skin Skin Exam: Intact, Normal Color, Warm Discharge Plan - Discharge Medications Prescriptions: oxyCODONE/Acetaminophen [Percocet 5/325 mg Tab] 1 ea PO Q8H PRN #10 tab PRN Reason: Pain, Severe (8-10) - Follow Up Plan Condition: STABLE Disposition: HOME/ ROUTINE Instructions: Low Cholesterol, Saturated Fat, and Trans Fat Diet , Dietary Fats , Pancreatitis (DC), Gastroenteritis (DC) Additional Instructions: 1. Follow up with primary care doctor, Dr Hdez, within 1 week. 2. Follow up with Dr. Garcia, select banker, outpatient. Or Correspondence Coordinator at [facility] Call [phone] 3. Please go to pharmacy and take medications as prescribed 4. If symptoms return or worsen do not hesitate to return to the emergency department. Referrals: Indra Hdez DNP, LILLIAM [Primary Care Provider] - <Natalee Gavin - Last Filed: 09/23/17 16:09> Provider - Provider Date of Admission: 09/21/17 12:48 Attending physician: Natalee Gavin MD Primary care physician: Indra Hdez DNP, APN Hospital Course - Lab Results Lab Results: Most Recent Lab Values WBC 7.8 10^3/ul (4.5-11.0) 09/23/17 07:00 RBC 4.82 10^6/uL (3.5-6.1) 09/23/17 07:00 Hgb 14.8 g/dL (14.0-18.0) 09/23/17 07:00 Hct 43.7 % (42.0-52.0) 09/23/17 07:00 MCV 90.7 fl (80.0-105.0) 09/23/17 07:00 MCH 30.7 pg (25.0-35.0) 09/23/17 07:00 MCHC 33.9 g/dl (31.0-37.0) 09/23/17 07:00 RDW 13.1 % (11.5-14.5) 09/23/17 07:00 Plt Count 242 10^3/uL (120.0-450.0) 09/23/17 07:00 MPV 9.2 fl (7.0-11.0) 09/23/17 07:00 Gran % 60.9 % (50.0-68.0) 09/23/17 07:00 Lymph % (Auto) 26.3 % (22.0-35.0) 09/23/17 07:00 [place] % (Auto) 7.3 % (1.0-6.0) H 09/23/17 07:00 Eos % (Auto) 5.2 % (1.5-5.0) H 09/23/17 07:00 Baso % (Auto) 0.3 % (0.0-3.0) 09/23/17 07:00 Gran # 4.76 (1.4-6.5) 09/23/17 07:00 Lymph # (Auto) 2.1 (1.2-3.4) 09/23/17 07:00 [place] # (Auto) 0.6 (0.1-0.6) 09/23/17 07:00 Eos # (Auto) 0.4 (0.0-0.7) 09/23/17 07:00 Baso # (Auto) 0.02 K/mm3 (0.0-2.0) 09/23/17 07:00 PT 12.2 SECONDS (9.4-12.5) 09/20/17 22:46 INR 1.07 (0.93-1.08) 09/20/17 22:46 APTT 31.0 Seconds (25.1-36.5) 09/20/17 22:46 Sodium 144 mmol/L (132-148) 09/23/17 07:00 Potassium 3.7 mmol/L (3.6-5.0) 09/23/17 07:00 Chloride 106 mmol/L (98-107) 09/23/17 07:00 Carbon Dioxide 29 mmol/L (21-33) 09/23/17 07:00 Anion Gap 13 (10-20) 09/23/17 07:00 BUN 7 mg/dL (7-21) 09/23/17 07:00 Creatinine 0.9 mg/dl (0.8-1.5) 09/23/17 07:00 Est GFR ( Amer) > 60 09/23/17 07:00 Est GFR (Non-Af Amer) > 60 09/23/17 07:00 POC Glucose (mg/dL) 135 mg/dL (65-110) H 09/23/17 11:11 Random Glucose 86 mg/dL (70-110) 09/23/17 07:00 Calcium 9.3 mg/dL (8.4-10.5) 09/23/17 07:00 Total Bilirubin 0.7 mg/dL (0.2-1.3) 09/23/17 07:00 AST 18 U/L (17-59) 09/23/17 07:00 ALT 28 U/L (7-56) 09/23/17 07:00 Alkaline Phosphatase 64 U/L (38-126) 09/23/17 07:00 Troponin I < 0.01 ng/mL 09/20/17 22:46 Total Protein 6.2 g/dL (5.8-8.3) 09/23/17 07:00 Albumin 3.1 g/dL (3.0-4.8) 09/23/17 07:00 Globulin 3.1 gm/dL 09/23/17 07:00 Albumin/Globulin Ratio 1.0 (1.1-1.8) L 09/23/17 07:00 Triglycerides 79 mg/dL (35-160) 09/21/17 10:00 Cholesterol 132 mg/dL (130-200) 09/21/17 10:00 LDL Cholesterol Direct 81 mg/dL (0-129) 09/21/17 10:00 HDL Cholesterol 30 mg/dL (29-60) 09/21/17 10:00 Lipase 756 U/L (23-300) H 09/20/17 22:46 Urine Color Straw (YELLOW) 09/21/17 00:02 Urine Appearance Clear (CLEAR) 09/21/17 00:02 Urine pH 6.0 (4.7-8.0) 09/21/17 00:02 Ur Specific [place] <= 1.005 (1.005-1.035) 09/21/17 00:02 Urine Protein Negative mg/dL (<30 mg/dL) 09/21/17 00:02 Urine Glucose (UA) Negative mg/dL (NEGATIVE) 09/21/17 00:02 Urine Ketones Negative mg/dL (NEGATIVE) 09/21/17 00:02 Urine Blood Trace-intact (NEGATIVE) H 09/21/17 00:02 Urine Nitrate Negative (NEGATIVE) 09/21/17 00:02 Urine Bilirubin Negative (NEGATIVE) 09/21/17 00:02 Urine Urobilinogen 0.2 E.U./dL (<1 E.U./dL) 09/21/17 00:02 Ur Leukocyte Esterase Negative [place]/uL (NEGATIVE) 09/21/17 00:02 Urine RBC 1 - 3 /hpf (0-2) 09/21/17 00:02 Urine WBC 0 - 2 /hpf (0-6) 09/21/17 00:02 Ur Epithelial Cells 0 - 2 /hpf (0-5) 09/21/17 00:02 Urine Opiates Screen Positive (NEGATIVE) H 09/22/17 20:00 Urine Methadone Screen Negative (NEGATIVE) 09/22/17 20:00 Ur Barbiturates Screen Negative (NEGATIVE) 09/22/17 20:00 Ur Phencyclidine Scrn Negative (NEGATIVE) 09/22/17 20:00 Ur Amphetamines Screen Negative (NEGATIVE) 09/22/17 20:00 U Benzodiazepines Scrn Negative (NEGATIVE) 09/22/17 20:00 U Oth Cocaine Metabols Negative (NEGATIVE) 09/22/17 20:00 U Cannabinoids Screen Negative (NEGATIVE) 09/22/17 20:00 Alcohol, Quantitative < 10 mg/dL (0-10) 09/21/17 10:00 Attending/Attestation - Attestation I have personally seen and examined this patient.: Yes I have fully participated in the care of the patient.: Yes I have reviewed all pertinent clinical information, including history, physical exam and plan: Yes Notes (Text): 09/23/17 16:09 Attending note; Patient seen and examined with resident. Patient is a 42 year old male with past medical history of chronic pancreatitis secondary to pancreatic divisum, spinal stenosis and asthma who presents with abdominal pain, nausea, vomiting for past 4-6 hours found to have acute pancreatitis. Treated with IV fluids, IV morphine. Patient is tolerating diet. Patient will follow-up with Dr. Garcia upon discharge. Patient is advised to follow-up with [facility] clinic. Follow-up with PMD Dr. Hdez upon discharge.
== END 2017-09-23 14:29 | disposition home or self-care (01) | DRG 204 ==
LOC: ED 21:42 → ERH 09-21 03:11 → 5RSO 09-21 04:28 → OBSVTOIN 09-21 12:48
PROVIDERS: ADMIT Internal Medicine; ATTEND Internal Medicine
DX: K85.90 Acute pancreatitis without necrosis or infection, unspecified (principal); Q45.3 Other congenital malformations of pancreas and pancreatic duct; K86.1 Other chronic pancreatitis; A08.4 Viral intestinal infection, unspecified; Z80.0 Family history of malignant neoplasm of digestive organs; Z83.3 Family history of diabetes mellitus; F17.200 Nicotine dependence, unspecified, uncomplicated; J45.909 Unspecified asthma, uncomplicated; Z90.49 Acquired absence of other specified parts of digestive tract; R40.2412 Glasgow coma scale score 13-15, at arrival to emergency department; Z88.6 Allergy status to analgesic agent

== ENCOUNTER 2017-10-30 17:13 | Inpatient (IN) | payer MEDICAID ==
[2017-10-30] MEDS ORDERED: Lactated Ringer's 500 ML in Lactated Ringer's 1,000 ML IV STA (17:55)
--- NOTE | 2017-10-30 18:09 | ED PDOC ---
Arrival/HPI - General Time Seen by Provider: 10/30/17 17:52 Historian: Patient - History of Present Illness Narrative History of Present Illness (Text): 10/30/17 18:09 A 42 year old male, whose past medical history includes chronic pancreatitis s/ p ampullary stent placed, pancreatitis divisum, spinal stenosis, asthma, depression and s/p cholecystectomy, presents to the emergency department complaining of 3 days history of upper abdominal pain, nausea, postprandial vomiting. Reports non bloody, non bilious vomiting and non mucoid, non bloody diarrhea. Patient notes that as days went on, his pain became familiar to him as his pancreatitis. Denies any alcohol use or dietary indiscretion. Patient denies any fever, chills or any other complaints at this time. Time/Duration: Other (3 days) Symptom Onset: Sudden Symptom Course: Unchanged Activities at Onset: Rest Context: Home Past Medical History - Provider Review Nursing Documentation Reviewed: Yes - Infectious Disease Hx of Infectious Diseases: None - Tetanus Immunization Tetanus Immunization: Unknown - Cardiac Hx Congestive Heart Failure: No Hx Hypertension: No Hx Pacemaker: No - Pulmonary Hx Asthma: Yes Hx Chronic Obstructive Pulmonary Disease (COPD): No - Neurological Hx Seizures: No - HEENT Hx HEENT Disorder: No - Renal Hx Renal Disorder: No - Endocrine/Metabolic Hx Hypothyroidism: No - Hematological/Oncological Hx Blood Disorders: No - Integumentary Hx Dermatological Disorder: No - Musculoskeletal/Rheumatological Hx Arthritis: Yes Hx Fractures: No Hx Rheumatoid Arthritis: Yes - Gastrointestinal Hx Gall Bladder Disease: Yes (removed GB) Hx Pancreatitis: Yes - Genitourinary/Gynecological Hx Sexually Transmitted Diseases: No - Psychiatric Hx Anxiety: Yes Hx Depression: Yes Hx Substance Use: Yes (Isaac 3 mos. ago) - Surgical History Hx Cholecystectomy: Yes (2004) - Anesthesia Hx Anesthesia: Yes Hx Anesthesia Reactions: No Hx Malignant Hyperthermia: No - Suicidal Assessment Feels Threatened In Home Enviroment: No Family/Social History - Physician Review Nursing Documentation Reviewed: Yes Family/Social History: No Known Family HX Smoking Status: Former Smoker Hx Alcohol Use: No Hx Substance Use: Yes (Isaac 3 mos. ago) Substance used: marijuana Allergies/Home Meds Allergies/Adverse Reactions: Allergies ketorolac Allergy (Verified 09/20/17 22:15) URTICARIA Home Medications: Home Meds Medication Instructions Recorded Confirmed Albuterol HFA [Ventolin HFA 90 2 puff INH Q6 PRN 04/05/17 10/30/17 mcg/actuation (8 g)] Risperidone [Risperdal] 1 mg PO BID 06/13/17 10/30/17 Review of Systems - Physician Review All systems were reviewed & negative as marked: Yes - Review of Systems Constitutional: absent: Fevers, Other (chills) Cardiovascular: Other (mild chest tightness, patient thinks related to his asthma) Gastrointestinal: Abdominal Pain (upper), Diarrhea, Nausea, Vomiting Physical Exam Vital Signs Reviewed: Yes Vital Signs Temp Pulse Resp BP Pulse Ox 10/31/17 00:09 85 18 108/75 98 10/30/17 19:00 82 17 128/80 99 10/30/17 18:09 98.2 F 86 18 128/64 100 Appearance: Positive for: Well-Appearing, Non-Toxic, Comfortable Pain Distress: None Mental Status: Positive for: Alert and Oriented X 3 - Systems Exam Head: Present: Atraumatic, Normocephalic Pupils: Present: PERRL Extroacular Muscles: Present: EOMI Conjunctiva: Present: Normal Mouth: Present: Moist Mucous Membranes Neck: Present: Normal Range of Motion Respiratory/Chest: Present: Clear to Auscultation, Good Air Exchange. No: Respiratory Distress, Accessory Muscle Use Cardiovascular: Present: Regular Rate and Rhythm, Normal S1, S2. No: Murmurs Abdomen: Present: Tenderness (upper abdominal tenderness, epigastric more than RUQ more than umbilical), Other (supraumbilical>epigastric ttp , no ebound ttp ) . No: Distention, Peritoneal Signs Back: Present: Normal Inspection Upper Extremity: Present: Normal Inspection. No: Cyanosis, Edema Lower Extremity: Present: Normal Inspection. No: Edema Neurological: Present: GCS=15, CN II-XII Intact, Speech Normal, Motor Func Grossly Intact, Normal Sensory Function, Normal Cerebellar Funct, Norm Deep Tendon Reflexes, Gait Normal, Memory Normal, Normal 2Pt Descrimination Skin: Present: Warm, Dry, Normal Color. No: Rashes Psychiatric: Present: Alert, Oriented x 3, Normal Insight, Normal Concentration Medical Decision Making ED Course and Treatment: 10/30/17 18:06 Impression: A 42 year old male with upper abdominal pain, nausea, vomiting and diarrhea to r /o pancreatitis vs gastroenteritis Plan: -- labs -- CT abd pelvis -- Urinalysis -- Reglan, Morphine, Pepcid -- Reassess and disposition Prior Visits: Notes and results from previous visits were reviewed. Patient was last seen in the emergency department on 10/02/17 for evaluation of abdominal pain. Progress Notes: 10/31/17 18:04 - Lab Interpretations Lab Results: 10/30/17 18:20 10/30/17 18:20 Lab Results 10/30/17 20:55: PT 11.6, INR 1.02, APTT 38.7 H 10/30/17 18:20: Urine Color Yellow, Urine Appearance Clear, Urine pH 6.0, Ur Specific [place] 1.025, Urine Protein Trace H, Urine Glucose (UA) Negative, Urine Ketones Negative, Urine Blood Negative, Urine Nitrate Negative, Urine Bilirubin Negative, Urine Urobilinogen 0.2, Ur Leukocyte Esterase Negative, Urine RBC 1 - 3, Urine WBC 0 - 2, Ur Epithelial Cells None, Urine Bacteria Few 10/30/17 18:20: Sodium 141, Potassium 3.9, Chloride 105, Carbon Dioxide 26, Anion Gap 14, BUN 10, Creatinine 0.9, Est GFR ( Amer) > 60, Est GFR (Non- Af Amer) > 60, Random Glucose 79, Calcium 9.1, Total Bilirubin 0.5, AST 31, ALT 42, Alkaline Phosphatase 95, Total Protein 7.5, Albumin 3.9, Globulin 3.6, Albumin/Globulin Ratio 1.1, Lipase > 2000 H 10/30/17 18:20: WBC 9.6 D, RBC 5.78, Hgb 17.9 D, Hct 52.6 H, MCV 91.0, MCH 31.0, MCHC 34.0, RDW 14.5, Plt Count 283, MPV 9.9, Gran % 57.9, Lymph % (Auto) 32.0, Leon % (Auto) 5.8, Eos % (Auto) 4.1, Baso % (Auto) 0.2, Gran # 5.55, Lymph # (Auto) 3.1, Leon # (Auto) 0.6, Eos # (Auto) 0.4, Baso # (Auto) 0.02 I have reviewed the lab results: Yes - RAD Interpretation Radiology Orders: 10/30/17 17:55 ABD PELVIS PO & IV CONTRAST [CT] Stat - Medication Orders Current Medication Orders: Albuterol Sulfate (Albuterol 0.083% Inhal Erica (2.5 Mg/3 Ml) Ud) 2.5 mg IH [id number] PRN PRN Reason: Shortness of Breath Amylase (Pancrease 69772 U-5000 U-48733 U) 35,000 unit PO AC [facility] Last Admin: 10/31/17 17:50 Dose: 35,000 unit Folic Acid (Folic Acid) 1 mg PO DAILY [facility] Last Admin: 10/31/17 10:23 Dose: 1 mg Lactated Ringer's (Lactated Ringer's) 1,000 mls @ 250 mls/hr IV .Q4H [facility] Last Admin: 10/31/17 17:50 Dose: 250 mls/hr eMAR Start Stop Document 10/31/17 17:50 [facility] (Rec: 10/31/17 17:50 [facility]-[id number]) Intravenous Solution Start Date 10/31/17 Start Time 17:50 End Date 10/31/17 Metoclopramide HCl (Reglan) 10 mg IVP Q6H PRN PRN Reason: Nausea/Vomiting Morphine Sulfate (Morphine) 2 mg IVP Q6H PRN PRN Reason: Pain, severe (8-10) Last Admin: 10/31/17 17:08 Dose: 2 mg MAR Pain Assessment Document 10/31/17 17:08 SD (Rec: 10/31/17 17:08 [place] [id number] Pain Reassessment Is this a pain reassessment? No Presence of Pain Presence of Pain Yes Location Pain Location Body Site Abdomen IVP Administration Document 10/31/17 17:08 SD (Rec: 10/31/17 17:08 [place] [id number][place] Charges for Administration # of IVP Administrations 1 Pantoprazole Sodium (Protonix Ec Tab) 40 mg PO 0600 [facility] Last Admin: 10/31/17 07:13 Dose: 40 mg Risperidone (Risperdal Tab) 1 mg PO BID KELLY PRN Reason: Protocol Last Admin: 10/31/17 17:51 Dose: 1 mg Behavioural Document 10/31/17 17:51 [facility] (Rec: 10/31/17 17:51 [id number]) Maintenance Maintenance Dose Yes Nonmedicinal Nonmedicinal Interventions Redirect Behavior Behavior for Medication: Anxiety Sertraline HCl (Zoloft) 50 mg PO DAILY [facility] Last Admin: 10/31/17 10:23 Dose: 50 mg Discontinued Medications Amylase (Pancrease 64892 U-5000 U-78333 U) 36,000 unit PO AC [facility] Last Admin: 10/31/17 10:12 Dose: Famotidine (Pepcid) 20 mg IVP STAT STA Stop: 10/30/17 17:56 Last Admin: 10/30/17 19:09 Dose: 20 mg IVP Administration Document 10/30/17 19:09 SF (Rec: 10/30/17 19:09 [email or web address] Charges for Administration # of IVP Administrations 1 Lactated Ringer's 500 ml/ (Lactated Ringer's) 1,500 mls @ 1,000 mls/hr IV BOLUS STA Stop: 10/30/17 19:24 Last Admin: 10/30/17 19:08 Dose: 1,000 mls/hr eMAR Start Stop Document 10/30/17 19:08 SF (Rec: 10/30/17 19:09 [email or web address] Intravenous Solution Start Date 10/30/17 Start Time 19:08 End Date 10/30/17 End time 22:20 Total Infusion Time 192 Sodium Chloride (Sodium Chloride 0.9%) 1,000 mls @ 999 mls/hr IV .Q1H1M STA Stop: 10/30/17 23:49 Last Admin: 10/30/17 23:04 Dose: 999 mls/hr eMAR Start Stop Document 10/30/17 23:04 RD (Rec: 10/30/17 23:05 [email or web address] Intravenous Solution Start Date 10/30/17 Start Time 23:04 End Date 10/31/17 End time 00:04 Total Infusion Time 60 Lactated Ringer's (Lactated Ringer's) 1,000 mls @ 110 mls/hr IV .Q9H6M [facility] Last Admin: 10/31/17 01:10 Dose: 110 mls/hr eMAR Start Stop Document 10/31/17 01:10 [employer] (Rec: 10/31/17 03:02 [facility] [id number][place] Intravenous Solution Start Date 10/31/17 Start Time 01:10 Lactated Ringer's (Lactated Ringer's) 1,000 mls @ 120 mls/hr IV .Q8H20M KELLY Metoclopramide HCl (Reglan) 10 mg IVP STAT STA Stop: 10/30/17 17:56 Last Admin: 10/30/17 19:09 Dose: 10 mg IVP Administration Document 10/30/17 19:09 SF (Rec: 10/30/17 19:09 [email or web address] Charges for Administration # of IVP Administrations 1 Morphine Sulfate (Morphine) 4 mg IVP STAT STA Stop: 10/30/17 17:56 Last Admin: 10/30/17 19:10 Dose: 4 mg MAR Pain Assessment Document 10/30/17 19:10 SF (Rec: 10/30/17 19:10 [email or web address] Pain Reassessment Is this a pain reassessment? Yes Sleep Is patient sleeping during reassessment? No Presence of Pain Presence of Pain Yes Pain Scale Used Pain Scale Used Numeric IVP Administration Document 10/30/17 19:10 SF (Rec: 10/30/17 19:10 [email or web address] Charges for Administration # of IVP Administrations 1 Morphine Sulfate (Morphine) 2 mg IVP STAT STA Stop: 10/30/17 22:50 Last Admin: 10/30/17 23:03 Dose: 2 mg MAR Pain Assessment Document 10/30/17 23:03 RD (Rec: 10/30/17 23:04 [email or web address] Pain Reassessment Is this a pain reassessment? No Sleep Is patient sleeping during reassessment? No Presence of Pain Presence of Pain Yes Location Upper or Lower Upper Pain Location Body Site Abdomen Description Description Constant Pain Behavior Guarding Irritability IVP Administration Document 10/30/17 23:03 RD (Rec: 10/30/17 23:04 [email or web address] Charges for Administration # of IVP Administrations 1 Morphine Sulfate (Morphine) 2 mg IVP ONCE ONE Stop: 10/31/17 03:01 Last Admin: 10/31/17 03:00 Dose: 2 mg MAR Pain Assessment Document 10/31/17 03:00 [employer] (Rec: 10/31/17 03:01 [employer] [id number][place] Pain Reassessment Is this a pain reassessment? No Sleep Is patient sleeping during reassessment? No Presence of Pain Presence of Pain Yes Pain Scale Used Pain Scale Used Numeric Location Upper or Lower Upper Pain Location Body Site Abdomen Description Description Intermittent Intensity of Pain at present 8 Pain Behavior Facial Grimacing Alleviating Factors/Management Medication Techniques Alleviating Factors Medication IVP Administration Document 10/31/17 03:00 [facility] (Rec: 10/31/17 03:01 [facility]-[id number]) Charges for Administration # of IVP Administrations 1 Re-Assess: ARMOND Pain Assessment Document 10/31/17 04:00 [facility] (Rec: 10/31/17 05:15 [facility]-[id number]) Pain Reassessment Is this a pain reassessment? Yes Sleep Is patient sleeping during reassessment? Yes - Scribe Statement The provider has reviewed the documentation as recorded by the Terrence Sampson Provider Scribe Attestation: All medical record entries made by the Scribe were at my direction and personally dictated by me. I have reviewed the chart and agree that the record accurately reflects my personal performance of the history, physical exam, medical decision making, and the department course for this patient. I have also personally directed, reviewed, and agree with the discharge instructions and disposition. Disposition/Present on Arrival - Present on Arrival Any Indicators Present on Arrival: No History of DVT/PE: No History of Uncontrolled Diabetes: No Urinary Catheter: No History of Decub. Ulcer: No History Surgical Site Infection Following: None - Disposition Have Diagnosis and Disposition been Completed?: Yes Diagnosis: Pancreatitis Disposition: HOSPITALIZED Disposition Time: 23:00 Patient Plan: Admission Patient Problems: Current Active Problems Problem Status Onset Pancreatitis Acute Condition: STABLE
[2017-10-30] MEDS ORDERED: Iohexol 240 (50 ml) ONE (18:12)
[2017-10-30 19:12] LABS: BASO # 0.02 K/mm3 (0.0-2.0); BASO % 0.2 % (0.0-3.0); EOS # 0.4 (0.0-0.7); EOS % 4.1 % (1.5-5.0); GRAN # 5.55 (1.4-6.5); GRAN % 57.9 % (50.0-68.0); HEMOGLOBIN 17.9 g/dL (14.0-18.0); LYMPH # 3.1 (1.2-3.4); MEAN PLATELET VOLUME 9.9 fl (7.0-11.0); MONO # 0.6 (0.1-0.6); MONO % 5.8 % (1.0-6.0); RBC 5.78 10^6/uL (3.5-6.1); RED CELL DISTRIBUTION WIDTH 14.5 % (11.5-14.5); WHITE BLOOD COUNT 9.6 10^3/ul (4.5-11.0)
[2017-10-30 19:13] LABS: URINE BILIRUBIN NEGATIVE (NEGATIVE); URINE BLOOD NEGATIVE (NEGATIVE); URINE GLUCOSE (UA) NEGATIVE (NEGATIVE); URINE LEUKOCYTE ESTERASE NEGATIVE Leu/uL (NEGATIVE); URINE PROTEIN TRACE mg/dL (<30 mg/dL); URINE UROBILINOGEN 0.2 E.U./dL (<1 E.U./dL)
[2017-10-30 19:14] LABS: URINE APPEARANCE CLEAR (CLEAR); URINE COLOR YELLOW (YELLOW)
[2017-10-30 19:52] LABS: URINE WBC 0 - 2 /hpf (0-6)
[2017-10-30 19:53] LABS: URINE BACTERIA FEW (NEG)
[2017-10-30 21:14] LABS: ALT/SGPT 42 U/L (7-56)
[2017-10-30 21:14] LABS: INR 1.02 (0.93-1.08); PARTIAL THROMBOPLASTIN TIME 38.7 Seconds (25.1-36.5); PROTHROMBIN TIME 11.6 SECONDS (9.4-12.5)
[2017-10-30 21:39] LABS: ALB/GLOB RATIO 1.1 (1.1-1.8); ALBUMIN 3.9 g/dL (3.0-4.8); AST/SGOT 31 U/L (17-59); BLOOD UREA NITROGEN 10 mg/dL (7-21); CALCIUM 9.1 mg/dL (8.4-10.5); GFR AFRICAN-AMERICAN > 60; GFR NON-AFRICAN AMERICAN > 60; LIPASE > 2000 U/L (23-300)
[2017-10-30] MEDS ORDERED: Iohexol 350 MG/100 ML VIAL ONE (21:43)
--- NOTE | 2017-10-30 22:33 | CT ---
EXAM: CT Abdomen and Pelvis With Intravenous Contrast CLINICAL HISTORY: 42 years old, male; Signs and symptoms; Other: R/O pancreatitis; Prior surgery; Surgery type: Gall bladder removal TECHNIQUE: Axial computed tomography images of the abdomen and pelvis with intravenous contrast. All CT scans at this facility use one or more dose reduction techniques, viz.: automated exposure control; ma/kV adjustment per patient size (including targeted exams where dose is matched to indication; i.e. head); or iterative reconstruction technique. Coronal and sagittal reformatted images were created and reviewed. CONTRAST: 350 mL of OMNI administered intravenously. COMPARISON: CT - ABD PELVIS IV CONTRAST ONLY 2017-09-21 01:31 FINDINGS: Lung bases: Unremarkable. No mass. No consolidation. ABDOMEN: Liver: Unremarkable. No mass. Gallbladder and bile ducts: There has been a cholecystectomy. No ductal dilation. Pancreas: Unremarkable. No mass. No ductal dilation. Spleen: Unremarkable. No splenomegaly. Adrenals: Unremarkable. No mass. Kidneys and ureters: There is a simple cyst in the left kidney. The right kidney is normal. No hydronephrosis. Stomach and bowel: Mildly prominent loops of proximal small bowel, No obstruction. No mucosal thickening. Appendix: A normal appendix is identified. PELVIS: Bladder: Unremarkable. No mass. Reproductive: Unremarkable as visualized. ABDOMEN and PELVIS: Intraperitoneal space: Unremarkable. No free air. No significant fluid collection. Bones/joints: No acute fracture. No dislocation. Soft tissues: Unremarkable. Vasculature: Unremarkable. No abdominal aortic aneurysm. Lymph nodes: Unremarkable. No enlarged lymph nodes. IMPRESSION: No acute intra-abdominal or pelvic abnormality. Cholecystectomy. Left renal cyst.
--- NOTE | 2017-10-30 22:45 | ED PDOC ---
Physical Exam Vital Signs Reviewed: Yes Vital Signs Temp Pulse Resp BP Pulse Ox 10/30/17 19:00 82 17 128/80 99 10/30/17 18:09 98.2 F 86 18 128/64 100 Temperature: Afebrile Blood Pressure: Hypertensive Pulse: Regular Respiratory Rate: Normal Appearance: Positive for: Well-Appearing, Non-Toxic, Comfortable Pain Distress: Mild Mental Status: Positive for: Alert and Oriented X 3 - Systems Exam Head: Present: Atraumatic, Normocephalic Pupils: Present: PERRL Extroacular Muscles: Present: EOMI Conjunctiva: Present: Normal Ears: Present: Normal Mouth: Present: Moist Mucous Membranes Pharnyx: Present: Normal Nose (External): Present: Atraumatic Nose (Internal): Present: Normal Inspection Neck: Present: Normal Range of Motion Respiratory/Chest: Present: Clear to Auscultation, Good Air Exchange Cardiovascular: Present: Regular Rate and Rhythm Abdomen: Present: Tenderness Back: Present: Normal Inspection Upper Extremity: Present: Normal Inspection Lower Extremity: Present: Normal Inspection Neurological: Present: GCS=15, CN II-XII Intact, Speech Normal, Motor Func Grossly Intact Skin: Present: Warm, Normal Color Psychiatric: Present: Alert, Oriented x 3, Normal Insight, Normal Concentration Medical Decision Making ED Course and Treatment: hx of pancreatitis lipase greater than 2000 ct a/p no acute findings. 10/30/17 22:44 Reassessment Condition: Re-examined, Unchanged - Lab Interpretations Lab Results: 10/30/17 18:20 10/30/17 18:20 Lab Results 10/30/17 20:55: PT 11.6, INR 1.02, APTT 38.7 H 10/30/17 18:20: Urine Color Yellow, Urine Appearance Clear, Urine pH 6.0, Ur Specific [place] 1.025, Urine Protein Trace H, Urine Glucose (UA) Negative, Urine Ketones Negative, Urine Blood Negative, Urine Nitrate Negative, Urine Bilirubin Negative, Urine Urobilinogen 0.2, Ur Leukocyte Esterase Negative, Urine RBC 1 - 3, Urine WBC 0 - 2, Ur Epithelial Cells None, Urine Bacteria Few 10/30/17 18:20: Sodium 141, Potassium 3.9, Chloride 105, Carbon Dioxide 26, Anion Gap 14, BUN 10, Creatinine 0.9, Est GFR ( Amer) > 60, Est GFR (Non- Af Amer) > 60, Random Glucose 79, Calcium 9.1, Total Bilirubin 0.5, AST 31, ALT 42, Alkaline Phosphatase 95, Total Protein 7.5, Albumin 3.9, Globulin 3.6, Albumin/Globulin Ratio 1.1, Lipase > 2000 H 10/30/17 18:20: WBC 9.6 D, RBC 5.78, Hgb 17.9 D, Hct 52.6 H, MCV 91.0, MCH 31.0, MCHC 34.0, RDW 14.5, Plt Count 283, MPV 9.9, Gran % 57.9, Lymph % (Auto) 32.0, [place] % (Auto) 5.8, Eos % (Auto) 4.1, Baso % (Auto) 0.2, Gran # 5.55, Lymph # (Auto) 3.1, [place] # (Auto) 0.6, Eos # (Auto) 0.4, Baso # (Auto) 0.02 I have reviewed the lab results: Yes - RAD Interpretation Radiology Orders: 10/30/17 17:55 ABD PELVIS PO & IV CONTRAST [CT] Stat Funeral Attendant: Radiologist (ct ap no acute intraabdominal findings) - Medication Orders Current Medication Orders: Discontinued Medications Famotidine (Pepcid) 20 mg IVP STAT STA Stop: 10/30/17 17:56 Last Admin: 10/30/17 19:09 Dose: 20 mg IVP Administration Document 10/30/17 19:09 SF (Rec: 10/30/17 19:09 [email or web address] Charges for Administration # of IVP Administrations 1 Lactated Ringer's 500 ml/ (Lactated Ringer's) 1,500 mls @ 1,000 mls/hr IV BOLUS STA Stop: 10/30/17 19:24 Last Admin: 10/30/17 19:08 Dose: 1,000 mls/hr eMAR Start Stop Document 10/30/17 19:08 SF (Rec: 10/30/17 19:09 [email or web address] Intravenous Solution Start Date 10/30/17 Start Time 19:08 End Date 10/30/17 End time 22:20 Total Infusion Time 192 Metoclopramide HCl (Reglan) 10 mg IVP STAT STA Stop: 10/30/17 17:56 Last Admin: 10/30/17 19:09 Dose: 10 mg IVP Administration Document 10/30/17 19:09 SF (Rec: 10/30/17 19:09 SF [facility] [email or web address] Charges for Administration # of IVP Administrations 1 Morphine Sulfate (Morphine) 4 mg IVP STAT STA Stop: 10/30/17 17:56 Last Admin: 10/30/17 19:10 Dose: 4 mg MAR Pain Assessment Document 10/30/17 19:10 SF (Rec: 10/30/17 19:10 SF [facility] [email or web address] Pain Reassessment Is this a pain reassessment? Yes Sleep Is patient sleeping during reassessment? No Presence of Pain Presence of Pain Yes Pain Scale Used Pain Scale Used Numeric IVP Administration Document 10/30/17 19:10 SF (Rec: 10/30/17 19:10 SF [facility] [email or web address]) Charges for Administration # of IVP Administrations 1 Disposition/Present on Arrival - Present on Arrival Any Indicators Present on Arrival: No History of DVT/PE: No History of Uncontrolled Diabetes: No Urinary Catheter: No History of Decub. Ulcer: No History Surgical Site Infection Followin - Disposition Have Diagnosis and Disposition been Completed?: Yes Diagnosis: Pancreatitis Disposition: HOSPITALIZED Disposition Time: 22:45 Patient Plan: Admission Condition: STABLE Referrals: Boubacar Vivas, [Primary Care Provider] - Follow up with primary
[2017-10-30] MEDS ORDERED: Sodium Chloride 0.9% 1,000 ML IV STA (22:49)
[2017-10-30] MEDS ORDERED: Lactated Ringer's 1,000 ML IV SCH (23:45)
--- NOTE | 2017-10-30 23:58 | CP.PCM.HP ---
<Ziggy Flor - Last Filed: 10/31/17 03:13> History of Present Illness - History of Present Illness History of Present Illness: Medicine H&P: Dr. Annie Vila Chief Complaint: Abdominal Pain HPI: 42 year old male with past medical history significant for chronic pancreatitis secondary to pancreatic divisum, bradycardia, spinal stenosis and asthma presents with 3 days history of upper abdominal pain, nausea, postprandial vomiting. Reports non bloody, non bilious vomiting and non mucoid, non bloody diarrhea. Patient indicates abdominal pain is mid-epigastric, 8/10, with radiation towards his back. He indicates the pain is episodic and describes the pain as alternating from spasms to sharp knife like pain. He denies alcohol use and states that [address] Garcia put him on a special diet to limit his recurrent bouts of pancreatitis. Of note, patient has been here several times in the past, most recently in September 2017, for the same complaints; he was discharged on 3 days of pain medications and advised to follow up with [facility]. ROS: 12 point ROS obtained and negative except as per HPI PMH: Chronic pancreatitis, pancreatic divisum, bradycardia, spinal stenosis, asthma PSH: Cholecystectomy (2004), s/p pancreatic stent palcement and removal (2016) SocHx: Current everyday smoker; Denies alcohol; ETOH: Former marijuana, cocaine FMH: Pancreatic cancer and DM2 ALL: NKDA MEDS: - Percocet 5/325 1 Q8 - Sertraline 50mg Dialy - Risperdal 1 mg BID - Folic Acid 1mg Daily - Pancrease 36,000 - Ventolin inh 2 puff Q6 prn PMD: Was at [facility], but does not have one right now GI: Dr. Garcia Cardio: Dr. Brice Polanco Present on Admission - Present on Admission Any Indicators Present on Admission: No Past Patient History - Infectious Disease Hx of Infectious Diseases: None - Tetanus Immunizations Tetanus Immunization: Unknown - Past Medical History & Family History Past Medical History?: Yes - Past Social History Smoking Status: Former Smoker - CARDIAC Hx Congestive Heart Failure: No Hx Hypertension: No Hx Pacemaker: No - PULMONARY Hx Asthma: Yes Hx Chronic Obstructive Pulmonary Disease (COPD): No - NEUROLOGICAL Hx Seizures: No - HEENT Hx HEENT Problems: No - RENAL Hx Chronic Kidney Disease: No - ENDOCRINE/METABOLIC Hx Hypothyroidism: No - HEMATOLOGICAL/ONCOLOGICAL Hx Blood Disorders: No - INTEGUMENTARY Hx Dermatological Problems: No - MUSCULOSKELETAL/RHEUMATOLOGICAL Hx Arthritis: Yes Hx Fractures: No Hx Rheumatoid Arthritis: Yes - GASTROINTESTINAL Hx Gall Bladder Disease: Yes (removed GB) Hx Pancreatitis: Yes - GENITOURINARY/GYNECOLOGICAL Hx Sexually Transmitted Disorders: No - PSYCHIATRIC Hx Anxiety: Yes Hx Depression: Yes Hx Substance Use: Yes (Isaac 3 mos. ago) - SURGICAL HISTORY Hx Cholecystectomy: Yes (2004) - ANESTHESIA Hx Anesthesia: Yes Hx Anesthesia Reactions: No Hx Malignant Hyperthermia: No Meds Allergies/Adverse Reactions: Allergies Allergy/AdvReac Type Severity Reaction Status Date / Time ketorolac Allergy URTICARIA Verified 09/20/17 22:15 Physical Exam - Constitutional Appears: Well - Head Exam Head Exam: ATRAUMATIC, NORMAL INSPECTION, NORMOCEPHALIC - Eye Exam Eye Exam: EOMI, Normal appearance, PERRL Pupil Exam: NORMAL ACCOMODATION, PERRL - ENT Exam ENT Exam: Mucous Membranes Moist, Normal Exam - Neck Exam Neck exam: Positive for: Normal Inspection - Respiratory Exam Respiratory Exam: Clear to Auscultation Bilateral, NORMAL BREATHING PATTERN - Cardiovascular Exam Cardiovascular Exam: REGULAR RHYTHM - GI/Abdominal Exam GI & Abdominal Exam: Normal Bowel Sounds, Soft, Tenderness (epigastric) - Extremities Exam Extremities exam: Positive for: normal inspection - Back Exam Back exam: NORMAL INSPECTION - Neurological Exam Neurological exam: Alert, CN II-XII Intact, Normal Gait, Oriented x3, Reflexes Normal - Psychiatric Exam Psychiatric exam: Normal Affect, Normal Mood - Skin Skin Exam: Dry, Intact, Normal Color, Warm Results - Vital Signs Recent Vital Signs: Last Vital Signs Temp 98.2 F 10/30/17 18:09 Pulse 82 10/30/17 19:00 Resp 17 10/30/17 19:00 BP 128/80 10/30/17 19:00 Pulse Ox 99 10/30/17 19:00 - Labs Result Diagrams: 10/30/17 18:20 10/30/17 18:20 Assessment & Plan - Assessment and Plan (Free Text) Assessment: Patient is a 42 year old male with past medical history of chronic pancreatitis secondary to pancreatic divisum, bradycardia, spinal stenosis and asthma who presents with abdominal pain, nausea, vomiting. Patient has 2/3 diagnostic factors (clinical epigastric pain and elevated lipase >2000) to establish diagnosis of pancreatitis. Patient has a history of psychiatric disease, but denies any current suicidal homicidal ideations. He also has history of Asthma , but denies any current exacerbation. Patient's pain is well controlled with Morphine. Plan: Acute on Chronic Pancreatitis - Admit to med/surg - NPO, LR @120 ml/Hr, Morphine 2 q6 prn, Reglan q4 prn Check EKG in AM for QTc prolongation - Continue home amylase lipase protease - GI consult, appreciate recs: Dr. Garcia History of Psych - Continue home Risperdal bid and daily Zoloft History of Asthma - Continue home Albuterol GI/DVT Prophylaxis - Protonix/SCD Diet: NPO Labs Pending: None <Kathy Vila - Last Filed: 11/01/17 05:21> Results - Vital Signs Recent Vital Signs: Last Vital Signs Temp 98.2 F 10/31/17 22:00 Pulse 52 L 10/31/17 22:00 Resp 18 10/31/17 22:00 BP 111/67 10/31/17 22:00 Pulse Ox 97 10/31/17 22:00 - Labs Result Diagrams: 10/31/17 06:00 10/31/17 06:00 Labs: Laboratory Results - last 24 hr 10/31/17 10/31/17 10/31/17 06:00 06:00 13:42 WBC 7.8 RBC 4.96 Hgb 15.0 D Hct 44.7 MCV 90.1 MCH 30.2 MCHC 33.6 RDW 14.4 Plt Count 236 MPV 9.0 Gran % 38.7 L Lymph % (Auto) 48.0 H [place] % (Auto) 7.1 H Eos % (Auto) 5.9 H Baso % (Auto) 0.3 Gran # 3.02 Lymph # (Auto) 3.7 H [place] # (Auto) 0.6 Eos # (Auto) 0.5 Baso # (Auto) 0.02 Sodium 140 Potassium 4.1 Chloride 108 H Carbon Dioxide 23 Anion Gap 13 BUN 9 Creatinine 0.9 Est GFR ( Amer) > 60 Est GFR (Non-Af Amer) > 60 Random Glucose 82 Calcium 8.7 Phosphorus 3.2 Magnesium 1.9 Total Bilirubin 0.8 AST 26 ALT 39 Alkaline Phosphatase 73 Total Protein 6.3 Albumin 3.4 Globulin 2.8 Albumin/Globulin Ratio 1.2 Urine Opiates Screen Positive H Urine Methadone Screen Negative Ur Barbiturates Screen Negative Ur Phencyclidine Scrn Negative Ur Amphetamines Screen Negative U Benzodiazepines Scrn Negative U Oth Cocaine Metabols Negative U Cannabinoids Screen Positive H
[2017-10-31] MEDS ORDERED: Morphine 4 mg/ml ISec IVP ONE (03:00)
[2017-10-31] MEDS ORDERED: Lactated Ringer's 1,000 ML IV SCH (03:29)
[2017-10-31] MEDS ORDERED: Albuterol 0.083% Inhal Sol (2.5 mg/3 mL) UD IH PRN (03:42)
[2017-10-31 07:10] LABS: BASO # 0.02 K/mm3 (0.0-2.0); BASO % 0.3 % (0.0-3.0); EOS # 0.5 (0.0-0.7); EOS % 5.9 % (1.5-5.0); GRAN # 3.02 (1.4-6.5); GRAN % 38.7 % (50.0-68.0); LYMPH # 3.7 (1.2-3.4); MEAN CELL VOLUME 90.1 fl (80.0-105.0); MEAN CORPUSCULAR HEMOGLOBIN 30.2 pg (25.0-35.0); MEAN CORPUSCULAR HGB CONC 33.6 g/dl (31.0-37.0); MONO # 0.6 (0.1-0.6); MONO % 7.1 % (1.0-6.0); RBC 4.96 10^6/uL (3.5-6.1); RED CELL DISTRIBUTION WIDTH 14.4 % (11.5-14.5); WHITE BLOOD COUNT 7.8 10^3/ul (4.5-11.0)
[2017-10-31] MEDS: Pantoprazole 40 mg EC Tab PO SCH (07:13)
[2017-10-31] MEDS ORDERED: Amylase/Lipase/Protease 5,000 Units ECC PO SCH (07:30)
[2017-10-31 07:34] LABS: ALB/GLOB RATIO 1.2 (1.1-1.8); ALBUMIN 3.4 g/dL (3.0-4.8); ALT/SGPT 39 U/L (7-56); AST/SGOT 26 U/L (17-59); BLOOD UREA NITROGEN 9 mg/dL (7-21); CALCIUM 8.7 mg/dL (8.4-10.5); GFR AFRICAN-AMERICAN > 60; GFR NON-AFRICAN AMERICAN > 60
[2017-10-31] MEDS: Morphine 4 mg/ml ISec IVP PRN ×3 (09:05→23:15)
--- NOTE | 2017-10-31 09:25 | CARD ---
APPROVED REPORT EKG Measurement Heart [id number] <Conclusion> Sinus bradycardia Early repolarization No change except the rate is slower
[2017-10-31] MEDS: Lactated Ringer's 1,000 ML IV SCH ×4 (10:10→21:59)
[2017-10-31] MEDS: Amylase/Lipase/Protease 5,000 Units ECC PO SCH ×2 (11:30→17:50)
--- NOTE | 2017-10-31 13:47 | CP.PCM.CON ---
<Vianca Amaro - Last Filed: 10/31/17 13:49> History of Present Illness - History of Present Illness History of Present Illness: GI Fellow PGY 4 Consult Note This is a 42 year old male with a PMH of chronic pancreatitis with pancreatic divisum, spinal stenosis, bradycardia, and asthma who presented to [facility] for complaints of 1 day of abdominal pain, nausea, vomiting. GI consultation was placed for the aforementioned. Patient was seen and examined at bedside. Patient states that after eating yesterday he started having epigastric abdominal pain radiating to back and nonbloody, bilious emesis. Patient admits to chronic diarrhea and takes his pancreatic enzymes. He was in [facility] for acute pancreatitis a few days ago and received IVF and pain medication. CT imaging with no pancreatitis and Lipase 2000s. Pt reports his last use of cocaine was 1 week ago. ROS: A 12pt ROS was negative except as above PMH: as above PSH: cholecystectomy, s/p pancreatic stent palcement and removal SH: sporadic marijuana and cocaine user, former alcoholic, sporadic tobacco use FH: pancreatic cancer and DM2 on maternal side Past Patient History - Infectious Disease Hx of Infectious Diseases: None - Tetanus Immunizations Tetanus Immunization: Unknown - Past Medical History & Family History Past Medical History?: Yes - Past Social History Smoking Status: Former Smoker - CARDIAC Hx Congestive Heart Failure: No Hx Hypertension: No Hx Pacemaker: No - PULMONARY Hx Asthma: Yes Hx Chronic Obstructive Pulmonary Disease (COPD): No - NEUROLOGICAL Hx Seizures: No - HEENT Hx HEENT Problems: No - RENAL Hx Chronic Kidney Disease: No - ENDOCRINE/METABOLIC Hx Hypothyroidism: No - HEMATOLOGICAL/ONCOLOGICAL Hx Blood Disorders: No - INTEGUMENTARY Hx Dermatological Problems: No - MUSCULOSKELETAL/RHEUMATOLOGICAL Hx Arthritis: Yes Hx Fractures: No Hx Rheumatoid Arthritis: Yes - GASTROINTESTINAL Hx Gall Bladder Disease: Yes (removed GB) Hx Pancreatitis: Yes - GENITOURINARY/GYNECOLOGICAL Hx Sexually Transmitted Disorders: No - PSYCHIATRIC Hx Anxiety: Yes Hx Depression: Yes Hx Substance Use: Yes (Isaac 3 mos. ago) - SURGICAL HISTORY Hx Cholecystectomy: Yes (2004) - ANESTHESIA Hx Anesthesia: Yes Hx Anesthesia Reactions: No Hx Malignant Hyperthermia: No Meds Allergies/Adverse Reactions: Allergies Allergy/AdvReac Type Severity Reaction Status Date / Time ketorolac Allergy URTICARIA Verified 09/20/17 22:15 - Medications Medications: Current Medications Albuterol Sulfate (Albuterol 0.083% Inhal Erica (2.5 Mg/3 Ml) Ud) 2.5 mg IH [id number] PRN PRN Reason: Shortness of Breath Amylase (Pancrease 62651 U-5000 U-16241 U) 35,000 unit PO AC [facility] Folic Acid (Folic Acid) 1 mg PO DAILY [facility] Last Admin: 10/31/17 10:23 Dose: 1 mg Lactated Ringer's (Lactated Ringer's) 1,000 mls @ 250 mls/hr IV .Q4H [facility] Last Admin: 10/31/17 10:10 Dose: 250 mls/hr Metoclopramide HCl (Reglan) 10 mg IVP Q6H PRN PRN Reason: Nausea/Vomiting Morphine Sulfate (Morphine) 2 mg IVP Q6H PRN PRN Reason: Pain, severe (8-10) Last Admin: 10/31/17 09:05 Dose: 2 mg Pantoprazole Sodium (Protonix Ec Tab) 40 mg PO 0600 [facility] Last Admin: 10/31/17 07:13 Dose: 40 mg Risperidone (Risperdal Tab) 1 mg PO BID [facility] PRN Reason: Protocol Last Admin: 10/31/17 10:23 Dose: 1 mg Sertraline HCl (Zoloft) 50 mg PO DAILY [facility] Last Admin: 10/31/17 10:23 Dose: 50 mg Physical Exam - Constitutional Appears: Non-toxic, No Acute Distress - Head Exam Head Exam: ATRAUMATIC, NORMAL INSPECTION, NORMOCEPHALIC - Eye Exam Eye Exam: EOMI, Normal appearance, PERRL Pupil Exam: PERRL - ENT Exam ENT Exam: Mucous Membranes Moist - Neck Exam Neck exam: Positive for: Full Rom, Normal Inspection - Respiratory Exam Respiratory Exam: Clear to Auscultation Bilateral, NORMAL BREATHING PATTERN - Cardiovascular Exam Cardiovascular Exam: REGULAR RHYTHM, +S1, +S2 - GI/Abdominal Exam GI & Abdominal Exam: Normal Bowel Sounds, Soft, Tenderness. absent: Distended, Firm, Guarding - Rectal Exam Rectal Exam: Deferred - Extremities Exam Extremities exam: Positive for: full ROM, normal inspection - Back Exam Back exam: NORMAL INSPECTION - Neurological Exam Neurological exam: Alert, Oriented x3 - Psychiatric Exam Psychiatric exam: Normal Affect, Normal Mood - Skin Skin Exam: Dry, Intact, Normal Color, Warm Results - Vital Signs Recent Vital Signs: Last Vital Signs Temp 97.7 F 10/31/17 01:32 Pulse 68 10/31/17 01:32 Resp 18 10/31/17 01:32 BP 123/87 10/31/17 01:32 Pulse Ox 98 10/31/17 00:09 - Labs Result Diagrams: 10/31/17 06:00 10/31/17 06:00 Labs: Laboratory Results - last 24 hr 10/31/17 10/31/17 06:00 06:00 WBC 7.8 RBC 4.96 Hgb 15.0 D Hct 44.7 MCV 90.1 MCH 30.2 MCHC 33.6 RDW 14.4 Plt Count 236 MPV 9.0 Gran % 38.7 L Lymph % (Auto) 48.0 H [place] % (Auto) 7.1 H Eos % (Auto) 5.9 H Baso % (Auto) 0.3 Gran # 3.02 Lymph # (Auto) 3.7 H [place] # (Auto) 0.6 Eos # (Auto) 0.5 Baso # (Auto) 0.02 Sodium 140 Potassium 4.1 Chloride 108 H Carbon Dioxide 23 Anion Gap 13 BUN 9 Creatinine 0.9 Est GFR ( Amer) > 60 Est GFR (Non-Af Amer) > 60 Random Glucose 82 Calcium 8.7 Phosphorus 3.2 Magnesium 1.9 Total Bilirubin 0.8 AST 26 ALT 39 Alkaline Phosphatase 73 Total Protein 6.3 Albumin 3.4 Globulin 2.8 Albumin/Globulin Ratio 1.2 Assessment & Plan - Assessment and Plan (Free Text) Assessment: This is a 42 year old male with a PMH of chronic pancreatitis with pancreatic divisum, spinal stenosis, bradycardia, and asthma who presented for complaints of 1 day of abdominal pain, nausea, vomiting and diarrhea. 1. Abdominal pain and elevated lipase likely from cocaine use 2. Chronic diarrhea from pancreatic insufficiency 3. Drug abuse Plan: -Continue supportive care with antiemetics -Avoid narcotics -CT imaging reviewed with no pancreatitis -Elevated lipase likley from cocaine use -Continue IVF hydration -Advance diet to clear liquid, may advance as tolerated -Anti-emetics PRN -Avoid opioid medications as these can exacerbation symptoms -Check UDS with hx of cocaine use 1 week ago -Continue Pancreatic enzymes -Discussed with pt about vasospasm and risk of acute coronary event and ischemic bowel with continued cocaine use that is resulting in abdominal pain and elevated lipase levels -Please call with any questions or concerns <NarvaezJaida acosta - Last Filed: 10/31/17 15:56> Meds - Medications Medications: Current Medications Albuterol Sulfate (Albuterol 0.083% Inhal Erica (2.5 Mg/3 Ml) Ud) 2.5 mg IH [id number] PRN PRN Reason: Shortness of Breath Amylase (Pancrease 71067 U-5000 U-70387 U) 35,000 unit PO AC [facility] Last Admin: 10/31/17 11:30 Dose: Not Given Folic Acid (Folic Acid) 1 mg PO DAILY [facility] Last Admin: 10/31/17 10:23 Dose: 1 mg Lactated Ringer's (Lactated Ringer's) 1,000 mls @ 250 mls/hr IV .Q4H [facility] Last Admin: 10/31/17 13:41 Dose: 250 mls/hr Metoclopramide HCl (Reglan) 10 mg IVP Q6H PRN PRN Reason: Nausea/Vomiting Morphine Sulfate (Morphine) 2 mg IVP Q6H PRN PRN Reason: Pain, severe (8-10) Last Admin: 10/31/17 09:05 Dose: 2 mg Pantoprazole Sodium (Protonix Ec Tab) 40 mg PO 0600 [facility] Last Admin: 10/31/17 07:13 Dose: 40 mg Risperidone (Risperdal Tab) 1 mg PO BID [facility] PRN Reason: Protocol Last Admin: 10/31/17 10:23 Dose: 1 mg Sertraline HCl (Zoloft) 50 mg PO DAILY [facility] Last Admin: 10/31/17 10:23 Dose: 50 mg Results - Vital Signs Recent Vital Signs: Last Vital Signs Temp 97.7 F 10/31/17 01:32 Pulse 68 10/31/17 01:32 Resp 18 10/31/17 01:32 BP 123/87 10/31/17 01:32 Pulse Ox 98 10/31/17 00:09 - Labs Result Diagrams: 10/31/17 06:00 10/31/17 06:00 Labs: Laboratory Results - last 24 hr 10/31/17 10/31/17 10/31/17 06:00 06:00 13:42 WBC 7.8 RBC 4.96 Hgb 15.0 D Hct 44.7 MCV 90.1 MCH 30.2 MCHC 33.6 RDW 14.4 Plt Count 236 MPV 9.0 Gran % 38.7 L Lymph % (Auto) 48.0 H [place] % (Auto) 7.1 H Eos % (Auto) 5.9 H Baso % (Auto) 0.3 Gran # 3.02 Lymph # (Auto) 3.7 H [place] # (Auto) 0.6 Eos # (Auto) 0.5 Baso # (Auto) 0.02 Sodium 140 Potassium 4.1 Chloride 108 H Carbon Dioxide 23 Anion Gap 13 BUN 9 Creatinine 0.9 Est GFR ( Amer) > 60 Est GFR (Non-Af Amer) > 60 Random Glucose 82 Calcium 8.7 Phosphorus 3.2 Magnesium 1.9 Total Bilirubin 0.8 AST 26 ALT 39 Alkaline Phosphatase 73 Total Protein 6.3 Albumin 3.4 Globulin 2.8 Albumin/Globulin Ratio 1.2 Urine Opiates Screen Positive H Urine Methadone Screen Negative Ur Barbiturates Screen Negative Ur Phencyclidine Scrn Negative Ur Amphetamines Screen Negative U Benzodiazepines Scrn Negative U Oth Cocaine Metabols Negative U Cannabinoids Screen Positive H Attending/Attestation - Attestation I have personally seen and examined this patient.: Yes I have fully participated in the care of the patient.: Yes I have reviewed all pertinent clinical information: Yes Notes (Text): 10/31/17 15:53 This is a 42 year old male with h/o substance abuse, pancreas divisum, pancreatitis admitted with abdominal pain and diarrhea with elevation of lipase and recent admission to outside hospital. Suggest UDS as he has had multiple episodes precipitated by cocaine abuse although he denies it. Supportive measures. Pancreatic enzymes to be continued. Will sign off.
[2017-10-31 14:25] LABS: BARBITURATES, UR NEGATIVE (NEGATIVE); BENZODIAZEPINES, UR NEGATIVE (NEGATIVE); OPIATES, UR POSITIVE (NEGATIVE); PHENCYCLIDINE, UR NEGATIVE (NEGATIVE)
[2017-11-01] MEDS: Morphine 4 mg/ml ISec IVP PRN ×2 (05:17→12:21)
[2017-11-01] MEDS: Pantoprazole 40 mg EC Tab PO SCH (05:19)
[2017-11-01 07:33] LABS: BASO # 0.03 K/mm3 (0.0-2.0); BASO % 0.4 % (0.0-3.0); EOS # 0.5 (0.0-0.7); EOS % 6.2 % (1.5-5.0); GRAN # 3.46 (1.4-6.5); HEMOGLOBIN 15.5 g/dL (14.0-18.0); LYMPH # 3.1 (1.2-3.4); LYMPH % 40.8 % (22.0-35.0); MEAN CELL VOLUME 89.2 fl (80.0-105.0); MEAN CORPUSCULAR HEMOGLOBIN 30.5 pg (25.0-35.0); MEAN CORPUSCULAR HGB CONC 34.2 g/dl (31.0-37.0); MEAN PLATELET VOLUME 9.4 fl (7.0-11.0); MONO # 0.5 (0.1-0.6); MONO % 6.6 % (1.0-6.0); RBC 5.08 10^6/uL (3.5-6.1); RED CELL DISTRIBUTION WIDTH 13.9 % (11.5-14.5); WHITE BLOOD COUNT 7.5 10^3/ul (4.5-11.0)
[2017-11-01 07:49] LABS: ALB/GLOB RATIO 1.2 (1.1-1.8); ALBUMIN 3.4 g/dL (3.0-4.8); ALT/SGPT 40 U/L (7-56); AST/SGOT 26 U/L (17-59); BLOOD UREA NITROGEN 8 mg/dL (7-21); CALCIUM 9.1 mg/dL (8.4-10.5); GFR AFRICAN-AMERICAN > 60; GFR NON-AFRICAN AMERICAN > 60
[2017-11-01] MEDS: Amylase/Lipase/Protease 5,000 Units ECC PO SCH ×3 (08:22→17:12)
[2017-11-01] MEDS: Lactated Ringer's 1,000 ML IV SCH (11:01)
[2017-11-01] MEDS ORDERED: Oxycodone/Acetaminophen 5/325 mg Tab PO PRN (13:57)
--- NOTE | 2017-11-01 14:03 | CP.PCM.DIS ---
Provider - Provider Date of Admission: 10/30/17 22:51 Attending physician: Natalee Gavin MD Hospital Course - Lab Results Lab Results: Most Recent Lab Values WBC 7.5 10^3/ul (4.5-11.0) 11/01/17 07:00 RBC 5.08 10^6/uL (3.5-6.1) 11/01/17 07:00 Hgb 15.5 g/dL (14.0-18.0) 11/01/17 07:00 Hct 45.3 % (42.0-52.0) 11/01/17 07:00 MCV 89.2 fl (80.0-105.0) 11/01/17 07:00 MCH 30.5 pg (25.0-35.0) 11/01/17 07:00 MCHC 34.2 g/dl (31.0-37.0) 11/01/17 07:00 RDW 13.9 % (11.5-14.5) 11/01/17 07:00 Plt Count 247 10^3/uL (120.0-450.0) 11/01/17 07:00 MPV 9.4 fl (7.0-11.0) 11/01/17 07:00 Gran % 46.0 % (50.0-68.0) L 11/01/17 07:00 Lymph % (Auto) 40.8 % (22.0-35.0) H 11/01/17 07:00 [place] % (Auto) 6.6 % (1.0-6.0) H 11/01/17 07:00 Eos % (Auto) 6.2 % (1.5-5.0) H 11/01/17 07:00 Baso % (Auto) 0.4 % (0.0-3.0) 11/01/17 07:00 Gran # 3.46 (1.4-6.5) 11/01/17 07:00 Lymph # (Auto) 3.1 (1.2-3.4) 11/01/17 07:00 [place] # (Auto) 0.5 (0.1-0.6) 11/01/17 07:00 Eos # (Auto) 0.5 (0.0-0.7) 11/01/17 07:00 Baso # (Auto) 0.03 K/mm3 (0.0-2.0) 11/01/17 07:00 PT 11.6 SECONDS (9.4-12.5) 10/30/17 20:55 INR 1.02 (0.93-1.08) 10/30/17 20:55 APTT 38.7 Seconds (25.1-36.5) H 10/30/17 20:55 Sodium 143 mmol/L (132-148) 11/01/17 07:00 Potassium 3.8 mmol/L (3.6-5.0) 11/01/17 07:00 Chloride 107 mmol/L (98-107) 11/01/17 07:00 Carbon Dioxide 26 mmol/L (21-33) 11/01/17 07:00 Anion Gap 13 (10-20) 11/01/17 07:00 BUN 8 mg/dL (7-21) 11/01/17 07:00 Creatinine 0.9 mg/dl (0.8-1.5) 11/01/17 07:00 Est GFR ( Amer) > 60 11/01/17 07:00 Est GFR (Non-Af Amer) > 60 11/01/17 07:00 Random Glucose 75 mg/dL (70-110) 11/01/17 07:00 Calcium 9.1 mg/dL (8.4-10.5) 11/01/17 07:00 Phosphorus 3.3 mg/dL (2.5-4.5) 11/01/17 07:00 Magnesium 1.8 mg/dL (1.7-2.2) 11/01/17 07:00 Total Bilirubin 1.0 mg/dL (0.2-1.3) 11/01/17 07:00 AST 26 U/L (17-59) 11/01/17 07:00 ALT 40 U/L (7-56) 11/01/17 07:00 Alkaline Phosphatase 72 U/L (38-126) 11/01/17 07:00 Total Protein 6.1 g/dL (5.8-8.3) 11/01/17 07:00 Albumin 3.4 g/dL (3.0-4.8) 11/01/17 07:00 Globulin 2.8 gm/dL 11/01/17 07:00 Albumin/Globulin Ratio 1.2 (1.1-1.8) 11/01/17 07:00 Lipase > 2000 U/L (23-300) H 10/30/17 18:20 Urine Color Yellow (YELLOW) 10/30/17 18:20 Urine Appearance Clear (CLEAR) 10/30/17 18:20 Urine pH 6.0 (4.7-8.0) 10/30/17 18:20 Ur Specific [place] 1.025 (1.005-1.035) 10/30/17 18:20 Urine Protein Trace mg/dL (<30 mg/dL) H 10/30/17 18:20 Urine Glucose (UA) Negative mg/dL (NEGATIVE) 10/30/17 18:20 Urine Ketones Negative mg/dL (NEGATIVE) 10/30/17 18:20 Urine Blood Negative (NEGATIVE) 10/30/17 18:20 Urine Nitrate Negative (NEGATIVE) 10/30/17 18:20 Urine Bilirubin Negative (NEGATIVE) 10/30/17 18:20 Urine Urobilinogen 0.2 E.U./dL (<1 E.U./dL) 10/30/17 18:20 Ur Leukocyte Esterase Negative [place]/uL (NEGATIVE) 10/30/17 18:20 Urine RBC 1 - 3 /hpf (0-2) 10/30/17 18:20 Urine WBC 0 - 2 /hpf (0-6) 10/30/17 18:20 Ur Epithelial Cells None /hpf (0-5) 10/30/17 18:20 Urine Bacteria Few (NEG) 10/30/17 18:20 Urine Opiates Screen Positive (NEGATIVE) H 10/31/17 13:42 Urine Methadone Screen Negative (NEGATIVE) 10/31/17 13:42 Ur Barbiturates Screen Negative (NEGATIVE) 10/31/17 13:42 Ur Phencyclidine Scrn Negative (NEGATIVE) 10/31/17 13:42 Ur Amphetamines Screen Negative (NEGATIVE) 10/31/17 13:42 U Benzodiazepines Scrn Negative (NEGATIVE) 10/31/17 13:42 U Oth Cocaine Metabols Negative (NEGATIVE) 10/31/17 13:42 U Cannabinoids Screen Positive (NEGATIVE) H 10/31/17 13:42 Discharge Exam - Head Exam Head Exam: ATRAUMATIC, NORMAL INSPECTION, NORMOCEPHALIC Discharge Plan - Follow Up Plan Condition: STABLE Disposition: HOME/ ROUTINE
[2017-11-01 16:14] VITALS: BP 117/84; PULSE 84; RESP 21; TEMP 98; O2SAT 100
== END 2017-11-01 18:16 | disposition home or self-care (01) | DRG 204 ==
LOC: ED 17:13 → ERH 22:51 → 5RSO 10-31 01:43
PROVIDERS: ADMIT Internal Medicine; ATTEND Internal Medicine
DX: K85.90 Acute pancreatitis without necrosis or infection, unspecified (principal); F14.90 Cocaine use, unspecified, uncomplicated; F17.200 Nicotine dependence, unspecified, uncomplicated; F32.89 Other specified depressive episodes; J45.909 Unspecified asthma, uncomplicated; K52.9 Noninfective gastroenteritis and colitis, unspecified; K86.1 Other chronic pancreatitis; M06.9 Rheumatoid arthritis, unspecified; M48.00 Spinal stenosis, site unspecified; Z80.0 Family history of malignant neoplasm of digestive organs; Z83.3 Family history of diabetes mellitus; Z90.49 Acquired absence of other specified parts of digestive tract; F12.90 Cannabis use, unspecified, uncomplicated; Z88.6 Allergy status to analgesic agent

== ENCOUNTER 2017-11-12 20:10 | Inpatient (IN) | payer MEDICAID ==
[2017-11-12 20:32] VITALS: BMI 33.5
[2017-11-12] MEDS ORDERED: Morphine 2 mg/ml ISec IVP STA (20:51)
[2017-11-12] MEDS ORDERED: Sodium Chloride 0.9% 1,000 ML IV STA (20:51)
[2017-11-12] MEDS ORDERED: Morphine 4 mg/ml ISec IVP STA (21:02)
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
[2017-11-12 21:31] LABS: ALBUMIN 4.2 g/dL (3.0-4.8); BLOOD UREA NITROGEN 13 mg/dL (7-21); CALCIUM 9.3 mg/dL (8.4-10.5); GFR AFRICAN-AMERICAN > 60; GFR NON-AFRICAN AMERICAN > 60
[2017-11-12 21:32] LABS: ALB/GLOB RATIO 1.3 (1.1-1.8); ALT/SGPT 32 U/L (7-56); AST/SGOT 26 U/L (17-59)
[2017-11-12 21:35] LABS: HEMOGLOBIN 16.4 g/dL (14.0-18.0); MEAN CORPUSCULAR HEMOGLOBIN 30.9 pg (25.0-35.0); MEAN CORPUSCULAR HGB CONC 34.4 g/dl (31.0-37.0); MEAN PLATELET VOLUME 9.5 fl (7.0-11.0); RBC 5.3 10^6/uL (3.5-6.1); RED CELL DISTRIBUTION WIDTH 13.5 % (11.5-14.5); WHITE BLOOD COUNT 8.2 10^3/ul (4.5-11.0)
[2017-11-12 21:41] LABS: LIPASE 2692 U/L (23-300)
[2017-11-12] MEDS ORDERED: HYDROmorphone 0.5 mg/0.5 ml ISec IVP STA (23:16)
[2017-11-12] MEDS ORDERED: Albuterol-Ipratrop 3 mg / 0.5 (3 ml) UD IH PRN (23:40)
[2017-11-13] MEDS: Lactated Ringer's 1,000 ML IV SCH (00:48)
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
[2017-11-13 02:27] VITALS: RESP 20
[2017-11-13] MEDS: Albuterol-Ipratrop 3 mg / 0.5 (3 ml) UD IH SCH ×4 (03:00→21:50)
[2017-11-13] MEDS: Morphine 2 mg/2 mL syringe IVP PRN ×4 (05:42→21:31)
[2017-11-13 07:29] LABS: BASO # 0.02 K/mm3 (0.0-2.0); BASO % 0.3 % (0.0-3.0); EOS # 0.4 (0.0-0.7); EOS % 4.9 % (1.5-5.0); GRAN % 38.9 % (50.0-68.0); HEMOGLOBIN 14.7 g/dL (14.0-18.0); LYMPH # 3.8 (1.2-3.4); LYMPH % 49.2 % (22.0-35.0); MEAN CELL VOLUME 91.1 fl (80.0-105.0); MEAN CORPUSCULAR HEMOGLOBIN 29.6 pg (25.0-35.0); MEAN CORPUSCULAR HGB CONC 32.5 g/dl (31.0-37.0); MEAN PLATELET VOLUME 9.3 fl (7.0-11.0); MONO # 0.5 (0.1-0.6); MONO % 6.7 % (1.0-6.0); RBC 4.96 10^6/uL (3.5-6.1); RED CELL DISTRIBUTION WIDTH 13.9 % (11.5-14.5); WHITE BLOOD COUNT 7.7 10^3/ul (4.5-11.0)
[2017-11-13 08:19] LABS: ALB/GLOB RATIO 1.2 (1.1-1.8); ALBUMIN 3.5 g/dL (3.0-4.8); ALT/SGPT 38 U/L (7-56); AST/SGOT 37 U/L (17-59); BLOOD UREA NITROGEN 11 mg/dL (7-21); CALCIUM 8.6 mg/dL (8.4-10.5); GFR AFRICAN-AMERICAN > 60; GFR NON-AFRICAN AMERICAN > 60
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
[2017-11-13] MEDS ORDERED: PROTEASE PO SCH (10:00)
[2017-11-13] MEDS ORDERED: AMYLASE PO SCH (10:00)
[2017-11-13] MEDS ORDERED: LIPASE PO SCH (10:00)
[2017-11-13] MEDS: Venlafaxine 75 mg ER Cap PO SCH (10:24)
[2017-11-13] MEDS: Multivitamin With Minerals Tab PO SCH (10:25)
[2017-11-13] MEDS: Amylase/Lipase/Protease 5,000 Units ECC PO SCH (10:25)
[2017-11-13 16:25] LABS: BARBITURATES, UR NEGATIVE (NEGATIVE); BENZODIAZEPINES, UR NEGATIVE (NEGATIVE); OPIATES, UR POSITIVE (NEGATIVE); PHENCYCLIDINE, UR NEGATIVE (NEGATIVE)
[2017-11-14] MEDS: Albuterol-Ipratrop 3 mg / 0.5 (3 ml) UD IH SCH ×3 (03:40→13:32)
[2017-11-14] MEDS: Morphine 2 mg/2 mL syringe IVP PRN (04:12)
--- NOTE | 2017-11-14 08:10 | CP.PCM.PN ---
Subjective - Date & Time of Evaluation Date of Evaluation: 11/14/17 Time of Evaluation: 08:07 - Subjective Subjective: Patient seen and examined, resting in bed comfortably. No acute events overnight. He still endorses mild epigastric abdominal pain, though improved from previous day. He denies nausea, vomiting, fever/chills. Tolerating PO liquids without difficulty. Review of vitals from today are normal. 12 point review of systems performed, negative aside from mentioned above. Objective - Vital Signs/Intake and Output Vital Signs (last 24 hours): Temp Pulse Resp BP Pulse Ox 97.5 F L 69 20 109/74 98 11/13/17 06:00 11/13/17 14:00 11/13/17 14:00 11/13/17 14:00 11/13/17 14:00 - Medications Medications: Current Medications Albuterol/Ipratropium (Duoneb 3 Mg/0.5 Mg (3 Ml) Ud) 3 ml IH [id number] [facility] Last Admin: 11/14/17 07:35 Dose: 3 ml Albuterol/Ipratropium (Duoneb 3 Mg/0.5 Mg (3 Ml) Ud) 3 ml IH Q2H PRN PRN Reason: Shortness of Breath Amylase (Pancrease 92534 U-5000 U-21782 U) 5,000 unit PO DAILY [facility] Last Admin: 11/13/17 10:25 Dose: 5,000 unit Lactated Ringer's (Lactated Ringer's) 1,000 mls @ 120 mls/hr IV .Q8H20M [facility] Last Admin: 11/13/17 00:48 Dose: 120 mls/hr Metoclopramide HCl (Reglan) 10 mg IVP Q6H PRN PRN Reason: Nausea/Vomiting Last Admin: 11/13/17 15:24 Dose: 10 mg Morphine Sulfate (Morphine) 2 mg IVP Q4H PRN PRN Reason: Pain, severe (8-10) Last Admin: 11/14/17 04:12 Dose: 2 mg Multivitamins/Minerals (Therapeutic-M Tab) 1 tab PO DAILY [facility] Last Admin: 11/13/17 10:25 Dose: 1 tab Nicotine (Nicoderm Cq) 1 patch TD DAILY [facility] Last Admin: 11/13/17 10:24 Dose: 1 patch Pantoprazole Sodium (Protonix Inj) 40 mg IVP DAILY [facility] Last Admin: 11/13/17 10:25 Dose: 40 mg Risperidone (Risperdal Tab) 1.5 mg PO HS [facility] PRN Reason: Protocol Last Admin: 11/13/17 21:31 Dose: 1.5 mg Risperidone (Risperdal Tab) 1 mg PO DAILY [facility] PRN Reason: Protocol Last Admin: 11/13/17 10:25 Dose: 1 mg Trazodone HCl (Desyrel) 100 mg PO HS [facility] Last Admin: 11/13/17 21:30 Dose: 100 mg Venlafaxine HCl (Effexor Xr) 75 mg PO DAILY [facility] Last Admin: 11/13/17 10:24 Dose: 75 mg - Labs Labs: 11/13/17 06:40 11/13/17 06:40 - Constitutional Appears: Non-toxic, No Acute Distress - Head Exam Head Exam: NORMAL INSPECTION - Eye Exam Eye Exam: EOMI, Normal appearance - ENT Exam ENT Exam: Mucous Membranes Moist - Respiratory Exam Respiratory Exam: Clear to Ausculation Bilateral - Cardiovascular Exam Cardiovascular Exam: +S1, +S2 - GI/Abdominal Exam GI & Abdominal Exam: Soft, Tenderness, Normal Bowel Sounds Additional comments: mild epigastric tenderness to palpation, no rebound/guarding - Extremities Exam Extremities Exam: Normal Inspection - Skin Skin Exam: Dry, Intact, Normal Color, Warm Assessment and Plan - Assessment and Plan (Free Text) Assessment: Polysubstance abuse Depression Acute on chronic pancreatitis, h/o pancreas divisum Plan: - Advance to low fat diet as tolerated - Continue with pancreatic enzyme supplementation therapy - Substance abuse counseling - No further planned GI interventions, will sign off case. From GI standpoint ok to discharge home with subsequent outpatient follow up with Dr. Meyers at [facility]. Please reconsult as necessary, thank you.
[2017-11-14] MEDS ORDERED: Morphine 2 mg/2 mL syringe IVP PRN (08:46)
[2017-11-14] MEDS: Venlafaxine 75 mg ER Cap PO SCH (09:42)
[2017-11-14] MEDS: Multivitamin With Minerals Tab PO SCH (09:42)
[2017-11-14] MEDS: Amylase/Lipase/Protease 5,000 Units ECC PO SCH (09:43)
[2017-11-14 10:47] VITALS: BP 106/72; PULSE 71; TEMP 98.1; O2SAT 96
--- NOTE | 2017-11-14 11:06 | CP.PCM.DIS ---
<Mariano Presley - Last Filed: 11/14/17 11:02> Provider - Provider Date of Admission: 11/12/17 23:17 Attending physician: Madhu Vila MD Primary care physician: Indra Hdez DNP, [employer] Time Spent in preparation of Discharge (in minutes): 45 Diagnosis - Discharge Diagnosis (1) Acute pancreatitis Status: Resolved Priority: Medium (2) History of asthma Status: Chronic Priority: Medium (3) History of psychiatric disorder Status: Chronic Priority: Medium Hospital Course - Lab Results Lab Results: Most Recent Lab Values WBC 7.7 10^3/ul (4.5-11.0) 11/13/17 06:40 RBC 4.96 10^6/uL (3.5-6.1) 11/13/17 06:40 Hgb 14.7 g/dL (14.0-18.0) 11/13/17 06:40 Hct 45.2 % (42.0-52.0) 11/13/17 06:40 MCV 91.1 fl (80.0-105.0) 11/13/17 06:40 MCH 29.6 pg (25.0-35.0) 11/13/17 06:40 MCHC 32.5 g/dl (31.0-37.0) 11/13/17 06:40 RDW 13.9 % (11.5-14.5) 11/13/17 06:40 Plt Count 251 10^3/uL (120.0-450.0) 11/13/17 06:40 MPV 9.3 fl (7.0-11.0) 11/13/17 06:40 Gran % 38.9 % (50.0-68.0) L 11/13/17 06:40 Lymph % (Auto) 49.2 % (22.0-35.0) H 11/13/17 06:40 [place] % (Auto) 6.7 % (1.0-6.0) H 11/13/17 06:40 Eos % (Auto) 4.9 % (1.5-5.0) 11/13/17 06:40 Baso % (Auto) 0.3 % (0.0-3.0) 11/13/17 06:40 Gran # 3.00 (1.4-6.5) 11/13/17 06:40 Lymph # (Auto) 3.8 (1.2-3.4) H 11/13/17 06:40 [place] # (Auto) 0.5 (0.1-0.6) 11/13/17 06:40 Eos # (Auto) 0.4 (0.0-0.7) 11/13/17 06:40 Baso # (Auto) 0.02 K/mm3 (0.0-2.0) 11/13/17 06:40 Sodium 140 mmol/L (132-148) 11/13/17 06:40 Potassium 4.2 mmol/L (3.6-5.0) 11/13/17 06:40 Chloride 106 mmol/L (98-107) 11/13/17 06:40 Carbon Dioxide 27 mmol/L (21-33) 11/13/17 06:40 Anion Gap 11 (10-20) 11/13/17 06:40 BUN 11 mg/dL (7-21) 11/13/17 06:40 Creatinine 1.0 mg/dl (0.8-1.5) 11/13/17 06:40 Est GFR ( Amer) > 60 11/13/17 06:40 Est GFR (Non-Af Amer) > 60 11/13/17 06:40 Random Glucose 71 mg/dL (70-110) 11/13/17 06:40 Calcium 8.6 mg/dL (8.4-10.5) 11/13/17 06:40 Phosphorus 3.0 mg/dL (2.5-4.5) 11/12/17 21:05 Magnesium 2.0 mg/dL (1.7-2.2) 11/12/17 21:05 Total Bilirubin 0.5 mg/dL (0.2-1.3) 11/13/17 06:40 AST 37 U/L (17-59) 11/13/17 06:40 ALT 38 U/L (7-56) 11/13/17 06:40 Alkaline Phosphatase 75 U/L (38-126) 11/13/17 06:40 Total Protein 6.4 g/dL (5.8-8.3) 11/13/17 06:40 Albumin 3.5 g/dL (3.0-4.8) 11/13/17 06:40 Globulin 2.9 gm/dL 11/13/17 06:40 Albumin/Globulin Ratio 1.2 (1.1-1.8) 11/13/17 06:40 Lipase 2692 U/L (23-300) H 11/12/17 21:05 Urine Opiates Screen Positive (NEGATIVE) H 11/13/17 15:45 Urine Methadone Screen Negative (NEGATIVE) 11/13/17 15:45 Ur Barbiturates Screen Negative (NEGATIVE) 11/13/17 15:45 Ur Phencyclidine Scrn Negative (NEGATIVE) 11/13/17 15:45 Ur Amphetamines Screen Negative (NEGATIVE) 11/13/17 15:45 U Benzodiazepines Scrn Negative (NEGATIVE) 11/13/17 15:45 U Oth Cocaine Metabols Negative (NEGATIVE) 11/13/17 15:45 U Cannabinoids Screen Positive (NEGATIVE) H 11/13/17 15:45 Alcohol, Quantitative < 10 mg/dL (0-10) 11/13/17 07:30 - Hospital Course Hospital Course: Patient is a 42 year old male with a past medical history of chronic pancreatitis secondary to pancreatic divisum, asthma, psych disorder who was admitted for evaluation and treatment of abdominal pain, nausea, and vomiting. With the use of physical examinations, lab work, and imaging the patient was diagnosed with and treated for acute on chronic pancreatitis along with the patients chronic medical conditions. During their hospital stay the patient was seen by gastroenterology and their recommendations were both appreciated and utilized in the care for this patient. GI recommended continued pancreatic enzyme supplementation therapy, to advance diet with no further planned GI interventions. Patient was treated with intravenous fluids, pancreatic enzyme supplementation, reglan amongst other empiric/therapeutic medications. At this time the patient is tolerating his diet, abdominal pain is controlled, and is medically stable for discharge. Patient understands and appreciates discharge plan. Patient instructed to follow up with primary care physicians and referrals within three to five days from discharge. Furthermore, the patient is instructed to take medications as prescribed and to return to emergency room for evaluation of intractable headache, fever, chills, dizziness, chest pain, shortness of breath, abdominal pain, nausea, vomiting, diarrhea, constipation, and urinary symptoms. This is a brief summary of the patients hospital course. Please see patient chart for full details. Discharge Exam - Head Exam Head Exam: NORMAL INSPECTION - Additional Findings Additional findings: - Constitutional Appears: Well - Head Exam Head Exam: ATRAUMATIC, NORMAL INSPECTION, NORMOCEPHALIC - Eye Exam Eye Exam: EOMI, Normal appearance, PERRL - ENT Exam ENT Exam: Mucous Membranes Moist, Normal Exam - Neck Exam Neck exam: Positive for: Normal Inspection - Respiratory Exam Respiratory Exam: Clear to Auscultation Bilateral, NORMAL BREATHING PATTERN - Cardiovascular Exam Cardiovascular Exam: +s1 +s2 - GI/Abdominal Exam GI & Abdominal Exam: Normal Bowel Sounds, Soft, Tenderness (RUQ) - Extremities Exam Extremities exam: Positive for: normal inspection - Back Exam Back exam: NORMAL INSPECTION - Neurological Exam Neurological exam: Alert, CN II-XII Intact, Normal Gait, Oriented x3, Reflexes Normal - Psychiatric Exam Psychiatric exam: Normal Affect, Normal Mood - Skin Skin Exam: Dry, Intact, Normal Color, Warm Discharge Plan - Follow Up Plan Condition: STABLE Disposition: HOME/ ROUTINE Patient education suggested?: Yes Additional Instructions: Patient Instructions: Take medications as prescribed. Follow up with PMD and referrals within three to five days from discharge. Return to the emergency room for evaluation of intractable headache, fever, chills, dizziness, chest pain, shortness of breath, abdominal pain, nausea, vomiting, diarrhea, constipation, and urinary symptoms. Referrals: Indra Hdez DNP, APN [Primary Care Provider] - <Madhu Vila - Last Filed: 11/14/17 12:20> Provider - Provider Date of Admission: 11/12/17 23:17 Attending physician: Madhu Vila MD Primary care physician: Indra Hdez DNP, APN Hospital Course - Lab Results Lab Results: Most Recent Lab Values WBC 7.7 10^3/ul (4.5-11.0) 11/13/17 06:40 RBC 4.96 10^6/uL (3.5-6.1) 11/13/17 06:40 Hgb 14.7 g/dL (14.0-18.0) 11/13/17 06:40 Hct 45.2 % (42.0-52.0) 11/13/17 06:40 MCV 91.1 fl (80.0-105.0) 11/13/17 06:40 MCH 29.6 pg (25.0-35.0) 11/13/17 06:40 MCHC 32.5 g/dl (31.0-37.0) 11/13/17 06:40 RDW 13.9 % (11.5-14.5) 11/13/17 06:40 Plt Count 251 10^3/uL (120.0-450.0) 11/13/17 06:40 MPV 9.3 fl (7.0-11.0) 11/13/17 06:40 Gran % 38.9 % (50.0-68.0) L 11/13/17 06:40 Lymph % (Auto) 49.2 % (22.0-35.0) H 11/13/17 06:40 [place] % (Auto) 6.7 % (1.0-6.0) H 11/13/17 06:40 Eos % (Auto) 4.9 % (1.5-5.0) 11/13/17 06:40 Baso % (Auto) 0.3 % (0.0-3.0) 11/13/17 06:40 Gran # 3.00 (1.4-6.5) 11/13/17 06:40 Lymph # (Auto) 3.8 (1.2-3.4) H 11/13/17 06:40 [place] # (Auto) 0.5 (0.1-0.6) 11/13/17 06:40 Eos # (Auto) 0.4 (0.0-0.7) 11/13/17 06:40 Baso # (Auto) 0.02 K/mm3 (0.0-2.0) 11/13/17 06:40 Sodium 140 mmol/L (132-148) 11/13/17 06:40 Potassium 4.2 mmol/L (3.6-5.0) 11/13/17 06:40 Chloride 106 mmol/L (98-107) 11/13/17 06:40 Carbon Dioxide 27 mmol/L (21-33) 11/13/17 06:40 Anion Gap 11 (10-20) 11/13/17 06:40 BUN 11 mg/dL (7-21) 11/13/17 06:40 Creatinine 1.0 mg/dl (0.8-1.5) 11/13/17 06:40 Est GFR ( Amer) > 60 11/13/17 06:40 Est GFR (Non-Af Amer) > 60 11/13/17 06:40 Random Glucose 71 mg/dL (70-110) 11/13/17 06:40 Calcium 8.6 mg/dL (8.4-10.5) 11/13/17 06:40 Phosphorus 3.0 mg/dL (2.5-4.5) 11/12/17 21:05 Magnesium 2.0 mg/dL (1.7-2.2) 11/12/17 21:05 Total Bilirubin 0.5 mg/dL (0.2-1.3) 11/13/17 06:40 AST 37 U/L (17-59) 11/13/17 06:40 ALT 38 U/L (7-56) 11/13/17 06:40 Alkaline Phosphatase 75 U/L (38-126) 11/13/17 06:40 Total Protein 6.4 g/dL (5.8-8.3) 11/13/17 06:40 Albumin 3.5 g/dL (3.0-4.8) 11/13/17 06:40 Globulin 2.9 gm/dL 11/13/17 06:40 Albumin/Globulin Ratio 1.2 (1.1-1.8) 11/13/17 06:40 Lipase 2692 U/L (23-300) H 11/12/17 21:05 Urine Opiates Screen Positive (NEGATIVE) H 11/13/17 15:45 Urine Methadone Screen Negative (NEGATIVE) 11/13/17 15:45 Ur Barbiturates Screen Negative (NEGATIVE) 11/13/17 15:45 Ur Phencyclidine Scrn Negative (NEGATIVE) 11/13/17 15:45 Ur Amphetamines Screen Negative (NEGATIVE) 11/13/17 15:45 U Benzodiazepines Scrn Negative (NEGATIVE) 11/13/17 15:45 U Oth Cocaine Metabols Negative (NEGATIVE) 11/13/17 15:45 U Cannabinoids Screen Positive (NEGATIVE) H 11/13/17 15:45 Alcohol, Quantitative < 10 mg/dL (0-10) 11/13/17 07:30 Attending/Attestation - Attestation I have personally seen and examined this patient.: Yes I have fully participated in the care of the patient.: Yes I have reviewed all pertinent clinical information, including history, physical exam and plan: Yes Notes (Text): I have seen and examined the patient at bedside. Agree with the above note with the following additions/ exceptions: I have seen and examined the patient at bedside. Agree with the above note with the following additions/ exceptions: Briefly this is 42 year old male with history of chronic pancreatitis due to pancreatic divisum, spinal stenosis and asthma who presents with abdominal pain , nausea and found to have chronic pancreatitis. Patient was initially made npo and diet was slowly advanced. He was able to tolerate the diet without any problem. GI cleared the patient to go home. Continue pancreatic enzymes. Advised patient to follow up with Dr Indra owens and Dr Meyers as an outpatient. Dr Madhu Vila
[2017-11-14] MEDS: Lactated Ringer's 1,000 ML IV SCH (11:08)
== END 2017-11-14 14:45 | disposition home or self-care (01) | DRG 204 ==
LOC: ED 20:10 → ERH 23:17 → 5RNO 11-13 01:48
PROVIDERS: ADMIT Internal Medicine; ATTEND Hospitalist
DX: K85.90 Acute pancreatitis without necrosis or infection, unspecified (principal); F14.90 Cocaine use, unspecified, uncomplicated; J45.909 Unspecified asthma, uncomplicated; K86.1 Other chronic pancreatitis; G89.29 Other chronic pain; F32.89 Other specified depressive episodes; F17.210 Nicotine dependence, cigarettes, uncomplicated; Z80.0 Family history of malignant neoplasm of digestive organs; Z83.3 Family history of diabetes mellitus; M06.9 Rheumatoid arthritis, unspecified; Q45.3 Other congenital malformations of pancreas and pancreatic duct; Z79.899 Other long term (current) drug therapy; Z87.01 Personal history of pneumonia (recurrent); Z90.49 Acquired absence of other specified parts of digestive tract; M19.90 Unspecified osteoarthritis, unspecified site; F12.90 Cannabis use, unspecified, uncomplicated; Z88.6 Allergy status to analgesic agent; R40.2412 Glasgow coma scale score 13-15, at arrival to emergency department; F41.9 Anxiety disorder, unspecified

== ENCOUNTER 2018-05-04 17:37 | Emergency (ER) | payer MEDICAID ==
[2018-05-04] MEDS ORDERED: Sodium Chloride 0.9% 1,000 ML IV STA (18:14)
[2018-05-04 18:18] VITALS: RESP 18; TEMP 98.9
--- NOTE | 2018-05-04 18:43 | ED PDOC ---
Arrival/HPI - General Chief Complaint: Abdominal Pain Time Seen by Provider: 05/04/18 18:14 Historian: Patient - History of Present Illness Narrative History of Present Illness (Text): 05/04/18 18:43 42 yo M w/ PMH of pancreatitis, depression and asthma, complaining of 1 day h/o intermittent crampy epigastric, LUQ pain with nausea, vomiting, and diarrhea. Reports +sick contacts with sibling with similar symptoms. Denies any fevers, chills, back pain, urinary symptoms, chest pain, shortness of breath, recent travel, antibiotic use. Reports prior abdominal surgery - cholecystectomy, stent placement in his pancreas to allow pancreatic enzymes to drain done 2015. PMD [facility] clinic Past Medical History - Infectious Disease Hx of Infectious Diseases: None - Tetanus Immunization Tetanus Immunization: Unknown - Cardiac Hx Congestive Heart Failure: No Hx Hypertension: No Hx Pacemaker: No - Pulmonary Hx Asthma: Yes Hx Chronic Obstructive Pulmonary Disease (COPD): No Hx Pneumonia: Yes - Neurological Hx Seizures: No - HEENT Hx HEENT Disorder: No - Renal Hx Renal Disorder: No - Endocrine/Metabolic Hx Hypothyroidism: No - Hematological/Oncological Hx Blood Disorders: No - Integumentary Hx Dermatological Disorder: No - Musculoskeletal/Rheumatological Hx Arthritis: Yes Hx Fractures: No Hx Rheumatoid Arthritis: Yes - Gastrointestinal Hx Gall Bladder Disease: Yes (removed GB 2004) Hx Pancreatitis: Yes - Genitourinary/Gynecological Hx Sexually Transmitted Diseases: No - Psychiatric Hx Anxiety: Yes Hx Depression: Yes Hx Substance Use: Yes - Surgical History Hx Cholecystectomy: Yes (2004) - Anesthesia Hx Anesthesia: Yes Hx Anesthesia Reactions: No Hx Malignant Hyperthermia: No - Suicidal Assessment Feels Threatened In Home Enviroment: No Family/Social History Family/Social History: Unknown Family HX Smoking Status: Light Smoker < 10 Cigarettes Daily Hx Alcohol Use: No (Hx of ETOH abuse) Hx Substance Use: Yes Substance used: Cocain, Marijuana Allergies/Home Meds Allergies/Adverse Reactions: Allergies ketorolac Allergy (Verified 05/04/18 18:17) URTICARIA Home Medications: Home Meds Medication Instructions Recorded Confirmed Albuterol HFA [Ventolin HFA 90 2 puff IH Q6 PRN 11/03/17 05/04/18 mcg/actuation (8 g)] Folic Acid/Mv,Iron,Min [Ra One 1 mg PO DAILY 11/03/17 05/04/18 Daily Maximum Tablet] Review of Systems - Review of Systems Constitutional: absent: Fatigue, Fevers Respiratory: absent: SOB, Cough Cardiovascular: absent: Chest Pain, Palpitations Gastrointestinal: Abdominal Pain, Diarrhea, Nausea, Vomiting Genitourinary Male: absent: Dysuria, Frequency Musculoskeletal: absent: Arthralgias, Back Pain Skin: absent: Rash, Pruritis, Skin Lesions Neurological: absent: Headache, Dizziness Physical Exam Vital Signs Temp Pulse Resp BP Pulse Ox 05/04/18 18:14 98.9 F 83 18 115/75 99 Temperature: Afebrile Blood Pressure: Normal Pulse: Regular Respiratory Rate: Normal Appearance: Positive for: Well-Appearing, Non-Toxic, Comfortable Pain Distress: Mild Mental Status: Positive for: Alert and Oriented X 3 - Systems Exam Head: Present: Atraumatic, Normocephalic Pupils: Present: PERRL Extroacular Muscles: Present: EOMI Conjunctiva: Present: Normal Mouth: Present: Dry Neck: Present: Normal Range of Motion Respiratory/Chest: Present: Clear to Auscultation, Good Air Exchange. No: Respiratory Distress, Accessory Muscle Use Cardiovascular: Present: Regular Rate and Rhythm, Normal S1, S2. No: Murmurs Abdomen: Present: Tenderness (+mild epigastric and LUQ tenderness), Scars (+lap jessica scars to the RUQ). No: Distention, Peritoneal Signs, Rebound, Guarding Back: Present: Normal Inspection Upper Extremity: Present: Normal Inspection. No: Cyanosis, Edema Lower Extremity: Present: Normal Inspection. No: Edema Neurological: Present: GCS=15, CN II-XII Intact, Speech Normal, Motor Func Grossly Intact, Normal Sensory Function Skin: Present: Warm, Dry, Normal Color. No: Rashes Psychiatric: Present: Alert, Oriented x 3, Normal Insight, Normal Concentration Medical Decision Making ED Course and Treatment: 05/04/18 18:40 Previous medical records reviewed : patient last seen at [facility] [place] ER for similar symptoms, his pancreatic enzymes were mildly elevated at that time, but was considered better than prior visits. Patient has had multiple ER visits for pancreatitis with lipse levels >2000. Plan : - IV - Labs - Urinalysis - Pepcid IV - Zofran IV 05/04/18 21:15 Labs reviewed, lipase 753. Rest of the labs and Urinalysis wnl. Patient still complaining of mild pain to the LUQ. On exam, patient is laying in bed comfortably in no acute distress, abdomen remains soft, no distention, with minimal tenderness to epigastric and LUQm without guarding or rebound. Patient given morphine 4 mg IV and zofran 4 mg IV. On re-evaluation, patient reports improvement of symptoms, denies any nausea or vomiting. On exam, patient remains AAOx3, in no acute distress. Abdomen soft, non-tender, repeat neuro exam shows no focal findings. Diagnostic results d/w the patient in great detail. Diagnosis of pancreatitis d/w the patient. Based on history, exam and diagnostic results, plan will be for outpatient follow up. Patient instructed to follow-up with pmd in 1-2 days without fail. Advised to take medication as prescribed. Return to the emergency room at any time for any new or worsening symptoms. Patient states he fully agrees with and understands discharge instructions. States that he agrees with the plan and disposition. Verbalized and repeated discharge instructions and plan. I have given the patient opportunity to ask any additional questions. - Medication Orders Current Medication Orders: Sodium Chloride (Sodium Chloride 0.9%) 1,000 mls @ 1,000 mls/hr IV .Q1H STA Stop: 05/04/18 19:13 Last Admin: 05/04/18 18:26 Dose: 1,000 mls/hr eMAR Start Stop Document 05/04/18 18:26 KATEY (Rec: 05/04/18 18:27 KATEY [id number]) Intravenous Solution Start Date 05/04/18 Start Time 18:26 End Date 05/04/18 End time 19:26 Total Infusion Time 60 Discontinued Medications Famotidine (Pepcid) 20 mg IVP STAT STA Stop: 05/04/18 18:15 Last Admin: 05/04/18 18:27 Dose: 20 mg IVP Administration Document 05/04/18 18:27 KATEY (Rec: 05/04/18 18:27 KATEY [id number]) Charges for Administration # of IVP Administrations 1 Ondansetron HCl (Zofran Inj) 4 mg IVP STAT STA Stop: 05/04/18 18:15 Last Admin: 05/04/18 18:27 Dose: 4 mg IVP Administration Document 05/04/18 18:27 KATEY (Rec: 05/04/18 18:27 KATEY [id number]) Charges for Administration # of IVP Administrations 1 - PA / MICROBIOLOGY LAB ANALYST / Resident Statement MD/DO has reviewed & agrees with the documentation as recorded. Disposition/Present on Arrival - Present on Arrival Any Indicators Present on Arrival: No History of DVT/PE: No History of Uncontrolled Diabetes: No Urinary Catheter: No History of Decub. Ulcer: No History Surgical Site Infection Following: None - Disposition Have Diagnosis and Disposition been Completed?: Yes Diagnosis: Abdominal pain, Pancreatitis Disposition: HOME/ ROUTINE Disposition Time: 21:30 Patient Plan: Discharge Condition: STABLE Discharge Instructions (ExitCare): Pancreatitis, Acute Abdomen (Belly Pain), Adult (DC) Additional Instructions: Thank you for letting us take care of you today. You were treated for abdominal pain, pancreatitis. The emergency medical care you received today was directed at your acute symptoms. If you were prescribed any medication, please fill it and take as directed. It may take several days for your symptoms to resolve. Return to the Emergency Department if your symptoms worsen, do not improve, or if you have any other problems. Please contact your doctor in 2 days for re-evaluation and follow up. Bring any paperwork you were given at discharge with you along with any medications you are taking to your follow up visit. Our treatment cannot replace ongoing medical care by a primary care provider (PCP) outside of the emergency department. Thank you for allowing the [facility] team to be part of your care today. Prescriptions: Dicyclomine [Bentyl] 20 mg PO QID PRN #20 tab PRN Reason: Other Ondansetron ODT [Zofran ODT] 4 mg PO DAILY PRN #20 odt PRN Reason: Nausea/Vomiting Referrals: Vito Culp MD [Primary Care Provider] - Follow up with primary Forms: [employer] (Hungarian), WORK NOTE
[2018-05-04 19:31] LABS: ALB/GLOB RATIO 1.1 (1.1-1.8); ALBUMIN 3.8 g/dL (3.0-4.8); ALT/SGPT 27 U/L (7-56); AST/SGOT 21 U/L (17-59); BLOOD UREA NITROGEN 10 mg/dL (7-21); CALCIUM 9.1 mg/dL (8.4-10.5); GFR NON-AFRICAN AMERICAN > 60; LIPASE 753 U/L (23-300)
[2018-05-04 19:39] LABS: PARTIAL THROMBOPLASTIN TIME 30.3 Seconds (25.1-36.5)
[2018-05-04 19:41] LABS: BASO # 0.02 K/mm3 (0.0-2.0); BASO % 0.2 % (0.0-3.0); EOS # 0.2 (0.0-0.7); EOS % 2.8 % (1.5-5.0); GRAN # 5.08 (1.4-6.5); GRAN % 58.9 % (50.0-68.0); HEMOGLOBIN 15.7 g/dL (14.0-18.0); INR 1.15; LYMPH # 2.8 (1.2-3.4); LYMPH % 32.6 % (22.0-35.0); MEAN CELL VOLUME 91.4 fl (80.0-105.0); MEAN CORPUSCULAR HEMOGLOBIN 30.5 pg (25.0-35.0); MEAN CORPUSCULAR HGB CONC 33.4 g/dl (31.0-37.0); MEAN PLATELET VOLUME 9.7 fl (7.0-11.0); MONO # 0.5 (0.1-0.6); MONO % 5.5 % (1.0-6.0); PROTHROMBIN TIME 13.1 SECONDS (9.4-12.5); RBC 5.14 10^6/uL (3.5-6.1); RED CELL DISTRIBUTION WIDTH 13.8 % (11.5-14.5); WHITE BLOOD COUNT 8.6 10^3/ul (4.5-11.0)
[2018-05-04 20:58] LABS: URINE BILIRUBIN NEGATIVE (NEGATIVE); URINE BLOOD NEGATIVE (NEGATIVE); URINE GLUCOSE (UA) NEGATIVE (NEGATIVE); URINE LEUKOCYTE ESTERASE NEGATIVE Leu/uL (NEGATIVE); URINE PROTEIN NEGATIVE mg/dL (<30 mg/dL); URINE UROBILINOGEN 0.2 E.U./dL (<1 E.U./dL)
[2018-05-04 21:04] LABS: URINE APPEARANCE CLEAR (CLEAR); URINE COLOR LIGHT YELLOW (YELLOW)
[2018-05-04 21:10] VITALS: O2SAT 100
[2018-05-04] MEDS ORDERED: Morphine 4 mg/ml ISec IVP STA (21:11)
[2018-05-04 21:50] VITALS: BP 115/56; PULSE 62
== END 2018-05-04 21:49 | disposition home or self-care (01) ==
LOC: ED 17:37
DX: K85.90 Acute pancreatitis without necrosis or infection, unspecified (principal); R10.9 Unspecified abdominal pain
CPT/HCPCS: 80053; 81003; 83690; 83735; 85025; 85610; 85730; 96361; 96374; 96375; 96376; 99283; J2270; J2405; J7030

== ENCOUNTER 2018-05-21 21:49 | Observation (INO) | payer MEDICAID ==
[2018-05-21 23:03] VITALS: BMI 29.9
[2018-05-21] MEDS ORDERED: Sodium Chloride 0.9% 1,000 ML IV STA (23:42)
[2018-05-21] MEDS ORDERED: Morphine 2 mg/ml ISec IVP STA (23:43)
--- NOTE | 2018-05-21 23:44 | ED PDOC ---
Arrival/HPI - General Time Seen by Provider: 05/21/18 22:18 Historian: Patient - History of Present Illness Narrative History of Present Illness (Text): 05/21/18 23:42 43 year old male, whose past medical history includes Cholecystectomy (2004), s/p pancreatic stent palcement and removal (10/2016), pancreatitis, asthma, anxiety, and depression, presents to the emergency department complaining of abdominal pain that began yesterday. Patient denies any alcohol use. Patient has a history of recurrent pancreatitis and anxiety. Patient reports talking Motrin with no relief. Patient denies any fever, chills, chest pain, shortness of breath, nausea, vomiting, diarrhea, urinary symptoms, back pain, neck pain, headache, dizziness, or any other complaints. PMD: [facility] Time/Duration: 24 hours Symptom Onset: Gradual Symptom Course: Unchanged Activities at Onset: Light Context: Home Past Medical History - Provider Review Nursing Documentation Reviewed: Yes - Infectious Disease Hx of Infectious Diseases: None - Tetanus Immunization Tetanus Immunization: Unknown - Cardiac Hx Congestive Heart Failure: No Hx Hypertension: No Hx Pacemaker: No - Pulmonary Hx Asthma: Yes Hx Chronic Obstructive Pulmonary Disease (COPD): No Hx Pneumonia: Yes - Neurological Hx Seizures: No - HEENT Hx HEENT Disorder: No - Renal Hx Renal Disorder: No - Endocrine/Metabolic Hx Hypothyroidism: No - Hematological/Oncological Hx Blood Disorders: No - Integumentary Hx Dermatological Disorder: No - Musculoskeletal/Rheumatological Hx Arthritis: Yes Hx Fractures: No Hx Rheumatoid Arthritis: Yes - Gastrointestinal Hx Gall Bladder Disease: Yes (removed GB 2004) Hx Pancreatitis: Yes - Genitourinary/Gynecological Hx Sexually Transmitted Diseases: No - Psychiatric Hx Anxiety: Yes Hx Depression: Yes Hx Substance Use: Yes - Surgical History Hx Cholecystectomy: Yes (2004) - Anesthesia Hx Anesthesia: Yes Hx Anesthesia Reactions: No Hx Malignant Hyperthermia: No - Suicidal Assessment Feels Threatened In Home Enviroment: No Family/Social History - Physician Review Nursing Documentation Reviewed: Yes Family/Social History: No Known Family HX Smoking Status: Light Smoker < 10 Cigarettes Daily Hx Alcohol Use: No Hx Substance Use: Yes Substance used: marijuana Allergies/Home Meds Allergies/Adverse Reactions: Allergies ketorolac Allergy (Verified 05/21/18 23:21) URTICARIA Home Medications: Home Meds Medication Instructions Recorded Confirmed RX: Albuterol HFA [Ventolin HFA 90 2 puff IH Q6 PRN 11/03/17 05/04/18 mcg/actuation (8 g)] RX: Folic Acid/Mv,Iron,Min [Ra One 1 mg PO DAILY 11/03/17 05/04/18 Daily Maximum Tablet] Review of Systems - Physician Review All systems were reviewed & negative as marked: Yes - Review of Systems Constitutional: absent: Fevers, Other (Chills) Respiratory: absent: SOB Cardiovascular: absent: Chest Pain Gastrointestinal: Abdominal Pain. absent: Diarrhea, Nausea, Vomiting Genitourinary Male: absent: Dysuria, Frequency, Hematuria Musculoskeletal: absent: Back Pain, Neck Pain Neurological: absent: Headache, Dizziness Physical Exam Vital Signs Reviewed: Yes Vital Signs Temp Pulse Resp BP Pulse Ox 05/21/18 23:02 98.6 F 61 18 139/86 100 Temperature: Afebrile Blood Pressure: Normal Pulse: Regular Respiratory Rate: Normal Appearance: Positive for: Well-Appearing, Non-Toxic, Comfortable Pain Distress: None Mental Status: Positive for: Alert and Oriented X 3 - Systems Exam Head: Present: Atraumatic, Normocephalic Pupils: Present: PERRL Extroacular Muscles: Present: EOMI Conjunctiva: Present: Normal Mouth: Present: Moist Mucous Membranes Neck: Present: Normal Range of Motion Respiratory/Chest: Present: Clear to Auscultation, Good Air Exchange. No: Respiratory Distress, Accessory Muscle Use Cardiovascular: Present: Regular Rate and Rhythm, Normal S1, S2. No: Murmurs Abdomen: Present: Tenderness (LUQ tenderness). No: Distention, Peritoneal Signs Back: Present: Normal Inspection Upper Extremity: Present: Normal Inspection. No: Cyanosis, Edema Lower Extremity: Present: Normal Inspection. No: Edema Neurological: Present: GCS=15, CN II-XII Intact, Speech Normal Skin: Present: Warm, Dry, Normal Color. No: Rashes Psychiatric: Present: Alert, Oriented x 3, Normal Insight, Normal Concentration Medical Decision Making ED Course and Treatment: 05/21/18 23:42 Impression: 43 year old male presents complaining of abdominal pain that began yesterday. Patient has a history of recurrent pancreatitis. Plan: -- Labs -- Morphine, Pepcid, IV Fluids -- Reassess and disposition Prior Visits: Notes and results from previous visits were reviewed. Patient was last seen in the emergency department on 05/04/18 presents complaining of intermittent crampy epigastric and LUQ pain associated with nausea, vomiting, and diarrhea. Patient was discharged. Progress Notes: 05/22/18 01:11 EST Case discussed with medical certification specialist and Dr. Annie Vila who is aware and agrees with the plan. Accepts patient into her service. - Lab Interpretations I have reviewed the lab results: Yes - Scribe Statement The provider has reviewed the documentation as recorded by the Laceyibjuan f Wynn Provider Scribe Attestation: All medical record entries made by the Scribe were at my direction and personally dictated by me. I have reviewed the chart and agree that the record accurately reflects my personal performance of the history, physical exam, medical decision making, and the department course for this patient. I have also personally directed, reviewed, and agree with the discharge instructions and disposition. Disposition/Present on Arrival - Present on Arrival Any Indicators Present on Arrival: No History of DVT/PE: No History of Uncontrolled Diabetes: No Urinary Catheter: No History of Decub. Ulcer: No History Surgical Site Infection Following: None - Disposition Have Diagnosis and Disposition been Completed?: Yes Diagnosis: Pancreatitis Disposition: HOSPITALIZED Disposition Time: 01:11 Patient Problems: Current Active Problems Problem Status Onset Pancreatitis Acute Condition: STABLE
[2018-05-22 00:33] LABS: HEMOGLOBIN 15.9 g/dL (14.0-18.0); MEAN CELL VOLUME 90.3 fl (80.0-105.0); MEAN CORPUSCULAR HEMOGLOBIN 30.8 pg (25.0-35.0); MEAN PLATELET VOLUME 9.2 fl (7.0-11.0); RBC 5.17 10^6/uL (3.5-6.1); RED CELL DISTRIBUTION WIDTH 13.8 % (11.5-14.5); WHITE BLOOD COUNT 10.2 10^3/uL (4.5-11.0)
[2018-05-22 00:39] LABS: ALB/GLOB RATIO 1.1 (1.1-1.8); ALBUMIN 3.8 g/dL (3.0-4.8); ALT/SGPT 32 U/L (7-56); AST/SGOT 23 U/L (17-59); BLOOD UREA NITROGEN 12 mg/dL (7-21); CALCIUM 9.2 mg/dL (8.4-10.5); GFR NON-AFRICAN AMERICAN > 60
[2018-05-22] MEDS ORDERED: Morphine 4 mg/ml ISec IVP STA (01:00)
[2018-05-22 01:37] LABS: LIPASE 3322 U/L (23-300)
--- NOTE | 2018-05-22 02:51 | CP.PCM.HP ---
History of Present Illness - History of Present Illness History of Present Illness: Ladarius Gr, PGY1 Hospital H&P This is a 42 year old male with PMH of multiple admissions of pancreatitis with pancreatic stent placed in 2016, pancreatic divisum, spinal stenosis, asthma and depression presenting to ED for one day history of abdominal pain. Pain started yesterday morning at 9am, occurred gradually while at rest, located in the epigastric region, intermittent, rated 10/10 at worst, radiating to the B/L flank regions, sharp and associated with nausea, nonbloody diarrhea and nonbloody vomiting x2. He states nothing makes the pain better or worse. His last bowel movement was yesterday evening. He admits pain is similar to previous episodes of pancreatitis. He has been seen multiple times in past for similar c omplaints, most recently two weeks ago. He has been previously instructed to follow up with [facility]. Currently he denies CP, SOB, fevers, chills, urinary complaints, numbness, tingling, swelling, constipation, melena, hematochezia, recent travel, sickness and trauma. 12 point ROS noted here, otherwise unremarkable. PMD: none at this time PMH: as above SH: smokes 2 cigss/day with 20 year smoking history, denies drinking, smokes marijuana Sx: gallbladder removed in 2004, pancreatic stent placement in 2014 FH: DM, HLD, colon and pancreatic cancer in dad's family All: toradol Meds: risperidone, pancreatic enzymes Pharm: [facility] in [place] Present on Admission - Present on Admission Any Indicators Present on Admission: No Past Patient History - Infectious Disease Hx of Infectious Diseases: None - Tetanus Immunizations Tetanus Immunization: Unknown - Past Medical History & Family History Past Medical History?: Yes - Past Social History Smoking Status: Light Smoker < 10 Cigarettes Daily - CARDIAC Hx Congestive Heart Failure: No Hx Hypertension: No Hx Pacemaker: No - PULMONARY Hx Asthma: Yes Hx Chronic Obstructive Pulmonary Disease (COPD): No Hx Pneumonia: Yes - NEUROLOGICAL Hx Seizures: No - HEENT Hx HEENT Problems: No - RENAL Hx Chronic Kidney Disease: No - ENDOCRINE/METABOLIC Hx Hypothyroidism: No - HEMATOLOGICAL/ONCOLOGICAL Hx Blood Disorders: No - INTEGUMENTARY Hx Dermatological Problems: No - MUSCULOSKELETAL/RHEUMATOLOGICAL Hx Arthritis: Yes Hx Fractures: No Hx Rheumatoid Arthritis: Yes - GASTROINTESTINAL Hx Gall Bladder Disease: Yes (removed GB 2004) Hx Pancreatitis: Yes - GENITOURINARY/GYNECOLOGICAL Hx Sexually Transmitted Disorders: No - PSYCHIATRIC Hx Anxiety: Yes Hx Depression: Yes Hx Substance Use: Yes - SURGICAL HISTORY Hx Cholecystectomy: Yes (2004) - ANESTHESIA Hx Anesthesia: Yes Hx Anesthesia Reactions: No Hx Malignant Hyperthermia: No Meds Allergies/Adverse Reactions: Allergies Allergy/AdvReac Type Severity Reaction Status Date / Time ketorolac Allergy URTICARIA Verified 05/21/18 23:21 Physical Exam - Constitutional Appears: No Acute Distress - Head Exam Head Exam: ATRAUMATIC, NORMAL INSPECTION - Eye Exam Eye Exam: EOMI Pupil Exam: PERRL - ENT Exam ENT Exam: Mucous Membranes Dry - Respiratory Exam Respiratory Exam: Clear to Auscultation Bilateral. absent: Respiratory Distress - Cardiovascular Exam Cardiovascular Exam: REGULAR RHYTHM, +S1, +S2 - GI/Abdominal Exam GI & Abdominal Exam: absent: Firm, Guarding Additional comments: bowel sounds heard in all four quadrants. Epigastric tenderness and LUQ tenderness appreciated - Extremities Exam Extremities exam: Positive for: normal inspection. Negative for: calf tenderness - Back Exam Back exam: NORMAL INSPECTION Additional comments: tenderness appreciated on left and right flank regions - Neurological Exam Neurological exam: Alert, Oriented x3 - Skin Skin Exam: Normal Color, Warm Results - Vital Signs Recent Vital Signs: Last Vital Signs Temp 98.6 F 05/21/18 23:02 Pulse 61 05/21/18 23:02 Resp 18 05/21/18 23:02 BP 139/86 05/21/18 23:02 Pulse Ox 100 05/21/18 23:02 - Labs Result Diagrams: 05/22/18 00:10 05/22/18 00:10 Labs: Laboratory Results - last 24 hr 05/22/18 05/22/18 00:10 00:10 WBC 10.2 RBC 5.17 Hgb 15.9 Hct 46.7 MCV 90.3 MCH 30.8 MCHC 34.0 RDW 13.8 Plt Count 237 MPV 9.2 Sodium 138 Potassium 4.0 Chloride 108 H Carbon Dioxide 22 Anion Gap 12 BUN 12 Creatinine 1.0 Est GFR ( Amer) > 60 Est GFR (Non-Af Amer) > 60 Random Glucose 79 Calcium 9.2 Total Bilirubin 0.4 AST 23 ALT 32 Alkaline Phosphatase 86 Total Protein 7.1 Albumin 3.8 Globulin 3.3 Albumin/Globulin Ratio 1.1 Lipase 3322 H Assessment & Plan - Assessment and Plan (Free Text) Assessment: This is a 42 year old male with PMH of multiple admissions of pancreatitis with pancreatic stent placed in 2016, pancreatic divisum, spinal stenosis, asthma and depression presenting to ED for one day history of abdominal pain. Plan: Acute on chronic pancreatitis: -elevated lipase of 3,322 with typical symptoms -BISAP score of 0 on admission, corresponding to <1% risk of mortality -NPO -LR at 125cc/hr -GI on consult, Dr. Rawls -morphine prn for pain. Hold if HR<60 or systolic BP <100 -continue home amylase/lipase/protease -zofran prn, EKG in AM Hx of asthma: -albuterol prn Hx of depression: -continue home risperidone PPX with heparin and protonix Patient seen and case discussed with attending, Dr. Kathy Vila
[2018-05-22] MEDS ORDERED: Albuterol 0.083% Inhal Sol (2.5 mg/3 mL) UD INH PRN (03:02)
[2018-05-22] MEDS ORDERED: Morphine 2 mg/ml ISec IVP PRN ×2 (03:02→04:30)
[2018-05-22 07:51] LABS: BASO # 0.01 K/mm3 (0.0-2.0); BASO % 0.1 % (0.0-3.0); EOS # 0.4 (0.0-0.7); EOS % 4.3 % (1.5-5.0); GRAN # 4.03 (1.4-6.5); HEMOGLOBIN 15.4 g/dL (14.0-18.0); LYMPH # 4.3 (1.2-3.4); LYMPH % 45.4 % (22.0-35.0); MEAN CELL VOLUME 91.4 fl (80.0-105.0); MEAN CORPUSCULAR HEMOGLOBIN 30.7 pg (25.0-35.0); MEAN CORPUSCULAR HGB CONC 33.6 g/dl (31.0-37.0); MEAN PLATELET VOLUME 9.5 fl (7.0-11.0); MONO # 0.7 (0.1-0.6); MONO % 7.2 % (1.0-6.0); RBC 5.02 10^6/uL (3.5-6.1); RED CELL DISTRIBUTION WIDTH 13.8 % (11.5-14.5); WHITE BLOOD COUNT 9.4 10^3/uL (4.5-11.0)
[2018-05-22 08:04] LABS: ALB/GLOB RATIO 1.1 (1.1-1.8); ALBUMIN 3.5 g/dL (3.0-4.8); ALT/SGPT 31 U/L (7-56); AST/SGOT 24 U/L (17-59); BLOOD UREA NITROGEN 9 mg/dL (7-21); CALCIUM 8.9 mg/dL (8.4-10.5); GFR NON-AFRICAN AMERICAN > 60
--- NOTE | 2018-05-22 09:16 | CARD ---
APPROVED REPORT Date of service: 05/22/2018 EKG Measurement Heart [id number] CT [id number] <Conclusion> Marked sinus bradycardia Early repolarization Abnormal ECG
[2018-05-22] MEDS: Amylase/Lipase/Protease 5,000 Units ECC PO SCH (11:48)
--- NOTE | 2018-05-22 12:00 | CT ---
Date of service: 05/22/2018 PROCEDURE: CT Abdomen and Pelvis without intravenous contrast HISTORY: pancreatitis COMPARISON: None. TECHNIQUE: Without contrast.. Contrast dose: Radiation dose: Total exam DLP = 627.19 mGy-cm. This CT exam was performed using one or more of the following dose reduction techniques: Automated exposure control, adjustment of the mA and/or kV according to patient size, and/or use of iterative reconstruction technique. FINDINGS: LOWER THORAX: Unremarkable. LIVER: Unremarkable. No gross lesion or ductal dilatation. GALLBLADDER AND BILE DUCTS: Gallbladder removed PANCREAS: Unremarkable. No gross lesion or ductal dilatation. SPLEEN: Unremarkable. ADRENALS: Unremarkable. No mass. KIDNEYS AND URETERS: Unremarkable. No hydronephrosis. No solid mass. VASCULATURE: Unremarkable. No aortic aneurysm. No aortic atherosclerotic calcification or mural plaque present. BOWEL: Unremarkable. No obstruction. No gross mural thickening. APPENDIX: Unremarkable. Normal appendix. PERITONEUM: Unremarkable. No free fluid. No free air. LYMPH NODES: Unremarkable. No enlarged lymph nodes. BLADDER: Unremarkable. REPRODUCTIVE: Unremarkable. BONES: No acute fracture. OTHER FINDINGS: None. IMPRESSION: No acute intra-abdominal findings. No evidence of pancreatitis
[2018-05-22] MEDS: Morphine 2 mg/ml ISec IVP PRN (12:54)
--- NOTE | 2018-05-22 12:55 | RAD ---
Date of service: 05/22/2018 PROCEDURE: CHEST RADIOGRAPH, 1 VIEW HISTORY: abdominal pain /pancreatitis COMPARISON: None available. FINDINGS: LUNGS: Clear. PLEURA: No pneumothorax or pleural fluid seen. CARDIOVASCULAR: Normal. OSSEOUS STRUCTURES: No significant abnormalities. VISUALIZED UPPER ABDOMEN: Normal. OTHER FINDINGS: None. IMPRESSION: No active disease.
--- NOTE | 2018-05-22 15:25 | CON ---
DATE OF CONSULTATION: 05/22/2018 HISTORY OF PRESENT ILLNESS: I saw the patient this morning. He is a 43-year-old white male apparently with a past medical history of pancreas divisum status post pancreatic stent placement, spinal stenosis and asthma, admitted with onset of acute abdominal pain, which started on and Wednesday, increasing in intensity, associated with refractory nausea and vomiting. The patient was diffuse and at the bedside. The patient rated the pain on admission at 10/10. He denies any rectal bleeding or hematemesis. He has had multiple admissions for pancreatitis, and according to his family history, there has been apparently a colon or pancreatic cancer that is in the patient's father's family. Questionable hereditary or genetic cancer syndrome associated with this. At the bedside this morning, the patient states the abdominal pain has decreased somewhat. He rated it this morning at roughly 8/10. Also, of interest, despite the fact that the patient drinks a substantial amount of fluids, he has decreased urinary output on a daily basis. This has apparently not been worked up in the past. PHYSICAL EXAMINATION: VITAL SIGNS: I reviewed this patient's vital signs. HEENT: Significant for dry mouth. LUNGS: Decreased breath sounds, basilar. HEART: Regular rhythm. ABDOMEN: Soft, tender in the epigastric area and left upper quadrant. Minimal discomfort paraumbilical and no pain in the right upper and right lower quadrant. Left upper quadrant discomfort on palpation rated at 8/10. He has very mild abdominal distension. LABORATORY DATA: Review of laboratory data indicated a white count of 10,000 with an H and H of 15 and 46. Electrolytes noncontributory. GFR also greater than 60. He has normal transaminases, alk phos and bilirubin. Note that his lipase is 3322. There is no lipid panel, which I ordered this morning. I asked him if there is a history of hyperlipidemia and he could not clarify that. There are no imaging studies noted. ASSESSMENT: A 43-year-old white male with a history of pancreas divisum with pancreatic duct stenosis, status post stent placement, admitted with recurrent abdominal pain. PLAN: Review of orders indicate the patient is on analgesics and he is started on IV fluids in the form of Lactated Ringers. Utilization of pancreatic enzymes during acute pancreatitis may be problematic, so we would consider discontinuing these until he is out of the acute part of his admission. Patient is on pantoprazole daily as well as Zofran. Morphine currently at every 6 hours. He is currently on n.p.o. diet. If pain permits, may consider intake of ice chips later on this morning. Todd Rawls DO, PhD JENN
--- NOTE | 2018-05-23 07:20 | PN ---
DATE: 05/23/2018 SUBJECTIVE: I saw Mr. Pedersen this morning. He is a 43-year-old white male with a past medical history of pancreas divisum, spinal stenosis, admitted with probable flare of pancreatitis, was started on and Wednesday. The patient has refractory symptoms, which prompted hospital admission. At the bedside this morning, the patient indicated the pain level is roughly 7 or 8/10, somewhat improved relative to day of admission. He has had no hematemesis or rectal bleeding. He is passing flatus at the current time point. Also eventuates the patient has not had a significant amount of urinary output. PHYSICAL EXAMINATION: VITAL SIGNS: I reviewed this patient's vital signs. HEENT: Significant for dry mouth. HEART: Regular rhythm. ABDOMEN: Soft. centrifuge separator tender in the epigastric areas as well as in the left upper quadrant. No tenderness elicited in the periumbilical, right upper and right lower quadrants. LABORATORY DATA: I reviewed the CBC from yesterday and it is noncontributory. Currently, blood work is not changed. OVERALL ASSESSMENT: A 43-year-old white male with history of pancreas divisum, admitted for the pancreatitis. The patient is doing well on the current regimen, which consists of IV fluids, analgesics, PPIs. I reviewed the radiology report. Looking at the images, it looks like there may be slight increase in size in the proximal pancreatic duct. There is no pseudocyst formation. There is no evidence of necrotizing pancreatitis as well. Note that it is difficult to see pancreas divisum on a standard CT. We will continue on current therapeutic regimen at the current time point. The patient was started on liquid diet. We will order a lipid panel today since it has not been done yet. Todd Rawls DO, PhD JENN
[2018-05-23 07:32] LABS: BASO # 0.02 K/mm3 (0.0-2.0); BASO % 0.3 % (0.0-3.0); EOS # 0.5 (0.0-0.7); EOS % 6.4 % (1.5-5.0); GRAN # 3.04 (1.4-6.5); GRAN % 42.4 % (50.0-68.0); HEMOGLOBIN 15.6 g/dL (14.0-18.0); LYMPH # 3.1 (1.2-3.4); LYMPH % 43.2 % (22.0-35.0); MEAN CELL VOLUME 91.4 fl (80.0-105.0); MEAN CORPUSCULAR HEMOGLOBIN 30.6 pg (25.0-35.0); MEAN CORPUSCULAR HGB CONC 33.5 g/dl (31.0-37.0); MEAN PLATELET VOLUME 9.5 fl (7.0-11.0); MONO # 0.6 (0.1-0.6); MONO % 7.7 % (1.0-6.0); RBC 5.1 10^6/uL (3.5-6.1); RED CELL DISTRIBUTION WIDTH 13.7 % (11.5-14.5); WHITE BLOOD COUNT 7.2 10^3/uL (4.5-11.0)
[2018-05-23 07:49] LABS: ALB/GLOB RATIO 1.1 (1.1-1.8); ALBUMIN 3.6 g/dL (3.0-4.8); ALT/SGPT 25 U/L (7-56); AST/SGOT 21 U/L (17-59); BLOOD UREA NITROGEN 9 mg/dL (7-21); CALCIUM 8.8 mg/dL (8.4-10.5); GFR NON-AFRICAN AMERICAN > 60
[2018-05-23 08:14] LABS: HDL CHOLESTEROL 24 mg/dL (29-60)
[2018-05-23 08:24] LABS: LDL CHOLESTEROL 108 mg/dL (0-129)
--- NOTE | 2018-05-23 09:11 | CP.PCM.PN ---
<Ambrocio Jimenez - Last Filed: 05/23/18 20:25> Subjective - Date & Time of Evaluation Date of Evaluation: 05/23/18 Time of Evaluation: 09:10 - Subjective Subjective: PGY-1 Medicine Progress Note for Dr. Mccarthy Patient seen and examined at bedside this AM, in no acute distress. No acute overnight events reported. Endorses some nausea, no vomiting/diarrhea/constipation. Mild epigastric abdominal pain. No other acute somatic complaints. Objective - Vital Signs/Intake and Output Vital Signs (last 24 hours): Temp Pulse Resp BP Pulse Ox 98 F 50 L 20 106/68 99 05/22/18 23:01 05/22/18 23:01 05/22/18 23:01 05/22/18 23:01 05/22/18 23:01 - Medications Medications: Current Medications Acetaminophen (Tylenol 325mg Tab) 650 mg PO Q6H PRN PRN Reason: Pain, moderate (4-7) Last Admin: 05/23/18 08:13 Dose: 650 mg Albuterol Sulfate (Albuterol 0.083% Inhal Erica (2.5 Mg/3 Ml) Ud) 2.5 mg INH Q2H PRN PRN Reason: Shortness of Breath Amylase (Pancrease 27903 U-5000 U-06402 U) 5,000 unit PO DAILY [facility] Last Admin: 05/22/18 11:48 Dose: 5,000 unit Heparin Sodium (Porcine) (Heparin) 5,000 units SC Q12 KELLY; Protocol Last Admin: 05/22/18 22:11 Dose: 5,000 units Morphine Sulfate (Morphine) 1 mg IVP Q6H PRN PRN Reason: Pain, severe (8-10) Last Admin: 05/22/18 12:54 Dose: 1 mg Ondansetron HCl (Zofran Inj) 4 mg IVP Q4H PRN PRN Reason: Nausea/Vomiting Last Admin: 05/23/18 08:14 Dose: 4 mg Pantoprazole Sodium (Protonix Inj) 40 mg IVP DAILY KELLY Last Admin: 05/22/18 10:25 Dose: 40 mg Risperidone (Risperdal Tab) 1 mg PO DAILY KELLY; Protocol Last Admin: 05/22/18 10:25 Dose: 1 mg - Labs Labs: 05/23/18 07:00 05/23/18 07:00 - Constitutional Appears: Non-toxic, No Acute Distress - Head Exam Head Exam: ATRAUMATIC, NORMAL INSPECTION, NORMOCEPHALIC - Eye Exam Eye Exam: EOMI, Normal appearance Pupil Exam: NORMAL ACCOMODATION - ENT Exam ENT Exam: Mucous Membranes Moist, Normal Exam - Neck Exam Neck Exam: Full ROM, Normal Inspection - Respiratory Exam Respiratory Exam: Clear to Ausculation Bilateral, NORMAL BREATHING PATTERN. absent: Accessory Muscle Use, Rales, Rhonchi, Wheezes, Respiratory Distress, Stridor - Cardiovascular Exam Cardiovascular Exam: REGULAR RHYTHM, +S1, +S2 - GI/Abdominal Exam GI & Abdominal Exam: Soft, Tenderness (mild TTP epigastric region), Normal Bowel Sounds. absent: Distended, Firm, Guarding, Rigid, Organomegaly, Rebound - Extremities Exam Extremities Exam: Full ROM, Normal Capillary Refill, Normal Inspection. absent: Calf Tenderness, Joint Swelling, Pedal Edema - Back Exam Back Exam: NORMAL INSPECTION - Neurological Exam Neurological Exam: Alert, Awake, CN II-XII Intact, Oriented x3 - Psychiatric Exam Psychiatric exam: Normal Affect, Normal Mood - Skin Skin Exam: Dry, Intact, Normal Color, Warm Assessment and Plan - Assessment and Plan (Free Text) Assessment: 42 year old male with PMH of multiple admissions of pancreatitis with pancreatic stent placed in 2016, pancreatic divisum, spinal stenosis, asthma and depression presenting to ED for one day history of abdominal pain. Plan: Acute on chronic pancreatitis - elevated lipase of 3,322 with typical symptoms - BISAP score of 0 on admission, corresponding to <1% risk of mortality - lipid panel wnl: Trig 100, Chol 148, LDL 108, HDL 24 - LR at 125cc/hr - morphine prn for pain. Hold if HR<60 or systolic BP <100 - Tylenol 650mg prn for pain if unable to take morphine - continue home amylase/lipase/protease - continue zofran prn - on full liquid diet, advance as tolerated - GI recs (Dr. Rawls) appreciated -continue on current therapeutic regimen, patient started on liquid diet Hx of asthma - albuterol prn Hx of depression - continue home risperidone PPx, Diet, Disposition - DVT: heparin 5000 units SC q12 - GI: protonix 40 mg IVP daily - Diet: advancing to full liquid diet - Dispo: Responding well to current regimen. Will advance diet as tolerated, continue to monitor. Possible d/c tomorrow if pt tolerates diet Case discussed with Dr. Fabio Jimenez DO, PGY-1 <Nelly Mccarthy - Last Filed: 05/24/18 07:16> Objective - Vital Signs/Intake and Output Vital Signs (last 24 hours): Temp Pulse Resp BP Pulse Ox 98 F 57 L 20 114/78 97 05/23/18 22:44 05/23/18 22:44 05/23/18 22:44 05/23/18 22:44 05/23/18 22:44 Intake and Output: 05/24/18 05/24/18 06:59 18:59 Intake Total 240 Balance 240 - Medications Medications: Current Medications Acetaminophen (Tylenol 325mg Tab) 650 mg PO Q6H PRN PRN Reason: Pain, moderate (4-7) Last Admin: 05/24/18 04:40 Dose: 650 mg Albuterol Sulfate (Albuterol 0.083% Inhal Erica (2.5 Mg/3 Ml) Ud) 2.5 mg INH Q2H PRN PRN Reason: Shortness of Breath Amylase (Pancrease 80555 U-5000 U-81605 U) 5,000 unit PO DAILY [facility] Last Admin: 05/23/18 10:44 Dose: 5,000 unit Heparin Sodium (Porcine) (Heparin) 5,000 units SC Q12 KELLY; Protocol Last Admin: 05/23/18 21:56 Dose: 5,000 units Morphine Sulfate (Morphine) 1 mg IVP Q6H PRN PRN Reason: Pain, severe (8-10) Last Admin: 05/24/18 06:37 Dose: 1 mg Ondansetron HCl (Zofran Inj) 4 mg IVP Q4H PRN PRN Reason: Nausea/Vomiting Last Admin: 05/23/18 08:14 Dose: 4 mg Pantoprazole Sodium (Protonix Inj) 40 mg IVP DAILY KELLY Last Admin: 05/23/18 10:45 Dose: 40 mg Risperidone (Risperdal Tab) 1 mg PO DAILY KELLY; Protocol Last Admin: 05/23/18 10:45 Dose: 1 mg - Labs Labs: 05/23/18 07:00 05/23/18 07:00 Attending/Attestation - Attestation I have personally seen and examined this patient.: Yes I have fully participated in the care of the patient.: Yes I have reviewed all pertinent clinical information, including history, physical exam and plan: Yes Notes (Text): 05/23/18 42 year old male with past medical history of recurrent pancreatitis s/p pancreatic stent, pancreatic divisum, spinal stenosis and asthma who presented with complaint of abdominal pain secondary to acute on chronic pancreatitis. GI is following. He is on morphine prn for pain. Continue with liquid diet; will advance as tolerated. Utox was positive for opiates, cocaine and marijuana. Patient was counselled on risks of continued substance abuse. Possible d/c planning tomorrow if patient is tolerating diet. Nelly Mccarthy MD Hospitalist.
[2018-05-23] MEDS: Amylase/Lipase/Protease 5,000 Units ECC PO SCH (10:44)
[2018-05-23] MEDS: Morphine 2 mg/ml ISec IVP PRN ×2 (10:44→18:24)
[2018-05-23 17:16] LABS: URINE APPEARANCE CLEAR (CLEAR); URINE BILIRUBIN NEGATIVE (NEGATIVE); URINE BLOOD NEGATIVE (NEGATIVE); URINE COLOR YELLOW (YELLOW); URINE GLUCOSE (UA) NEGATIVE (NEGATIVE); URINE LEUKOCYTE ESTERASE NEGATIVE Leu/uL (NEGATIVE); URINE PROTEIN NEGATIVE mg/dL (<30 mg/dL)
[2018-05-23 17:36] LABS: BARBITURATES, UR NEGATIVE (NEGATIVE); BENZODIAZEPINES, UR NEGATIVE (NEGATIVE); OPIATES, UR POSITIVE (NEGATIVE); PHENCYCLIDINE, UR NEGATIVE (NEGATIVE)
[2018-05-24] MEDS: Morphine 2 mg/ml ISec IVP PRN ×3 (00:28→12:25)
[2018-05-24 07:28] LABS: BASO # 0.02 K/mm3 (0.0-2.0); BASO % 0.3 % (0.0-3.0); EOS # 0.4 (0.0-0.7); EOS % 5.3 % (1.5-5.0); GRAN # 3.78 (1.4-6.5); GRAN % 49.7 % (50.0-68.0); HEMOGLOBIN 16.5 g/dL (14.0-18.0); LYMPH # 2.8 (1.2-3.4); LYMPH % 36.3 % (22.0-35.0); MEAN CORPUSCULAR HEMOGLOBIN 30.4 pg (25.0-35.0); MEAN CORPUSCULAR HGB CONC 33.8 g/dl (31.0-37.0); MEAN PLATELET VOLUME 9.1 fl (7.0-11.0); MONO # 0.6 (0.1-0.6); MONO % 8.4 % (1.0-6.0); RBC 5.42 10^6/uL (3.5-6.1); RED CELL DISTRIBUTION WIDTH 13.3 % (11.5-14.5); WHITE BLOOD COUNT 7.6 10^3/uL (4.5-11.0)
[2018-05-24 07:44] LABS: ALB/GLOB RATIO 1.1 (1.1-1.8); ALBUMIN 3.7 g/dL (3.0-4.8); ALT/SGPT 30 U/L (7-56); AST/SGOT 26 U/L (17-59); BLOOD UREA NITROGEN 9 mg/dL (7-21); CALCIUM 8.8 mg/dL (8.4-10.5); GFR NON-AFRICAN AMERICAN > 60
[2018-05-24 08:45] VITALS: PULSE 53
--- NOTE | 2018-05-24 09:40 | PN ---
DATE: 05/24/2018 SUBJECTIVE: I saw Mr. Pedersen this morning. He is a 43-year-old white male admitted with past medical history of pancreas divisum and probable flare of pancreatitis. At the bedside this morning, the patient reveals still residual abdominal pain, maybe a 7/10 relative to day of admission. The patient denies hematemesis or rectal bleeding. PHYSICAL EXAMINATION VITAL SIGNS: I reviewed this patient's vital signs. HEENT: Noncontributory. LUNGS: Decreased breath sounds, basilar. HEART: Regular rhythm. ABDOMEN: Soft. No tenderness anywhere except for in the left upper quadrant and mildly to the left periumbilical. The abdomen is not distended. LABORATORY DATA: Indicates stable H and H. Transaminases are within normal limits as well as his bilirubin and alkaline phosphatase. His CT scan performed on the was noncontributory. ASSESSMENT: This is a 43-year-old white male with history of pancreas divisum and recurrent pancreatitis admitted with flare of the latter. Patient is doing well on current therapeutic regimen, which consists of analgesics, IV fluids, PPI, antiemetics. He is currently on a liquid diet. Todd Rawls DO, PhD MTDAlexandrea
[2018-05-24] MEDS: Amylase/Lipase/Protease 5,000 Units ECC PO SCH (11:14)
[2018-05-24 15:22] VITALS: BP 130/87; RESP 18; TEMP 98; O2SAT 97
--- NOTE | 2018-05-24 16:42 | CP.PCM.DIS ---
<Ambrocio Jimenez - Last Filed: 05/24/18 16:39> Provider - Provider Date of Admission: 05/22/18 01:09 EST Attending physician: Nelly Mccarthy MD Time Spent in preparation of Discharge (in minutes): 40 Hospital Course - Lab Results Lab Results: Most Recent Lab Values WBC 7.6 10^3/uL (4.5-11.0) 05/24/18 07:00 RBC 5.42 10^6/uL (3.5-6.1) 05/24/18 07:00 Hgb 16.5 g/dL (14.0-18.0) 05/24/18 07:00 Hct 48.8 % (42.0-52.0) 05/24/18 07:00 MCV 90.0 fl (80.0-105.0) 05/24/18 07:00 MCH 30.4 pg (25.0-35.0) 05/24/18 07:00 MCHC 33.8 g/dl (31.0-37.0) 05/24/18 07:00 RDW 13.3 % (11.5-14.5) 05/24/18 07:00 Plt Count 246 10^3/uL (120.0-450.0) 05/24/18 07:00 MPV 9.1 fl (7.0-11.0) 05/24/18 07:00 Gran % 49.7 % (50.0-68.0) L 05/24/18 07:00 Lymph % (Auto) 36.3 % (22.0-35.0) H 05/24/18 07:00 [place] % (Auto) 8.4 % (1.0-6.0) H 05/24/18 07:00 Eos % (Auto) 5.3 % (1.5-5.0) H 05/24/18 07:00 Baso % (Auto) 0.3 % (0.0-3.0) 05/24/18 07:00 Gran # 3.78 (1.4-6.5) 05/24/18 07:00 Lymph # (Auto) 2.8 (1.2-3.4) 05/24/18 07:00 [place] # (Auto) 0.6 (0.1-0.6) 05/24/18 07:00 Eos # (Auto) 0.4 (0.0-0.7) 05/24/18 07:00 Baso # (Auto) 0.02 K/mm3 (0.0-2.0) 05/24/18 07:00 Sodium 140 mmol/L (132-148) 05/24/18 07:00 Potassium 3.8 mmol/L (3.6-5.0) 05/24/18 07:00 Chloride 106 mmol/L (98-107) 05/24/18 07:00 Carbon Dioxide 24 mmol/L (21-33) 05/24/18 07:00 Anion Gap 14 (10-20) 05/24/18 07:00 BUN 9 mg/dL (7-21) 05/24/18 07:00 Creatinine 1.0 mg/dl (0.8-1.5) 05/24/18 07:00 Est GFR ( Amer) > 60 05/24/18 07:00 Est GFR (Non-Af Amer) > 60 05/24/18 07:00 Random Glucose 78 mg/dL (70-110) 05/24/18 07:00 Calcium 8.8 mg/dL (8.4-10.5) 05/24/18 07:00 Phosphorus 3.3 mg/dL (2.5-4.5) 05/22/18 07:00 Magnesium 1.9 mg/dL (1.7-2.2) 05/22/18 07:00 Total Bilirubin 1.0 mg/dL (0.2-1.3) 05/24/18 07:00 AST 26 U/L (17-59) 05/24/18 07:00 ALT 30 U/L (7-56) 05/24/18 07:00 Alkaline Phosphatase 95 U/L (38-126) 05/24/18 07:00 Total Protein 7.0 g/dL (5.8-8.3) 05/24/18 07:00 Albumin 3.7 g/dL (3.0-4.8) 05/24/18 07:00 Globulin 3.3 gm/dL 05/24/18 07:00 Albumin/Globulin Ratio 1.1 (1.1-1.8) 05/24/18 07:00 Triglycerides 101 mg/dL (35-160) 05/23/18 05:09 Cholesterol 148 mg/dL (130-200) 05/23/18 05:09 LDL Cholesterol Direct 108 mg/dL (0-129) 05/23/18 05:09 HDL Cholesterol 24 mg/dL (29-60) L 05/23/18 05:09 Lipase 3322 U/L (23-300) H 05/22/18 00:10 Urine Color Yellow (YELLOW) 05/23/18 17:00 Urine Appearance Clear (CLEAR) 05/23/18 17:00 Urine pH 6.0 (4.7-8.0) 05/23/18 17:00 Ur Specific [place] <= 1.005 (1.005-1.035) 05/23/18 17:00 Urine Protein Negative mg/dL (<30 mg/dL) 05/23/18 17:00 Urine Glucose (UA) Negative mg/dL (NEGATIVE) 05/23/18 17:00 Urine Ketones Trace mg/dL (NEGATIVE) H 05/23/18 17:00 Urine Blood Negative (NEGATIVE) 05/23/18 17:00 Urine Nitrate Negative (NEGATIVE) 05/23/18 17:00 Urine Bilirubin Negative (NEGATIVE) 05/23/18 17:00 Urine Urobilinogen 1.0 E.U./dL (<1 E.U./dL) H 05/23/18 17:00 Ur Leukocyte Esterase Negative Olivia/uL (NEGATIVE) 05/23/18 17:00 Urine Opiates Screen Positive (NEGATIVE) H 05/23/18 17:00 Urine Methadone Screen Negative (NEGATIVE) 05/23/18 17:00 Ur Barbiturates Screen Negative (NEGATIVE) 05/23/18 17:00 Ur Phencyclidine Scrn Negative (NEGATIVE) 05/23/18 17:00 Ur Amphetamines Screen Negative (NEGATIVE) 05/23/18 17:00 U Benzodiazepines Scrn Negative (NEGATIVE) 05/23/18 17:00 U Oth Cocaine Metabols Positive (NEGATIVE) H 05/23/18 17:00 U Cannabinoids Screen Positive (NEGATIVE) H 05/23/18 17:00 - Hospital Course Hospital Course: HPI: Patient is a 42 year old male with past medical history of multiple admissions of pancreatitis with pancreatic stent placed in 2016, pancreatic divisum, spinal stenosis, asthma and depression who presented to ED on 05/22/18 for one day history of abdominal pain. Pain started the day prior around 9am, occurred gradually while at rest, located in the epigastric region, intermittent, rated 10/10 at worst, radiating to the bilateral flank regions, sharp and associated with nausea, nonbloody diarrhea and nonbloody vomiting x2. He stated nothing made the pain better or worse. His last bowel movement was the night before. He stated pain was similar to previous episodes of pancreatitis. He had been seen multiple times in past for similar complaints, most recently two weeks prior to admission. He had been previously instructed to follow up with [facility]. On admission, lipase was 3322. Patient was afebrile, no leukocytosis, lipid panel was within normal limits. Urine toxicology was positive for opiates, cocaine, and cannabinoids. CT abdomen and pelvis showed no acute intra-abdominal findings. Patient was evaluated by GI who reviewed the CT images, noting slight increase in size of the proximal pancreatic duct. He was started on lactated ringers, morphine and tylenol prn for pain, pancreatic enzyme replacement, zofran prn. He was also started on full liquid diet which was advanced as tolerated. Patient was able to tolerate a full diet without nausea or vomiting and his pain improved on tylenol. He was counselled on risks of continued substance abuse. Patient is medically stable for discharge to home, as per Dr Mccarthy. He is instructed to take all home medications as prescribed. Please follow up with [facility] for continued care and management within 1 week of discharge. Contact information has been provided: [facility] [address] [place] [address] If symptoms worsen or persist, please return to the ED The following is a summary of hospital course. For full detail, please refer to EMR. - Date & Time of H&P Date of H&P: 05/24/18 Time of H&P: 16:39 Discharge Exam - Head Exam Head Exam: ATRAUMATIC, NORMAL INSPECTION, NORMOCEPHALIC - Eye Exam Eye Exam: EOMI, Normal appearance Pupil Exam: NORMAL ACCOMODATION - ENT Exam ENT Exam: Mucous Membranes Moist, Normal Exam - Neck Exam Neck exam: Full Rom, Normal Inspection - Respiratory Exam Respiratory Exam: Clear to PA & Lateral, NORMAL BREATHING PATTERN, UNREMARKABLE. absent: Accessory Muscle Use, Rales, Rhonchi, Wheezes, Respiratory Distress, Stridor - Cardiovascular Exam Cardiovascular Exam: REGULAR RHYTHM, +S1, +S2 - GI/Abdominal Exam GI & Abdominal Exam: Normal Bowel Sounds, Soft, Unremarkable. absent: Distended, Firm, Guarding, Rebound, Rigid, Tenderness - Extremities Exam Extremities exam: normal capillary refill, normal inspection, pedal pulses present - Back Exam Back exam: NORMAL INSPECTION - Neurological Exam Neurological exam: Alert, CN II-XII Intact, Oriented x3 - Psychiatric Exam Psychiatric exam: Normal Affect, Normal Mood - Skin Skin Exam: Dry, Intact, Normal Color, Warm Discharge Plan - Follow Up Plan Condition: STABLE Disposition: HOME/ ROUTINE Instructions: Pancreatitis (DC) Additional Instructions: Patient is medically stable for discharge to home, as per Dr Mccarthy. He is instructed to take all home medications as prescribed. Please follow up with [facility] for continued care and management within 1 week of discharge. Contact information has been provided: [facility] [address] [place] [address] If symptoms worsen or persist, please return to the ED Referrals: Clinic,Med Surg [Non-Staff] - <Nelly Mccarthy - Last Filed: 05/24/18 17:58> Provider - Provider Date of Admission: 05/22/18 01:09 EST Attending physician: Nelly Mccarthy MD Hospital Course - Lab Results Lab Results: Most Recent Lab Values WBC 7.6 10^3/uL (4.5-11.0) 05/24/18 07:00 RBC 5.42 10^6/uL (3.5-6.1) 05/24/18 07:00 Hgb 16.5 g/dL (14.0-18.0) 05/24/18 07:00 Hct 48.8 % (42.0-52.0) 05/24/18 07:00 MCV 90.0 fl (80.0-105.0) 05/24/18 07:00 MCH 30.4 pg (25.0-35.0) 05/24/18 07:00 MCHC 33.8 g/dl (31.0-37.0) 05/24/18 07:00 RDW 13.3 % (11.5-14.5) 05/24/18 07:00 Plt Count 246 10^3/uL (120.0-450.0) 05/24/18 07:00 MPV 9.1 fl (7.0-11.0) 05/24/18 07:00 Gran % 49.7 % (50.0-68.0) L 05/24/18 07:00 Lymph % (Auto) 36.3 % (22.0-35.0) H 05/24/18 07:00 [place] % (Auto) 8.4 % (1.0-6.0) H 05/24/18 07:00 Eos % (Auto) 5.3 % (1.5-5.0) H 05/24/18 07:00 Baso % (Auto) 0.3 % (0.0-3.0) 05/24/18 07:00 Gran # 3.78 (1.4-6.5) 05/24/18 07:00 Lymph # (Auto) 2.8 (1.2-3.4) 05/24/18 07:00 [place] # (Auto) 0.6 (0.1-0.6) 05/24/18 07:00 Eos # (Auto) 0.4 (0.0-0.7) 05/24/18 07:00 Baso # (Auto) 0.02 K/mm3 (0.0-2.0) 05/24/18 07:00 Sodium 140 mmol/L (132-148) 05/24/18 07:00 Potassium 3.8 mmol/L (3.6-5.0) 05/24/18 07:00 Chloride 106 mmol/L (98-107) 05/24/18 07:00 Carbon Dioxide 24 mmol/L (21-33) 05/24/18 07:00 Anion Gap 14 (10-20) 05/24/18 07:00 BUN 9 mg/dL (7-21) 05/24/18 07:00 Creatinine 1.0 mg/dl (0.8-1.5) 05/24/18 07:00 Est GFR ( Amer) > 60 05/24/18 07:00 Est GFR (Non-Af Amer) > 60 05/24/18 07:00 Random Glucose 78 mg/dL (70-110) 05/24/18 07:00 Calcium 8.8 mg/dL (8.4-10.5) 05/24/18 07:00 Phosphorus 3.3 mg/dL (2.5-4.5) 05/22/18 07:00 Magnesium 1.9 mg/dL (1.7-2.2) 05/22/18 07:00 Total Bilirubin 1.0 mg/dL (0.2-1.3) 05/24/18 07:00 AST 26 U/L (17-59) 05/24/18 07:00 ALT 30 U/L (7-56) 05/24/18 07:00 Alkaline Phosphatase 95 U/L (38-126) 05/24/18 07:00 Total Protein 7.0 g/dL (5.8-8.3) 05/24/18 07:00 Albumin 3.7 g/dL (3.0-4.8) 05/24/18 07:00 Globulin 3.3 gm/dL 05/24/18 07:00 Albumin/Globulin Ratio 1.1 (1.1-1.8) 05/24/18 07:00 Triglycerides 101 mg/dL (35-160) 05/23/18 05:09 Cholesterol 148 mg/dL (130-200) 05/23/18 05:09 LDL Cholesterol Direct 108 mg/dL (0-129) 05/23/18 05:09 HDL Cholesterol 24 mg/dL (29-60) L 05/23/18 05:09 Lipase 3322 U/L (23-300) H 05/22/18 00:10 Urine Color Yellow (YELLOW) 05/23/18 17:00 Urine Appearance Clear (CLEAR) 05/23/18 17:00 Urine pH 6.0 (4.7-8.0) 05/23/18 17:00 Ur Specific [place] <= 1.005 (1.005-1.035) 05/23/18 17:00 Urine Protein Negative mg/dL (<30 mg/dL) 05/23/18 17:00 Urine Glucose (UA) Negative mg/dL (NEGATIVE) 05/23/18 17:00 Urine Ketones Trace mg/dL (NEGATIVE) H 05/23/18 17:00 Urine Blood Negative (NEGATIVE) 05/23/18 17:00 Urine Nitrate Negative (NEGATIVE) 05/23/18 17:00 Urine Bilirubin Negative (NEGATIVE) 05/23/18 17:00 Urine Urobilinogen 1.0 E.U./dL (<1 E.U./dL) H 05/23/18 17:00 Ur Leukocyte Esterase Negative Olivia/uL (NEGATIVE) 05/23/18 17:00 Urine Opiates Screen Positive (NEGATIVE) H 05/23/18 17:00 Urine Methadone Screen Negative (NEGATIVE) 05/23/18 17:00 Ur Barbiturates Screen Negative (NEGATIVE) 05/23/18 17:00 Ur Phencyclidine Scrn Negative (NEGATIVE) 05/23/18 17:00 Ur Amphetamines Screen Negative (NEGATIVE) 05/23/18 17:00 U Benzodiazepines Scrn Negative (NEGATIVE) 05/23/18 17:00 U Oth Cocaine Metabols Positive (NEGATIVE) H 05/23/18 17:00 U Cannabinoids Screen Positive (NEGATIVE) H 05/23/18 17:00 Attending/Attestation - Attestation I have personally seen and examined this patient.: Yes I have fully participated in the care of the patient.: Yes I have reviewed all pertinent clinical information, including history, physical exam and plan: Yes Notes (Text): 05/24/18 17:54 42 year old male with past medical history of recurrent pancreatitis s/p pancreatic stent, pancreatic divisum, spinal stenosis and asthma who presented with complaint of abdominal pain secondary to acute on chronic pancreatitis. He was started on iv fluids and analgesics. His symptoms slowly improved and his diet was advanced which he tolerated. GI was following. Utox was positive for opiates, cocaine and marijuana. Patient was counselled on risks of continued substance abuse. Patient is discharged home to follow up at [facility]. Follow up with GI. Counselled on risks of continued substance abuse. Nelly Mccarthy MD Hospitalist.
--- NOTE | 2018-05-27 00:10 | PQF ---
PROVIDER RESPONSE TEXT: Mild intermittent REVIEWER QUERY TEXT: Asthma Specificity and Type Asthma is documented in the Medical Record. Please specify the type and severity of asthma and indic ate if this is associated with exacerbation or status asthmaticus. Such as: -- Mild intermittent -- Mild persistent -- Moderate persistent -- Severe persistent -- Exercise induced bronchospasm -- Cough variant asthma -- Other, please specify The patient's Clinical Indicators include: Please see below. Thank you. Query created by: Kalani Booth on 05/26/2018 6:36 PM Electronically signed by: Nelly Mccarthy MD 05/27/2018 12:07 AM
== END 2018-05-24 17:44 | disposition home or self-care (01) ==
LOC: ED 21:49 → ERH 05-22 01:09 → 5RSO 05-22 03:32
PROVIDERS: ADMIT Internal Medicine; ATTEND Internal Medicine
DX: K85.90 Acute pancreatitis without necrosis or infection, unspecified (principal); K86.1 Other chronic pancreatitis; J45.20 Mild intermittent asthma, uncomplicated; F41.9 Anxiety disorder, unspecified; M06.9 Rheumatoid arthritis, unspecified; M48.00 Spinal stenosis, site unspecified; F32.89 Other specified depressive episodes; Z83.3 Family history of diabetes mellitus; Z80.0 Family history of malignant neoplasm of digestive organs; Z87.01 Personal history of pneumonia (recurrent); F17.210 Nicotine dependence, cigarettes, uncomplicated; Q45.3 Other congenital malformations of pancreas and pancreatic duct; Z90.49 Acquired absence of other specified parts of digestive tract
CPT/HCPCS: 36415; 71045; 74176; 80053; 80061; 80324; 80345; 80346; 80349; 80353; 80358; 80361; 81003; 83690; 83735; 83992; 84100; 85025; 85027; 93005; 96361; 96372; 96374; 96375; 96376; 99285; C9113; G0378; J1644; J2270; J2405; J7030; J7120

== ENCOUNTER 2018-09-14 23:52 | Inpatient (IN) | payer MEDICAID ==
[2018-09-15] VITALS: BMI 32.4
[2018-09-15] MEDS ORDERED: Sodium Chloride 0.9% 1,000 ML IV STA (00:13)
[2018-09-15] MEDS ORDERED: Morphine 2 mg/ml ISec IVP STA (00:13)
--- NOTE | 2018-09-15 00:27 | ED PDOC ---
Arrival/HPI - General Chief Complaint: Abdominal Pain Time Seen by Provider: 09/15/18 00:13 Historian: Patient - History of Present Illness Narrative History of Present Illness (Text): 09/15/18 00:16 Cody Pedersen is a 43 year old male, whose past medical history includes pancreatits s/p pancreatic stent placement, cholecystectomy, spinal stenosis, asthma, and depression, who presents to the Emergency department complaining of abdominal pain. Patient states he has been experiencing LUQ pain with associated nausea and vomiting this evening. Patient denies any fever, chills, chest pain, shortness of breath, nausea, vomiting, diarrhea, urinary symptoms, back pain, neck pain, headache, dizziness, or any other complaints. Symptom Onset: Gradual Symptom Course: Unchanged Activities at Onset: Light Context: Home Past Medical History - Provider Review Nursing Documentation Reviewed: Yes - Infectious Disease Hx of Infectious Diseases: None - Tetanus Immunization Tetanus Immunization: Unknown - Cardiac Hx Congestive Heart Failure: No Hx Hypertension: No Hx Pacemaker: No - Pulmonary Hx Asthma: Yes Hx Chronic Obstructive Pulmonary Disease (COPD): No Hx Pneumonia: Yes - Neurological Hx Seizures: No - HEENT Hx HEENT Disorder: No - Renal Hx Renal Disorder: No - Endocrine/Metabolic Hx Hypothyroidism: No - Hematological/Oncological Hx Blood Disorders: No - Integumentary Hx Dermatological Disorder: No - Musculoskeletal/Rheumatological Hx Arthritis: Yes Hx Fractures: No Hx Rheumatoid Arthritis: Yes - Gastrointestinal Hx Gall Bladder Disease: Yes (removed GB 2004) Hx Pancreatitis: Yes - Genitourinary/Gynecological Hx Sexually Transmitted Diseases: No - Psychiatric Hx Anxiety: Yes Hx Depression: Yes Hx Substance Use: Yes - Surgical History Hx Cholecystectomy: Yes (2004) - Anesthesia Hx Anesthesia: Yes Hx Anesthesia Reactions: No Hx Malignant Hyperthermia: No - Suicidal Assessment Feels Threatened In Home Enviroment: No Family/Social History - Physician Review Nursing Documentation Reviewed: Yes Family/Social History: Unknown Family HX Smoking Status: Light Smoker < 10 Cigarettes Daily Hx Alcohol Use: No Hx Substance Use: Yes Substance used: marijuana Allergies/Home Meds Allergies/Adverse Reactions: Allergies ketorolac Allergy (Verified 05/21/18 23:21) URTICARIA Home Medications: Home Meds Medication Instructions Recorded Confirmed Sertraline [Zoloft] 75 mg PO BID 09/15/18 09/15/18 risperiDONE [RisperDAL Tab] 1.5 mg PO BID 09/15/18 09/15/18 Review of Systems - Physician Review All systems were reviewed & negative as marked: Yes - Review of Systems Constitutional: Normal. absent: Fevers Eyes: Normal ENT: Normal Respiratory: Normal. absent: SOB, Cough Cardiovascular: Normal. absent: Chest Pain Gastrointestinal: Abdominal Pain, Nausea, Vomiting. absent: Diarrhea Genitourinary Male: Normal. absent: Dysuria, Frequency, Hematuria, Urinary Output Changes Musculoskeletal: Normal. absent: Back Pain, Neck Pain Skin: Normal. absent: Rash Neurological: Normal. absent: Headache, Dizziness Endocrine: Normal Hemo/Lymphatic: Normal Psychiatric: Normal Physical Exam Vital Signs Reviewed: Yes Vital Signs Temp Pulse Resp BP Pulse Ox 09/15/18 00:02 98.5 F 92 H 18 126/85 97 Temperature: Afebrile Blood Pressure: Normal Pulse: Regular Respiratory Rate: Normal Appearance: Positive for: Well-Appearing, Non-Toxic, Comfortable Pain Distress: None Mental Status: Positive for: Alert and Oriented X 3 - Systems Exam Head: Present: Atraumatic, Normocephalic Pupils: Present: PERRL Extroacular Muscles: Present: EOMI Conjunctiva: Present: Normal Mouth: Present: Moist Mucous Membranes Neck: Present: Normal Range of Motion Respiratory/Chest: Present: Clear to Auscultation, Good Air Exchange. No: Respiratory Distress, Accessory Muscle Use Cardiovascular: Present: Regular Rate and Rhythm, Normal S1, S2. No: Murmurs Abdomen: Present: Tenderness (LUQ tenderness). No: Distention, Peritoneal Signs Back: Present: Normal Inspection Upper Extremity: Present: Normal Inspection. No: Cyanosis, Edema Lower Extremity: Present: Normal Inspection. No: Edema Neurological: Present: GCS=15, CN II-XII Intact, Speech Normal Skin: Present: Warm, Dry, Normal Color. No: Rashes Psychiatric: Present: Alert, Oriented x 3, Normal Insight, Normal Concentration Medical Decision Making ED Course and Treatment: 09/15/18 00:16 Impression: 43 year old male complaining of LUQ pain, nausea, and vomiting. Plan: -- EKG -- Labs, amylase, lipase, cardiac enzymes, blood cultures -- UA -- IV fluids -- Zofran -- Morphine -- Reassess and disposition Prior Visits: Notes and results from previous visits were reviewed. Progress Notes: Reviewed EKG, NSR at [address]-segment elevations or depressions, no T-wave inversions, normal intervals. CT Abdomen and Pelvis: The visualized lung bases are unremarkable. Normal unenhanced liver. Surgically absent gallbladder and extrahepatic biliary system. Normal unenhanced spleen. Normal pancreas. Normal bilateral adrenal glands. Normal size of the right kidney. There is no right renal mass. There are no right renal calculi. There is no right hydronephrosis. Normal visualized right ureter. Normal size of the left kidney. There is no left renal mass. There are no left renal calculi. There is no left hydronephrosis. Normal visualized left ureter. Fluid-filled stomach. Fluid-filled small intestine. Uncomplicated diverticulosis of the colon. The appendix is visualized and appears normal. There is no demonstrated peritoneal fluid. Normal abdominal aorta. Normal inferior vena cava. Normal retroperitoneum. Normal urinary bladder. There is no pelvic mass lesion or lymphadenopathy. There is no pelvic fluid. Normal abdominal wall. Normal osseous structures. IMPRESSION: Mild ileus and/or developing enteritis. Unremarkable CT evaluation of the pancreas. Electronically signed on Sep 15, 2018 3:39:10 AM EST by: Ignacio Ventura M.D., Certified by ABR, MSK, Neuroradiology 09/15/18 01:[address] Mendez, who is aware and agrees with plan. Accepts pt in to hospitalist service. Pt admitted to [facility] observation for pancreatitis. resident services director notified. - Lab Interpretations I have reviewed the lab results: No - RAD Interpretation Funeral Director/Embalmer: ED Physician, Radiologist - EKG Interpretation Interpreted by ED Physician: Yes Type: 12 lead EKG - Scribe Statement The provider has reviewed the documentation as recorded by the Terrence Irvin Provider Scribe Attestation: All medical record entries made by the Scribjuan f were at my direction and personally dictated by me. I have reviewed the chart and agree that the record accurately reflects my personal performance of the history, physical exam, medical decision making, and the department course for this patient. I have also personally directed, reviewed, and agree with the discharge instructions and disposition. Disposition/Present on Arrival - Present on Arrival Any Indicators Present on Arrival: No History of DVT/PE: No History of Uncontrolled Diabetes: No Urinary Catheter: No History of Decub. Ulcer: No History Surgical Site Infection Following: None - Disposition Have Diagnosis and Disposition been Completed?: Yes Diagnosis: Pancreatitis Disposition: HOSPITALIZED Disposition Time: 02:00 Condition: FAIR
[2018-09-15 01:15] LABS: BASO # 0.02 K/mm3 (0.0-2.0); BASO % 0.2 % (0.0-3.0); EOS # 0.2 (0.0-0.7); EOS % 1.9 % (1.5-5.0); HEMOGLOBIN 15.7 g/dL (14.0-18.0); LYMPH # 2.8 (1.2-3.4); LYMPH % 31.4 % (22.0-35.0); MEAN CELL VOLUME 90.6 fl (80.0-105.0); MEAN CORPUSCULAR HEMOGLOBIN 30.7 pg (25.0-35.0); MEAN CORPUSCULAR HGB CONC 33.9 g/dl (31.0-37.0); MEAN PLATELET VOLUME 9.5 fl (7.0-11.0); MONO # 0.4 (0.1-0.6); MONO % 4.5 % (1.0-6.0); RBC 5.11 10^6/uL (3.5-6.1); RED CELL DISTRIBUTION WIDTH 13.4 % (11.5-14.5); WHITE BLOOD COUNT 8.9 10^3/uL (4.5-11.0)
[2018-09-15 01:20] LABS: INR 1.17; PARTIAL THROMBOPLASTIN TIME 34.8 Seconds (26.9-38.3)
[2018-09-15 01:26] LABS: ALB/GLOB RATIO 1.4 (1.1-1.8); AMYLASE 326 U/L (35-125); BLOOD UREA NITROGEN 8 mg/dL (7-21); CALCIUM 9.7 mg/dL (8.4-10.5); GFR NON-AFRICAN AMERICAN > 60
[2018-09-15 01:36] LABS: TROPONIN I < 0.01 ng/mL
[2018-09-15 01:37] LABS: ALT/SGPT 11 U/L (7-56); AST/SGOT 23 U/L (17-59); LIPASE 1863 U/L (23-300)
--- NOTE | 2018-09-15 02:08 | CP.PCM.HP ---
<Deyanira Quiroz - Last Filed: 09/15/18 02:45> History of Present Illness - History of Present Illness History of Present Illness: PGY1 Medicine History and Physical Exam Note for Dr. Mendez cc: LUQ pain, nausea, vomiting Cody Pedersen is a 43-year-old male, whose past medical history includes pancreatits s/p pancreatic stent placement 2014, spinal stenosis, asthma, and depression, who presents to the Emergency department complaining of abdominal pain, nausea, and vomiting x2 days. Patient states he has been experiencing LUQ abdominal pain that began on Wednesday. Patient denies provoking factors/alleviating factors. Patient reports that the pain is stabbing in quality and radiating towards the back. Patient quantifies the pain as 9/10 at its worst. Patient states that he with associated nausea and non-bilious/non-bloody vomiting x6 episodes total that began Wednesday. Patient admits to associated fever, chills, diarrhea (non-bloody). ROS is otherwise unre markable for headache, dizziness, chest pain, shortness of breath, and/or dysuria. PMH: Pancreatits s/p pancreatic stent placement 2015, spinal stenosis, asthma, and depression PSH: Cholecystectomy 2014 Social Hx: Smokes 2 cigss/day with 20 year smoking history, denies drinking, smokes marijuana Family Hx: DM, HLD, colon and pancreatic cancer in dad's family Medications: Zoloft 75mg PO BID; Risperidone 1.5mg PO BID Allergies: Ketorolac --> urticaria Pharmacy: [facility] PMD: Patient denies Present on Admission - Present on Admission Any Indicators Present on Admission: No History of DVT/PE: No History of Uncontrolled Diabetes: No Urinary Catheter: No Decubitus Ulcer Present: No Review of Systems - Review of Systems All systems: reviewed and no additional remarkable complaints except (as mentioned in HPI) Past Patient History - Infectious Disease Hx of Infectious Diseases: None - Tetanus Immunizations Tetanus Immunization: Unknown - Past Medical History & Family History Past Medical History?: Yes - Past Social History Smoking Status: Light Smoker < 10 Cigarettes Daily - CARDIAC Hx Congestive Heart Failure: No Hx Hypertension: No Hx Pacemaker: No - PULMONARY Hx Asthma: Yes Hx Chronic Obstructive Pulmonary Disease (COPD): No Hx Pneumonia: Yes - NEUROLOGICAL Hx Seizures: No - HEENT Hx HEENT Problems: No - RENAL Hx Chronic Kidney Disease: No - ENDOCRINE/METABOLIC Hx Hypothyroidism: No - HEMATOLOGICAL/ONCOLOGICAL Hx Blood Disorders: No - INTEGUMENTARY Hx Dermatological Problems: No - MUSCULOSKELETAL/RHEUMATOLOGICAL Hx Arthritis: Yes Hx Fractures: No Hx Rheumatoid Arthritis: Yes - GASTROINTESTINAL Hx Gall Bladder Disease: Yes (removed GB 2004) Hx Pancreatitis: Yes - GENITOURINARY/GYNECOLOGICAL Hx Sexually Transmitted Disorders: No - PSYCHIATRIC Hx Anxiety: Yes Hx Depression: Yes Hx Substance Use: Yes - SURGICAL HISTORY Hx Cholecystectomy: Yes (2004) - ANESTHESIA Hx Anesthesia: Yes Hx Anesthesia Reactions: No Hx Malignant Hyperthermia: No Meds Allergies/Adverse Reactions: Allergies Allergy/AdvReac Type Severity Reaction Status Date / Time ketorolac Allergy URTICARIA Verified 05/21/18 23:21 Physical Exam - Constitutional Appears: Non-toxic, No Acute Distress - Head Exam Head Exam: ATRAUMATIC, NORMAL INSPECTION, NORMOCEPHALIC - Eye Exam Eye Exam: EOMI, Normal appearance, PERRL Pupil Exam: NORMAL ACCOMODATION - ENT Exam ENT Exam: Mucous Membranes Dry - Neck Exam Neck exam: Positive for: Normal Inspection - Respiratory Exam Respiratory Exam: Clear to Auscultation Bilateral, NORMAL BREATHING PATTERN. absent: Chest Wall Tenderness, Decreased Breath Sounds, Prolonged Expiratory Phase, Rales, Rhonchi, Wheezes, Respiratory Distress, Stridor - Cardiovascular Exam Cardiovascular Exam: REGULAR RHYTHM, +S1, +S2. absent: Tachycardia, Diastolic murmur, Gallop, Rubs, Systolic Murmur - GI/Abdominal Exam GI & Abdominal Exam: Normal Bowel Sounds, Soft, Tenderness (LUQ ). absent: Distended, Firm, Guarding, Rebound, Rigid - Extremities Exam Extremities exam: Positive for: full ROM, normal inspection. Negative for: calf tenderness, pedal edema, tenderness - Back Exam Back exam: NORMAL INSPECTION, paraspinal tenderness - Neurological Exam Neurological exam: Alert, CN II-XII Intact, Oriented x3 - Psychiatric Exam Psychiatric exam: Normal Affect, Normal Mood Results - Vital Signs Recent Vital Signs: Last Vital Signs Temp 98.5 F 09/15/18 00:02 Pulse 92 H 09/15/18 00:02 Resp 18 09/15/18 00:02 BP 126/85 09/15/18 00:02 Pulse Ox 97 09/15/18 00:02 - Labs Result Diagrams: 09/15/18 00:53 09/15/18 00:53 Labs: Laboratory Results - last 24 hr 09/15/18 09/15/18 09/15/18 00:53 00:53 00:53 WBC 8.9 RBC 5.11 Hgb 15.7 Hct 46.3 MCV 90.6 MCH 30.7 MCHC 33.9 RDW 13.4 Plt Count 246 MPV 9.5 Neut % (Auto) 62.0 Lymph % (Auto) 31.4 [place] % (Auto) 4.5 Eos % (Auto) 1.9 Baso % (Auto) 0.2 Lymph # (Auto) 2.8 [place] # (Auto) 0.4 Eos # (Auto) 0.2 Baso # (Auto) 0.02 Absolute Neuts (auto) 5.54 PT 13.0 H INR 1.17 APTT 34.8 Sodium 138 Potassium 3.7 Chloride 105 Carbon Dioxide 24 Anion Gap 13 BUN 8 Creatinine 0.9 Est GFR ( Amer) > 60 Est GFR (Non-Af Amer) > 60 Random Glucose 111 H Calcium 9.7 Total Bilirubin 0.6 AST 23 ALT 11 Alkaline Phosphatase 66 Lactate Dehydrogenase 440 Total Creatine Kinase 99 Troponin I < 0.01 Total Protein 7.0 Albumin 4.0 Globulin 2.9 Albumin/Globulin Ratio 1.4 Amylase 326 H Lipase 1863 H Assessment & Plan - Assessment and Plan (Free Text) Assessment: Cody Pedersen is a 43-year-old male, whose past medical history includes pancreatits s/p pancreatic stent placement 2014, spinal stenosis, asthma, and depression, who presents to the Emergency department complaining of abdominal pain, nausea, and vomiting x2 days. Abdominal pain, nausea, vomiting likely secondary to acute on chronic pancreatitis - Lipase 1863 - Amylase 326 - BISAP score of 0 on admission, corresponding to <1% risk of mortality - Reviewed EKG, NSR at [address]-segment elevations or depressions, no T- wave inversions, normal intervals - F/U lipid panel - F/U CT abd/pelvis without contrast - F/U UDS - F/U urinalysis - F/U blood culture - F/U Stool culture - Keep NPO - IVF LR at 200cc/hr - Morphine 2mg Q4 prn for pain. Hold if HR<60 or systolic BP <100 - Zofran 4mg Q6 prn Diarrhea - F/U blood culture - F/U Stool culture - Keep NPO - IVF LR at 200cc/hr History of Asthma - Duonebs Q4H PRN History of Depression - Hold home zoloft and risperidone PPX with heparin SC Q12 and Protonix 40mg PO Daily Discussed with Dr. Andrea Quiroz PGY1 <Nubia Mendez - Last Filed: 09/15/18 06:19> Results - Vital Signs Recent Vital Signs: Last Vital Signs Temp 98.5 F 09/15/18 00:02 Pulse 92 H 09/15/18 00:02 Resp 18 09/15/18 05:18 BP 126/85 09/15/18 00:02 Pulse Ox 97 09/15/18 00:02 - Labs Result Diagrams: 09/15/18 00:53 09/15/18 00:53 Labs: Laboratory Results - last 24 hr 09/15/18 09/15/18 09/15/18 00:53 00:53 00:53 WBC 8.9 RBC 5.11 Hgb 15.7 Hct 46.3 MCV 90.6 MCH 30.7 MCHC 33.9 RDW 13.4 Plt Count 246 MPV 9.5 Neut % (Auto) 62.0 Lymph % (Auto) 31.4 [place] % (Auto) 4.5 Eos % (Auto) 1.9 Baso % (Auto) 0.2 Lymph # (Auto) 2.8 [place] # (Auto) 0.4 Eos # (Auto) 0.2 Baso # (Auto) 0.02 Absolute Neuts (auto) 5.54 PT 13.0 H INR 1.17 APTT 34.8 Sodium 138 Potassium 3.7 Chloride 105 Carbon Dioxide 24 Anion Gap 13 BUN 8 Creatinine 0.9 Est GFR ( Amer) > 60 Est GFR (Non-Af Amer) > 60 Random Glucose 111 H Calcium 9.7 Total Bilirubin 0.6 AST 23 ALT 11 Alkaline Phosphatase 66 Lactate Dehydrogenase 440 Total Creatine Kinase 99 Troponin I < 0.01 Total Protein 7.0 Albumin 4.0 Globulin 2.9 Albumin/Globulin Ratio 1.4 Amylase 326 H Lipase 1863 H Attending/Attestation - Attestation I have personally seen and examined this patient.: Yes I have fully participated in the care of the patient.: Yes I have reviewed all pertinent clinical information: Yes Notes (Text): 09/15/18 06:16 Patient was seen when he was in the ER. Medical record was reviewed. Agree with history, physical examination, assessment and plan with some addition and exclusions. Gives history of spinal stenosis, GERD, 30 lb weight loss in 3 months, arthritis, pancreatic stent placement, family history of stomach and colon cancer.
[2018-09-15] MEDS ORDERED: Albuterol-Ipratrop 3 mg / 0.5 (3 ml) UD IH PRN (02:41)
[2018-09-15] MEDS ORDERED: Morphine 2 mg/ml ISec IVP PRN (02:45)
[2018-09-15] MEDS: Lactated Ringer's 1,000 ML IV SCH ×3 (03:24→20:00)
[2018-09-15] MEDS ORDERED: Pneumococcal 23-Valent Vaccine IM ONE (05:17)
[2018-09-15] MEDS ORDERED: Pantoprazole 40 mg EC Tab PO SCH (06:00)
--- NOTE | 2018-09-15 08:25 | CT ---
Date of service: 09/15/2018 PROCEDURE: CT Abdomen and Pelvis without intravenous contrast HISTORY: abdominal pain/pancreatitis COMPARISON: Abdomen pelvis CT without contrast 05/22/2018. TECHNIQUE: Helical CT of the abdomen and pelvis was performed without oral or intravenous contrast as per referring physician request. Coronal and sagittal reformats were generated.. Contrast dose: None Radiation dose: Total exam DLP = 501.64 mGy-cm. This CT exam was performed using one or more of the following dose reduction techniques: Automated exposure control, adjustment of the mA and/or kV according to patient size, and/or use of iterative reconstruction technique. FINDINGS: LOWER THORAX: Unremarkable. LIVER: Unremarkable. No gross lesion or ductal dilatation. GALLBLADDER AND BILE DUCTS: Prior cholecystectomy reiterated. PANCREAS: No peripancreatic reaction or fluid collection appreciated. No gross lesion or ductal dilatation. SPLEEN: Unremarkable. ADRENALS: Unremarkable. No mass. KIDNEYS AND URETERS: Potential punctate intrarenal calculus midpole right kidney with none identified calcified at the left. No hydronephrosis. No definitive solid mass in this unenhanced. VASCULATURE: Unremarkable. No aortic aneurysm. No aortic atherosclerotic calcification or CT mural plaque present. BOWEL: Unremarkable. No obstruction. No gross mural thickening. APPENDIX: Unremarkable. Normal appendix. PERITONEUM: Unremarkable. No free fluid. No free air. LYMPH NODES: Unremarkable. No enlarged lymph nodes. BLADDER: Unremarkable. REPRODUCTIVE: Unremarkable. BONES: No acute fracture. OTHER FINDINGS: None. IMPRESSION: 1. No CT evidence to suggest pancreatitis in this noncontrast CT examination. Contrast CT is available for added characterization of the pancreas as clinically warranted. 2. Prior cholecystectomy reiterated. 3. Punctate intrarenal nonobstructing calculus midpole right kidney with none identified at the left. Stable CT examination compared 05/22/2018.
--- NOTE | 2018-09-15 10:50 | CARD ---
APPROVED REPORT Date of service: 09/15/2018 EKG Measurement Heart [id number] <Conclusion> Normal sinus rhythm Normal ECG
--- NOTE | 2018-09-15 15:22 | CON ---
DATE: 09/15/2018 HISTORY OF PRESENT ILLNESS: I examined Mr. Pedersen this morning. He is a 43-year-old white male, with past medical history of pancreatitis with pancreatic stent, spinal stenosis, and asthma, presented with nausea, vomiting, and severe abdominal pain, increased in intensity two days prior to admission. He denies hematemesis or rectal bleeding. He rated the pain at the bedside this morning is roughly 9/10. PHYSICAL EXAMINATION: VITAL SIGNS: I reviewed this patient's vital signs. HEENT: Significant for dry mouth. LUNGS: Clear to auscultation. HEART: Regular rhythm. ABDOMEN: Soft, mildly distended, regular bowel sounds, distended in the left upper quadrant. LABORATORY DATA: Reviewed this patient's laboratory data. White count 8.9, H and H of 15 and 46. Chemistry noncontributory except for amylase of 326 with a lipase of 1863. Note that triglycerides and cholesterol are pending for this morning. The CT is currently uninterpreted at [facility]; however review of CT images reveal thick wall stomach, irregularity in the pancreatic contour, significant amount of stool in the proximal colon. Some fluid filled bowels. ASSESSMENT: This is a 43-year-old white male with history of pancreatitis admitted with signs and symptoms of the same. An the interpretation of CT is pending this morning. PLAN: At the current time point, continue with the patient's medications which include Ringer's lactate at 200, analgesics, pantoprazole and Zofran. Todd Rawls DO, PhD JENN
[2018-09-15 15:36] LABS: PH,URINE 6.5 (4.7-8.0); URINE BILIRUBIN NEGATIVE (NEGATIVE); URINE BLOOD NEGATIVE (NEGATIVE); URINE GLUCOSE (UA) NEGATIVE (NEGATIVE); URINE LEUKOCYTE ESTERASE NEGATIVE Leu/uL (NEGATIVE); URINE PROTEIN NEGATIVE mg/dL (<30 mg/dL); URINE UROBILINOGEN 0.2 E.U./dL (<1 E.U./dL)
[2018-09-15 15:37] LABS: URINE APPEARANCE CLEAR (CLEAR); URINE COLOR DARK YELLOW (YELLOW)
[2018-09-15] MEDS: Morphine 2 mg/ml ISec IVP PRN ×2 (17:25→22:34)
[2018-09-16 00:29] LABS: BARBITURATES, UR NEGATIVE (NEGATIVE); BENZODIAZEPINES, UR NEGATIVE (NEGATIVE); OPIATES, UR POSITIVE (NEGATIVE); PHENCYCLIDINE, UR NEGATIVE (NEGATIVE)
[2018-09-16] MEDS: Lactated Ringer's 1,000 ML IV SCH ×2 (00:45→05:48)
[2018-09-16] MEDS: Morphine 2 mg/ml ISec IVP PRN ×2 (04:23→10:41)
[2018-09-16 07:04] LABS: BASO # 0.02 K/mm3 (0.0-2.0); BASO % 0.3 % (0.0-3.0); EOS # 0.3 (0.0-0.7); EOS % 3.7 % (1.5-5.0); HEMOGLOBIN 14.2 g/dL (14.0-18.0); LYMPH # 2.7 (1.2-3.4); LYMPH % 38.4 % (22.0-35.0); MEAN CELL VOLUME 91.3 fl (80.0-105.0); MEAN CORPUSCULAR HEMOGLOBIN 30.1 pg (25.0-35.0); MEAN CORPUSCULAR HGB CONC 32.9 g/dl (31.0-37.0); MEAN PLATELET VOLUME 9.7 fl (7.0-11.0); MONO # 0.5 (0.1-0.6); MONO % 6.7 % (1.0-6.0); RBC 4.72 10^6/uL (3.5-6.1); RED CELL DISTRIBUTION WIDTH 13.6 % (11.5-14.5)
[2018-09-16 07:31] LABS: LDL CHOLESTEROL 85 mg/dL (0-129)
[2018-09-16 07:52] LABS: ALB/GLOB RATIO 1.2 (1.1-1.8); ALBUMIN 3.2 g/dL (3.0-4.8); ALT/SGPT 49 U/L (7-56); AST/SGOT 75 U/L (17-59); BLOOD UREA NITROGEN 7 mg/dL (7-21); CALCIUM 8.7 mg/dL (8.4-10.5); GFR NON-AFRICAN AMERICAN > 60; HDL CHOLESTEROL 26 mg/dL (29-60)
--- NOTE | 2018-09-16 08:19 | CP.PCM.PN ---
Subjective - Date & Time of Evaluation Date of Evaluation: 09/16/18 Time of Evaluation: 08:19 Objective - Vital Signs/Intake and Output Vital Signs (last 24 hours): Temp Pulse Resp BP Pulse Ox 97.9 F 55 L 18 113/71 99 09/15/18 14:12 09/15/18 22:32 09/15/18 14:12 09/15/18 22:32 09/15/18 14:12 Intake and Output: 09/16/18 09/16/18 06:59 18:59 Intake Total 4800 Output Total 400 Balance 4400 - Medications Medications: Current Medications Albuterol/Ipratropium (Duoneb 3 Mg/0.5 Mg (3 Ml) Ud) 3 ml IH Q2H PRN PRN Reason: Shortness of Breath Heparin Sodium (Porcine) (Heparin) 5,000 units SC Q12 [facility]; Protocol Last Admin: 09/15/18 21:20 Dose: 5,000 units Lactated Ringer's (Lactated Ringer's) 1,000 mls @ 200 mls/hr IV .Q5H [facility] Last Admin: 09/16/18 05:48 Dose: 200 mls/hr Morphine Sulfate (Morphine) 1 mg IVP Q4 PRN PRN Reason: Pain, severe (8-10) Last Admin: 09/16/18 04:23 Dose: 1 mg Ondansetron HCl (Zofran Inj) 4 mg IVP Q6H PRN PRN Reason: Nausea/Vomiting Pantoprazole Sodium (Protonix Ec Tab) 40 mg PO 0600 [facility] Last Admin: 09/16/18 05:49 Dose: 40 mg - Labs Labs: 09/16/18 06:30 09/16/18 06:30 PT 13.0 SECONDS (9.4-12.5) H 09/15/18 00:53 INR 1.17 09/15/18 00:53 APTT 35.4 Seconds (26.9-38.3) 09/16/18 06:30
[2018-09-16 08:23] VITALS: O2SAT 96
--- NOTE | 2018-09-16 10:28 | PN ---
DATE: 09/16/2018 SUBJECTIVE: I saw Mr. Pedersen this morning. He is a 43-year-old white male with complaints of severe abdominal pain secondary to pancreatitis. After I reviewed the CT yesterday by consult overall indicates "prior cholecystectomy", intrarenal nonobstructing calculus, but no gross evidence on CT to suggest pancreatitis. At bedside this morning, the patient indicates pain has decreased to roughly about 3-4/10 . No hematemesis or rectal bleeding. ASSESSMENT: The patient is a 43-year-old white male with pancreatitis. He has been improving on the current regimen, which consists of hydration 200 an hour. He is currently on a p.o. diet, probably he should try very small volumes of clears later on this morning. Laboratory results are within normal limits. labs are pending for today. Again, we suggest may be he try very small volumes of clears later on this morning. Todd Rawls DO, PhD [email or web address]
--- NOTE | 2018-09-16 14:15 | CP.PCM.DIS ---
<Cristopher Kohler - Last Filed: 09/16/18 17:16> Provider - Provider Date of Admission: 09/15/18 01:38 Attending physician: Nelly Mccarthy MD Consults: 09/15/18 02:38 Physician Consult Routine Comment: Consulting Provider: Todd Rawls Consulting Physician: Todd Rawls Reason for Consult: Pancreatitis 09/15/18 05:17 Inpatient [employer] Referral Routine Comment: Physician Instructions: Reason For Exam: history of pnemonia Transition In Care/Readmission Reduction Routine Comment: Physician Instructions: Reason For Exam: history of pnemonia Time Spent in preparation of Discharge (in minutes): 45 Diagnosis - Discharge Diagnosis (1) Pancreatitis Status: Resolved Priority: High (2) Abdominal discomfort Status: Resolved (3) Chronic pancreatitis Status: Chronic (4) Polysubstance abuse Status: Chronic Hospital Course - Lab Results Lab Results: Micro Results 09/15/18 01:23 Blood-Venous Blood Culture - Preliminary NO GROWTH AFTER 24 HOURS 09/15/18 00:53 Blood-Venous Blood Culture - Preliminary NO GROWTH AFTER 24 HOURS Most Recent Lab Values WBC 7.0 10^3/uL (4.5-11.0) D 09/16/18 06:30 RBC 4.72 10^6/uL (3.5-6.1) 09/16/18 06:30 Hgb 14.2 g/dL (14.0-18.0) 09/16/18 06:30 Hct 43.1 % (42.0-52.0) 09/16/18 06:30 MCV 91.3 fl (80.0-105.0) 09/16/18 06:30 MCH 30.1 pg (25.0-35.0) 09/16/18 06:30 MCHC 32.9 g/dl (31.0-37.0) 09/16/18 06:30 RDW 13.6 % (11.5-14.5) 09/16/18 06:30 Plt Count 227 10^3/uL (120.0-450.0) 09/16/18 06:30 MPV 9.7 fl (7.0-11.0) 09/16/18 06:30 Neut % (Auto) 50.9 % (50.0-68.0) 09/16/18 06:30 Lymph % (Auto) 38.4 % (22.0-35.0) H 09/16/18 06:30 Bent % (Auto) 6.7 % (1.0-6.0) H 09/16/18 06:30 Eos % (Auto) 3.7 % (1.5-5.0) 09/16/18 06:30 Baso % (Auto) 0.3 % (0.0-3.0) 09/16/18 06:30 Lymph # (Auto) 2.7 (1.2-3.4) 09/16/18 06:30 Bent # (Auto) 0.5 (0.1-0.6) 09/16/18 06:30 Eos # (Auto) 0.3 (0.0-0.7) 09/16/18 06:30 Baso # (Auto) 0.02 K/mm3 (0.0-2.0) 09/16/18 06:30 Absolute Neuts (auto) 3.56 (1.4-6.5) 09/16/18 06:30 PT 13.0 SECONDS (9.4-12.5) H 09/15/18 00:53 INR 1.17 09/15/18 00:53 APTT 35.4 Seconds (26.9-38.3) 09/16/18 06:30 Sodium 140 mmol/L (132-148) 09/16/18 06:30 Potassium 4.0 mmol/L (3.6-5.0) 09/16/18 06:30 Chloride 110 mmol/L (98-107) H 09/16/18 06:30 Carbon Dioxide 25 mmol/L (21-33) 09/16/18 06:30 Anion Gap 9 (10-20) L 09/16/18 06:30 BUN 7 mg/dL (7-21) 09/16/18 06:30 Creatinine 0.9 mg/dl (0.8-1.5) 09/16/18 06:30 Est GFR ( Amer) > 60 09/16/18 06:30 Est GFR (Non-Af Amer) > 60 09/16/18 06:30 Random Glucose 71 mg/dL (70-110) 09/16/18 06:30 Calcium 8.7 mg/dL (8.4-10.5) 09/16/18 06:30 Total Bilirubin 1.1 mg/dL (0.2-1.3) 09/16/18 06:30 AST 75 U/L (17-59) H D 09/16/18 06:30 ALT 49 U/L (7-56) 09/16/18 06:30 Alkaline Phosphatase 77 U/L (38-126) 09/16/18 06:30 Lactate Dehydrogenase 440 U/L (333-699) 09/15/18 00:53 Total Creatine Kinase 99 U/L (35-230) 09/15/18 00:53 Troponin I < 0.01 ng/mL 09/15/18 00:53 Total Protein 5.8 g/dL (5.8-8.3) 09/16/18 06:30 Albumin 3.2 g/dL (3.0-4.8) 09/16/18 06:30 Globulin 2.6 gm/dL 09/16/18 06:30 Albumin/Globulin Ratio 1.2 (1.1-1.8) 09/16/18 06:30 Triglycerides 96 mg/dL (35-160) 09/16/18 06:30 Cholesterol 123 mg/dL (130-200) L 09/16/18 06:30 LDL Cholesterol Direct 85 mg/dL (0-129) 09/16/18 06:30 HDL Cholesterol 26 mg/dL (29-60) L 09/16/18 06:30 Amylase 326 U/L (35-125) H 09/15/18 00:53 Lipase 1863 U/L (23-300) H 09/15/18 00:53 Urine Color Dark yellow (YELLOW) 09/15/18 15:15 Urine Appearance Clear (CLEAR) 09/15/18 15:15 Urine pH 6.5 (4.7-8.0) 09/15/18 15:15 Ur Specific [place] 1.010 (1.005-1.035) 09/15/18 15:15 Urine Protein Negative mg/dL (<30 mg/dL) 09/15/18 15:15 Urine Glucose (UA) Negative mg/dL (NEGATIVE) 09/15/18 15:15 Urine Ketones Trace mg/dL (NEGATIVE) H 09/15/18 15:15 Urine Blood Negative (NEGATIVE) 09/15/18 15:15 Urine Nitrate Negative (NEGATIVE) 09/15/18 15:15 Urine Bilirubin Negative (NEGATIVE) 09/15/18 15:15 Urine Urobilinogen 0.2 E.U./dL (<1 E.U./dL) 09/15/18 15:15 Ur Leukocyte Esterase Negative Olivia/uL (NEGATIVE) 09/15/18 15:15 Urine Opiates Screen Positive (NEGATIVE) H 09/15/18 23:45 Urine Methadone Screen Negative (NEGATIVE) 09/15/18 23:45 Ur Barbiturates Screen Negative (NEGATIVE) 09/15/18 23:45 Ur Phencyclidine Scrn Negative (NEGATIVE) 09/15/18 23:45 Ur Amphetamines Screen Negative (NEGATIVE) 09/15/18 23:45 U Benzodiazepines Scrn Negative (NEGATIVE) 09/15/18 23:45 U Oth Cocaine Metabols Positive (NEGATIVE) H 09/15/18 23:45 U Cannabinoids Screen Positive (NEGATIVE) H 09/15/18 23:45 Alcohol, Quantitative < 10 mg/dL (0-10) 09/15/18 07:30 - Hospital Course Hospital Course: Cody Pedersen is a 43-year-old male, whose past medical history includes pancreatitis s/p pancreatic stent placement 2014, spinal stenosis, asthma, and depression, who presents to the Emergency department complaining of abdominal pain, nausea, and vomiting x2 days. Patient states he has been experiencing LUQ abdominal pain that began on Wednesday. CT abdomen and pelvis showed no evidence of pancreatitis. GI, Dr. Rawls consulted and recommended patient to be treated with Lactated ringers, analgesics, pantoprazole, and zofran. Patient's diet was also advanced as tolerated and he denies having any nausea or vomiting. Patient was instructed to stop drinking alcohol, taking coccaine, and smoking. He was also instructed to follow up with his PMD in 1 week. Patient is medically optimized for discharge. Discharge Exam - Additional Findings Additional findings: - Constitutional Appears: Non-toxic, No Acute Distress - Head Exam Head Exam: ATRAUMATIC, NORMAL INSPECTION, NORMOCEPHALIC - Eye Exam Eye Exam: EOMI, Normal appearance, PERRL Pupil Exam: NORMAL ACCOMODATION - ENT Exam ENT Exam: Mucous Membranes Dry - Neck Exam Neck exam: Positive for: Normal Inspection - Respiratory Exam Respiratory Exam: Clear to Auscultation Bilateral, NORMAL BREATHING PATTERN. absent: Chest Wall Tenderness, Decreased Breath Sounds, Prolonged Expiratory Phase, Rales, Rhonchi, Wheezes, Respiratory Distress, Stridor - Cardiovascular Exam Cardiovascular Exam: REGULAR RHYTHM, +S1, +S2. absent: Tachycardia, Diastolic murmur, Gallop, Rubs, Systolic Murmur - GI/Abdominal Exam GI & Abdominal Exam: Normal Bowel Sounds, Soft, Tenderness (LUQ ). absent: Distended, Firm, Guarding, Rebound, Rigid - Extremities Exam Extremities exam: Positive for: full ROM, normal inspection. Negative for: calf tenderness, pedal edema, tenderness - Neurological Exam Neurological exam: Alert, CN II-XII Intact, Oriented x3 - Psychiatric Exam Psychiatric exam: Normal Affect, Normal Mood Discharge Plan - Follow Up Plan Condition: FAIR Disposition: HOME/ ROUTINE Instructions: Flu Vaccine, Pancreatitis (DC) Additional Instructions: 1. Resume home medications as prescribed by your doctor. You may take Motrin 400mg for pain as needed, please follow dose instructions. 2. Avoid drinking alcohol, taking drugs, and smoking as discussed before. 3. Follow up at [facility] in 1 week. 4. Return to the emergency room for worsening or newly concerning symptoms. Referrals: Alian Davis MD [Medical Doctor] - <Nelly Mccarthy - Last Filed: 09/16/18 17:31> Provider - Provider Date of Admission: 09/15/18 01:38 Attending physician: Nelly Mccarthy MD Consults: 09/15/18 02:38 Physician Consult Routine Comment: Consulting Provider: Todd Rawls Consulting Physician: Todd Rawls Reason for Consult: Pancreatitis 09/15/18 05:17 Inpatient [employer] Me[employer] Referral Routine Comment: Physician Instructions: Reason For Exam: history of pnemonia Transition In Care/Readmission Reduction Routine Comment: Physician Instructions: Reason For Exam: history of pnemonia Hospital Course - Lab Results Lab Results: Micro Results 09/15/18 01:23 Blood-Venous Blood Culture - Preliminary NO GROWTH AFTER 24 HOURS 09/15/18 00:53 Blood-Venous Blood Culture - Preliminary NO GROWTH AFTER 24 HOURS Most Recent Lab Values WBC 7.0 10^3/uL (4.5-11.0) D 09/16/18 06:30 RBC 4.72 10^6/uL (3.5-6.1) 09/16/18 06:30 Hgb 14.2 g/dL (14.0-18.0) 09/16/18 06:30 Hct 43.1 % (42.0-52.0) 09/16/18 06:30 MCV 91.3 fl (80.0-105.0) 09/16/18 06:30 MCH 30.1 pg (25.0-35.0) 09/16/18 06:30 MCHC 32.9 g/dl (31.0-37.0) 09/16/18 06:30 RDW 13.6 % (11.5-14.5) 09/16/18 06:30 Plt Count 227 10^3/uL (120.0-450.0) 09/16/18 06:30 MPV 9.7 fl (7.0-11.0) 09/16/18 06:30 Neut % (Auto) 50.9 % (50.0-68.0) 09/16/18 06:30 Lymph % (Auto) 38.4 % (22.0-35.0) H 09/16/18 06:30 Bent % (Auto) 6.7 % (1.0-6.0) H 09/16/18 06:30 Eos % (Auto) 3.7 % (1.5-5.0) 09/16/18 06:30 Baso % (Auto) 0.3 % (0.0-3.0) 09/16/18 06:30 Lymph # (Auto) 2.7 (1.2-3.4) 09/16/18 06:30 Bent # (Auto) 0.5 (0.1-0.6) 09/16/18 06:30 Eos # (Auto) 0.3 (0.0-0.7) 09/16/18 06:30 Baso # (Auto) 0.02 K/mm3 (0.0-2.0) 09/16/18 06:30 Absolute Neuts (auto) 3.56 (1.4-6.5) 09/16/18 06:30 PT 13.0 SECONDS (9.4-12.5) H 09/15/18 00:53 INR 1.17 09/15/18 00:53 APTT 35.4 Seconds (26.9-38.3) 09/16/18 06:30 Sodium 140 mmol/L (132-148) 09/16/18 06:30 Potassium 4.0 mmol/L (3.6-5.0) 09/16/18 06:30 Chloride 110 mmol/L (98-107) H 09/16/18 06:30 Carbon Dioxide 25 mmol/L (21-33) 09/16/18 06:30 Anion Gap 9 (10-20) L 09/16/18 06:30 BUN 7 mg/dL (7-21) 09/16/18 06:30 Creatinine 0.9 mg/dl (0.8-1.5) 09/16/18 06:30 Est GFR ( Amer) > 60 09/16/18 06:30 Est GFR (Non-Af Amer) > 60 09/16/18 06:30 Random Glucose 71 mg/dL (70-110) 09/16/18 06:30 Calcium 8.7 mg/dL (8.4-10.5) 09/16/18 06:30 Total Bilirubin 1.1 mg/dL (0.2-1.3) 09/16/18 06:30 AST 75 U/L (17-59) H D 09/16/18 06:30 ALT 49 U/L (7-56) 09/16/18 06:30 Alkaline Phosphatase 77 U/L (38-126) 09/16/18 06:30 Lactate Dehydrogenase 440 U/L (333-699) 09/15/18 00:53 Total Creatine Kinase 99 U/L (35-230) 09/15/18 00:53 Troponin I < 0.01 ng/mL 09/15/18 00:53 Total Protein 5.8 g/dL (5.8-8.3) 09/16/18 06:30 Albumin 3.2 g/dL (3.0-4.8) 09/16/18 06:30 Globulin 2.6 gm/dL 09/16/18 06:30 Albumin/Globulin Ratio 1.2 (1.1-1.8) 09/16/18 06:30 Triglycerides 96 mg/dL (35-160) 09/16/18 06:30 Cholesterol 123 mg/dL (130-200) L 09/16/18 06:30 LDL Cholesterol Direct 85 mg/dL (0-129) 09/16/18 06:30 HDL Cholesterol 26 mg/dL (29-60) L 09/16/18 06:30 Amylase 326 U/L (35-125) H 09/15/18 00:53 Lipase 1863 U/L (23-300) H 09/15/18 00:53 Urine Color Dark yellow (YELLOW) 09/15/18 15:15 Urine Appearance Clear (CLEAR) 09/15/18 15:15 Urine pH 6.5 (4.7-8.0) 09/15/18 15:15 Ur Specific [place] 1.010 (1.005-1.035) 09/15/18 15:15 Urine Protein Negative mg/dL (<30 mg/dL) 09/15/18 15:15 Urine Glucose (UA) Negative mg/dL (NEGATIVE) 09/15/18 15:15 Urine Ketones Trace mg/dL (NEGATIVE) H 09/15/18 15:15 Urine Blood Negative (NEGATIVE) 09/15/18 15:15 Urine Nitrate Negative (NEGATIVE) 09/15/18 15:15 Urine Bilirubin Negative (NEGATIVE) 09/15/18 15:15 Urine Urobilinogen 0.2 E.U./dL (<1 E.U./dL) 09/15/18 15:15 Ur Leukocyte Esterase Negative [place]/uL (NEGATIVE) 09/15/18 15:15 Urine Opiates Screen Positive (NEGATIVE) H 09/15/18 23:45 Urine Methadone Screen Negative (NEGATIVE) 09/15/18 23:45 Ur Barbiturates Screen Negative (NEGATIVE) 09/15/18 23:45 Ur Phencyclidine Scrn Negative (NEGATIVE) 09/15/18 23:45 Ur Amphetamines Screen Negative (NEGATIVE) 09/15/18 23:45 U Benzodiazepines Scrn Negative (NEGATIVE) 09/15/18 23:45 U Oth Cocaine Metabols Positive (NEGATIVE) H 09/15/18 23:45 U Cannabinoids Screen Positive (NEGATIVE) H 09/15/18 23:45 Alcohol, Quantitative < 10 mg/dL (0-10) 09/15/18 07:30 Attending/Attestation - Attestation I have personally seen and examined this patient.: Yes I have fully participated in the care of the patient.: Yes I have reviewed all pertinent clinical information, including history, physical exam and plan: Yes Notes (Text): 09/16/18 17:21 43 year old male with past medical history of pancreatitis and substance abuse who presented with complaint of abdominal pain with nausea and vomiting secondary to pancreatitis. He was started on iv fluids, analgesics and antiemetics. He was seen by GI. Symptoms improved and his diet was advanced today which he is tolerating. UTox was positive for cocaine and he was counselled on risks of continued substance abuse. Patient is discharged home to follow up with his pmd. Counselled on risks of continued substance abuse. Nelly Mccarthy MD Hospitalist.
[2018-09-16 15:20] VITALS: BP 116/77; PULSE 54; RESP 98; TEMP 98.2
== END 2018-09-16 18:23 | disposition home or self-care (01) | DRG 204 ==
LOC: ED 23:52 → ERH 09-15 01:38 → 5RNO 09-15 03:50
PROVIDERS: ADMIT Internal Medicine; ATTEND Internal Medicine
DX: K85.90 Acute pancreatitis without necrosis or infection, unspecified (principal); K86.1 Other chronic pancreatitis; M06.9 Rheumatoid arthritis, unspecified; F32.9 Major depressive disorder, single episode, unspecified; M48.00 Spinal stenosis, site unspecified; J45.909 Unspecified asthma, uncomplicated; F17.210 Nicotine dependence, cigarettes, uncomplicated; Z80.8 Family history of malignant neoplasm of other organs or systems; Z83.3 Family history of diabetes mellitus